=== PATIENT | male | born 1940 | race Caucasian/White ===

== ENCOUNTER 2018-10-16 10:10 | Inpatient (IN) | payer OTHER ==
--- NOTE | 2018-10-16 11:29 | RAD REPORT ---
EXAM DESCRIPTION: RAD - Chest Single View - 10/16/2018 11:24 am CLINICAL HISTORY: COUGH Chest pain. COMPARISON: Chest Pa And Lat (2 Views) dated 11/22/2017; Chest Pa And Lat (2 Views) dated 11/24/2016; CHEST PA AND LAT 2 VIEW dated 02/02/2013; CHEST PA AND LAT 2 VIEW dated 04/06/2011 FINDINGS: Portable technique limits examination quality. [place] pulmonary opacity is present in the left mid lung, probably representing a developing pneumoni a. The lungs are otherwise emphysematous. The heart is mildly enlarged in size. No displaced fracture s.
[2018-10-16] MEDS ORDERED: ALBUTEROL 2.5 MG/3 ML NEB SOL ONE (11:32)
[2018-10-16 11:40] LABS: Absolute Lymphocytes (CBC) 1.3 K/uL (0.7-4.9); Absolute Monocytes 1.4 K/uL (0.1-1.3); Absolute Neutrophil 9.1 K/uL (1.8-8.0); Basophils % 0.3 % (0-1.3); Eosinophils % 0.1 % (0-4.4); Hematocrit 43.9 % (39.6-49.0); MPV 9.4 fL (7.6-11.3); Monocytes % 11.6 % (3.3-12.3)
[2018-10-16] MEDS ORDERED: CEFTRIAXONE/SWI 1gm 1 GM/10 ML SYR ONE (12:08)
[2018-10-16 12:28] LABS: Albumin 3.2 g/dL (3.4-5.0); Bilirubin Direct 0.2 mg/dL (0-0.2); Magnesium 2.2 mg/dL (1.8-2.4); Potassium 4.4 mmol/L (3.5-5.1)
[2018-10-16 12:34] LABS: Troponin (Emerg Dept Use Only) 2.35 ng/mL (0.0-0.045)
[2018-10-16 12:44] LABS: Blood Morphology Comment NOT SEEN (NOT SEEN); Platelet Estimate ADEQ; Urine White Blood Cell Casts OK
--- NOTE | 2018-10-16 12:46 | EDPHYS ---
Physician Documentation [facility] Name: Ankit Powers Age: 77 yrs Sex: Male : 1940 Arrival Date: 10/16/2018 Time: 10:14 Bed 20 Private MD: Manuel Santiago ED Physician Gen Sanon HPI: 10/16 13:22 This 77 yrs old Male presents to ER via Ambulatory with complaints of Cough, gs Congestion. 13:22 The patient or guardian reports cough, described as moderate. Onset: The gs symptoms/episode began/occurred 2 day(s) ago, and became worse and became persistent. Severity of symptoms: At their worst the symptoms were severe, in the emergency department the symptoms have improved, mildly. Modifying factors: The symptoms are alleviated by nothing, the symptoms are aggravated by exertion. 13:35 Associated signs and symptoms: Pertinent positives: sob. The patient has experienced gs similar episodes in the past, a few times. The patient has not recently seen a physician. Historical: - Allergies: 10:29 No Known Allergies; ss - PSHx: 10:29 back Sx; hip replacement; ss - Immunization history:: Adult Immunizations up to date. - Social history:: Smoking status: Patient/guardian denies using tobacco, the patient reports quitting approximately .25 years ago. - Ebola Screening: : Patient denies exposure to infectious person Patient denies travel to an Ebola-affected area in the 21 days before illness onset. ROS: 13:35 All other systems are negative. gs Exam: 13:35 Head/Face: Normocephalic, atraumatic. Eyes: Pupils equal round and reactive to light, gs extra-ocular motions intact. Lids and lashes normal. Conjunctiva and sclera are non-icteric and not injected. Cornea within normal limits. Periorbital areas with no swelling, redness, or edema. ENT: Nares patent. No nasal discharge, no septal abnormalities noted. Tympanic membranes are normal and external auditory canals are clear. Oropharynx with no redness, swelling, or masses, exudates, or evidence of obstruction, uvula midline. Mucous membranes moist. Neck: Trachea midline, no thyromegaly or masses palpated, and no cervical lymphadenopathy. Supple, full range of motion without nuchal rigidity, or vertebral point tenderness. No Meningismus. Chest/axilla: Normal chest wall appearance and motion. Nontender with no deformity. No lesions are appreciated. 13:35 Abdomen/GI: Soft, non-tender, with normal bowel sounds. No distension or tympany. No guarding or rebound. No evidence of tenderness throughout. Back: No spinal tenderness. No costovertebral tenderness. Full range of motion. Skin: Warm, dry with normal turgor. Normal color with no rashes, no lesions, and no evidence of cellulitis. MS/ Extremity: Pulses equal, no cyanosis. Neurovascular intact. Full, normal range of motion. Neuro: Awake and alert, GCS 15, oriented to person, place, time, and situation. Cranial nerves II-XII grossly intact. Motor strength 5/5 in all extremities. Sensory grossly intact. Cerebellar exam normal. Normal gait. 13:35 Constitutional: The patient appears alert, awake, uncomfortable. 13:35 Cardiovascular: Rate: tachycardic, Rhythm: regular, Pulses: no pulse deficits are appreciated, Edema: 1+ edema to level of left foot and right foot. 13:35 ECG was reviewed by the Attending Physician. 13:35 Respiratory: Respirations: tachypnea, that is moderate, Breath sounds: rales, are located in both bases, decreased breath sounds, that are moderate, are heard in the left posterior lower lobe. Vital Signs: 10:29 BP 155 / 85; Pulse 110; Resp 23; Temp 99.5(TE); Pulse Ox 96% on R/A; Weight 97.52 kg; ss Pain 0/10; 10:54 BP 103 / 59; Pulse 111; Resp 22; Pulse Ox 100% on R/A; hj 13:26 BP 125 / 51; Pulse 118; Resp 24; Temp 98.1(TE); Pulse Ox 97% on R/A; hj 14:30 BP 124 / 58; Pulse 112; Resp 20; Pulse Ox 98% on R/A; hj 15:42 BP 103 / 59; Pulse 109; Resp 22; Pulse Ox 98% on R/A; hj MDM: 11:06 Patient medically screened. gs 13:35 Differential Diagnosis: Upper Respiratory Infection Pneumonia Other sepsis, mi. Data gs reviewed: vital signs, nurses notes, old medical records, lab test result(s), EKG, radiologic studies. Counseling: I had a detailed discussion with the patient and/or guardian regarding: the historical points, exam findings, and any diagnostic results supporting the discharge/admit diagnosis, the need for further work-up and treatment in the hospital. Physician consultation: Live Ruby MD and will see patient in inpatient room. 10/16 11:05 Order name: Basic Metabolic Panel 10/16 11:05 Order name: CBC with Diff 10/16 11:05 Order name: LFT's 10/16 11:05 Order name: Magnesium 10/16 11:05 Order name: NT PRO-BNP 10/16 11:05 Order name: PT-INR 10/16 11:05 Order name: Troponin (emerg Dept Use Only); Complete Time: 12:36 10/16 11:05 Order name: Flu; Complete Time: 11:53 10/16 11:05 Order name: Lactate; Complete Time: 12:59 10/16 11:05 Order name: Blood Culture* 10/16 11:05 Order name: Procalcitonin; Complete Time: 12:59 10/16 11:06 Order name: Basic Metabolic Panel; Complete Time: 12:36 EDMS 10/16 11:06 Order name: CBC with Automated Diff; Complete Time: 12:59 EDMS 10/16 11:06 Order name: Liver (Hepatic) Function; Complete Time: 12:36 EDMS 10/16 11:05 Order name: XRAY Chest (1 view); Complete Time: 11:42 10/16 11:06 Order name: Magnesium; Complete Time: 12:36 EDMS 10/16 11:06 Order name: NT PRO-BNP; Complete Time: 12:36 EDMS 10/16 12:29 Order name: ABG 10/16 12:44 Order name: CBC Smear Scan; Complete Time: 12:59 EDMS 10/16 13:24 Order name: Basic Metabolic Panel EDMS 10/16 13:24 Order name: Basic Metabolic Panel EDMS 10/16 13:24 Order name: CBC with Automated Diff EDMS 10/16 13:24 Order name: CBC with Automated Diff EDMS 10/16 13:24 Order name: NT PRO-BNP EDMS 10/16 13:24 Order name: NT PRO-BNP EDMS 10/16 13:24 Order name: Troponin I EDMS 10/16 13:24 Order name: Troponin I EDMS 10/16 13:24 Order name: Troponin I [facility] 10/16 15:32 Order name: Lactate Sepsis 2 HR Follow-up [facility] 10/16 11:05 Order name: EKG; Complete Time: 11:07 10/16 11:05 Order name: Cardiac monitoring; Complete Time: 11:17 10/16 11:05 Order name: EKG - Nurse/Tech; Complete Time: 11:17 10/16 11:05 Order name: IV Saline Lock; Complete Time: 11:51 10/16 11:05 Order name: Labs collected and sent; Complete Time: 11:51 10/16 11:05 Order name: O2 Per Protocol; Complete Time: 11:18 10/16 11:05 Order name: O2 Sat Monitoring; Complete Time: 11:18 10/16 11:46 Order name: Labs - recollect needed; Complete Time: 11:51 10/16 12:27 Order name: Labs - recollect needed; Complete Time: 13:02 10/16 13:24 Order name: Consistent Carb (ADA) 2000 [facility] EC:35 Rate is 108 beats/min. Rhythm is regular. VT interval is normal. QRS interval is gs prolonged. Clinical impression: NSR w/ Non-specific ST/T Changes. Interpreted by me. Administered Medications: 11:06 Drug: Albuterol 2.5 mg Route: Inhalation; hj 12:15 Follow up: Response: No adverse reaction hj 12:09 Drug: Rocephin 1 grams Route: IV; Rate: calculated rate; Site: left forearm; hj 12:15 Follow up: IV Status: Completed infusion; IV Intake: 10ml hj 12:38 Drug: Lasix 20 mg Route: IVP; Site: left forearm; hj 13:24 Follow up: Response: No adverse reaction hj 12:43 Drug: LevaQUIN 500 mg Volume: 100 ml; Route: IVPB; Infused Over: 60 mins; Site: left hj forearm; 13:23 Follow up: IV Status: Completed infusion; IV Intake: 100ml hj 13:02 Drug: NS 0.9% 1000 ml Route: IV; Rate: 1 bolus; Site: left forearm; hj 13:23 Follow up: IV Status: Infusion continued hj Disposition: 10/16/18 12:45 Hospitalization ordered by Manuel Santiago for Inpatient Admission. Preliminary diagnosis are Lobar pneumonia, unspecified organism, Severe sepsis, Heart failure, Chronic obstructive pulmonary disease with (acute) exacerbation. - Bed requested for Telemetry/MedSurg (Inpatient). - Status is Inpatient Admission. hj - Condition is Stable. - Problem is new. - Symptoms have improved. UTI on Admission? No Critical care time excluding procedures: 13:35 Critical care time: Bedside Care: 10 minutes, Consultation: 10 minutes, Family gs Intervention: 10 minutes. Total time: 30 minutes Signatures: Dispatcher [employer] EDMS Lelia Mcpherson Shelby, RN RN Darrion Chopra RN JANAK Malgorzata Miramontes RN RN df Starr, Gregory, MD MD gs Corrections: (The following items were deleted from the chart) 14:09 12:45 Hospitalization Ordered by Manuel Santiago MD for Inpatient Admission. Preliminary df diagnosis is Lobar pneumonia, unspecified organism; Severe sepsis; Heart failure; Chronic obstructive pulmonary disease with (acute) exacerbation. Bed requested for Telemetry/MedSurg (Inpatient). Status is Inpatient Admission. Condition is Stable. Problem is new. Symptoms have improved. UTI on Admission? No. gs 15:44 14:09 10/16/2018 12:45 Hospitalization Ordered by Manuel Santiago MD for Inpatient hj Admission. Preliminary diagnosis is Lobar pneumonia, unspecified organism; Severe sepsis; Heart failure; Chronic obstructive pulmonary disease with (acute) exacerbation. Bed requested for Telemetry/MedSurg (Inpatient). Status is Inpatient Admission. Condition is Stable. Problem is new. Symptoms have improved. UTI on Admission? No. df
--- NOTE | 2018-10-16 12:46 | ER ---
Nurse's Notes [facility] Name: Ankit Powers Age: 77 yrs Sex: Male : 1940 Arrival Date: 10/16/2018 Time: 10:14 Bed 20 Private MD: Manuel Santiago Diagnosis: Lobar pneumonia, unspecified organism;Severe sepsis;Heart failure;Chronic obstructive pulmonary disease with (acute) exacerbation Presentation: 10/16 10:27 Presenting complaint: Patient states: cough and chest congestion x 3 days. Denies ss fever. Transition of care: patient was not received from another setting of care. Onset of symptoms was October 14, 2018. Risk Assessment: Do you want to hurt yourself or someone else? Patient reports no desire to harm self or others. Initial Sepsis Screen: Does the patient meet any 2 criteria? RR > 20 per min. HR > 90 bpm. Does the patient have a suspected source of infection? Yes: Productive cough/pneumonia. Care prior to arrival: None. 10:27 Method Of Arrival: Ambulatory ss 10:27 Acuity: DARRIUS 2 ss Triage Assessment: 10:33 General: Appears in no apparent distress. uncomfortable, Behavior is calm, cooperative, hj appropriate for age. Pain: Denies pain. Respiratory: Historical: - Allergies: 10:29 No Known Allergies; ss - PSHx: 10:29 back Sx; hip replacement; ss - Immunization history:: Adult Immunizations up to date. - Social history:: Smoking status: Patient/guardian denies using tobacco, the patient reports quitting approximately .25 years ago. - Ebola Screening: : Patient denies exposure to infectious person Patient denies travel to an Ebola-affected area in the 21 days before illness onset. Screenin:32 Abuse screen: Denies threats or abuse. Denies injuries from another. Nutritional hj screening: No deficits noted. Tuberculosis screening: No symptoms or risk factors identified. Fall Risk None identified. Assessment: 10:33 Cardiovascular: Capillary refill < 3 seconds. hj 10:34 General: Appears in no apparent distress. uncomfortable, Behavior is calm, cooperative, hj appropriate for age. Pain: Denies pain. Neuro: Level of Consciousness is awake, alert, obeys commands, Oriented to person, place, time, situation, Appropriate for age. Respiratory: Reports cough that is Airway is patent Respiratory effort is even, unlabored, Respiratory pattern is regular, symmetrical, GI: No signs and/or symptoms were reported involving the gastrointestinal system. : No signs and/or symptoms were reported regarding the genitourinary system. EENT: No signs and/or symptoms were reported regarding the EENT system. Derm: No signs and/or symptoms reported regarding the dermatologic system. Musculoskeletal: No signs and/or symptoms reported regarding the musculoskeletal system. 11:30 Reassessment: Patient and/or family updated on plan of care and expected duration. Pain hj level reassessed. Patient is alert, oriented x 3, equal unlabored respirations, skin warm/dry/pink. awaiting results and POC; in room;. 12:22 Reassessment: Patient and/or family updated on plan of care and expected duration. Pain hj level reassessed. Patient is alert, oriented x 3, equal unlabored respirations, skin warm/dry/pink. awaiting POC; Patient states feeling better. 13:26 Reassessment: BNP elevated at 4k, MD ordered NS 1L bolus and lasix 20 mg IV;. hj 14:30 Reassessment: Patient and/or family updated on plan of care and expected duration. Pain hj level reassessed. Patient is alert, oriented x 3, equal unlabored respirations, skin warm/dry/pink. pt monitored;. 15:42 Reassessment: Patient and/or family updated on plan of care and expected duration. Pain hj level reassessed. Patient is alert, oriented x 3, equal unlabored respirations, skin warm/dry/pink. pt wheeled to room 431;. Vital Signs: 10:29 BP 155 / 85; Pulse 110; Resp 23; Temp 99.5(TE); Pulse Ox 96% on R/A; Weight 97.52 kg; ss Pain 0/10; 10:54 BP 103 / 59; Pulse 111; Resp 22; Pulse Ox 100% on R/A; hj 13:26 BP 125 / 51; Pulse 118; Resp 24; Temp 98.1(TE); Pulse Ox 97% on R/A; hj 14:30 BP 124 / 58; Pulse 112; Resp 20; Pulse Ox 98% on R/A; hj 15:42 BP 103 / 59; Pulse 109; Resp 22; Pulse Ox 98% on R/A; hj ED Course: 10:14 Patient arrived in ED. mr 10:14 Manuel Santiago MD is Private Physician. mr 10:27 Darrion Chopra RN is Primary Nurse. hj 10:28 Triage completed. ss 10:29 Arm band placed on right wrist. ss 10:31 Gen Sanon MD is Attending Physician. gs 10:34 Patient has correct armband on for positive identification. Placed in gown. Bed in low hj position. Call light in reach. Side rails up X 1. Adult w/ patient. 11:23 X-ray completed. Portable x-ray completed in exam room. Patient tolerated procedure jr1 well. 11:24 XRAY Chest (1 view) In Process Unspecified. EDMS 11:57 Inserted saline lock: 22 gauge in left forearm, using aseptic technique. Blood mb4 collected. 12:41 Manuel Santiago MD is Hospitalizing Provider. gs 15:40 No provider procedures requiring assistance completed. Patient admitted, IV remains in hj place. intact. Administered Medications: 11:06 Drug: Albuterol 2.5 mg Route: Inhalation; hj 12:15 Follow up: Response: No adverse reaction hj 12:09 Drug: Rocephin 1 grams Route: IV; Rate: calculated rate; Site: left forearm; hj 12:15 Follow up: IV Status: Completed infusion; IV Intake: 10ml hj 12:38 Drug: Lasix 20 mg Route: IVP; Site: left forearm; hj 13:24 Follow up: Response: No adverse reaction hj 12:43 Drug: LevaQUIN 500 mg Volume: 100 ml; Route: IVPB; Infused Over: 60 mins; Site: left hj forearm; 13:23 Follow up: IV Status: Completed infusion; IV Intake: 100ml hj 13:02 Drug: NS 0.9% 1000 ml Route: IV; Rate: 1 bolus; Site: left forearm; hj 13:23 Follow up: IV Status: Infusion continued hj Intake: 12:15 IV: 10ml; Total: 10ml. hj 13:23 IV: 100ml; Total: 110ml. hj Outcome: 12:45 Decision to Hospitalize by Provider. gs 15:41 Admitted to Tele accompanied by nurse, family with patient, via wheelchair, room 431, hj with chart, Report called to JANAK Duncan 15:41 Condition: stable 15:41 Instructed on the need for admit, Demonstrated understanding of instructions. 15:44 Patient left the ED. jillian Signatures: Dispatcher [employer] EDMS Dorothea Andrews, Funmilayo jr1 Lisa Johnson RN RN ss Joaquin, Henry, RN RN hj Starr, Gregory, MD MD gs Baxter, Mackenzie mb4 Corrections: (The following items were deleted from the chart) 10:55 10:54 BP 103 / 59; Pulse 111bpm; Resp 18bpm; Pulse Ox 100% RA; jillian walsh
[2018-10-16] MEDS ORDERED: FUROSEMIDE 20 MG/ 2ML VIAL ONE (13:09)
[2018-10-16] MEDS ORDERED: Levofloxacin500mg IV 500 MG/100 ML BAG IV ONE (13:09)
[2018-10-16] MEDS ORDERED: NA CHLORIDE 0.9% 1,000 ML ONE (13:16)
[2018-10-16] MEDS ORDERED: IPRATROPIUM BROM 0.5MG/2.5ML NEB PRN (13:18)
[2018-10-16] MEDS ORDERED: ALBUTEROL 2.5 MG/3 ML NEB SOL NEB PRN (13:18)
[2018-10-16] MEDS ORDERED: ACETAMINOPHEN 500 MG TAB PO PRN (13:18)
[2018-10-16 14:23] LABS: Protime INR 1.16
--- NOTE | 2018-10-16 15:19 | EKG ---
Test Date: 2018-10-16 Test Time: 11:13:53 Epic Ambulatory Analysts: SARAH MEASUREMENT RESULTS: Intervals: Rate: 108 [place]: 162 QRSD: 116 QT: 374 QTc: 501 [place]: P: 60 [place]: 162 QRS: 34 T: 85 INTERPRETIVE STATEMENTS: Sinus tachycardia Possible Left atrial enlargement Incomplete right bundle branch block Anterior infarct, age undetermined Abnormal ECG Compared to ECG 07/22/2014 15:02:54 Myocardial infarct finding now present Sinus rhythm no longer present Electronically Signed On 10-16-18 15:19:05 CDT by Live Ruby
[2018-10-16 15:50] VITALS: BMI 29.5
--- NOTE | 2018-10-16 16:31 | ECHO ---
HEIGHT: 5 ft 11 in WEIGHT: 212 lb 0 oz DATE OF STUDY: 10/16/[address]: Live Ruby MD 2-DIMENSIONAL: YES M.MODE: YES DOPPLER: YES COLOR FLOW: YES TDS: PORTABLE: DEFINITY: BUBBLE STUDY: DIAGNOSIS: CHF CARDIAC HISTORY: CATHERIZATION: NO SURGERY: NO PROSTHETIC VALVE: NO PACEMAKER: NO MEASUREMENTS (cm) DIASTOLIC (NORMALS) SYSTOLIC (NORMALS) IVSd 1.3 (0.6-1.2) LA Diam 3.8 (1.9-4.0) LVEF 41% LVIDd 4.7 (3.5-5.7) LVIDs 3.7 (2.0-3.5) %FS 20% LVPWd 1.4 (0.6-1.2) Ao Diam 3.0 (2.0-3.7) 2 DIMENSIONAL ASSESSMENT: RIGHT ATRIUM: NORMAL LEFT ATRIUM: DILATED RIGHT VENTRICLE: NORMAL LEFT VENTRICLE: NORMAL TRICUSPID VALVE: NORMAL MITRAL VALVE: NORMAL PULMONIC VALVE: NORMAL AORTIC VALVE: 3 LEAFLET, SCLEROSIS PERICARDIAL EFFUSION: NONE AORTIC ROOT: NORMAL LEFT VENTRICULAR WALL MOTION: ANTERIOR HYPOKINESIS, APEX NOT SEEN. DOPPLER/COLOR FLOW: MILD MITRAL REGURGITATION. NO AORTIC STENOSIS OR AORTIC REGURGITATION. COMMENTS: DEPRESSED LEFT VENTRICULAR EJECTION FRACTION WITH WALL MOTION ABNORMALITY. DILATED LEFT ATRIUM. AORTIC SCLEROSIS WITH NO AORTIC STENOSIS OR AORTIC REGURGITATION. MILD MITRAL REGURGITATION. TECHNOLOGIST: RICK FULTON
--- NOTE | 2018-10-16 16:46 | CON ---
History Of Present Illness: Mr. Powers is 77 years old. For a week or so, he has been coughing a lo t, developed fevers and chills. Little bit of hemoptysis. Came to the emergency room where he has e vidence of myocardial infarction, indeterminate age, old IA, abnormal troponin, abnormal white blood cell count, abnormal chest x-ray consistent with pneumonia. The patient has no history of myocardial infarction or stroke. He has had some pleuritic chest pain over the years. He was a cigarette smok er until a month ago when he quit. His outpatient medications have been not listed at this point. Katharina gunter has a history of a hip joint replacement and history of obstructive lung disease and a history of b ack surgery. He has no allergies. Physical Examination: General: He appears to be his stated age. He is alert, oriented, pleasant. Lungs: Reveal what may be a friction rub on the right. It may be just intense wheezing. Heart: Within normal limits. Abdomen: Obese. No organomegaly, mass, tenderness, or bruit. Extremities: Diminished distal pulses palpably. Palpable trace edema, more on the left than the rig ht. Imaging: His electrocardiogram shows sinus rhythm, left atrial enlargement, incomplete right bundle and anterior infarct is new compared to an EKG 2015. Plan: The patient should have an evaluation of his heart with an echo. We should probably do a hear t catheterization after the pneumonia has resolved. We will strongly recommend we get Dr. Alejo joseph be involved in his care to help treat his pneumonia and COPD. Thank you very much for your kind referral of Mr. Powers. I will follow him with you. GARY/MUSTAPHA Voice ID: [id number] Report ID: [id number]
[2018-10-16 18:10] LABS: Arterial Blood Carboxyhemoglob 1.8 % (0-1.5); Blood Gas Oxyhemoglobin 93.2 % (94-97); Blood O2 Saturation 95.4 % (92-98.5)
[2018-10-16 21:08] LABS: Urine Appearance CLEAR; Urine Bilirubin NEGATIVE (NEG); Urine Blood NEGATIVE (NEG); Urine Color DK YELLOW; Urine Glucose NEGATIVE (NEG); Urine Protein 1+ (NEG); Urine pH 5.5 (5.0-7.0)
[2018-10-16] MEDS: CEFTRIAXONE/SWI 1gm 1 GM/10 ML SYR IV SCH (21:11)
[2018-10-16 21:27] LABS: Urine Bacteria NONE SEEN /HPF (NONE SEEN); Urine RBC <5 /HPF (NONE SEEN)
[2018-10-16 21:28] LABS: Urine Culture Reflex Order NOT NEEDED
[2018-10-17 04:53] LABS: Hematocrit 39.5 % (39.6-49.0); RBC Red Blood Cell Count 4.24 M/uL (4.33-5.43)
[2018-10-17 04:54] LABS: Absolute Lymphocytes (CBC) 2.2 K/uL (0.7-4.9); Absolute Monocytes 1.4 K/uL (0.1-1.3); Absolute Neutrophil 7.1 K/uL (1.8-8.0); Basophils % 0.8 % (0-1.3); Eosinophils % 0.8 % (0-4.4); Lymphocytes % 20.2 % (15.3-44.8); MPV 9.4 fL (7.6-11.3); Monocytes % 12.9 % (3.3-12.3)
[2018-10-17 05:08] LABS: Potassium 3.8 mmol/L (3.5-5.1)
[2018-10-17] MEDS: CEFTRIAXONE/SWI 1gm 1 GM/10 ML SYR IV SCH (09:20)
--- NOTE | 2018-10-17 11:21 | P.CNS ---
Date of Consult: 10/17/18 Reason for Consult: Possible pneumonia or COPD Chief Complaint: Shortness of breath chest congestion History of Present Illness: Patient is 77 years of age who quit smoking recently developed worsening cough congestion shortness of breath for the past 3 days he has a history of intermittent congestion no prior diagnosis of COPD denies any chest pain or any cardiac history no fever or chills Allergies No Known Drug Allergies Allergy (Verified 07/22/14 14:56) Unknown Home Medications: Prednisone [Sterapred Ds] 10 mg PO BID #14 tab 10/17/18 - Past Medical/Surgical History Diabetic: No -: Back Surgery -: Right achilles Tendon surgery -: Cholecystectomy - Social History Smoking Status: Current every day smoker Alcohol use: No CD- Drugs: No Caffeine use: Yes Place of Residence: Home Review of Systems 10-point ROS is otherwise unremarkable General: Weakness Respiratory: Cough, Shortness of Breath Physical Examination Temp Pulse Resp BP Pulse Ox 97.6 F 109 H 18 142/87 H 97 10/17/18 08:00 10/17/18 08:00 10/17/18 08:00 10/17/18 08:00 10/17/18 08:00 General: Alert, In no apparent distress, Oriented x3 Neck: Supple Respiratory: Expiratory wheezes Cardiovascular: No edema, Normal pulses, Regular rate/rhythm Gastrointestinal: Normal bowel sounds, Soft and benign Laboratory Data (last 24 hrs) 10/16/18 11:52: Sodium 138, Potassium 4.4, BUN 15, Creatinine 1.17, Glucose 136 H, Magnesium 2.2, Total Bilirubin 1.0, AST 17, ALT 25, Alkaline Phosphatase 91 10/16/18 11:20: WBC 11.8 H, Hgb 15.2, Hct 43.9, Plt Count 232 - Problems (1) Shortness of breath Current Visit: Yes Status: Acute Plan: Patient is 77 years of age admitted with 3 day history of cough congestion he just quit smoking recently former 1 pack a day since smoker as strongly suspect that he has underlying COPD patient also has an infiltrate in the left mid-zone no active evidence of sepsis his white count is normal blood gases satisfactory patient's troponin elevated BNP elevated patient's left ventricular ejection fraction is diminished continue with the antibiotics patient to need a follow up with me in 2 weeks and repeat x-ray also need a cardiac workup seen by solutions consultant probably has underlying coronary artery (2) Abnormal chest x-ray Current Visit: Yes Status: Acute Plan: Patient has a left the mid-zone opacity will need a follow up chest x-ray in 2 weeks
[2018-10-17] MEDS: DULERA 200/5 (MOMETASONE/FORMOTEROL) INHALER IH SCH ×2 (12:45→20:18)
[2018-10-17] MEDS: predniSONE 20 MG TAB PO SCH ×2 (12:46→20:17)
[2018-10-17] MEDS ORDERED: Levofloxacin500mg IV 500 MG/100 ML BAG IV SCH (13:00)
[2018-10-17] MEDS: IPRATROPIUM BROM 0.5MG/2.5ML NEB SCH ×2 (14:50→20:00)
[2018-10-17] MEDS: ALBUTEROL 2.5 MG/3 ML NEB SOL NEB SCH (14:50)
[2018-10-17] MEDS ORDERED: IPRATROPIUM BROM 0.5MG/2.5ML NEB SCH (15:00)
[2018-10-17] MEDS ORDERED: ALBUTEROL 2.5 MG/3 ML NEB SOL NEB SCH (16:00)
--- NOTE | 2018-10-17 19:05 | PN ---
Date of Progress Note: 10/17/2018 Mr. Powers is 77. He is a patient of Dr. Santiago who had come in with pneumonia, sepsis and elevated troponin. Today, he is feeling much better. No shortness of breath or chest pain. Telemetry showe d normal sinus rhythm. An echocardiogram is pending. Pulmonary consultation is pending. Mr. Powers has COPD. He has a pneumonia that is still on IV antibiotics for, which he will get for t he next 24-48 hours. After which, Mr. Powers can probably go home. We will let him recover from the pneumonia for the next 2-4 weeks. We will see him in the office and we will get him set up for a he art catheterization later. JANESSA/MUSTAPHA Voice ID: [id number] Report ID: [id number]
--- NOTE | 2018-10-17 23:03 | HP ---
Date of Admission: 10/16/2018 Chief Complaint: Chills, fever, cough. History Of Present Illness: The patient presented to the emergency room with the above outlined symp toms. He stated he felt like he had a cold for a couple of days and then it progressed into a signif icant cough with significant shortness of breath. He then developed chills and fever and came to the emergency room. Past History: The patient has a long history of acute episodes of bronchitis and exacerbation of his COPD, not sure whether he has been diagnosed with pneumonia in the past. Other than this, he has be en in relatively good health. He has no cardiac problems. He had no home medications. 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 Family History: Noncontributory. Social History: The patient has long history of smoking. He states he quit recently. No alcohol in take. Physical Examination: General: The patient is a slightly uncomfortable, elderly male with stable signs, but persistent dry cough. Head and Neck: Normocephalic. Pupils equal, reactive to light and accommodation. Fundi negative. Trachea midline. Thyroid not palpable. ENT: Negative. Chest: High-pitched rhonchi bilaterally. Occasional bilateral rales. Adequate air entry and moveme nt. Cardiovascular: PMI in midclavicular line. Heart sounds normal. Peripheral pulses present and equa l bilaterally. Abdomen: No organomegaly. Bowel sounds present. Extremities: Good tone and movement bilaterally. Reflexes physiologic. Rectal: Deferred. Impression: Acute exacerbation of COPD, pneumonia. Plan: The patient will be admitted due to presence of upper lobe pneumonia on the chest x-ray. He w ill be restarted on IV antibiotics, inhalation therapy. Since he had an elevated troponin, cardiolog y will also be consulted as the EKG does report an infarction pattern. Timing of which is not certai n. However, the patient does have an elevated enzymes, which is probable combination of cardiologica l and pulmonological problems. HR/MODL Voice ID: [id number]
--- NOTE | 2018-10-17 23:05 | PN ---
Date of Progress Note: 10/17/2018 The patient states he feels somewhat better today, although he is still having a nonproductive cough. He has not had any more fever or chills. His white blood count has improved somewhat. He was seen by Pulmonology with the addition of steroids to regimen, seen by Cardiology on couple occasions and felt that probably warranted a catheterization at a later date. We will repeat chest x-ray in the mo rning to decide on progression as far as utilizing oral medications, so he could be discharged. HR/MODL Voice ID: [id number] Report ID: [id number]
[2018-10-18] MEDS: IPRATROPIUM BROM 0.5MG/2.5ML NEB SCH ×6 (03:25→20:00)
--- NOTE | 2018-10-18 07:58 | RAD REPORT ---
EXAM DESCRIPTION: Valeri Pa And Lat (2 Views)10/18/2018 6:45 am CLINICAL HISTORY: Cough COMPARISON: October 16, 2018 FINDINGS: Lingular opacity has mildly to moderately resolved. Mild right basilar lung opacity is un changed. Additional bilateral interstitial opacities appear chronic. Lungs are hyperaerated. Heart is borderline enlarged IMPRESSION: Mild to moderate improvement in the lingular pneumonia. Minimal right basilar pneumonia unchanged
[2018-10-18] MEDS: ALBUTEROL 2.5 MG/3 ML NEB SOL NEB SCH ×3 (08:20→16:35)
[2018-10-18] MEDS: predniSONE 20 MG TAB PO SCH ×2 (08:26→20:46)
[2018-10-18] MEDS: levoFLOXacin 500 MG TAB PO SCH (08:26)
[2018-10-18] MEDS: ENOXAPARIN 30 MG/0.3 ML SQ SCH (08:27)
[2018-10-18] MEDS: DULERA 200/5 (MOMETASONE/FORMOTEROL) INHALER IH SCH ×2 (08:27→20:47)
--- NOTE | 2018-10-18 12:13 | PN ---
Mr. Powers is improving a lot. We suspect he has had an anterior wall IL probably a day or 2 before he actually came into the hospital with pneumonia. At this point, I would recommend let him recover from his pneumonia for a few weeks and then do a cardiac cath. We can let him go home in a few days. He is otherwise ready to be admitted for an outpatient heart catheterization. MITA Voice ID: [id number] Report ID: [id number]
[2018-10-18] MEDS ORDERED: CEFTRIAXONE/SWI 1gm 1 GM/10 ML SYR IVP ONE (18:00)
--- NOTE | 2018-10-18 21:58 | PN ---
Date of Progress Note: 10/18/2018 The patient states he feels somewhat better. He is still slightly dyspneic with any exertion and sti ll has a nonproductive cough. Chest x-ray showed significant improvement. I feel this was probably secondary to the combination of antibiotics, which were given, Levaquin and Rocephin. In view of the underlying cardiac problem and the desire to do a catheterization, we will reinstitute Rocephin for 2 doses, 1 tonight and 1 in the morning and should be able to be discharged in the a.m. to continue o n outpatient antibiotics. Of note, the Rocephin has been significant benefit to him. He has been tr eated for bronchial infections as an outpatient. He should be continued on his prednisone at the andree e of discharge as well and to follow up with me in [address] Dhillon in 2 weeks. He was seen b y the hospitalist in my absence, has no chest pain to speak of and I think the cardiac status at this time is stable. HR/MODL Voice ID: [id number] Report ID: [id number]
[2018-10-19] MEDS: IPRATROPIUM BROM 0.5MG/2.5ML NEB SCH ×6 (04:00→19:50)
[2018-10-19] MEDS: ALBUTEROL 2.5 MG/3 ML NEB SOL NEB SCH ×4 (08:00→19:50)
[2018-10-19] MEDS: levoFLOXacin 500 MG TAB PO SCH (09:03)
[2018-10-19] MEDS: predniSONE 20 MG TAB PO SCH ×2 (09:03→20:35)
[2018-10-19] MEDS: DULERA 200/5 (MOMETASONE/FORMOTEROL) INHALER IH SCH ×2 (09:03→20:35)
[2018-10-19] MEDS: ENOXAPARIN 30 MG/0.3 ML SQ SCH (09:04)
[2018-10-19] MEDS: CEFTRIAXONE/SWI 1gm 1 GM/10 ML SYR IVP SCH (09:04)
--- NOTE | 2018-10-19 14:32 | P.PN ---
Subjective Date of Service: 10/19/18 Chief Complaint: Shortness of breath chest congestion Patient seen and examined at bedside with RN. Chart reviewed. Case discussed with pulmonology. Patient refused last couple of his nebulizing treatment. Currently has audible wheezing. Stated that the nebulizing treatment makes his mouth dry and thus why he refused both dictated extensively on the need for the treatment. States that he will go ahead and take the treatment now. Denies having any chest pain nausea vomiting fever chills or any other associated symptoms Review of Systems 10-point ROS is otherwise unremarkable Physical Examination - Vital Signs Temperature: 97.5 F Blood Pressure: 151/71 Pulse: 99 Respirations: 20 Pulse Ox (%): 96 - Physical Exam General: Alert, Mild distress HEENT: Atraumatic, PERRLA, EOMI Neck: Supple, JVD not distended Respiratory: Normal air movement, Expiratory wheezes, Inspiratory wheezes Cardiovascular: Regular rate/rhythm, Normal S1 S2 Gastrointestinal: Normal bowel sounds, No tenderness Musculoskeletal: No tenderness Integumentary: No rashes Neurological: Normal speech, Normal tone, Normal affect Lymphatics: No axilla or inguinal lymphadenopathy - Studies Medications List Reviewed: Yes Assessment And Plan - Current Problems (Diagnosis) (1) COPD exacerbation Current Visit: Yes Status: Acute Plan: COPD exacerbation most likely secondary to pneumonia -duo nebs, steroids, oxygen. Patient at this time. Will wean off of oxygen as tolerated. -duo nebs changed q.6 hr (2) Pneumonia Current Visit: Yes Status: Acute Plan: Patient with possible pneumonia on the chest x-ray. -Rocephin x2 completed today. -will monitor closely. Will need outpatient p.o. antibiotics. Will discharge on doxycycline Qualifiers: Pneumonia type: due to unspecified organism Laterality: unspecified laterality Lung location: unspecified part of lung Qualified Code(s): J18.9 - Pneumonia, unspecified organism (3) NSTEMI (non-ST elevation myocardial infarction) Current Visit: Yes Status: Acute Plan: Patient with elevated troponin. Nonspecific EKG changes -cardiology consulted. Appreciated recommendations at this time -outpatient cardiac catheterization once patient is treated for his acute illness. - Plan Pending clinical improvement today. Will monitor for next 24 hr and possible discharge home after that. Discharge Plan: Home Plan to discharge in: 48 Hours - Code Status/Comfort Care Code Status Assessed: Yes Critical Care: No
[2018-10-19 23:04] VITALS: O2SAT 94
[2018-10-20] MEDS: IPRATROPIUM BROM 0.5MG/2.5ML NEB SCH ×2 (02:00→07:51)
[2018-10-20] MEDS: ALBUTEROL 2.5 MG/3 ML NEB SOL NEB SCH (07:51)
[2018-10-20 08:11] VITALS: BP 149/64; TEMP 97.9
[2018-10-20] MEDS: ENOXAPARIN 30 MG/0.3 ML SQ SCH (08:11)
[2018-10-20] MEDS: predniSONE 20 MG TAB PO SCH (08:11)
[2018-10-20] MEDS: levoFLOXacin 500 MG TAB PO SCH (08:11)
[2018-10-20] MEDS: DULERA 200/5 (MOMETASONE/FORMOTEROL) INHALER IH SCH (08:12)
[2018-10-20] MEDS: CEFTRIAXONE/SWI 1gm 1 GM/10 ML SYR IVP SCH (08:12)
--- NOTE | 2018-10-20 12:49 | P.DS ---
Admission Date: 10/16/18 Discharge Date: 10/20/18 Disposition: ROUTINE DISCHARGE Discharge Condition: FAIR Reason for Admission: Shortness of breath chest congestion Consultations: Pulmonology - Problems (1) COPD exacerbation Status: Acute (2) Pneumonia Status: Acute Qualifiers: Pneumonia type: due to unspecified organism Laterality: unspecified laterality Lung location: unspecified part of lung Qualified Code(s): J18.9 - Pneumonia, unspecified organism (3) NSTEMI (non-ST elevation myocardial infarction) Status: Acute Brief History of Present Illness: This is a 77-year-old male with significant past medical history who was admitted to the hospital for non ST elevated NH along with pneumonia. Please refer to the HPI for further history of history of present illness Hospital Course: Overall during the hospital stay patient remained stable Patient was initially admitted to the hospital for non ST elevated NH with troponin x2 elevated. Cardiology was consulted. Cardiology recommended that patient be treated for his acute illness which is pneumonia before they could pursuing cardiac workup. Patient progressively was kept on ACLS medications here in the hospital. Tele pain did resolve while here in the hospital as well. No other acute events were noted while patient was here in the hospital. Patient was also found to have a COPD exacerbation secondary to pneumonia while here in the hospital. Patient was started on duo nebs, steroids, antibiotics here in the hospital. Pulmonology was consulted who recommended the patient has antibiotics be discontinued and switched over to oral and patient can be discharged home in 24 hr on oral antibiotics steroids and inhalers. Patient had marked improvement in her symptoms while here in the hospital. Was able to be weaned off of oxygen while here is well. At that time patient was discharged home under stable condition was asked to follow with PCP along with pulmonology in about 1-2 days post discharge. Patient was given a prescription for prednisone along with Dulera at home. Patient was also given a prescription for azithromycin for his pneumonia. Patient and at bedside both in agreement of the plan of care. Vital Signs/Physical Exam: Temp Pulse Resp BP Pulse Ox 97.9 F 76 18 149/64 H 94 10/20/18 08:00 10/20/18 08:00 10/20/18 08:00 10/20/18 08:00 10/20/18 08:00 General: Alert, In no apparent distress HEENT: Atraumatic, PERRLA, EOMI Neck: Supple, JVD not distended Respiratory: Clear to auscultation bilaterally, Normal air movement Cardiovascular: Regular rate/rhythm, Normal S1 S2 Gastrointestinal: Normal bowel sounds, No tenderness Musculoskeletal: No tenderness Integumentary: No rashes Neurological: Normal speech, Normal tone, Normal affect Lymphatics: No axilla or inguinal lymphadenopathy Laboratory Data at Discharge: WBC 10.8 K/uL (4.3-10.9) 10/17/18 04:17 Hgb 13.5 g/dL (13.6-17.9) L 10/17/18 04:17 Hct 39.5 % (39.6-49.0) L 10/17/18 04:17 Plt Count 244 K/uL (152-406) 10/17/18 04:17 PT 13.6 SECONDS (9.5-12.5) H 10/16/18 13:24 INR 1.16 10/16/18 13:24 Sodium 140 mmol/L (136-145) 10/17/18 04:17 Potassium 3.8 mmol/L (3.5-5.1) 10/17/18 04:17 BUN 16 mg/dL (7-18) 10/17/18 04:17 Creatinine 1.10 mg/dL (0.55-1.3) 10/17/18 04:17 Glucose 127 mg/dL (74-106) H 10/17/18 04:17 Magnesium 2.2 mg/dL (1.8-2.4) 10/16/18 11:52 Total Bilirubin 1.0 mg/dL (0.2-1.0) 10/16/18 11:52 AST 17 U/L (15-37) 10/16/18 11:52 ALT 25 U/L (12-78) 10/16/18 11:52 Alkaline Phosphatase 91 U/L (45-117) 10/16/18 11:52 Troponin I 2.74 ng/mL (0.0-0.045) H* 10/16/18 20:23 Home Medications: Prednisone [Sterapred Ds] 10 mg PO BID #14 tab 10/17/18 Azithromycin 500 mg PO DAILY #7 tablet 10/20/18 New Medications: Azithromycin 500 mg PO DAILY #7 tablet Prednisone [Sterapred Ds] 10 mg PO BID #14 tab Patient Discharge Instructions: Please give the patient his hospital Dulera and take 2 puffs twice a day and fax the prescription for prednisone Diet: Regular Activity: Ad aleksandra Followup: Emile Dhillon MD [ACTIVE - CAN ADMIT] - (call to schedule appointment ) Manuel Santiago MD [Primary Care Provider] - (call to schedule appointment)
== END 2018-10-20 11:38 | disposition home or self-care (01) | DRG 193 ==
LOC: ER 10:10 → ERHOLD 13:18 → 4TH 15:03
PROVIDERS: ADMIT Family Medicine; ATTEND Family Medicine
DX: J18.9 Pneumonia, unspecified organism (principal); I21.4 Non-ST elevation (NSTEMI) myocardial infarction; I50.21 Acute systolic (congestive) heart failure; J44.0 Chronic obstructive pulmonary disease with (acute) lower respiratory infection; J44.1 Chronic obstructive pulmonary disease with (acute) exacerbation; Z87.891 Personal history of nicotine dependence
CPT/HCPCS: 36415; 71045; 71046; 80048; 80076; 81001; 82805; 83605; 83735; 83880; 84145; 84484; 85025; 85610; 87040; 87070; 87205; 87804; 93005; 93306; 94640; 94760; 96365; 96375; 99285; J0696; J1650; J1940; J7030; J7512; J7606

== ENCOUNTER 2018-11-28 07:17 | Day surgery (SDC) | payer OTHER ==
[2018-11-24 11:16] LABS: Absolute Lymphocytes (CBC) 2.2 K/uL (0.7-4.9); Basophils % 0.8 % (0-1.3); Eosinophils % 2.6 % (0-4.4); Hematocrit 41.5 % (39.6-49.0); Lymphocytes % 28.4 % (15.3-44.8); MPV 8.7 fL (7.6-11.3); Monocytes % 8.3 % (3.3-12.3); RBC Red Blood Cell Count 4.47 M/uL (4.33-5.43)
[2018-11-24 11:22] LABS: Protime INR 0.99
[2018-11-24 11:39] LABS: Potassium 4.2 mmol/L (3.5-5.1)
--- NOTE | 2018-11-24 14:01 | EKG ---
Test Date: 2018-11-24 Test Time: 10:46:36 Environmental Solutions Engineer: GAMAL/ MEASUREMENT RESULTS: Intervals: Rate: 93 ME: 168 QRSD: 114 QT: 392 QTc: 487 [place]: P: 56 ME: 168 QRS: 13 T: 91 INTERPRETIVE STATEMENTS: Sinus rhythm with sinus arrhythmia with occasional premature ventricular complexes Possible Left atrial enlargement Incomplete right bundle branch block Anteroseptal infarct, age undetermined Abnormal ECG Compared to ECG 10/16/2018 11:13:53 Ventricular premature complex(es) now present Sinus tachycardia no longer present Myocardial infarct finding still present Electronically Signed On 11-24-18 14:01:12 CDT by Live Ruby
[2018-11-28] MEDS ORDERED: NA CHLORIDE 0.9% 500 ML ONE (07:59)
[2018-11-28] MEDS ORDERED: HEPA 1000U/500MLS 1,000 UNIT/500 ML BAG IV ONE (08:42)
[2018-11-28] MEDS ORDERED: MIDAZOLAM HCL 2 MG/2 ML INJ ONE ×2 (08:43→09:30)
[2018-11-28] MEDS ORDERED: NA CHLORIDE 0.9% 0 ML ONE (08:43)
[2018-11-28] MEDS ORDERED: ATROPINE SULF 1 MG/10 ML SYR IV ONE (08:43)
[2018-11-28] MEDS ORDERED: FENTANYL CITR 100 MCG/2 ML ONE ×3 (08:43→12:03)
[2018-11-28] MEDS ORDERED: METOPROLOL TARTRATE 5 MG/5 ML INJ IV ONE (09:03)
[2018-11-28] MEDS ORDERED: cloNIDine HCl 0.1 MG TAB ONE (09:59)
[2018-11-28] MEDS ORDERED: FENTANYL CITR 100 MCG/2 ML IV PRN (11:30)
[2018-11-28 11:45] VITALS: BP 160/53; TEMP 97.4; O2SAT 95
--- NOTE | 2018-11-28 15:03 | OP ---
Surgeon: Quentin Valenzuela MD Export Administrator: Rianna Sexton. Admitted as an outpatient to the seed laboratory assistant today on 11/28/2018 for left heart catheterization and isra ctive coronary arteriogram. Indication: Non-ST elevation myocardial infarction. Procedure In Detail: The patient was prepped and draped in the routine sterile fashion, was given 6 mg of Versed and 100 of fentanyl for sedation, mostly because he could not lay on his back flat becau se of back pain. A 6-Burmese sheath introduced in the right common femoral artery. Angiogram there w as normal. [employer] was used to close the case. Danyelle catheters 6-Burmese were used to do the ang iography. He was found to have 70-80% left main stenosis and 60% distal circumflex stenosis, which w as left dominant. He had an 80% ostial RCA that is small, nondominant. He had a 70-80% proximal mid LAD that is very ectatic. Six-Burmese sheath and catheters were used. Complications: No complications. Blood Loss: 5 cc. Postoperative Diagnosis: Severe coronary artery disease. Plan: For CABG. Anesthesia: Total conscious sedation was 30 minutes. NB/MODL Voice ID: [id number] Report ID: [id number]
== END 2018-11-28 13:10 | disposition short-term general hospital (02) ==
LOC: CCL 07:17
DX: I25.10 Atherosclerotic heart disease of native coronary artery without angina pectoris (principal); Z87.891 Personal history of nicotine dependence; J44.9 Chronic obstructive pulmonary disease, unspecified
CPT/HCPCS: 93005; 85025; 80048; 36415; 85610; 85730; 93454; C1893; J2250 ×2; J3010 ×3; J0583

== ENCOUNTER 2019-11-16 06:20 | Day surgery (SDC) | payer OTHER ==
[2019-11-15 11:17] LABS: Absolute Lymphocytes (CBC) 2.4 K/uL (0.7-4.9); Basophils % 0.9 % (0-1.3); Hematocrit 41.6 % (39.6-49.0); Lymphocytes % 27.9 % (15.3-44.8); MPV 8.9 fL (7.6-11.3); RBC Red Blood Cell Count 4.48 M/uL (4.33-5.43)
[2019-11-15 11:23] LABS: Protime INR 0.93
[2019-11-15 11:39] LABS: Potassium 4.3 mmol/L (3.5-5.1)
--- NOTE | 2019-11-15 12:10 | RAD REPORT ---
EXAM DESCRIPTION: Valeri Leavitt And Anton (2 Views)11/15/2019 11:04 am CLINICAL HISTORY: Preop for cardiac catheterization. Coronary arterial disease COMPARISON: 2019 FINDINGS: Small left pleural effusion or thickening. Mild left basilar opacity may represent atelec tasis, scarring or infiltrate The heart is mildly enlarged. Postsurgical changes involve the chest.
--- OUTSIDE RECORDS SUMMARY | 2019-11-16 06:24 | XMS REPORT | Clinical Summary ---
:1940 Author Organization [facility] Address [address] [place] [address] Care Team Providers Name Role Phone Pcp, No Primary Care Provider Unavailable Allergies No Known Allergies Medications Medication Sig Dispensed Refills Start Date End Date Status acetaminophen Take 2 tablets (650 0 12/05/201812/04 Active (TYLENOL) 325 MG mg total) by mouth 0 tablet every 6 (six) hours as needed for Fever (mild to moderate pain). amiodarone Take 1 tablet (200 0 12/06/2018 Active (PACERONE) 200 MG mg total) by mouth 0 tablet daily. aspirin 81 MG Take 1 tablet (81 mg 0 12/06/201811/12 Active chewable tablet total) by mouth 0 daily. atorvastatin Take 1 tablet (40 mg 0 12/05/201812/04 Active (LIPITOR) 40 MG total) by mouth 0 tablet nightly. bisacodyl (DULCOLAX) Take 2 tablets (10 0 12/05/2018 Active 5 mg EC tablet mg total) by mouth daily as needed for Constipation. bisacodyl (DULCOLAX) Place 1 suppository 0 9 Active 10 mg suppository (10 mg total) rectally daily as needed. senna (SENOKOT) 8.6 Take 2 tablets (17.2 0 9 Active mg tablet mg total) by mouth 0 nightly. ondansetron Take 1 tablet (4 mg 0 12/05/2018 Active (ZOFRAN-ODT) 4 MG total) by mouth disintegrating every 6 (six) hours tablet as needed for Nausea. nystatin Apply topically 2 0 12/05/2018 A ctive (MYCOSTATIN) 100,000 (two) times daily. 0 unit/gram powder metoprolol Take 0.5 tablets 0 12/05/2018 A ctive (LOPRESSOR) 25 MG (12.5 mg total) by 0 tablet mouth 2 (two) times daily. losartan (COZAAR) 25 Take 0.5 tablets 0 12/06/2018 0 Active MG tablet (12.5 mg total) by 0 mouth daily. ipratropium-albutero Take 3 mLs by 0 12/05/201811/11 Active l (DUO-NEB) 0.5 mg-3 nebulization every 6 0 mg(2.5 mg base)/3 mL (six) hours as nebulizer solution needed for Wheezing or Shortness of Breath for up to 360 days. furosemide (LASIX) Take 1 tablet (20 mg 0 12/06/2018 Active 20 MG tablet total) by mouth 0 daily. enoxaparin (LOVENOX) Inject 0.4 mLs (40 0 12/05/2018 Active 40 mg/0.4 mL Syrg mg total) subcutaneously daily Can dc if patient mobilizing more. acetaminophen-codein Take 1 tablet by 30 tablet 0 12/05/2018 0 e (TYLENOL #3) mouth every 4 (four) 9 300-30 mg per tablet hours as needed for Pain for up to 10 days. Max Daily Amount: 6 tablets lidocaine (LIDODERM) Place 1 patch onto 0 12/05/2018 5 % patch the skin daily for 9 30 days Remove & Discard patch within 12 hours or as directed by . Active Problems Problem Noted Date PAF (paroxysmal atrial fibrillation) 12/05/2018 Respiratory insufficiency 11/29/2018 Acute blood loss anemia 11/29/2018 Coagulopathy 11/29/2018 S/P CABG x [address] De La Rosa on 11/29/18 11/29/2018 Hyperglycemia 11/29/2018 CAD (coronary artery disease) 11/28/2018 COPD (chronic obstructive pulmonary disease) 9 Encounters Date Type Specialty Care Team Description 12/13/2018 Office Visit Cardiology Rj, Patsy s yasmin Casarez, (Primary Dx) 12/04/2018 Travel 11/29/2018 Surgery Rj, BYPASS,[place] RONARY Dain Casarez, YARI/SVG 11/29/2018 Anesthesia Event Ji Rivera, AA 11/29/2018 Orders Only General Internal Medicine 11/28/2018 - Hospital Encounter Cardiology Lopez, Reinier Coronary artery 12/05/2018 MD Jabier disease involving Hasan, Reinier Ali [place] [facility] elton Van MD artery, angina Rj, presence unspec ified, Dain Casarez, unspecified whether MD monson or Homero Spaulding MD transplanted heart 11/28/2018 Travel after 11/15/2018 Social History Tobacco Use Types Packs/Day Years Used Date Former Smoker Quit: 10/19/19 Smokeless Tobacco: Never Used Sex Assigned at Date Recorded Not on file Job Start Date Occupation Industry Not on file Not on file Not on file Travel History Travel Start Travel End No recent travel history available. Last Filed Vital Signs Vital Sign Reading Time Taken Blood Pressure 122/55 12/13/2018 9:38 AM CDT Pulse 86 12/13/2018 9:38 AM CDT Temperature 37 C (98.6 F) 12/13/2018 9:38 AM CDT Respiratory Rate 18 12/13/2018 9:38 AM CDT Oxygen Saturation 97% 12/13/2018 9:38 AM CDT Inhaled Oxygen Concentration 28% 11/30/2018 7:30 AM CDT Weight 102.1 kg (225 lb) 12/13/2018 9:38 AM CDT Height 180.3 cm (5' 11") 12/13/2018 9:38 AM CDT Body Mass Index 31.38 12/13/2018 9:38 AM CDT Plan of Treatment Health Maintenance Due Date Last Done Comments PNEUMOCOCCAL 65+ LOW/MEDIUM RISK (1 of 2 - PCV13) 11/02/2003 MEDICARE ANNUAL WELLNESS (YEAR 2 or FIRST YEAR if no 10/12/2004 IPPE) INFLUENZA VACCINE (Season Ended) 2020 Procedures Procedure Name Priority Date/Time Associated Comments Diagnosis REPORT OF PROCEDURE - 12/06/2018 11:33 ENDOSCOPY SCAN AM CDT RHYTHM STRIP - SCAN 12/06/2018 11:32 AM CDT CBC W/PLT COUNT & Routine 12/05/2018 5:30 Result s for this AUTO DIFFERENTIAL AM CDT procedure are in the results section. MAGNESIUM Routine 12/05/2018 5:30 Results for this AM CDT procedure are i n the results section. BASIC METABOLIC PANEL Routine 12/05/2018 5:30 Re sults for this (7) AM CDT procedure are i n the results section. CBC W/PLT COUNT & Routine 12/05/2018 5:30 Result s for this AUTO DIFFERENTIAL AM CDT procedure are in the results section. CBC W/PLT COUNT & Routine 12/04/2018 4:51 Result s for this AUTO DIFFERENTIAL AM CDT procedure are in the results section. CBC W/PLT COUNT & Routine 12/04/2018 4:51 Result s for this AUTO DIFFERENTIAL AM CDT procedure are in the results section. BASIC METABOLIC PANEL Routine 12/04/2018 4:51 Re sults for this (7) AM CDT procedure are i n the results section. CBC W/PLT COUNT & Routine 12/03/2018 3:30 Result s for this AUTO DIFFERENTIAL AM CDT procedure are in the results section. CBC W/PLT COUNT & Routine 12/03/2018 3:30 Result s for this AUTO DIFFERENTIAL AM CDT procedure are in the results section. BASIC METABOLIC PANEL Routine 12/03/2018 3:30 Re sults for this (7) AM CDT procedure are i n the results section. XR CHEST 1 VIEW Routine 12/02/2018 7:53 Results for this PORTABLE/BEDSIDE AM CDT procedure a re in the results section. CBC W/PLT COUNT & Routine 12/02/2018 4:25 Result s for this AUTO DIFFERENTIAL AM CDT procedure are in the results section. CBC W/PLT COUNT & Routine 12/02/2018 4:25 Result s for this AUTO DIFFERENTIAL AM CDT procedure are in the results section. BASIC METABOLIC PANEL Routine 12/02/2018 4:25 Re sults for this (7) AM CDT procedure are i n the results section. POCT-GLUCOSE METER Routine 12/01/2018 9:20 Resul ts for this PM CDT procedure are i n the results section. TRANSFUSION SERVICE 12/01/2018 5:50 REPORT - SCAN PM CDT POCT-GLUCOSE METER Routine 12/01/2018 4:55 Resul ts for this PM CDT procedure are i n the results section. POCT-GLUCOSE METER Routine 12/01/2018 1:10 Resul ts for this PM CDT procedure are i n the results section. POCT-GLUCOSE METER Routine 12/01/2018 9:04 Resul ts for this AM CDT procedure are i n the results section. ECG 12-LEAD Routine 12/01/2018 6:42 Results for this AM CDT procedure are i n the results section. CBC (HEMOGRAM ONLY) Routine 12/01/2018 5:32 Resu lts for this AM CDT procedure are i n the results section. PHOSPHORUS Routine 12/01/2018 5:32 Results for this AM CDT procedure are i n the results section. MAGNESIUM Routine 12/01/2018 5:32 Results for this AM CDT procedure are i n the results section. BASIC METABOLIC PANEL Routine 12/01/2018 5:32 Re sults for this (7) AM CDT procedure are i n the results section. PREPARE PLATELETS STAT 11/30/2018 11:54 Result s for this PM CDT procedure are i n the results section. PREPARE PLASMA STAT 11/30/2018 11:54 Results f or this PM CDT procedure are i n the results section. POCT-GLUCOSE METER Routine 11/30/2018 11:06 Resul ts for this PM CDT procedure are i n the results section. TRANSFUSION SERVICE 11/30/2018 6:03 REPORT - SCAN PM CDT POCT-GLUCOSE METER Routine 11/30/2018 5:08 Resul ts for this PM CDT procedure are i n the results section. POCT-GLUCOSE METER Routine 11/30/2018 12:34 Resul ts for this PM CDT procedure are i n the results section. POCT-GLUCOSE METER Routine 11/30/2018 8:31 Resul ts for this AM CDT procedure are i n the results section. ECG 12-LEAD Routine 11/30/2018 7:39 Results for this AM CDT procedure are i n the results section. XR CHEST 1 VIEW Routine 11/30/2018 4:10 Results for this PORTABLE/BEDSIDE AM CDT procedure a re in the results section. LACTIC ACID, ARTERIAL Routine 11/30/2018 4:00 Re sults for this AM CDT procedure are i n the results section. HGB/HCT (H&H) - STAT Routine 11/30/2018 4:00 Res ults for this LAB AM CDT procedure are i n the results section. GLUCOSE-STAT LAB Routine 11/30/2018 4:00 Results for this AM CDT procedure are i n the results section. POTASSIUM-STAT LAB Routine 11/30/2018 4:00 Resul ts for this AM CDT procedure are i n the results section. SODIUM NA-STAT LAB Routine 11/30/2018 4:00 Resul ts for this AM CDT procedure are i n the results section. BLOOD GAS, ARTERIAL Routine 11/30/2018 4:00 Resu lts for this AM CDT procedure are i n the results section. RRL CRITICAL LABS Routine 11/30/2018 4:00 Result s for this (ABG,NA,K,H&H,GLUCOSE AM CDT proced ure are in ) the results section. CBC (HEMOGRAM ONLY) Routine 11/30/2018 4:00 Resu lts for this AM CDT procedure are i n the results section. PHOSPHORUS Routine 11/30/2018 4:00 Results for this AM CDT procedure are i n the results section. MAGNESIUM Routine 11/30/2018 4:00 Results for this AM CDT procedure are i n the results section. BASIC METABOLIC PANEL Routine 11/30/2018 4:00 Re sults for this (7) AM CDT procedure are i n the results section. LACTIC ACID, ARTERIAL Routine 11/30/2018 12:19 Re sults for this AM CDT procedure are i n the results section. HGB/HCT (H&H) - STAT Routine 11/30/2018 12:19 Res ults for this LAB AM CDT procedure are i n the results section. GLUCOSE-STAT LAB Routine 11/30/2018 12:19 Results for this AM CDT procedure are i n the results section. POTASSIUM-STAT LAB Routine 11/30/2018 12:19 Resul ts for this AM CDT procedure are i n the results section. SODIUM NA-STAT LAB Routine 11/30/2018 12:19 Resul ts for this AM CDT procedure are i n the results section. BLOOD GAS, ARTERIAL Routine 11/30/2018 12:19 Resu lts for this AM CDT procedure are i n the results section. RRL CRITICAL LABS Routine 11/30/2018 12:19 Result s for this (ABG,NA,K,H&H,GLUCOSE AM CDT proced ure are in ) the results section. HGB/HCT (H&H) - STAT Routine 11/29/2018 8:12 Res ults for this LAB PM CDT procedure are i n the results section. GLUCOSE-STAT LAB Routine 11/29/2018 8:12 Results for this PM CDT procedure are i n the results section. POTASSIUM-STAT LAB Routine 11/29/2018 8:12 Resul ts for this PM CDT procedure are i n the results section. SODIUM NA-STAT LAB Routine 11/29/2018 8:12 Resul ts for this PM CDT procedure are i n the results section. BLOOD GAS, ARTERIAL Routine 11/29/2018 8:12 Resu lts for this PM CDT procedure are i n the results section. RRL CRITICAL LABS Routine 11/29/2018 8:12 Result s for this (ABG,NA,K,H&H,GLUCOSE PM CDT proced ure are in ) the results section. HGB/HCT (H&H) - STAT Routine 11/29/2018 7:06 Res ults for this LAB PM CDT procedure are i n the results section. GLUCOSE-STAT LAB Routine 11/29/2018 7:06 Results for this PM CDT procedure are i n the results section. POTASSIUM-STAT LAB Routine 11/29/2018 7:06 Resul ts for this PM CDT procedure are i n the results section. SODIUM NA-STAT LAB Routine 11/29/2018 7:06 Resul ts for this PM CDT procedure are i n the results section. BLOOD GAS, ARTERIAL Routine 11/29/2018 7:06 Resu lts for this PM CDT procedure are i n the results section. RRL CRITICAL LABS Routine 11/29/2018 7:06 Result s for this (ABG,NA,K,H&H,GLUCOSE PM CDT proced ure are in ) the results section. LACTIC ACID, ARTERIAL STAT 11/29/2018 7:06 Re sults for this PM CDT procedure are i n the results section. POCT-GLUCOSE METER Routine 11/29/2018 6:35 Resul ts for this PM CDT procedure are i n the results section. TRANSFUSION SERVICE 11/29/2018 6:02 REPORT - SCAN PM CDT POCT-GLUCOSE METER Routine 11/29/2018 5:22 Resul ts for this PM CDT procedure are i n the results section. BLOOD GAS, ARTERIAL STAT 11/29/2018 5:17 Resu lts for this PM CDT procedure are i n the results section. LACTIC ACID, ARTERIAL STAT 11/29/2018 4:17 Re sults for this PM CDT procedure are i n the results section. HGB/HCT (H&H) - STAT Routine 11/29/2018 4:03 Res ults for this LAB PM CDT procedure are i n the results section. GLUCOSE-STAT LAB Routine 11/29/2018 4:03 Results for this PM CDT procedure are i n the results section. POTASSIUM-STAT LAB Routine 11/29/2018 4:03 Resul ts for this PM CDT procedure are i n the results section. SODIUM NA-STAT LAB Routine 11/29/2018 4:03 Resul ts for this PM CDT procedure are i n the results section. BLOOD GAS, ARTERIAL Routine 11/29/2018 4:03 Resu lts for this PM CDT procedure are i n the results section. RRL CRITICAL LABS Routine 11/29/2018 4:03 Result s for this (ABG,NA,K,H&H,GLUCOSE PM CDT proced ure are in ) the results section. XR CHEST 1 VIEW Routine 11/29/2018 1:57 Results for this PORTABLE/BEDSIDE PM CDT procedure a re in the results section. ECG 12-LEAD Routine 11/29/2018 1:51 PM CDT Procedure Note - Interface, External Ris In - 11/29/2018 2:16 PM CDT Ventricular Rate 99 BPM Atrial Rate 99 BPM P-R Interval 184 ms QRS Duration 116 ms Q-T Interval 388 ms QTC Calculation(Bazett) 497 ms P [place] 64 degrees R [place] 9 degrees T [place] 82 degrees Normal sinus rhythm Incomplete right bundle bran ch block Anterior infarct , age undet ermined Abnormal ECG ECG 12-LEAD STAT 11/29/2018 1:51 PM Results for this CDT procedure are i n the results section. OXYGEN SATURATION, STAT 11/29/2018 1:31 PM Re sults for this MEASURED CDT procedure are i n the results section. FIBRINOGEN Routine 11/29/2018 1:30 PM Results for this CDT procedure are i n the results section. APTT Routine 11/29/2018 1:30 PM Results for this CDT procedure are i n the results section. PROTHROMBIN TIME/INR Routine 11/29/2018 1:30 PM Results for this CDT procedure are i n the results section. BLOOD GAS, ARTERIAL STAT 11/29/2018 1:25 PM R esults for this CDT procedure are i n the results section. CBC W/PLT COUNT & STAT 11/29/2018 1:16 PM Res ults for this AUTO DIFFERENTIAL CDT procedure are in the results section. LACTIC ACID, ARTERIAL STAT 11/29/2018 1:16 PM Results for this CDT procedure are i n the results section. CBC W/PLT COUNT & STAT 11/29/2018 1:16 PM Res ults for this AUTO DIFFERENTIAL CDT procedure are in the results section. PHOSPHORUS STAT 11/29/2018 1:16 PM Results for this CDT procedure are i n the results section. MAGNESIUM STAT 11/29/2018 1:16 PM Results for this CDT procedure are i n the results section. BASIC METABOLIC PANEL STAT 11/29/2018 1:16 PM Results for this (7) CDT procedure are i n the results section. TRANSFUSE PLASMA Routine 11/29/2018 11:25 AM CDT TRANSFUSE Routine 11/29/2018 11:23 AM LEUKO-REDUCED CDT PLATELETS TRANSFUSE PLASMA Routine 11/29/2018 11:16 AM CDT TRANSFUSE Routine 11/29/2018 11:14 AM LEUKO-REDUCED CDT PLATELETS PLATELET COUNT STAT 11/29/2018 10:41 AM Result s for this CDT procedure are i n the results section. APTT STAT 11/29/2018 10:41 AM Results for this CDT procedure are i n the results section. PROTHROMBIN TIME/INR STAT 11/29/2018 10:41 AM Results for this CDT procedure are i n the results section. FIBRINOGEN STAT 11/29/2018 10:41 AM Results for this CDT procedure are i n the results section. POCT-ACT Routine 11/29/2018 10:31 AM Results for this CDT procedure are i n the results section. HGB/HCT (H&H) - STAT STAT 11/29/2018 10:29 AM Results for this LAB CDT procedure are i n the results section. GLUCOSE-STAT LAB STAT 11/29/2018 10:29 AM Resu lts for this CDT procedure are i n the results section. POTASSIUM-STAT LAB STAT 11/29/2018 10:29 AM Re sults for this CDT procedure are i n the results section. SODIUM NA-STAT LAB STAT 11/29/2018 10:29 AM Re sults for this CDT procedure are i n the results section. BLOOD GAS, ARTERIAL STAT 11/29/2018 10:29 AM R esults for this CDT procedure are i n the results section. CALCIUM, IONIZED STAT 11/29/2018 10:29 AM Resu lts for this CDT procedure are i n the results section. RRL CRITICAL LABS STAT 11/29/2018 10:29 AM Res ults for this (ABG,NA,K,H&H,GLUCOSE CDT proced ure are in ) the results section. POCT-ACT Routine 11/29/2018 9:56 AM Results for this CDT procedure are i n the results section. HGB/HCT (H&H) - STAT STAT 11/29/2018 9:53 AM Results for this LAB CDT procedure are i n the results section. GLUCOSE-STAT LAB STAT 11/29/2018 9:53 AM Resu lts for this CDT procedure are i n the results section. POTASSIUM-STAT LAB STAT 11/29/2018 9:53 AM Re sults for this CDT procedure are i n the results section. SODIUM NA-STAT LAB STAT 11/29/2018 9:53 AM Re sults for this CDT procedure are i n the results section. BLOOD GAS, ARTERIAL STAT 11/29/2018 9:53 AM R esults for this CDT procedure are i n the results section. RRL CRITICAL LABS STAT 11/29/2018 9:53 AM Res ults for this (ABG,NA,K,H&H,GLUCOSE CDT proced ure are in ) the results section. POCT-ACT Routine 11/29/2018 9:31 AM Results for this CDT procedure are i n the results section. HGB/HCT (H&H) - STAT STAT 11/29/2018 9:29 AM Results for this LAB CDT procedure are i n the results section. GLUCOSE-STAT LAB STAT 11/29/2018 9:29 AM Resu lts for this CDT procedure are i n the results section. POTASSIUM-STAT LAB STAT 11/29/2018 9:29 AM Re sults for this CDT procedure are i n the results section. SODIUM NA-STAT LAB STAT 11/29/2018 9:29 AM Re sults for this CDT procedure are i n the results section. BLOOD GAS, ARTERIAL STAT 11/29/2018 9:29 AM R esults for this CDT procedure are i n the results section. RRL CRITICAL LABS STAT 11/29/2018 9:29 AM Res ults for this (ABG,NA,K,H&H,GLUCOSE CDT proced ure are in ) the results section. BLOOD GAS, VENOUS STAT 11/29/2018 9:29 AM Res ults for this CDT procedure are i n the results section. POCT-ACT Routine 11/29/2018 8:55 AM Results for this CDT procedure are i n the results section. HGB/HCT (H&H) - STAT Routine 11/29/2018 8:27 AM Results for this LAB CDT procedure are i n the results section. GLUCOSE-STAT LAB Routine 11/29/2018 8:27 AM Resu lts for this CDT procedure are i n the results section. POTASSIUM-STAT LAB Routine 11/29/2018 8:27 AM Re sults for this CDT procedure are i n the results section. SODIUM NA-STAT LAB Routine 11/29/2018 8:27 AM Re sults for this CDT procedure are i n the results section. BLOOD GAS, ARTERIAL Routine 11/29/2018 8:27 AM R esults for this CDT procedure are i n the results section. RRL CRITICAL LABS Routine 11/29/2018 8:27 AM Res ults for this (ABG,NA,K,H&H,GLUCOSE CDT proced ure are in ) the results section. ENDOSCOPIC 11/29/2018 7:30 AM Coronary artery HARVEST,VEIN CDT disease without angina pectoris, unspecified vessel or lesion type, unspecified whether [place] or transplanted heart Case Notes 2 HRS PER ANDREE Special Needs (ICU BED NEEDED) BYPASS,AORTO CORONARY YARI/SVG 11/29/2018 7:30 AM CDT Coronary artery disease without angina pectoris, unspecified vessel or lesion type, unspecified whether [place] or transplanted heart Case Notes 2 HRS PER ANDREE Special Needs (ICU BED NEEDED) ECG 12-LEAD Routine 11/29/2018 3:22 AM CDT Resu lts for this procedure are i n the results section . APTT Routine 11/29/2018 1:45 AM CDT Resu lts for this procedure are i n the results section . CBC (HEMOGRAM ONLY) Routine 11/29/2018 1:45 AM CDT Results for this procedure are i n the results section . BASIC METABOLIC PANEL (7) Routine 11/29/2018 1:45 AM CDT Results for this procedure are i n the results section . ABORH, MANUAL STAT 11/28/2018 7:28 PM CDT Res ults for this procedure are i n the results section . XR CHEST 1 VIEW Routine 11/28/2018 6:25 PM CDT R esults for this PORTABLE/BEDSIDE procedure a re in the results section . TYPE AND SCREEN, AUTOMATED Routine 11/28/2018 6:18 PM CDT Results for this procedure are i n the results section . PROTHROMBIN TIME/INR Routine 11/28/2018 6:18 PM CDT Results for this procedure are i n the results section . APTT Routine 11/28/2018 6:18 PM CDT Resu lts for this procedure are i n the results section . PT/APTT Routine 11/28/2018 6:18 PM CDT Resu lts for this procedure are i n the results section . LIPID PANEL Routine 11/28/2018 4:29 PM CDT Resu lts for this procedure are i n the results section . HEMOGLOBIN A1C Routine 11/28/2018 4:29 PM CDT Re sults for this procedure are i n the results section . CBC (HEMOGRAM ONLY) Routine 11/28/2018 4:29 PM CDT Results for this procedure are i n the results section . BASIC METABOLIC PANEL (7) Routine 11/28/2018 4:29 PM CDT Results for this procedure are i n the results section . after 11/15/2018 Results EKG-SCANNED (12/06/2018 11:33 AM CDT) Narrative Performed At This result has an attachment that is no t available. RHYTHM STRIP - SCAN (12/06/2018 11:32 AM CDT) Narrative Performed At This result has an attachment that is no t available. CBC with platelet count + automated diff (12/05/2018 5:30 AM CDT)Only the most recent of5 resultswithin the time period is included. WBC 7.4 3.5 - 10.5 K/L [facility] RBC 3.07 (L) 4.63 - 6.08 M/L [facility] [place] Hemoglobin 9.4 (L) 13.7 - 17.5 GM/DL [facility] [place] [place] Hematocrit 29.9 (L) 40.1 - 51.0 % [facility] MCV 97.4 (H) 79.0 - 92.[address] [facility] [address] [facility] MCH 30.6 25.7 - 32.2 [address] [facility] MCHC 31.4 (L) 32.3 - 36.5 GM/DL [facility] [place] [place] RDW 13.7 11.6 - 14.4 % [facility] Platelets 266 150 - 450 K/CU MM [facility] [place] [place] MPV 10.1 9.4 - 12.[address] [facility] nRBC 0 0 - 0 /[address] [facility] % Neutros 52 % [facility] % Lymphs 26 % [facility] % Monos 13 % [facility] % Eos 8 % [facility] % Baso 0 % [facility] # Neutros 3.87 1.78 - 5.38 K/L [facility] [place] [place] # Lymphs 1.90 1.32 - 3.57 K/L [facility] [place] [place] # Monos 0.96 (H) 0.30 - 0.82 K/L [facility] [place] [place] # Eos 0.62 (H) 0.04 - 0.54 K/L [facility] [place] [place] # Baso 0.03 0.01 - 0.08 K/L [facility] [place] [place] Immature Granulocytes-Relative 1 0 - 1 % C [facility] Specimen Blood Performing Organization Address City/State/Zipcode Phone Number [facility] [address] [place] [address] CENTER Magnesium (12/05/2018 5:30 AM CDT)Only the most recent of4 resultswithin the time period is included. Magnesium 1.9 1.6 - 2.6 mg/dL [facility] Specimen Blood Performing Organization Address City/State/Zipcode Phone Number [facility] [address] [place] [phone] [place] Basic Metabolic Panel (12/05/2018 5:30 AM CDT)Only the most recent of9 results within the time period is included. Sodium 140 136 - 145 meq/L [facility] Potassium 4.3 3.5 - 5.1 meq/L [facility] Chloride 106 98 - 107 meq/L [facility] CO2 28 22 - 29 meq/L [facility] BUN 18 7 - 21 mg/dL [facility] Creatinine 0.89 0.57 - 1.25 mg/dL [facility] [place] Glucose 105 70 - 105 mg/dL [facility] Calcium 9.0 8.4 - 10.2 mg/dL [facility] EGFR Comment: INSUFFICIENT CLINICAL mL/min/1.73 sq m [facility] DATA TO CALCULATE ESTIMATED [facility] GFR. Specimen Blood Performing Organization Address City/[facility]/Zipcode Phone Number [address] [address] [place] XR chest 1 view portable / bedside (12/02/2018 7:53 AM CDT)Only the most recent of4 resultswithin the time period is included. Specimen Narrative Performed At FINAL REPORT GE RIS Portable chest. CLINICAL HISTORY: s/p acb. COMPARISON STUDY: November 30, 2018. FINDINGS: The cardiac silhouette is enla rged. Sternotomy wires are seen. The pulmonary parenchyma demonstra omega areas of interstitial markings as well as bibasilar atelectasi s or consolidation. The support lines and tubes have been remove d. A tiny left-sided apical pneumothorax is noted. Degenerative urbina ges are noted. IMPRESSION: Removal of support lines and tubes with tiny left-sided apical pneumothorax. Signed: Tera Merrill MD Report Verified Date/Time:12/02/2018 08:22:53 Reading Location: [facility] C013X [facility] Reading Room Procedure Note Interface, External Ris In - 12/02/2018 8:25 AM CDT FINAL REPORT Portable chest. CLINICAL HISTORY: s/p acb. COMPARISON STUDY: November 30, 2018. FINDINGS: The cardiac silhouette is enla rged. Sternotomy wires are seen. The pulmonary parenchyma demonstra omega areas of interstitial markings as well as bibasilar atelectasi s or consolidation. The support lines and tubes have been remove d. A tiny left-sided apical pneumothorax is noted. Degenerative urbina ges are noted. IMPRESSION: Removal of support lines and tubes with tiny left-sided apical pneumothorax. Signed: Tera Merrill MD Report Verified Date/Time: 12/02/2018 0 8:22:53 Reading Location: [facility] [id number] [facility] Reading Room Performing Organization Address City/[facility] Phone Number [employer] RIS POC-Glucose meter (12/01/2018 9:20 PM CDT)Only the most recent of10 results within the time period is included. POC-Glucose Meter 116 (H)Comment: TESTED AT 70 - 110 mg/dL [address] [address] Specimen Blood Performing Organization Address [facility] Facility[facility] [place] [address] CENTER TRANSFUSION SERVICE REPORT - SCAN (12/01/2018 5:50 PM CDT)Only the most recent of3 resultswithin the time period is included. Narrative Performed At This result has an attachment that is no t available. EKG 12 lead (12/01/2018 6:42 AM CDT)Only the most recent of4 resultswithin the time period is included. Specimen Narrative Performed At Ventricular Rate 101 BPM GE MUSE Atrial Rate 101 BPM P-R Interval 180 ms QRS Duration 106 ms Q-T Interval 366 ms QTC Calculation(Bazett) 474 ms P [place] 59 degrees R [place] 24 degrees T [place] 61 degrees Sinus tachycardia with Premature atrial complexes RSR' or QR pattern in V1 suggests right ventricular conduction delay Anterolateral infarct (cited on or befor e 29-NOV-2018) Prolonged QT When compared with ECG of 30-NOV-2018 07 :39, Ventricular rate has increased Confirmed by Lucio GR BASANT ([id number]) on 12/13/2018 7:3 2:37 PM Procedure Note Interface, External Ris In - 12/13/2018 7:32 PM CDT Ventricular Rate 101 BPM Atrial Rate 101 BPM P-R Interval 180 ms QRS Duration 106 ms Q-T Interval 366 ms QTC Calculation(Bazett) 474 ms P [place] 59 degrees R [place] 24 degrees T [place] 61 degrees Sinus tachycardia with Premature atrial complexes RSR' or QR pattern in V1 suggests right ventricular conduction delay Anterolateral infarct (cited on or befor e 29-NOV-2018) Prolonged QT When compared with ECG of 30-NOV-2018 07 :39, Ventricular rate has increased Confirmed by Lucio GR, TAMMY ([id number]) o n 12/13/2018 7:32:37 PM Performing Organization Address City/State/Zipcode Phone Number [facility] CBC (Hemogram only) (12/01/2018 5:32 AM CDT)Only the most recent of4 results within the time period is included. WBC 9.6 3.5 - 10.5 K/L [facility] EMERGENCY DEPARTMENT RBC 2.84 (L) 4.63 - 6.08 M/L [facility] [place] Hemoglobin 8.9 (L) 13.7 - 17.5 GM/DL [facility] [place] Hematocrit 27.7 (L) 40.1 - 51.0 % [facility] MCV 97.5 (H) 79.0 - 92.2 fL [facility] MCH 31.3 25.7 - 32.2 pg [facility] EM[facility]GENCY DEPARTMENT MCHC 32.1 (L) 32.3 - 36.5 GM/DL [facility] [place] RDW 13.7 11.6 - 14.4 % [facility] Platelets 154 150 - 450 K/CU MM [facility] [place] MPV 10.7 9.4 - 12.4 fL [facility] nRBC 0 0 - 0 /100 WBC [facility] Specimen Blood Performing Organization Address [facility] Phone Number [address] [address] CENTER Phosphorus (12/01/2018 5:32 AM CDT)Only the most recent of3 resultswithin the time period is included. Phosphorus 1.9 (L) 2.3 - 4.7 mg/dL [facility] Specimen Blood Performing Organization Address [facility] Phone Number [address] [phone] CENTER Prepare PLT (11/30/2018 11:54 PM CDT) Unit ABO O Pos SAFETRACE [place] UNIT NUMBER [id number] [place] Status TX_TIMEINCHART [place] Blood Bank Product PLATELETS SAF[place] PRODUCT CODE [id number] SAFETRACE [place] Unit ABO B Pos SAFETRACE TX UNIT NUMBER [id number] SAFETRACE TX Status TX_TIMEINCHART SAFETRACE [place] Blood Bank Product PLATELETS SAFET[place] PRODUCT CODE [id number] SAF[place] Performing Organization Address [facility] Phone Number [place] Prepare plasma (11/30/2018 11:54 PM CDT) Unit ABO O Neg [place] UNIT NUMBER [id number] SAFETRACE [place] Status TX_TIMEINCHART [place] Blood Bank Product FFP S[place] PRODUCT CODE [id number] SAFETRACE TX Unit ABO O Pos SAFETRACE TX UNIT NUMBER [id number] SAFETRACE [place] Status TX_TIMEINCHART SAF[place] Blood Bank Product FFP [place] PRODUCT CODE [id number] S[place] Performing Organization Address [facility] Phone Number [place] Potassium-Stat Lab (11/30/2018 4:00 AM CDT)Only the most recent of9 results within the time period is included. Potassium 4.4 3.6 - 5.5 meq/L [facility] Specimen Blood, Arterial Performing Organization Address City/[facility] Phone Number [address] [address] CENTER Sodium Na-Stat Lab (11/30/2018 4:00 AM CDT)Only the most recent of9 results within the time period is included. Sodium 140 135 - 148 meq/L [facility] Specimen Blood, Arterial Performing Organization Address [facility] Phone Number [address] [address] [place] Glucose-Stat Lab (11/30/2018 4:00 AM CDT)Only the most recent of9 resultswithin the time period is included. Glucose 145 (H) 70 - 110 mg/dL [facility] Specimen Blood, Arterial Performing Organization Address [facility] Phone Number [address] [address] CENTER HGB/HCT (H&H)-Stat Lab (11/30/2018 4:00 AM CDT)Only the most recent of9 resultswithin the time period is included. Hemoglobin 9.4 (L) 13.0 - 16.8 g/dL [facility] Hematocrit 28.0 (L) 40.0 - 50.0 % [facility] Specimen Blood, Arterial Performing Organization Address [facility] Phone Number [address] [address] [place] Lactic Acid, Arterial (11/30/2018 4:00 AM CDT)Only the most recent of5 results within the time period is included. Lactate, Art 1.4 0.5 - 2.2 mmol/L [facility] Specimen Blood, Arterial Performing Organization Address City/[facility] Phone Number [address] [address] [place] Blood gas, arterial (11/30/2018 4:00 AM CDT)Only the most recent of11 results within the time period is included. pH, Arterial 7.40 7.35 - 7.45 [facility] pCO2, Arterial 45 35 - 45 mmHg [facility] pO2, Arterial 90 80 - 90 mmHg [facility] O2 Sat, Arterial 97.0 96.0 - 97.0 % [facility] HCO3, Arterial 27 21 - 29 mmol/L [facility] Base Excess, Arterial 1.9 -2.0 - 3.0 mmol/L [facility] Patient Temperature 36.7 C [facility] FIO2 28.0 % [facility] Specimen Blood, Arterial Performing Organization Address City/[facility] Phone Number [address] [address] [place] Oxygen saturation, measured (11/29/2018 1:31 PM CDT) O2 Saturation (Measured) 70.8 % [facility] [place] Specimen Blood Performing Organization Address City/[facility]/Zipcode Phone Number [address] [address] [place] aPTT (11/29/2018 1:30 PM CDT)Only the most recent of4 resultswithin the time period is included. PTT 32.8 22.5 - 36.0 seconds [facility] Specimen Blood Performing Organization Address [facility] Facility[facility]j Phone Number [address] [phone] [place] Prothromin time/INR (11/29/2018 1:30 PM CDT)Only the most recent of3 results within the time period is included. Protime 15.9 (H) 11.9 - 14.2 seconds [facility] INR 1.3 <=5.9 [facility] Specimen Blood Narrative Performed At Effective 11/08/2018: PT Reference Range [facility] [place] Change New: 11.9-14.2Previous: 11.7-14.7 RECOMMENDED COUMADIN/WARFARIN INR THERAPY RANGES STANDARD DOSE: 2.0-3.0Includes: PROPHYLAXIS for venous thrombosis, systemic embolization; TREATMENT for venous thrombosis and/or pulmonary embolus. HIGH RISK: Target INR is 2.5-3.5 for patients wiht mechanical heart valves. Performing Organization Address [facility] Phone Number [address] [address] [place] Fibrinogen (11/29/2018 1:30 PM CDT)Only the most recent of2 resultswithin the time period is included. Fibrinogen 277 225 - 434 mg/dl [facility] Specimen Blood Performing Organization Address [facility] Phone Number [address] [address] CENTER Transfuse plasma (11/29/2018 11:25 AM CDT)Only the most recent of2 resultswithin the time period is included.Transfuse Leuko-Red PLT (11/29/2018 11:23 AM CDT) Only the most recent of2 resultswithin the time period is included.Platelet count (11/29/2018 10:41 AM CDT) Platelets 111 (L) 150 - 450 K/CU MM [facility] [place] Specimen Blood Performing Organization Address City/[facility] Phone Number [address] [address] [place] POC ACTIVATED CLOTTING TIME (11/29/2018 10:31 AM CDT)Only the most recent of4 resultswithin the time period is included. Activated Clotting Time 109Comment: TESTED AT sec [facility] I [address] [address] Specimen Blood Performing Organization Address [facility] Phone Number [address] [address] [place] Calcium, Ionized (11/29/2018 10:29 AM CDT) Calcium, Ion 1.20 1.12 - 1.27 mmol/L [facility] [place] pH, Blood 7.37 [facility] Specimen Blood Performing Organization Address [facility] Phone Number [address] [address] [place] Blood gas, venous (11/29/2018 9:29 AM CDT) pH, Bull 7.34 7.32 - 7.42 [facility] pCO2, Bull 44 41 - 51 mmHg [facility] pO2, Bull 47 (H) 25 - 40 mmHg [facility] O2 Sat, Bull 92.4 (H) 40.0 - 70.0 % [facility] HCO3, Bull 26 21 - 29 mmol/L [facility] Base Excess, Bull -2.3 (L) -2.0 - 3.0 mmol/L [facility] [place] Patient Temperature 30.0 C [facility] FIO2 65.0 % [facility] Specimen Blood Performing Organization Address [facility]/Zipcode Phone Number [address] [address] C[place] ABORH, manual (11/28/2018 7:28 PM CDT) ABO Grouping O [facility] Rh Factor POS [facility] Specimen Blood Performing Organization Address City/[facility] Phone Number [address] [address] Type and screen, automated (11/28/2018 6:18 PM CDT) ABO/RH AUTOMATED (BEAKER) O POSITIVE [facility] Ab Scrn NEGATIVE [facility] Specimen Blood Performing Organization Address [facility] Phone Number [address] [address] PT/aPTT (11/28/2018 6:18 PM CDT) Protime 13.6 11.9 - 14.2 seconds [facility] INR 1.1 <=5.9 [facility] PTT 31.8 22.5 - 36.0 seconds [facility] Specimen Blood Narrative Performed At Effective 11/08/2018: PT Reference Range [facility] [place] Change New: 11.9-14.2Previous: 11.7-14.7 RECOMMENDED COUMADIN/WARFARIN INR THERAPY RANGES STANDARD DOSE: 2.0-3.0Includes: PROPHYLAXIS for venous thrombosis, systemic embolization; TREATMENT for venous thrombosis and/or pulmonary embolus. HIGH RISK: Target INR is 2.5-3.5 for patients wiht mechanical heart valves. Performing Organization Address City/[facility]/Zipcode Phone Number [address] [address] CENTER Hemoglobin A1c (11/28/2018 4:29 PM CDT) Hemoglobin A1C 6.2 (H) 4.3 - 6.1 % [facility] Specimen Blood Performing Organization Address [facility] Facility[facility] Phone Number [facility] [address] [place] [address] [place] Lipid panel (11/28/2018 4:29 PM CDT) Triglycerides 101Comment: Specimen slightly mg/dL [facility] Cholesterol 227Comment: Specimen slightly mg/dL [facility] HDL 49 mg/dL [facility] LDL Calculated 158 mg/dL [facility] Specimen Blood Narrative Performed At Triglyceride Reference Range: [facility] [place] Low Risk <150 [id number] High Risk 200-499 Very High Risk>=500 Cholesterol Reference Range: Low Risk <200 [id number] High Risk>240 HDL Cholesterol Reference Range: Low Risk >=60 High Risk <40 LDL Cholesterol Reference Range: Optimal<100 Near [id number] Very High >=190 Performing Organization Address [facility] Facility[facility] Phone Number [facility] [address] [place] [address] [place] after 11/15/2018 Insurance Payer Benefit Plan / Group Subscriber ID Type Phone A ddress MEDICARE MEDICARE A B xxxxxxxxxxx Medicare AETNA - MGD CARE AETNA INDEMNITY NON CONTR xxxxxxxxx Comm Advance Directives For more information, please contact:[address] [phone] Code Status Date Activated Date Inactivated Comments Full Code 11/29/2018 1:14 PM 12/05/2018 4:51 PM This code status was determined by: Patient Full Code 11/28/2018 5:20 PM 11/29/2018 1:14 PM This code status was determined by: Patient Full Code 11/28/2018 2:30 PM 11/28/2018 5:20 PM This code status was determined by: Patient
--- OUTSIDE RECORDS SUMMARY | 2019-11-16 06:30 | XMS REPORT | Continuity of Care Document ---
:1940 Author Organization [facility] t Address [facility] [place] [address] Care Team Providers Name Role Phone Pcp Primary Care Physician Unavailable Leida De La Rosa MD Attending Clinician Adrianna Piper MD Attending Clinician Nathalie Bonilla MD Attending Clinician Jasson CUMMINGS Attending Clinician Chucky Fontenot Attending Clinician Unavailable ADRIANNA PIPER Attending Clinician Unavailable ADRIANNA PIPER Admitting Clinician Unavailable Payers Payer Name Policy Policy Number Effective Expiration Source Type Date Date MEDICAREMEDICARE A xxxxxxxxxxx [facility] AETNA - MGD CAREAETNA xxxxxxxxx [facility] IN[facility]MNITY NON [facility] Problems Condition Condition Condition Status Onset Resolution Last Treating Co mments Source Name Details Category Date Date Treatment Clinician Date PAF PAF Disease Active [facility] (paroxysma (paroxysma 12-05 Kelli kes - l atrial l atrial 00:00: Medica l fibrillati fibrillati 00 Ce nter on) on) Respirator Respirator Disease Active [facility] y y 6- [facility] - insufficie insufficie 00:00: Me dical ncy ncy 00 Center Acute Acute Disease Active [facility] blood loss blood loss 6- Kelli kes - anemia anemia 00:00: Medical 00 Center Coagulopat Coagulopat Disease Active [facility] hy hy 6-19 [facility] - 00:00: Medical 00 Center 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 Social History Social Habit Start Date Stop Date Quantity Comments Source Sex Assigned At [facility] History of tobacco 2018-10-[address] [facility] - use [facility]00 [facility] Smoking Status Start Date Stop Date Source Former smoker 2018-12-13 00:00:00 2018-12-13 00:00:[address] [facility] Medications Ordered Filled Start Stop Current Ordering Indication Dosage Frequency Signature Comments Components Source Medication Medication Date Date Medication? Clinician (SIG) Name Name amiodarone 2019- No 200mg QD Take [address] [facility] [address] (PACERONE) - 06-25 tablet [facility] - 200 MG 00:00: 23:59 (200 mg Medical tablet 00 :00 total) by Center mouth daily. aspirin 81 2019- No 81mg QD Take [address] [facility] MG chewable - 06-25 tablet (81 L ukes - tablet 00:00: 23:59 mg total) Medic al 00 :00 by mouth Center daily. losartan 2019- No 12.5mg QD Take 0.[address] (COZAAR) 25 6-26 06-25 tablets Luke s - MG tablet 00:00: 23:59 (12.5 mg Med ical 00 :00 total) by Center mouth daily. furosemide 2019- No 20mg QD Take [address] [facility] [address] (LASIX) 20 6- 06-25 tablet (20 Kelli kes - MG tablet 00:00: 23:59 mg total) Me dical 00 :00 by mouth Center daily. bisacodyl Yes 10mg Take [address] [facility] [address] (DULCOLAX) 6-25 tablets [facility] - 5 mg EC 00:00: (10 mg Medical tablet 00 total) by Center mouth daily as needed for Constipati on. bisacodyl Yes 10mg Place 1 [facility] (DULCOLAX) 6-25 suppositor Jasson es - 10 mg 00:00: y (10 mg Medical suppository 00 total) Center rectally daily as needed. ondansetron Yes 4mg Take [address] [facility] (ZOFRAN-ODT 6-25 tablet (4 Jasson es - ) 4 MG 00:00: mg total) Medica l disintegrat 00 by mouth Cent er ing tablet every 6 (six) hours as needed for Nausea. enoxaparin Yes 40mg Q24H Inject 0.[address] (LOVENOX) 6-25 mLs (40 mg Luke s - 40 mg/0.4 00:00: total) Medica l mL Syrg 00 subcutaneo Center usly daily Can dc if patient mobilizing more. acetaminoph 2019- No 650mg Take [address] en 12-05-24 tablets [facility]ukes - (TYLENOL) 00:00: 23:59 (650 mg Medi donna 325 MG 00 :00 total) by Center tablet mouth every 6 (six) hours as needed for Fever (mild to moderate pain). atorvastati 2020- No 40mg QD Take [address] [facility] n (LIPITOR) 12-05-24 tablet (40 L ukes - 40 MG 00:00: 23:59 mg total) Medica l tablet 00 :00 by mouth Center nightly. senna 2020- No 17.2mg QD Take [address] (SENOKOT) -25 -24 tablets [facility] - 8.6 mg 00:00: 23:59 (17.2 mg Medica l tablet 00 :00 total) by Center mouth nightly. nystatin 2020- No Q.5D Apply [facility] (MYCOSTATIN 12-05-24 topically Kelli kes - ) 100,000 00:00: 23:59 2 (two) Medi donna unit/gram 00 :00 times Center powder daily. metoprolol 2019- No 12.5mg Q.5D Take 0.[address] (LOPRESSOR) 12-05 06-24 tablets Luke s - 25 MG 00:00: 23:59 (12.5 mg Medical tablet 00 :00 total) by [place] mouth 2 (two) times daily. ipratropium 2019- No 3mL Take [address] [address] -albuterol 12-05-19 by Olman - (DUO-NEB) 00:00: 23:59 nebulizati M edical 0.5 mg-3 00 :00 on every 6 Cente r mg(2.5 mg (six) base)/3 mL hours as nebulizer needed for solution Wheezing or Shortness of Breath for up to 360 days. lidocaine 2018- No 1{patch Q24H Place [address] (LIDODERM) 12-05 } patch onto kes - 5 % patch 00:00: 23:59 the skin Med ical 00 :00 daily for Center 30 days Remove & Discard patch within 12 hours or as directed by . acetaminoph 2019- No 1{tbl} Take [address] en-codeine 12-05-05 tablet by Jasson es - (TYLENOL 00:00: 23:59 mouth Medical #3) 300-30 00 :00 every 4 Center mg per (four) tablet hours as needed for Pain for up to 10 days. Max Daily Amount: 6 tablets Vital Signs Vital Name Observation Time Observation Value Comments Source Systolic blood 2018-12-13 09:38:00 122 mm[Hg] [facility] Diastolic blood 2018-12-13 09:38:00 55 mm[Hg] [facility] S t [facility] Heart rate 2018-12-13 09:38:00 86 /min [facility] Body temperature 2018-12-13 09:38:00 37 Adriana [facility] Respiratory rate 2018-12-13 09:38:00 18 /min [facility] Body height 2018-12-13 09:38:[address] [facility] Body weight Measured 2018-12-13 09:38:00 102.059 kg [facility] BMI 2018-12-13 09:38:00 31.38 kg/m2 [facility] Oxygen saturation in 2018-12-13 09:38:00 97 /min [facility] Arterial blood by Medical Ce nter Pulse oximetry Procedures Procedure Date / Time Performed Performing Clinician [facility] REPORT OF PROCEDURE - 2018-12-06 11:33:06 Provider, Default [facility] - ENDOSCOPY SCAN Scanning [facility] RHYTHM STRIP - SCAN 2018-12-06 11:32:55 Provider, Default [facility] BASIC METABOLIC PANEL 2018-12-05 05:30:00 Otoniel [facility] () [facility] MAGNESIUM 2018-12-05 05:30:00 [facility] CBC W/PLT COUNT & AUTO 2018-12-05 05:30:00 [facility] S [facility] DIFFERENTIAL [facility] BASIC METABOLIC PANEL 2018-12-04 04:51:00 Sherita [facility] () [facility] CBC W/PLT COUNT & AUTO 2018-12-04 04:51:00 [facility] DIFFERENTIAL [facility] BASIC METABOLIC PANEL 2018-12-03 03:30:00 Sherita [facility] () [facility] CBC W/PLT COUNT & AUTO 2018-12-03 03:30:[address] [facility] DIFFERENTIAL [facility] XR CHEST 1 VIEW 2018-12-02 07:53:[address] [facility] PORTABLE/BEDSIDE [facility] BASIC METABOLIC PANEL 2018-12-02 04:25:00 Sherita [facility] () [facility] CBC W/PLT COUNT & AUTO 2018-12-02 04:25:00 Sherita Thomas [facility] POCT-GLUCOSE METER 2018-12-01 21:20:00 Reinier Bonilla [facility] TRANSFUSION SERVICE 2018-12-01 17:50:31 Provider, Default [facility] REPORT - SCAN Scanning [facility] POCT-GLUCOSE METER 2018-12-01 16:55:00 Reinier Bonilla [facility] POCT-GLUCOSE METER 2018-12-01 13:10:00 Reinier Bonilla [facility] POCT-GLUCOSE METER 2018-12-01 09:04:00 Reinier Bonilla [facility] ECG 12-LEAD 2018-12-01 06:42:25 Krzysztof Garcia [facility] BASIC METABOLIC PANEL 2018-12-01 05:32:[address] [facility] (7) [facility] MAGNESIUM 2018-12-01 05:32:00 Krzysztof Garcia [facility] PHOSPHORUS 2018-12-01 05:32:00 Krzysztof Garcia [facility] CBC (HEMOGRAM ONLY) 2018-12-01 05:32:00 Krzysztof Garcia I [facility] PREPARE PLASMA 2018-11-30 23:54:00 Dain De La Rosa [facility] PREPARE PLATELETS 2018-11-30 23:54:00 Dain De La Rosa [facility] POCT-GLUCOSE METER 2018-11-30 23:06:00 Reinier Bonilla Rehan [facility] TRANSFUSION SERVICE 2018-11-30 18:03:[address] [facility] REPORT - SCAN Scanning [facility] POCT-GLUCOSE METER 2018-11-30 17:08:00 Reinier Bonilla Rehan [facility] POCT-GLUCOSE METER 2018-11-30 12:34:[address] [facility] POCT-GLUCOSE METER 2018-11-30 08:31:[address] [facility] ECG 12-LEAD 2018-11-30 07:39:29 Krzysztof Garcia [facility] XR CHEST 1 VIEW 2018-11-30 04:10:[address] [facility] PORTABLE/BEDSIDE Medical Center BASIC METABOLIC PANEL 2018-11-30 04:00:[address] [facility] () [facility] MAGNESIUM 2018-11-30 04:00:00 Krzysztof Garcia Miles [facility] PHOSPHORUS 2018-11-30 04:00:00 [facility] 2018-11-30 04:00:00 Jose Krzysztofmagi Aquino [facility] BLOOD GAS, ARTERIAL 2018-11-30 04:00:00 Jamse Tong Ruffin [facility] SODIUM NA-STAT LAB 2018-11-30 04:00:00 James Tong [facility] POTASSIUM-STAT LAB 2018-11-30 04:00:00 [facility] GLUCOSE-STAT LAB 2018-11-30 04:00:00 Tong [facility] - STAT LAB 2018-11-30 04:00:00 James Tong RondonGadiel Mckinney [facility] LACTIC ACID, ARTERIAL 2018-11-30 04:00:00 Jaqui Valencia [facility] BLOOD GAS, ARTERIAL 2018-11-30 00:19:00 James Tong RondonKellie [facility] SODIUM NA-STAT LAB 2018-11-30 00:19:00 James Geeeverett [facility] POTASSIUM-STAT LAB 2018-11-30 00:19:00 James Tong Ruffin [facility] GLUCOSE-STAT LAB 2018-11-30 00:19:00 James everett [facility]GB/HCT (H&H) - STAT LAB 2018-11-30 00:19:00 James Tong RondonGadiel [facility] LACTIC ACID, ARTERIAL 2018-11-30 00:19:00 Min Bailey [facility] BLOOD GAS, ARTERIAL 2018-11-29 20:12:00 Tong Ramirez RondonGadielHank [facility] SODIUM NA-STAT LAB 2018-11-29 20:12:00 RamirezTong [facility] POTASSIUM-STAT LAB 2018-11-29 20:12:00 RamirezTong [facility] GLUCOSE-STAT LAB 2018-11-29 20:12:00 Tong Ramirez [facility] HGB/HCT (H&H) - STAT LAB 2018-11-29 20:12:00 RamirezTong [facility] LACTIC ACID, ARTERIAL 2018-11-29 19:06:00 Denise Tsang [facility] BLOOD GAS, ARTERIAL 2018-11-29 19:06:00 James Tong RondonKellie [facility] SODIUM NA-STAT LAB 2018-11-29 19:06:00 JamesTong [facility] POTASSIUM-STAT LAB 2018-11-29 19:06:00 James Tong Ruffin [facility] GLUCOSE-STAT LAB 2018-11-29 19:06:00 James Tong Ruffin [facility] HGB/HCT (H&H) - STAT LAB 2018-11-29 19:06:00 James Tong RondonGadiel Mckinney [facility] POCT-GLUCOSE METER 2018-11-29 18:35:[address] [facility] TRANSFUSION SERVICE 2018-11-29 18:02:00 Ethel Gutierrez [facility] POCT-GLUCOSE METER 2018-11-29 17:22:[address] [facility] BLOOD GAS, ARTERIAL 2018-11-29 17:17:[address] [facility] LACTIC ACID, ARTERIAL 2018-11-29 16:17:00 Trinh Denise B [facility] BLOOD GAS, ARTERIAL 2018-11-29 16:03:00 Gee Ramirezeverett Augustin [facility] SODIUM NA-STAT LAB 2018-11-29 16:03:00 Gee Ramirezeverett RondonGadielHank [facility] POTASSIUM-STAT LAB 2018-11-29 16:03:00 Gee Ramirezeverett AlconGadielHank [facility] GLUCOSE-STAT LAB 2018-11-29 16:03:00 Gee Ramirezeverett RondonGadielHank [facility] HGB/HCT (H&H) - STAT LAB 2018-11-29 16:03:00 RamirezTong RondonGadiel Hank [facility] XR CHEST 1 VIEW 2018-11-29 13:57:[address] [facility] PORTABLE/BEDSIDE Medical Center ECG 12-LEAD 2018-11-29 13:51:08 Unknown, Hl7 [facility] OXYGEN SATURATION, 2018-11-29 13:31:00 Gee Ramirezeverett AlconGadielHank [facility] PROTHROMBIN TIME/INR 2018-11-29 13:30:00 Tong Ramirez [facility] APTT 2018-11-29 13:30:00 Tong Ramirez [facility] FIBRINOGEN 2018-11-29 13:30:00 Gee Ramirezeverett RondonGadielHank [facility] BLOOD GAS, ARTERIAL 2018-11-29 13:25:00 Krzysztof Garcia [facility] BASIC METABOLIC PANEL 2018-11-29 13:16:[address] [facility] (7) [facility] MAGNESIUM 2018-11-29 13:16:00 Krzysztof Garcia [facility] PHOSPHORUS 2018-11-29 13:16:00 Krzysztof Garcia [facility] LACTIC ACID, ARTERIAL 2018-11-29 13:16:00 Krzysztof Garcia [facility] CBC W/PLT COUNT & AUTO 2018-11-29 13:16:00 Krzysztof Garcia [facility] TRANSFUSE PLASMA 2018-11-29 11:25:[address] [facility] TRANSFUSE LEUKO-REDUCED 2018-11-29 11:23:58 Deven White [facility] TRANSFUSE PLASMA 2018-11-29 11:16:[address] [facility] TRANSFUSE LEUKO-REDUCED 2018-11-29 11:14:39 Deven White [facility] PLATELETS [facility] FIBRINOGEN 2018-11-29 10:41:23 Deven [facility] PROTHROMBIN TIME/INR 2018-11-29 10:41:23 Deven White [facility] APTT 2018-11-29 10:41:23 Deven [facility] PLATELET COUNT 2018-11-29 10:41:23 Deven [facility] POCT-ACT 2018-11-29 10:31:00 Reinier Bonilla [facility] CALCIUM, IONIZED 2018-11-29 10:29:[address] [facility] BLOOD GAS, ARTERIAL 2018-11-29 10:29:45 Deven White [facility] SODIUM NA-STAT LAB 2018-11-29 10:29:45 Deven White [facility] POTASSIUM-STAT LAB 2018-11-29 10:29:45 Deven White [facility] GLUCOSE-STAT LAB 2018-11-29 10:29:[address] [facility] HGB/HCT (H&H) - STAT LAB 2018-11-29 10:29:45 Deven White [facility] POCT-ACT 2018-11-29 09:56:00 Reinier Bonilla [facility] BLOOD GAS, ARTERIAL 2018-11-29 09:53:38 Dain De La Rosa [facility] SODIUM NA-STAT LAB 2018-11-29 09:53:[address] [facility] POTASSIUM-STAT LAB 2018-11-29 09:53:38 Rj [facility] GLUCOSE-STAT LAB 2018-11-29 09:53:38 Dain De La Rosa [facility] HGB/HCT (H&H) - STAT LAB 2018-11-29 09:53:38 Dain De La Rosa [facility] POCT-ACT 2018-11-29 09:31:00 Reinier Bonilla Rehan [facility] BLOOD GAS, ARTERIAL 2018-11-29 09:29:21 Dain De La Rosa [facility] SODIUM NA-STAT LAB 2018-11-29 09:29:21 Dain De La Rosa [facility] POTASSIUM-STAT LAB 2018-11-29 09:29:[address] [facility] GLUCOSE-STAT LAB 2018-11-29 09:29:21 Dain De La Rosa [facility] HGB/HCT (H&H) - STAT LAB 2018-11-29 09:29:21 Dain De La Rosa [facility] BLOOD GAS, VENOUS 2018-11-29 09:29:19 Dain De La Rosa [facility] POCT-ACT 2018-11-29 08:55:00 Reinier Bonilla [facility] BLOOD GAS, ARTERIAL 2018-11-29 08:27:10 Deven White [facility] SODIUM NA-STAT LAB 2018-11-29 08:27:10 Deven White [facility] POTASSIUM-STAT LAB 2018-11-29 08:27:10 Deven White [facility] GLUCOSE-STAT LAB 2018-11-29 08:27:[address] [facility] HGB/HCT (H&H) - STAT LAB 2018-11-29 08:27:10 Deven White [facility] BYPASS,AORTO CORONARY 2018-11-29 07:30:00 Dain De La Rosa [facility] - YARI/SVG [facility] ENDOSCOPIC HARVEST,VEIN 2018-11-29 07:30:00 Dain De La Rosa [facility] ECG 12-LEAD 2018-11-29 03:22:59 Reinier Bonilla Rehan [facility] BASIC METABOLIC PANEL 2018-11-29 01:45:00 Reinier Bonilla [facility] () [facility] CBC (HEMOGRAM ONLY) 2018-11-29 01:45:00 Reinier Bonilla [facility] APTT 2018-11-29 01:45:00 Reinier Bonilla [facility] ABORH, MANUAL 2018-11-28 19:28:00 Janene Perry [facility] XR CHEST 1 VIEW 2018-11-28 18:25:00 Balaji Ryan [facility] PORTABLE/BEDSIDE [facility] APTT 2018-11-28 18:18:00 Balaji Ryan [facility] PROTHROMBIN TIME/INR 2018-11-28 18:18:00 Balaji Ryan [facility] TYPE AND SCREEN, 2018-11-28 18:18:00 Balaji Ryan [facility] s - AUTOMATED [facility] BASIC METABOLIC PANEL 2018-11-28 16:29:00 Reinier Bonilla [facility] () [facility] CBC (HEMOGRAM ONLY) 2018-11-28 16:29:00 Reinier Bonilla [facility] HEMOGLOBIN A1C 2018-11-28 16:29:00 Irene [facility] LIPID PANEL 2018-11-28 16:29:00 Irene Reinier [facility] Plan of Care Planned Activity Planned Date Details Comments Source Future Scheduled 2020-02-[address] [facility] - Test 00:00:00 (Season Ended) [code = [facility] INFLUENZA VACCINE (Season Ended)] Future Scheduled 2004-10-[address] [facility] - Test 00:00:00 WELLNESS (YEAR 2 or Medical Center FIRST YEAR if no IPPE) [code = MEDICARE ANNUAL WELLNESS (YEAR 2 or FIRST YEAR if no IPPE)] Future Scheduled 2003-11-02 PNEUMOCOCCAL [address]+ [facility] - Test 00:00:00 LOW/MEDIUM RISK (1 of [facility] 2 - PCV13) [code = PNEUMOCOCCAL 65+ LOW/MEDIUM RISK (1 of 2 - PCV13)] Results Test Description Test Time Test Comments Results Result [facility] Comments EKG 12 lead Interface, External Ris [facility] St 3 In - 12/13/2018 7:32 Jasson es - 19:32:38 PM CDTVentricular Rate Me dical 101 BPMAtrial Rate 101 Ce nter BPMP-R Interval 180 msQRS Duration 106 msQ-T Interval 366 msQTC Calculation(Bazett) 474 msP [place] 59 degreesR [place] 24 degreesT [place] 61 degreesSinus tachycardia with Premature atrial complexesRSR' or QR pattern in V1 suggests right ventricular conduction delayAnterolateral infarct (cited on or before 29-NOV-2018)Prolonged QTWhen compared with ECG of 30-NOV-2018 07:39,Ventricular rate has increasedConfirmed by Lucio GR BASANT ([id number]) on 12/13/2018 7:32:37 PM Basic Metabolic Panel 2018-12-05 06:50:00 Test Item Value Reference Range Interpretation Comme nts Sodium (test code = 2951-2) 140 meq/L 136-145 Potassium (test code = 4.3 meq/L 3.5-5.1 2823-3) Chloride (test code = 106 meq/L 98-107 2075-0) CO2 (test code = 8-9) 28 meq/L 22-29 BUN (test code = 3094-0) 18 mg/dL 7-21 Creatinine (test code = 0.89 mg/dL 0.57-1.25 2160-0) Glucose (test code = 105 mg/dL 70-105 2345-7) Calcium (test code = 9.0 mg/dL 8.4-10.2 80420-5) EGFR (test code = 09167-5) mL/min/1.73 sq m INSUFFICIENT CLINICAL DATA TO CALCULATE ES TIMATED GFR. [facility] [id number] 06:50:00 Test Item Value Reference Range Interpretation Comments SODIUM (BEAKER) 140 meq/L 136-145 (test code = 381) POTASSIUM (BEAKER) 4.3 meq/L 3.5-5.1 (test code = 379) CHLORIDE (BEAKER) 106 meq/L 98-107 (test code = 382) CO2 (BEAKER) (test 28 meq/L 22-29 code = 355) BLOOD UREA NITROGEN 18 mg/dL 7-21 (BEAKER) (test code = 354) CREATININE (BEAKER) 0.89 mg/dL 0.57-1.25 (test code = 358) GLUCOSE RANDOM 105 mg/dL 70-105 (BEAKER) (test code = 652) CALCIUM (BEAKER) 9.0 mg/dL 8.4-10.2 (test code = 697) EGFR (BEAKER) (test mL/min/1.73 INSUFFIC IENT CLINICAL code = 1092) sq m DATA TO CALCULA TE ESTIMATED GFR. CBC with platelet count + automated [id number] 06:31:00 Test Item Value Reference Range Interpretation Comments WBC (test code = 6690-2) 7.4 3.5- 10.5 K/L RBC (test code = 789-8) 3.07 4.63- 6.08 M/L L MCHC (test code = 786-4) 31.4 32.3- 36.5 GM/DL L Hematocrit (test code = 4544-3) 29.9 % 40.1-51 L MCV (test code = 787-2) 97.4 fL 79-92.2 H MCH (test code = 785-6) 30.6 pg 25.7-32.2 RDW (test code = 788-0) 13.7 % 11.6-14.4 Platelets (test code = 777-3) 266 150- 450 K/CU MM MPV (test code = 37089-3) 10.1 fL 9.4-12.4 nRBC (test code = 413) 0 0- 0 /100 WBC % Neutros (test code = 429) 52 % % Lymphs (test code = 430) 26 % % Monos (test code = 431) 13 % % Eos (test code = 432) 8 % % Baso (test code = 437) 0 % # Neutros (test code = 670) 3.87 1.78- 5.38 K/L # Lymphs (test code = 414) 1.90 1.32- 3.57 K/L # Monos (test code = 415) 0.96 0.30- 0.82 K/L H # Eos (test code = 416) 0.62 0.04- 0.54 K/L H # Baso (test code = 417) 0.03 0.01- 0.08 K/L Immature Granulocytes-Relative 1 % 0-1 (test code = 2801) Lab Interpretation (test code = Abnormal 74590-3) [facility] W/PLT COUNT & AUTO [id number] 06:31:00 Test Item Value Reference Range Interpretation Comments WHITE BLOOD CELL COUNT (BEAKER) 7.4 K/ L 3.5-10.5 (test code = 775) RED BLOOD CELL COUNT (BEAKER) 3.07 M/ L 4.63-6.08 L (test code = 761) HEMOGLOBIN (BEAKER) (test code = 9.4 GM/DL 13.7-17.5 L 410) HEMATOCRIT (BEAKER) (test code = 29.9 % 40.1-51.0 L 411) MEAN CORPUSCULAR VOLUME (BEAKER) 97.4 fL 79.0-92.2 H (test code = 753) MEAN CORPUSCULAR HEMOGLOBIN 30.6 pg 25.7-32.2 (BEAKER) (test code = 751) MEAN CORPUSCULAR HEMOGLOBIN CONC 31.4 GM/DL 32.3-36.5 L (BEAKER) (test code = 752) RED CELL DISTRIBUTION WIDTH 13.7 % 11.6-14.4 (BEAKER) (test code = 412) PLATELET COUNT (BEAKER) (test 266 K/CU MM 150-450 code = 756) MEAN PLATELET VOLUME (BEAKER) 10.1 fL 9.4-12.4 (test code = 754) NUCLEATED RED BLOOD CELLS 0 /100 WBC 0-0 (BEAKER) (test code = 413) NEUTROPHILS RELATIVE PERCENT 52 % (BEAKER) (test code = 429) LYMPHOCYTES RELATIVE PERCENT 26 % (BEAKER) (test code = 430) MONOCYTES RELATIVE PERCENT 13 % (BEAKER) (test code = 431) EOSINOPHILS RELATIVE PERCENT 8 % (BEAKER) (test code = 432) BASOPHILS RELATIVE PERCENT 0 % (BEAKER) (test code = 437) NEUTROPHILS ABSOLUTE COUNT 3.87 K/ L 1.78-5.38 (BEAKER) (test code = 670) LYMPHOCYTES ABSOLUTE COUNT 1.90 K/ L 1.32-3.57 (BEAKER) (test code = 414) MONOCYTES ABSOLUTE COUNT (BEAKER) 0.96 K/ L 0.30-0.82 H (test code = 415) EOSINOPHILS ABSOLUTE COUNT 0.62 K/ L 0.04-0.54 H (BEAKER) (test code = 416) BASOPHILS ABSOLUTE COUNT (BEAKER) 0.03 K/ L 0.01-0.08 (test code = 417) IMMATURE GRANULOCYTES-RELATIVE 1 % 0-1 PERCENT (BEAKER) (test code = 2801) [id number] 06:21:00 Test Item Value Reference Range Interpretation Comments Magnesium (test code = 21006-4) 1.9 mg/dL 1.6-2.6 Lab Interpretation (test code = Normal 62619-5) [facility] 06:21:00 Test Item Value Reference Range Interpretation Comments MAGNESIUM (BEAKER) (test code = 1.9 mg/dL 1.6-2.6 627) BASIC METABOLIC [id number] 07:17:00 Test Item Value Reference Range Interpretation Comments SODIUM (BEAKER) 139 meq/L 136-145 (test code = 381) POTASSIUM (BEAKER) 4.2 meq/L 3.5-5.1 (test code = 379) CHLORIDE (BEAKER) 107 meq/L 98-107 (test code = 382) CO2 (BEAKER) (test 27 meq/L 22-29 code = 355) BLOOD UREA NITROGEN 18 mg/dL 7-21 (BEAKER) (test code = 354) CREATININE (BEAKER) 0.83 mg/dL 0.57-1.25 (test code = 358) GLUCOSE RANDOM 104 mg/dL 70-105 (BEAKER) (test code = 652) CALCIUM (BEAKER) 8.7 mg/dL 8.4-10.2 (test code = 697) EGFR (BEAKER) (test mL/min/1.73 INSUFFIC IENT CLINICAL code = 1092) sq m DATA TO CALCULA TE ESTIMATED GFR. CBC W/PLT COUNT & AUTO [id number] 07:10:00 Test Item Value Reference Range Interpretation Comments WHITE BLOOD CELL COUNT (BEAKER) 7.0 K/ L 3.5-10.5 (test code = 775) RED BLOOD CELL COUNT (BEAKER) 2.78 M/ L 4.63-6.08 L (test code = 761) HEMOGLOBIN (BEAKER) (test code = 8.6 GM/DL 13.7-17.5 L 410) HEMATOCRIT (BEAKER) (test code = 27.4 % 40.1-51.0 L 411) MEAN CORPUSCULAR VOLUME (BEAKER) 98.6 fL 79.0-92.2 H (test code = 753) MEAN CORPUSCULAR HEMOGLOBIN 30.9 pg 25.7-32.2 (BEAKER) (test code = 751) MEAN CORPUSCULAR HEMOGLOBIN CONC 31.4 GM/DL 32.3-36.5 L (BEAKER) (test code = 752) RED CELL DISTRIBUTION WIDTH 13.5 % 11.6-14.4 (BEAKER) (test code = 412) PLATELET COUNT (BEAKER) (test 228 K/CU MM 150-450 code = 756) MEAN PLATELET VOLUME (BEAKER) 10.8 fL 9.4-12.4 (test code = 754) NUCLEATED RED BLOOD CELLS 0 /100 WBC 0-0 (BEAKER) (test code = 413) NEUTROPHILS RELATIVE PERCENT 57 % (BEAKER) (test code = 429) LYMPHOCYTES RELATIVE PERCENT 22 % (BEAKER) (test code = 430) MONOCYTES RELATIVE PERCENT 12 % (BEAKER) (test code = 431) EOSINOPHILS RELATIVE PERCENT 7 % (BEAKER) (test code = 432) BASOPHILS RELATIVE PERCENT 1 % (BEAKER) (test code = 437) NEUTROPHILS ABSOLUTE COUNT 4.00 K/ L 1.78-5.38 (BEAKER) (test code = 670) LYMPHOCYTES ABSOLUTE COUNT 1.54 K/ L 1.32-3.57 (BEAKER) (test code = 414) MONOCYTES ABSOLUTE COUNT (BEAKER) 0.86 K/ L 0.30-0.82 H (test code = 415) EOSINOPHILS ABSOLUTE COUNT 0.52 K/ L 0.04-0.54 (BEAKER) (test code = 416) BASOPHILS ABSOLUTE COUNT (BEAKER) 0.04 K/ L 0.01-0.08 (test code = 417) IMMATURE GRANULOCYTES-RELATIVE 1 % 0-1 PERCENT (BEAKER) (test code = 2801) BASIC METABOLIC [id number] 05:28:00 Test Item Value Reference Range Interpretation Comments SODIUM (BEAKER) 136 meq/L 136-145 (test code = 381) POTASSIUM (BEAKER) 4.2 meq/L 3.5-5.1 (test code = 379) CHLORIDE (BEAKER) 104 meq/L 98-107 (test code = 382) CO2 (BEAKER) (test 29 meq/L 22-29 code = 355) BLOOD UREA NITROGEN 18 mg/dL 7-21 (BEAKER) (test code = 354) CREATININE (BEAKER) 0.78 mg/dL 0.57-1.25 (test code = 358) GLUCOSE RANDOM 107 mg/dL 70-105 H (BEAKER) (test code = 652) CALCIUM (BEAKER) 8.7 mg/dL 8.4-10.2 (test code = 697) EGFR (BEAKER) (test mL/min/1.73 INSUFFIC IENT CLINICAL code = 1092) sq m DATA TO CALCULA TE ESTIMATED GFR. CBC W/PLT COUNT & AUTO [id number] 04:45:00 Test Item Value Reference Range Interpretation Comments WHITE BLOOD CELL COUNT (BEAKER) 8.1 K/ L 3.5-10.5 (test code = 775) RED BLOOD CELL COUNT (BEAKER) 2.81 M/ L 4.63-6.08 L (test code = 761) HEMOGLOBIN (BEAKER) (test code = 8.7 GM/DL 13.7-17.5 L 410) HEMATOCRIT (BEAKER) (test code = 26.8 % 40.1-51.0 L 411) MEAN CORPUSCULAR VOLUME (BEAKER) 95.4 fL 79.0-92.2 H (test code = 753) MEAN CORPUSCULAR HEMOGLOBIN 31.0 pg 25.7-32.2 (BEAKER) (test code = 751) MEAN CORPUSCULAR HEMOGLOBIN CONC 32.5 GM/DL 32.3-36.5 (BEAKER) (test code = 752) RED CELL DISTRIBUTION WIDTH 13.5 % 11.6-14.4 (BEAKER) (test code = 412) PLATELET COUNT (BEAKER) (test 201 K/CU MM 150-450 code = 756) MEAN PLATELET VOLUME (BEAKER) 10.3 fL 9.4-12.4 (test code = 754) NUCLEATED RED BLOOD CELLS 0 /100 WBC 0-0 (BEAKER) (test code = 413) NEUTROPHILS RELATIVE PERCENT 61 % (BEAKER) (test code = 429) LYMPHOCYTES RELATIVE PERCENT 20 % (BEAKER) (test code = 430) MONOCYTES RELATIVE PERCENT 12 % (BEAKER) (test code = 431) EOSINOPHILS RELATIVE PERCENT 7 % (BEAKER) (test code = 432) BASOPHILS RELATIVE PERCENT 0 % (BEAKER) (test code = 437) NEUTROPHILS ABSOLUTE COUNT 4.91 K/ L 1.78-5.38 (BEAKER) (test code = 670) LYMPHOCYTES ABSOLUTE COUNT 1.65 K/ L 1.32-3.57 (BEAKER) (test code = 414) MONOCYTES ABSOLUTE COUNT (BEAKER) 0.93 K/ L 0.30-0.82 H (test code = 415) EOSINOPHILS ABSOLUTE COUNT 0.57 K/ L 0.04-0.54 H (BEAKER) (test code = 416) BASOPHILS ABSOLUTE COUNT (BEAKER) 0.03 K/ L 0.01-0.08 (test code = 417) IMMATURE GRANULOCYTES-RELATIVE 0 % 0-1 PERCENT (BEAKER) (test code = 2801) RAD, CHEST, 1 VIEW, NON [id number] 08:22:00Reason for exam:->s/p acbShould this be performed at the bedside?->YesFINAL REPORT Portable chest. CLINICAL HISTORY: s/p acb. COMPARISON STUDY: November 30, 2018. FINDINGS: The cardiac silhouette is enlarged. Sternotomy wires are seen. The pulmonary parenchyma demonstrates areas of interstitial markings as well as bibasilar atelectasis or consolidation. The support lines and tubes have been removed. A tiny left-sided apical pneumothorax is noted. Degenerative changes are noted. IMPRESSION: Removal of support lines and tubes with tiny left-sided apical pneumothorax. Signed: Tera [place] Verified Date/Time: 12/02/2018 08:22:53 Reading Location: [facility] C013X [facility] Consult Reading Room XR chest 1 view portable / [id number] 08:22:00Interface, External Ris In - 12/02/2018 8:25 AM CDTFINAL REPORT Portable chest. CLINICAL HISTORY: s/p acb. COMPARISON STUDY: November 30, 2018. FINDINGS: The cardiac silhouette is enlarged. Sternotomy wires are seen. The pulmonary parenchyma demonstrates areas of interstitial markings as well as bibasilar atelectasis or consolidation. The support lines and tubes have been removed.A tiny left-sided apical pneumothorax is noted. Degenerative changes are noted. IMPRESSION: Removal of support lines and tubes with tiny left-sided apical pneumothorax. Signed: Tera Merrill MDReportVerified Date/Time: 12/02/2018 08:22:53 Reading Location: [address] Ortho Consult Reading [facility] [id number] 06:20:00 Test Item Value Reference Range Interpretation Comments SODIUM (BEAKER) 137 meq/L 136-145 (test code = 381) POTASSIUM (BEAKER) 4.4 meq/L 3.5-5.1 (test code = 379) CHLORIDE (BEAKER) 104 meq/L 98-107 (test code = 382) CO2 (BEAKER) (test 29 meq/L 22-29 code = 355) BLOOD UREA NITROGEN 18 mg/dL 7-21 (BEAKER) (test code = 354) CREATININE (BEAKER) 0.78 mg/dL 0.57-1.25 (test code = 358) GLUCOSE RANDOM 115 mg/dL 70-105 H (BEAKER) (test code = 652) CALCIUM (BEAKER) 8.9 mg/dL 8.4-10.2 (test code = 697) EGFR (BEAKER) (test mL/min/1.73 INSUFFIC IENT CLINICAL code = 1092) sq m DATA TO CALCULA TE ESTIMATED GFR. CBC W/PLT COUNT & AUTO [id number] 05:56:00 Test Item Value Reference Range Interpretation Comments WHITE BLOOD CELL COUNT (BEAKER) 8.6 K/ L 3.5-10.5 (test code = 775) RED BLOOD CELL COUNT (BEAKER) 2.80 M/ L 4.63-6.08 L (test code = 761) HEMOGLOBIN (BEAKER) (test code = 8.7 GM/DL 13.7-17.5 L 410) HEMATOCRIT (BEAKER) (test code = 26.9 % 40.1-51.0 L 411) MEAN CORPUSCULAR VOLUME (BEAKER) 96.1 fL 79.0-92.2 H (test code = 753) MEAN CORPUSCULAR HEMOGLOBIN 31.1 pg 25.7-32.2 (BEAKER) (test code = 751) MEAN CORPUSCULAR HEMOGLOBIN CONC 32.3 GM/DL 32.3-36.5 (BEAKER) (test code = 752) RED CELL DISTRIBUTION WIDTH 13.5 % 11.6-14.4 (BEAKER) (test code = 412) PLATELET COUNT (BEAKER) (test 175 K/CU MM 150-450 code = 756) MEAN PLATELET VOLUME (BEAKER) 10.9 fL 9.4-12.4 (test code = 754) NUCLEATED RED BLOOD CELLS 0 /100 WBC 0-0 (BEAKER) (test code = 413) NEUTROPHILS RELATIVE PERCENT 65 % (BEAKER) (test code = 429) LYMPHOCYTES RELATIVE PERCENT 18 % (BEAKER) (test code = 430) MONOCYTES RELATIVE PERCENT 11 % (BEAKER) (test code = 431) EOSINOPHILS RELATIVE PERCENT 5 % (BEAKER) (test code = 432) BASOPHILS RELATIVE PERCENT 0 % (BEAKER) (test code = 437) NEUTROPHILS ABSOLUTE COUNT 5.62 K/ L 1.78-5.38 H (BEAKER) (test code = 670) LYMPHOCYTES ABSOLUTE COUNT 1.53 K/ L 1.32-3.57 (BEAKER) (test code = 414) MONOCYTES ABSOLUTE COUNT (BEAKER) 0.96 K/ L 0.30-0.82 H (test code = 415) EOSINOPHILS ABSOLUTE COUNT 0.47 K/ L 0.04-0.54 (BEAKER) (test code = 416) BASOPHILS ABSOLUTE COUNT (BEAKER) 0.02 K/ L 0.01-0.08 (test code = 417) IMMATURE GRANULOCYTES-RELATIVE 1 % 0-1 PERCENT (BEAKER) (test code = 2801) POC-Glucose [id number] 21:34:00 Test Item Value Reference Range Interpretation Comments POC-Glucose Meter (test 116 mg/dL 70-110 H TEST ED AT [facility] code = 1538) [address] [facility] 7703 0 Lab Interpretation (test Abnormal code = 68656-5) [facility] [id number] 21:34:00 Test Item Value Reference Range Interpretation Comments POC-GLUCOSE METER 116 mg/dL 70-110 H TESTED AT [facility] 6720 (BEAKER) (test code = KARINA Ramirez [facility] 1538) [address] POCT-GLUCOSE [id number] 17:08:00 Test Item Value Reference Range Interpretation Comments POC-GLUCOSE METER 127 mg/dL 70-110 H TESTED AT [place] [address] (BEAKER) (test code = KARINA Ramirez [facility] 1538) [address] POCT-GLUCOSE [id number] 13:27:00 Test Item Value Reference Range Interpretation Comments POC-GLUCOSE METER 136 mg/dL 70-110 H TESTED AT [facility] 67 (BEAKER) (test code = KARINA Ramirez [facility] 1538) [address] POCT-GLUCOSE [id number] 09:14:00 Test Item Value Reference Range Interpretation Comments POC-GLUCOSE METER 170 mg/dL 70-110 H TESTED AT [facility] 67 (BEAKER) (test code = KARINA Ramirez [facility] 1538) [address] BASIC METABOLIC [id number] 06:32:00 Test Item Value Reference Range Interpretation Comments SODIUM (BEAKER) 140 meq/L 136-145 (test code = 381) POTASSIUM (BEAKER) 4.4 meq/L 3.5-5.1 (test code = 379) CHLORIDE (BEAKER) 108 meq/L 98-107 H (test code = 382) CO2 (BEAKER) (test 28 meq/L 22-29 code = 355) BLOOD UREA NITROGEN 13 mg/dL 7-21 (BEAKER) (test code = 354) CREATININE (BEAKER) 0.85 mg/dL 0.57-1.25 (test code = 358) GLUCOSE RANDOM 124 mg/dL 70-105 H (BEAKER) (test code = 652) CALCIUM (BEAKER) 8.9 mg/dL 8.4-10.2 (test code = 697) EGFR (BEAKER) (test mL/min/1.73 INSUFFIC IENT CLINICAL code = 1092) sq m DATA TO CALCULA TE ESTIMATED GFR. [id number] 06:31:00 Test Item Value Reference Range Interpretation Comments Phosphorus (test code = 2777-1) 1.9 mg/dL 2.3-4.7 L Lab Interpretation (test code = Abnormal 20403-3) [id number] 06:31:00 Test Item Value Reference Range Interpretation Comments PHOSPHORUS (BEAKER) (test code = 1.9 mg/dL 2.3-4.7 L 604) [id number] 06:31:00 Test Item Value Reference Range Interpretation Comments MAGNESIUM (BEAKER) (test code = 2.1 mg/dL 1.6-2.6 627) CBC (Hemogram only)2018-12-01 05:47:00 Test Item Value Reference Range Interpretation Comments WBC (test code = 6690-2) 9.6 3.5- 10.5 K/L RBC (test code = 789-8) 2.84 4.63- 6.08 M/L L MCHC (test code = 786-4) 32.1 32.3- 36.5 GM/DL L Hematocrit (test code = 4544-3) 27.7 % 40.1-51 L MCV (test code = 787-2) 97.5 fL 79-92.2 H MCH (test code = 785-6) 31.3 pg 25.7-32.2 RDW (test code = 788-0) 13.7 % 11.6-14.4 Platelets (test code = 777-3) 154 150- 450 K/CU MM MPV (test code = 74475-5) 10.7 fL 9.4-12.4 nRBC (test code = 413) 0 0- 0 /100 WBC Lab Interpretation (test code = Abnormal 44337-8) [facility]2018-12-01 05:47:00 Test Item Value Reference Range Interpretation Comments WHITE BLOOD CELL COUNT (BEAKER) 9.6 K/ L 3.5-10.5 (test code = 775) RED BLOOD CELL COUNT (BEAKER) 2.84 M/ L 4.63-6.08 L (test code = 761) HEMOGLOBIN (BEAKER) (test code = 8.9 GM/DL 13.7-17.5 L 410) HEMATOCRIT (BEAKER) (test code = 27.7 % 40.1-51.0 L 411) MEAN CORPUSCULAR VOLUME (BEAKER) 97.5 fL 79.0-92.2 H (test code = 753) MEAN CORPUSCULAR HEMOGLOBIN 31.3 pg 25.7-32.2 (BEAKER) (test code = 751) MEAN CORPUSCULAR HEMOGLOBIN CONC 32.1 GM/DL 32.3-36.5 L (BEAKER) (test code = 752) RED CELL DISTRIBUTION WIDTH 13.7 % 11.6-14.4 (BEAKER) (test code = 412) PLATELET COUNT (AKER) (test 154 K/CU MM 150-450 code = 756) MEAN PLATELET VOLUME (BEAKER) 10.7 fL 9.4-12.4 (test code = 754) NUCLEATED RED BLOOD CELLS 0 /100 WBC 0-0 (AKER) (test code = 413) POCT-GLUCOSE [id number] 01:01:00 Test Item Value Reference Range Interpretation Comments POC-GLUCOSE METER 136 mg/dL 70-110 H TESTED AT [facility] 67 ([facility]) (test code = [place]INA [place] 1538) [address] Prepare [id number] 23:54:00 Test Item Value Reference Range Interpretation Comments Unit ABO (test code = 0087550) O Pos UNIT NUMBER (test code = [id number] 934-0) Status (test code = 7685584) [place]_TIMEINCHART Blood Bank Product (test code FFP = 2263) PRODUCT CODE (test code = Q0200B52 933-2) [facility] [id number] 23:54:00 Test Item Value Reference Range Interpretation Comments Unit ABO (test code = 8717121) B Pos UNIT NUMBER (test code = [id number] 934-0) Status (test code = 8035345) [place]_TIMEINCHART Blood Bank Product (test code PLATELETS = 2263) PRODUCT CODE (test code = C6574O46 933-2) [facility] [id number] 17:11:00 Test Item Value Reference Range Interpretation Comments POC-GLUCOSE METER 147 mg/dL 70-110 H TESTED AT [facility] 6720 (BEBANNER) (test code = KARINA Ramirez [place] 1538) [address] POCT-GLUCOSE [id number] 12:36:00 Test Item Value Reference Range Interpretation Comments POC-GLUCOSE METER 128 mg/dL 70-110 H TESTED AT [facility] 6720 (BEBANNER) (test code = KARINA Ramirez [place] 1538) [address] POCT-GLUCOSE [id number] 10:49:00 Test Item Value Reference Range Interpretation Comments POC-GLUCOSE METER 147 mg/dL 70-110 H TESTED AT [facility] 6720 (BEBANNER) (test code = KARINA Ramirez [facility] 1538) [address] POCT-GLUCOSE [id number] 08:55:00 Test Item Value Reference Range Interpretation Comments POC-GLUCOSE METER 136 mg/dL 70-110 H TESTED AT [facility] 6720 ([facility]) (test code = KARINA Ramirez [facility] 1538) [address] RAD, CHEST, 1 VIEW, NON [id number] 05:50:00while patient is intubated or has chest tubes.Reason for exam:->Status post CV SurgeryShould thisbe performed at the bedside?->YesFINAL REPORT RAD, CHEST, 1 VIEW, NON DEPT INDICATION: Status post CV Surgery COMPARISON: Prior day's exam FINDINGS: Portable frontal view of the chest. IMPRESSION: Support Lines: Interval removal of the previously seen right IJ central venous catheter. Interval extubation andremoval of the previously seen enteric tube. Otherwise unchanged support apparatus.Lungs and pleura:Unchanged airspace and pleural opacities when allowing for differences in technique. Trace left medial apical pneumothorax.Heart and mediastinum: Stable contours. Stable surgical changes.Additional findings: None. Signed: [facility] Verified Date/Time: 11/30/2018 05:50:39 BASIC METABOLIC [id number] 04:54:00 Test Item Value Reference Range Interpretation Comments SODIUM (BEAKER) 142 meq/L 136-145 (test code = 381) POTASSIUM (BEAKER) 4.6 meq/L 3.5-5.1 (test code = 379) CHLORIDE (BEAKER) 111 meq/L 98-107 H (test code = 382) CO2 (BEAKER) (test 24 meq/L 22-29 code = 355) BLOOD UREA NITROGEN 11 mg/dL 7-21 (BEAKER) (test code = 354) CREATININE (BEAKER) 0.89 mg/dL 0.57-1.25 (test code = 358) GLUCOSE RANDOM 152 mg/dL 70-105 H (BEAKER) (test code = 652) CALCIUM (BEAKER) 8.7 mg/dL 8.4-10.2 (test code = 697) EGFR (BEAKER) (test mL/min/1.73 INSUFFIC IENT CLINICAL code = 1092) sq m DATA TO CALCULA TE ESTIMATED GFR. [id number] 04:42:00 Test Item Value Reference Range Interpretation Comments PHOSPHORUS (BEAKER) (test code = 3.0 mg/dL 2.3-4.7 604) [id number] 04:42:00 Test Item Value Reference Range Interpretation Comments MAGNESIUM (BEAKER) (test code = 2.2 mg/dL 1.6-2.6 627) Lactic Acid, [id number] 04:37:00 Test Item Value Reference Range Interpretation Comments Lactate, Art (test code = 2874) 1.4 mmol/L 0.5-2.2 Lab Interpretation (test code = Normal 23053-5) [facility]CT[facility] ACID, [id number] 04:37:00 Test Item Value Reference Range Interpretation Comments LACTATE BLOOD ARTERIAL (2) 1.4 mmol/L 0.5-2.2 (BEAKER) (test code = 2874) HGB/HCT (H&H)-Stat [id number] 04:32:00 Test Item Value Reference Range Interpretation Comments Hemoglobin (test code = 786-4) 9.4 g/dL 13-16.8 L Hematocrit (test code = 4544-3) 28.0 % 40-50 L Lab Interpretation (test code = Abnormal 56403-0) [facility]Glucose-Stat [id number] 04:32:00 Test Item Value Reference Range Interpretation Comments Glucose (test code = 2345-7) 145 mg/dL 70-110 H Lab Interpretation (test code = Abnormal 02480-2) [facility] HospitalGLUCOSE-STAT [id number] 04:32:00 Test Item Value Reference Range Interpretation Comments GLUCOSE RANDOM (BEAKER) (test code 145 mg/dL 70-110 H = 652) HGB/HCT (H&H) - STAT [id number] 04:32:00 Test Item Value Reference Range Interpretation Comments HEMOGLOBIN (BEAKER) (test code = 9.4 g/dL 13.0-16.8 L 410) HEMATOCRIT (BEAKER) (test code = 28.0 % 40.0-50.0 L 411) Blood gas, [id number] 04:31:00 Test Item Value Reference Range Interpretation Comments pH, Arterial (test code = 2744-1) 7.40 7.35-7.45 pCO2, Arterial (test code = 45 35- 45 mmHg 2018-) pO2, Arterial (test code = 2703-7) 90 80- 90 mmHg O2 Sat, Arterial (test code = 97.0 % 96-97 8-6) HCO3, Arterial (test code = 27 mmol/L 21-29 1960-4) Base Excess, Arterial (test code = 1.9 mmol/L -2-3 1925-7) Patient Temperature (test code = 36.7 C 8310-5) FIO2 (test code = 1819) 28 % [facility] [id number] 04:31:00 Test Item Value Reference Range Interpretation Comments Sodium (test code = 2951-2) 140 meq/L 135-148 Lab Interpretation (test code = Normal 92690-3) [facility]Potassium-Stat [id number] 04:31:00 Test Item Value Reference Range Interpretation Comments Potassium (test code = 2823-3) 4.4 meq/L 3.6-5.5 Lab Interpretation (test code = Normal 69051-3) [facility] HospitalBLOOD GAS, [id number] 04:31:00 Test Item Value Reference Range Interpretation Comments PH ARTERIAL (BEAKER) (test code = 7.40 7.35-7.45 383) PCO2 ARTERIAL (BEAKER) (test code 45 mmHg 35-45 = 384) PO2 ARTERIAL (BEAKER) (test code = 90 mmHg 80-90 385) O2 SATURATION ARTERIAL (BEAKER) 97.0 % 96.0-97.0 (test code = 386) HCO3 ARTERIAL (BEAKER) (test code 27 mmol/L 21-29 = 388) BASE EXCESS ARTERIAL (BEAKER) 1.9 mmol/L -2.0-3.0 (test code = 387) PATIENT TEMPERATURE (BEAKER) (test 36.7 C code = 1818) FIO2 (BEAKER) (test code = 1819) 28.0 % SODIUM NA-STAT [id number] 04:31:00 Test Item Value Reference Range Interpretation Comments SODIUM (BEAKER) (test code = 381) 140 meq/L 135-148 POTASSIUM-STAT [id number] 04:31:00 Test Item Value Reference Range Interpretation Comments POTASSIUM (BEAKER) (test code = 4.4 meq/L 3.6-5.5 379) CBC (HEMOGRAM ONLY)2018-11-30 04:20:00 Test Item Value Reference Range Interpretation Comments WHITE BLOOD CELL COUNT (BEAKER) 11.5 K/ L 3.5-10.5 H (test code = 775) RED BLOOD CELL COUNT (BEAKER) 2.85 M/ L 4.63-6.08 L (test code = 761) HEMOGLOBIN (BEAKER) (test code = 8.8 GM/DL 13.7-17.5 L 410) HEMATOCRIT (BEAKER) (test code = 27.3 % 40.1-51.0 L 411) MEAN CORPUSCULAR VOLUME (BEAKER) 95.8 fL 79.0-92.2 H (test code = 753) MEAN CORPUSCULAR HEMOGLOBIN 30.9 pg 25.7-32.2 (BEAKER) (test code = 751) MEAN CORPUSCULAR HEMOGLOBIN CONC 32.2 GM/DL 32.3-36.5 L (BEAKER) (test code = 752) RED CELL DISTRIBUTION WIDTH 13.4 % 11.6-14.4 (BEAKER) (test code = 412) PLATELET COUNT (BEAKER) (test 183 K/CU MM 150-450 code = 756) MEAN PLATELET VOLUME (BEAKER) 10.6 fL 9.4-12.4 (test code = 754) NUCLEATED RED BLOOD CELLS 0 /100 WBC 0-0 (BEAKER) (test code = 413) BLOOD GAS, [id number] 00:51:00 Test Item Value Reference Range Interpretation Comments PH ARTERIAL (BEAKER) (test code = 7.33 7.35-7.45 L 383) PCO2 ARTERIAL (BEAKER) (test code 50 mmHg 35-45 H = 384) PO2 ARTERIAL (BEAKER) (test code 143 mmHg 80-90 H = 385) O2 SATURATION ARTERIAL (BEAKER) 98.7 % 96.0-97.0 H (test code = 386) HCO3 ARTERIAL (BEAKER) (test code 26 mmol/L 21-29 = 388) BASE EXCESS ARTERIAL (BEAKER) -0.1 mmol/L -2.0-3.0 (test code = 387) PATIENT TEMPERATURE (BEAKER) 36.7 C (test code = 1818) FIO2 (BEAKER) (test code = 1819) 40.0 % GLUCOSE-STAT [id number] 00:49:00 Test Item Value Reference Range Interpretation Comments GLUCOSE RANDOM (BEAKER) (test code 157 mg/dL 70-110 H = 652) HGB/HCT (H&H) - STAT [id number] 00:49:00 Test Item Value Reference Range Interpretation Comments HEMOGLOBIN (BEAKER) (test code = 9.1 g/dL 13.0-16.8 L 410) HEMATOCRIT (BEAKER) (test code = 27.0 % 40.0-50.0 L 411) SODIUM NA-STAT [id number] 00:48:00 Test Item Value Reference Range Interpretation Comments SODIUM (BEAKER) (test code = 381) 139 meq/L 135-148 POTASSIUM-STAT [id number] 00:48:00 Test Item Value Reference Range Interpretation Comments POTASSIUM (BEAKER) (test code = 4.2 meq/L 3.6-5.5 379) LACTIC ACID, [id number] 00:44:00 Test Item Value Reference Range Interpretation Comments LACTATE BLOOD ARTERIAL (2) 1.5 mmol/L 0.5-2.2 (BEAKER) (test code = 2874) SODIUM NA-STAT [id number] 20:25:00 Test Item Value Reference Range Interpretation Comments SODIUM (BEAKER) (test code = 381) 139 meq/L 135-148 POTASSIUM-STAT [id number] 20:25:00 Test Item Value Reference Range Interpretation Comments POTASSIUM (BEAKER) (test code = 4.0 meq/L 3.6-5.5 379) BLOOD GAS, [id number] 20:25:00 Test Item Value Reference Range Interpretation Comments PH ARTERIAL (BEAKER) (test code = 7.34 7.35-7.45 L 383) PCO2 ARTERIAL (BEAKER) (test code 44 mmHg 35-45 = 384) PO2 ARTERIAL (BEAKER) (test code 116 mmHg 80-90 H = 385) O2 SATURATION ARTERIAL (BEAKER) 98.0 % 96.0-97.0 H (test code = 386) HCO3 ARTERIAL (BEAKER) (test code 23 mmol/L 21-29 = 388) BASE EXCESS ARTERIAL (BEAKER) -2.6 mmol/L -2.0-3.0 L (test code = 387) PATIENT TEMPERATURE (BEAKER) 36.7 C (test code = 1818) FIO2 (BEAKER) (test code = 1819) 40.0 % GLUCOSE-STAT [id number] 20:25:00 Test Item Value Reference Range Interpretation Comments GLUCOSE RANDOM (BEAKER) (test code 141 mg/dL 70-110 H = 652) HGB/HCT (H&H) - STAT [id number] 20:25:00 Test Item Value Reference Range Interpretation Comments HEMOGLOBIN (BEAKER) (test code = 8.6 g/dL 13.0-16.8 L 410) HEMATOCRIT (BEAKER) (test code = 25.0 % 40.0-50.0 L 411) LACTIC ACID, [id number] 19:39:00 Test Item Value Reference Range Interpretation Comments LACTATE BLOOD ARTERIAL (2) 3.9 mmol/L 0.5-2.2 H (BEAKER) (test code = 2874) BLOOD GAS, [id number] 19:19:00 Test Item Value Reference Range Interpretation Comments PH ARTERIAL (BEAKER) (test code = 7.30 7.35-7.45 L 383) PCO2 ARTERIAL (BEAKER) (test code 51 mmHg 35-45 H = 384) PO2 ARTERIAL (BEAKER) (test code 103 mmHg 80-90 H = 385) O2 SATURATION ARTERIAL (BEAKER) 97.2 % 96.0-97.0 H (test code = 386) HCO3 ARTERIAL (BEAKER) (test code 25 mmol/L 21-29 = 388) BASE EXCESS ARTERIAL (BEAKER) -1.9 mmol/L -2.0-3.0 (test code = 387) PATIENT TEMPERATURE (BEAKER) 36.7 C (test code = 1818) FIO2 (BEAKER) (test code = 1819) 36.0 % GLUCOSE-STAT [id number] 19:19:00 Test Item Value Reference Range Interpretation Comments GLUCOSE RANDOM (BEAKER) (test code 138 mg/dL 70-110 H = 652) HGB/HCT (H&H) - STAT [id number] 19:19:00 Test Item Value Reference Range Interpretation Comments HEMOGLOBIN (BEAKER) (test code = 8.8 g/dL 13.0-16.8 L 410) HEMATOCRIT (BEAKER) (test code = 26.0 % 40.0-50.0 L 411) SODIUM NA-STAT [id number] 19:18:00 Test Item Value Reference Range Interpretation Comments SODIUM (BEAKER) (test code = 381) 140 meq/L 135-148 POTASSIUM-STAT [id number] 19:18:00 Test Item Value Reference Range Interpretation Comments POTASSIUM (BEAKER) (test code = 4.2 meq/L 3.6-5.5 379) BLOOD GAS, [id number] 18:18:00 Test Item Value Reference Range Interpretation Comments PH ARTERIAL (BEAKER) (test code = 7.36 7.35-7.45 383) PCO2 ARTERIAL (BEAKER) (test code 42 mmHg 35-45 = 384) PO2 ARTERIAL (BEAKER) (test code 123 mmHg 80-90 H = 385) O2 SATURATION ARTERIAL (BEAKER) 98.4 % 96.0-97.0 H (test code = 386) HCO3 ARTERIAL (BEAKER) (test code 24 mmol/L 21-29 = 388) BASE EXCESS ARTERIAL (BEAKER) -1.9 mmol/L -2.0-3.0 (test code = 387) PATIENT TEMPERATURE (BEAKER) 36.5 C (test code = 1818) FIO2 (BEAKER) (test code = 1819) 40.0 % POCT-GLUCOSE [id number] 17:52:00 Test Item Value Reference Range Interpretation Comments POC-GLUCOSE METER 173 mg/dL 70-110 H TESTED AT [facility] 6720 (BEAKER) (test code = KARINA NORIEGA 1538) [address] LACTIC ACID, [id number] 16:58:00 Test Item Value Reference Range Interpretation Comments LACTATE BLOOD ARTERIAL (2) 4.1 mmol/L 0.5-2.2 H (BEAKER) (test code = 2874) BLOOD GAS, [id number] 16:11:00 Test Item Value Reference Range Interpretation Comments PH ARTERIAL (BEAKER) (test code = 7.36 7.35-7.45 383) PCO2 ARTERIAL (BEAKER) (test code 43 mmHg 35-45 = 384) PO2 ARTERIAL (BEAKER) (test code 122 mmHg 80-90 H = 385) O2 SATURATION ARTERIAL (BEAKER) 98.3 % 96.0-97.0 H (test code = 386) HCO3 ARTERIAL (BEAKER) (test code 24 mmol/L 21-29 = 388) BASE EXCESS ARTERIAL (BEAKER) -1.8 mmol/L -2.0-3.0 (test code = 387) PATIENT TEMPERATURE (BEAKER) 36.6 C (test code = 1818) FIO2 (BEAKER) (test code = 1819) 40.0 % GLUCOSE-STAT [id number] 16:11:00 Test Item Value Reference Range Interpretation Comments GLUCOSE RANDOM (BEAKER) (test code 154 mg/dL 70-110 H = 652) HGB/HCT (H&H) - STAT [id number] 16:11:00 Test Item Value Reference Range Interpretation Comments HEMOGLOBIN (BEAKER) (test code = 9.1 g/dL 13.0-16.8 L 410) HEMATOCRIT (BEAKER) (test code = 27.0 % 40.0-50.0 L 411) SODIUM NA-STAT [id number] 16:10:00 Test Item Value Reference Range Interpretation Comments SODIUM (BEAKER) (test code = 381) 140 meq/L 135-148 POTASSIUM-STAT [id number] 16:10:00 Test Item Value Reference Range Interpretation Comments POTASSIUM (BEAKER) (test code = 4.2 meq/L 3.6-5.5 379) RAD, CHEST, 1 VIEW, NON [id number] 15:02:00Reason for exam:->Status post CV Surgery post op day 0Should this be performed at the bedside?->YesFINAL REPORT Chest dated 11/29/2018 COMPARISON: 11/28/2018 Clinical Information: Status post CV Surgery post op day 0 Comment: Since prior examination, there is interval placementof sternotomy and bypass surgery. Endotracheal tube, nasogastric tube, mediastinal tube, left chest tube, and right IJ central venous catheter are present. Heart is enlarged. Pulmonary vasculature is indistinct. Interstitial disease is seen bilaterally suggestive of vascular congestion. No pleural effusion or pneumothorax is seen. Signed: Mallika Georges MDReport Verified Date/Time: 11/29/2018 15:02:46 Reading Location: [address] Consult Reading Room Electronically signed by: MALLIKA GEORGES M.D.on 11/29/2018 03:02 PMBASIC METABOLIC [id number] 14:01:00 Test Item Value Reference Range Interpretation Comments SODIUM (BEAKER) 140 meq/L 136-145 (test code = 381) POTASSIUM (BEAKER) 4.3 meq/L 3.5-5.1 (test code = 379) CHLORIDE (BEAKER) 109 meq/L 98-107 H (test code = 382) CO2 (BEAKER) (test 23 meq/L 22-29 code = 355) BLOOD UREA NITROGEN 14 mg/dL 7-21 (BEAKER) (test code = 354) CREATININE (BEAKER) 0.94 mg/dL 0.57-1.25 (test code = 358) GLUCOSE RANDOM 170 mg/dL 70-105 H (BEAKER) (test code = 652) CALCIUM (BEAKER) 9.7 mg/dL 8.4-10.2 (test code = 697) EGFR (BEAKER) (test mL/min/1.73 INSUFFIC IENT CLINICAL code = 1092) sq m DATA TO CALCULA TE ESTIMATED GFR. [id number] 13:57:00 Test Item Value Reference Range Interpretation Comments PHOSPHORUS (BEAKER) (test code = 2.9 mg/dL 2.3-4.7 604) [id number] 13:57:00 Test Item Value Reference Range Interpretation Comments MAGNESIUM (BEAKER) (test code = 1.8 mg/dL 1.6-2.6 627) [id number] 13:56:00 Test Item Value Reference Range Interpretation Comments Fibrinogen (test code = 3255-7) 277 mg/dl 225-434 Lab Interpretation (test code = Normal 43263-3) [facility] 13:56:00 Test Item Value Reference Range Interpretation Comments PTT (test code = 10896-2) 32.8 22.5- 36.0 seconds Lab Interpretation (test code = Normal 30340-2) [facility] 13:56:00 Test Item Value Reference Range Interpretation Comments FIBRINOGEN LEVEL (BEAKER) (test 277 mg/dl 225-434 code = 658) [id number] 13:56:00 Test Item Value Reference Range Interpretation Comments PARTIAL THROMBOPLASTIN TIME 32.8 seconds 22.5-36.0 (BEAKER) (test code = 760) Prothromin time/[id number] 13:55:00 Test Item Value Reference Range Interpretation Comments Protime (test code = 15.9 11.9- 14.2 H 5902-2) seconds INR (test code = 1.3 <=5.9 6301-6) JAMAR (test code = JAMAR) Effective 11/08/2018: PT Reference Range ChangeNew: 11.9-14.2 Previous: 11.7-14.7 RECOMMENDED COUMADIN/WARFARIN INR THERAPY RANGESSTANDARD DOSE: 2.0-3.0 Includes: PROPHYLAXIS for venous thrombosis, systemic embolization; TREATMENT for venous thrombosis and/or pulmonary embolus.HIGH RISK: Target INR is 2.5-3.5 for patients wiht mechanical heart valves. Lab Interpretation Abnormal (test code = 70043-5) [facility]PROT[facility]/[id number] 13:55:00 Test Item Value Reference Range Interpretation Comments PROTIME (BEAKER) (test code = 15.9 seconds 11.9-14.2 H 759) INR (BEAKER) (test code = 370) 1.3 <=5.9 Effective 11/08/2018: PT Reference Range ChangeNew: 11.9-14.2 Previous: 11.7- 14.7RECOMMENDED COUMADIN/WARFARIN INR THERAPY RANGESSTANDARD DOSE: 2.0-3.0 Includes: PROPHYLAXIS for venous thrombosis, systemic embolization; TREATMENT for venous thrombosis and/or pulmonary embolus.HIGH RISK: Target INR is2.5-3.5 for patients wiht mechanical heart valves.LACTIC ACID, [id number] 13:53:00 Test Item Value Reference Range Interpretation Comments LACTATE BLOOD ARTERIAL (2) 3.5 mmol/L 0.5-2.2 H (BEAKER) (test code = 2874) CBC W/PLT COUNT & AUTO [id number] 13:52:00 Test Item Value Reference Range Interpretation Comments WHITE BLOOD CELL COUNT 15.1 K/ L 3.5-10.5 H (BEAKER) (test code = 775) RED BLOOD CELL COUNT 2.96 M/ L 4.63-6.08 L (BEAKER) (test code = 761) HEMOGLOBIN (BEAKER) 9.2 GM/DL 13.7-17.5 L (test code = 410) HEMATOCRIT (BEAKER) 28.6 % 40.1-51.0 L (test code = 411) MEAN CORPUSCULAR 96.6 fL 79.0-92.2 H VOLUME (BEAKER) (test code = 753) MEAN CORPUSCULAR 31.1 pg 25.7-32.2 HEMOGLOBIN (BEAKER) (test code = 751) MEAN CORPUSCULAR 32.2 GM/DL 32.3-36.5 L HEMOGLOBIN CONC (BEAKER) (test code = 752) RED CELL DISTRIBUTION 13.3 % 11.6-14.4 WIDTH (BEAKER) (test code = 412) PLATELET COUNT 224 K/CU MM 150-450 Discordant re sult (BEAKER) (test code = compar ed to previous 756) result; clinica l correlation required. MEAN PLATELET VOLUME 9.9 fL 9.4-12.4 (BEAKER) (test code = 754) NUCLEATED RED BLOOD 0 /100 WBC 0-0 CELLS (BEAKER) (test code = 413) NEUTROPHILS RELATIVE 79 % PERCENT (BEAKER) (test code = 429) LYMPHOCYTES RELATIVE 11 % PERCENT (BEAKER) (test code = 430) MONOCYTES RELATIVE 9 % PERCENT (BEAKER) (test code = 431) EOSINOPHILS RELATIVE 0 % PERCENT (BEAKER) (test code = 432) BASOPHILS RELATIVE 0 % PERCENT (BEAKER) (test code = 437) NEUTROPHILS ABSOLUTE 11.92 K/ L 1.78-5.38 H COUNT (BEAKER) (test code = 670) LYMPHOCYTES ABSOLUTE 1.73 K/ L 1.32-3.57 COUNT (BEAKER) (test code = 414) MONOCYTES ABSOLUTE 1.36 K/ L 0.30-0.82 H COUNT (BEAKER) (test code = 415) EOSINOPHILS ABSOLUTE 0.04 K/ L 0.04-0.54 COUNT (BEAKER) (test code = 416) BASOPHILS ABSOLUTE 0.01 K/ L 0.01-0.08 COUNT (BEAKER) (test code = 417) IMMATURE 1 % 0-1 GRANULOCYTES-RELATIVE PERCENT (BEAKER) (test code = 2801) BLOOD GAS, [id number] 13:44:00 Test Item Value Reference Range Interpretation Comments PH ARTERIAL (BEAKER) (test code = 7.30 7.35-7.45 L 383) PCO2 ARTERIAL (BEAKER) (test code 51 mmHg 35-45 H = 384) PO2 ARTERIAL (BEAKER) (test code 94 mmHg 80-90 H = 385) O2 SATURATION ARTERIAL (BEAKER) 96.5 % 96.0-97.0 (test code = 386) HCO3 ARTERIAL (BEAKER) (test code 25 mmol/L 21-29 = 388) BASE EXCESS ARTERIAL (BEAKER) -2.3 mmol/L -2.0-3.0 L (test code = 387) PATIENT TEMPERATURE (BEAKER) 36.6 C (test code = 1818) FIO2 (BEAKER) (test code = 1819) 40.0 % Oxygen saturation, [id number] 13:42:00 Test Item Value Reference Range Interpretation Comments O2 Saturation (Measured) (test code = 70.8 % 01398-7) [facility] SATURATION, [id number] 13:42:00 Test Item Value Reference Range Interpretation Comments O2 SATURATION (MEASURED) (BEAKER) 70.8 % (test code = 1455) POC ACTIVATED CLOTTING [id number] 11:18:00 Test Item Value Reference Range Interpretation Comments Activated Clotting Time 109 sec TEST ED AT [place] [address] (test code = 441) [place] [address] [facility]POCT-[id number] 11:18:00 Test Item Value Reference Range Interpretation Comments ACTIVATED CLOTTING TIME 109 sec TEST ED AT [place] [address] ([facility]) (test code = KARINA Ramirez [place] [address]) [address] [id number] 11:18:00 Test Item Value Reference Range Interpretation Comments ACTIVATED CLOTTING TIME 549 sec TEST ED AT [place] [address] ([facility]) (test code = KARINA Ramirez [facility] [address]) [address] [id number] 11:18:00 Test Item Value Reference Range Interpretation Comments ACTIVATED CLOTTING TIME 494 sec TEST ED AT [place] [address] ([facility]) (test code = KARINA Ramirez [place] [address]) [address] [id number] 11:18:00 Test Item Value Reference Range Interpretation Comments ACTIVATED CLOTTING TIME 428 sec TEST ED AT [place] [address] ([facility]) (test code = KARINA Ramirez [facility] [address]) [address] PROTHROMBIN TIME/[id number] 11:02:00 Test Item Value Reference Range Interpretation Comments PROTIME ([facility]) (test code = 17.6 seconds 11.9-14.2 H 759) INR ([facility]) (test code = 370) 1.5 <=5.9 Effective 11/08/2018: PT Reference Range ChangeNew: 11.9-14.2 Previous: 11.7- 14.7RECOMMENDED COUMADIN/WARFARIN INR THERAPY RANGESSTANDARD DOSE: 2.0-3.0 Includes: PROPHYLAXIS for venous thrombosis, systemic embolization; TREATMENT for venous thrombosis and/or pulmonary embolus.HIGH RISK: Target INR is2.5-3.5 for patients wiht mechanical heart valves.[id number] 11:02:00 Test Item Value Reference Range Interpretation Comments PARTIAL THROMBOPLASTIN TIME 32.7 seconds 22.5-36.0 ([facility]) (test code = 760) [id number] 11:02:00 Test Item Value Reference Range Interpretation Comments FIBRINOGEN LEVEL ([facility]) (test 229 mg/dl 225-434 code = 658) Platelet [id number] 10:48:00 Test Item Value Reference Range Interpretation Comments Platelets (test code = 777-3) 111 150- 450 K/CU MM L Lab Interpretation (test code = Abnormal 00306-9) [facility]PLATELET [id number] 10:48:00 Test Item Value Reference Range Interpretation Comments PLATELET COUNT (BEAKER) (test 111 K/CU MM 150-450 L code = 756) BLOOD GAS, [id number] 10:41:00 Test Item Value Reference Range Interpretation Comments PH ARTERIAL (BEAKER) (test code = 7.40 7.35-7.45 383) PCO2 ARTERIAL (BEAKER) (test code 37 mmHg 35-45 = 384) PO2 ARTERIAL (BEAKER) (test code 326 mmHg 80-90 H = 385) O2 SATURATION ARTERIAL (BEAKER) 99.7 % 96.0-97.0 H (test code = 386) HCO3 ARTERIAL (BEAKER) (test code 23 mmol/L 21-29 = 388) BASE EXCESS ARTERIAL (BEAKER) -2.3 mmol/L -2.0-3.0 L (test code = 387) PATIENT TEMPERATURE (BEAKER) 35.0 C (test code = 1818) FIO2 (BEAKER) (test code = 1819) 100.0 % GLUCOSE-STAT [id number] 10:41:00 Test Item Value Reference Range Interpretation Comments GLUCOSE RANDOM (BEAKER) (test code 205 mg/dL 70-110 H = 652) HGB/HCT (H&H) - STAT [id number] 10:41:00 Test Item Value Reference Range Interpretation Comments HEMOGLOBIN (BEAKER) (test code = 9.5 g/dL 13.0-16.8 L 410) HEMATOCRIT (BEAKER) (test code = 28.0 % 40.0-50.0 L 411) Calcium, [id number] 10:39:00 Test Item Value Reference Range Interpretation Comments Calcium, Ion (test code = 1994-3) 1.20 mmol/L 1.12-1.27 pH, Blood (test code = 87621-1) 7.37 [facility] [id number] 10:39:00 Test Item Value Reference Range Interpretation Comments SODIUM (BEAKER) (test code = 381) 135 meq/L 135-148 POTASSIUM-STAT [id number] 10:39:00 Test Item Value Reference Range Interpretation Comments POTASSIUM (BEAKER) (test code = 4.5 meq/L 3.6-5.5 379) CALCIUM, [id number] 10:39:00 Test Item Value Reference Range Interpretation Comments CALCIUM IONIZED (BEAKER) (test 1.20 mmol/L 1.12-1.27 code = 698) PH, BLOOD (BEAKER) (test code = 7.37 1810) HGB/HCT (H&H) - STAT [id number] 10:01:00 Test Item Value Reference Range Interpretation Comments HEMOGLOBIN (BEAKER) (test code = 9.2 g/dL 13.0-16.8 L 410) HEMATOCRIT (BEAKER) (test code = 27.0 % 40.0-50.0 L 411) POTASSIUM-STAT [id number] 10:00:00 Test Item Value Reference Range Interpretation Comments POTASSIUM (BEAKER) (test code = 5.5 meq/L 3.6-5.5 379) BLOOD GAS, [id number] 10:00:00 Test Item Value Reference Range Interpretation Comments PH ARTERIAL (BEAKER) (test code = 7.38 7.35-7.45 383) PCO2 ARTERIAL (BEAKER) (test code 43 mmHg 35-45 = 384) PO2 ARTERIAL (BEAKER) (test code 327 mmHg 80-90 H = 385) O2 SATURATION ARTERIAL (BEAKER) 99.7 % 96.0-97.0 H (test code = 386) HCO3 ARTERIAL (BEAKER) (test code 25 mmol/L 21-29 = 388) BASE EXCESS ARTERIAL (BEAKER) -0.1 mmol/L -2.0-3.0 (test code = 387) PATIENT TEMPERATURE (BEAKER) 35.8 C (test code = 1818) FIO2 (BEAKER) (test code = 1819) 70.0 % GLUCOSE-STAT [id number] 10:00:00 Test Item Value Reference Range Interpretation Comments GLUCOSE RANDOM (BEAKER) (test code 222 mg/dL 70-110 H = 652) SODIUM NA-STAT [id number] 10:00:00 Test Item Value Reference Range Interpretation Comments SODIUM (BEAKER) (test code = 381) 133 meq/L 135-148 L Blood gas, [id number] 09:37:00 Test Item Value Reference Range Interpretation Comments pH, Bull (test code = 2746-6) 7.34 7.32-7.42 pCO2, Bull (test code = 755) 44 41- 51 mmHg pO2, Bull (test code = 2705-2) 47 25- 40 mmHg H O2 Sat, Bull (test code = 2711-0) 92.4 % 40-70 H HCO3, Bull (test code = 20284-9) 26 mmol/L 21-29 Base Excess, Bull (test code = -2.3 mmol/L -2-3 L 1927-3) Patient Temperature (test code = 30.0 C 8310-5) FIO2 (test code = 1819) 65 % Lab Interpretation (test code = Abnormal 05690-7) [facility], [id number] 09:37:00 Test Item Value Reference Range Interpretation Comments PH VENOUS (BEAKER) (test code = 7.34 7.32-7.42 701) PCO2 VENOUS (BEAKER) (test code = 44 mmHg 41-51 755) PO2 VENOUS (BEAKER) (test code = 47 mmHg 25-40 H 702) O2 SATURATION VENOUS (BEAKER) 92.4 % 40.0-70.0 H (test code = 703) HCO3 VENOUS (BEAKER) (test code = 26 mmol/L 21-29 705) BASE EXCESS VENOUS (BEAKER) (test -2.3 mmol/L -2.0-3.0 L code = 704) PATIENT TEMPERATURE (BEAKER) 30.0 C (test code = 1818) FIO2 (BEAKER) (test code = 1819) 65.0 % POTASSIUM-STAT [id number] 09:36:00 Test Item Value Reference Range Interpretation Comments POTASSIUM (BEAKER) (test code = 4.5 meq/L 3.6-5.5 379) BLOOD GAS, [id number] 09:36:00 Test Item Value Reference Range Interpretation Comments PH ARTERIAL (BEAKER) (test code = 7.34 7.35-7.45 L 383) PCO2 ARTERIAL (BEAKER) (test code 43 mmHg 35-45 = 384) PO2 ARTERIAL (BEAKER) (test code 347 mmHg 80-90 H = 385) O2 SATURATION ARTERIAL (BEAKER) 99.7 % 96.0-97.0 H (test code = 386) HCO3 ARTERIAL (BEAKER) (test code 25 mmol/L 21-29 = 388) BASE EXCESS ARTERIAL (BEAKER) -2.8 mmol/L -2.0-3.0 L (test code = 387) PATIENT TEMPERATURE (BEAKER) 30.0 C (test code = 1818) FIO2 (BEAKER) (test code = 1819) 65.0 % SODIUM NA-STAT [id number] 09:36:00 Test Item Value Reference Range Interpretation Comments SODIUM (BEAKER) (test code = 381) 134 meq/L 135-148 L GLUCOSE-STAT [id number] 09:36:00 Test Item Value Reference Range Interpretation Comments GLUCOSE RANDOM (BEAKER) (test code 208 mg/dL 70-110 H = 652) HGB/HCT (H&H) - STAT [id number] 09:36:00 Test Item Value Reference Range Interpretation Comments HEMOGLOBIN (BEAKER) (test code = 10.2 g/dL 13.0-16.8 L 410) HEMATOCRIT (BEAKER) (test code = 30.0 % 40.0-50.0 L 411) BLOOD GAS, [id number] 08:44:00 Test Item Value Reference Range Interpretation Comments PH ARTERIAL (BEAKER) (test code = 7.38 7.35-7.45 383) PCO2 ARTERIAL (BEAKER) (test code 43 mmHg 35-45 = 384) PO2 ARTERIAL (BEAKER) (test code 259 mmHg 80-90 H = 385) O2 SATURATION ARTERIAL (BEAKER) 99.6 % 96.0-97.0 H (test code = 386) HCO3 ARTERIAL (BEAKER) (test code 25 mmol/L 21-29 = 388) BASE EXCESS ARTERIAL (BEAKER) -0.8 mmol/L -2.0-3.0 (test code = 387) PATIENT TEMPERATURE (BEAKER) 36.3 C (test code = 1818) FIO2 (BEAKER) (test code = 1819) 100.0 % GLUCOSE-STAT [id number] 08:44:00 Test Item Value Reference Range Interpretation Comments GLUCOSE RANDOM (BEAKER) (test code 128 mg/dL 70-110 H = 652) HGB/HCT (H&H) - STAT [id number] 08:44:00 Test Item Value Reference Range Interpretation Comments HEMOGLOBIN (BEAKER) (test code = 13.3 g/dL 13.0-16.8 410) HEMATOCRIT (BEAKER) (test code = 39.0 % 40.0-50.0 L 411) SODIUM NA-STAT [id number] 08:36:00 Test Item Value Reference Range Interpretation Comments SODIUM (BEAKER) (test code = 381) 139 meq/L 135-148 POTASSIUM-STAT [id number] 08:36:00 Test Item Value Reference Range Interpretation Comments POTASSIUM (BEAKER) (test code = 4.1 meq/L 3.6-5.5 379) BASIC METABOLIC [id number] 02:31:00 Test Item Value Reference Range Interpretation Comments SODIUM (BEAKER) 141 meq/L 136-145 (test code = 381) POTASSIUM (BEAKER) 4.4 meq/L 3.5-5.1 Specimen slightly (test code = 379) hemolyzed CHLORIDE (BEAKER) 108 meq/L 98-107 H (test code = 382) CO2 (BEAKER) (test 25 meq/L 22-29 code = 355) BLOOD UREA NITROGEN 12 mg/dL 7-21 (BEAKER) (test code = 354) CREATININE (BEAKER) 0.84 mg/dL 0.57-1.25 Specimen slightly (test code = 358) hemolyzed GLUCOSE RANDOM 107 mg/dL 70-105 H (BEAKER) (test code = 652) CALCIUM (BEAKER) 9.0 mg/dL 8.4-10.2 (test code = 697) EGFR (BEAKER) (test mL/min/1.73 INSUFFIC IENT CLINICAL code = 1092) sq m DATA TO CALCULA TE ESTIMATED GFR. [id number] 02:17:00 Test Item Value Reference Range Interpretation Comments PARTIAL THROMBOPLASTIN TIME 55.6 seconds 22.5-36.0 H (BEAKER) (test code = 760) CBC (HEMOGRAM ONLY)[id number] 02:10:00 Test Item Value Reference Range Interpretation Comments WHITE BLOOD CELL COUNT (BEAKER) 6.7 K/ L 3.5-10.5 (test code = 775) RED BLOOD CELL COUNT (BEAKER) 4.15 M/ L 4.63-6.08 L (test code = 761) HEMOGLOBIN (BEAKER) (test code = 12.8 GM/DL 13.7-17.5 L 410) HEMATOCRIT (BEAKER) (test code = 40.1 % 40.1-51.0 411) MEAN CORPUSCULAR VOLUME (BEAKER) 96.6 fL 79.0-92.2 H (test code = 753) MEAN CORPUSCULAR HEMOGLOBIN 30.8 pg 25.7-32.2 (BEAKER) (test code = 751) MEAN CORPUSCULAR HEMOGLOBIN CONC 31.9 GM/DL 32.3-36.5 L (BEAKER) (test code = 752) RED CELL DISTRIBUTION WIDTH 13.2 % 11.6-14.4 (BEAKER) (test code = 412) PLATELET COUNT (BEAKER) (test 194 K/CU MM 150-450 code = 756) MEAN PLATELET VOLUME (BEAKER) 10.3 fL 9.4-12.4 (test code = 754) NUCLEATED RED BLOOD CELLS 0 /100 WBC 0-0 (BEAKER) (test code = 413) Type and screen, [id number] 20:21:00 Test Item Value Reference Range Interpretation Comments ABO/RH AUTOMATED (BEAKER) (test O POSITIVE code = 2260) Ab Scrn (test code = 890-4) NEGATIVE [facility]ABORH, [id number] 19:52:00 Test Item Value Reference Range Interpretation Comments ABO Grouping (test code = 2588) O Rh Factor (test code = 2589) POS [facility]RAD, CHEST, 1 VIEW, NON [id number] 19:20:00 Reason for exam:->preopShould this be performed at the bedside?->YesFINAL REPORT EXAMINATION: AP PORTABLE CHEST RADIOGRAPH CLINICAL INDICATION: Shortness of breath IMPRESSION: No comparison studies are available. Exam is limited by the AP portable technique and large volume of superimposed soft tissue attenuation/adipose tissue. The cardiac silhouette is enlarged. Mediastinal contours are sharp and smooth with a mildly prominent aortic arch. Streaky and reticular opacities project over both lungs, most conspicuous in the perihilar regions along the heart heart borders, a component of which may reflect technique and the overlying adipose tissue. However, chronic lung changes/scarring as well as mild pulmonary edema should also be considered. U nderlying pneumonia or small mass lesion cannot be excluded on today's limited study. Evaluation forpleural fluid is limited by the AP portable technique and patient's body habitus. No definite evidence of an acute osseous abnormality or pneumothorax. Chest CT could be performed for further evaluation if clinically appropriate. Signed: Sue Germain MDReport Verified Date/Time: 11/28/2018 19:20:43 Reading Location: [address] Reading Room PT/aPTT 2018-11-28 18:42:00 Test Item Value Reference Range Interpretation Comments Protime (test code = 13.6 11.9- 14.2 5902-2) seconds INR (test code = 1.1 <=5.9 6301-6) PTT (test code = 31.8 22.5- 36.0 49917-5) seconds JAMAR (test code = JAMAR) Effective 11/08/2018: PT Reference Range ChangeNew: 11.9-14.2 Previous: 11.7-14.7 RECOMMENDED COUMADIN/WARFARIN INR THERAPY RANGESSTANDARD DOSE: 2.0-3.0 Includes: PROPHYLAXIS for venous thrombosis, systemic embolization; TREATMENT for venous thrombosis and/or pulmonary embolus.HIGH RISK: Target INR is 2.5-3.5 for patients wiht mechanical heart valves. Lab Interpretation Normal (test code = 77509-9) [facility] HospitalPT/[id number] 18:42:00 Test Item Value Reference Range Interpretation Comments PROTIME (BEAKER) (test code = 13.6 seconds 11.9-14.2 759) INR (BEAKER) (test code = 370) 1.1 <=5.9 PARTIAL THROMBOPLASTIN TIME 31.8 seconds 22.5-36.0 (BEAKER) (test code = 760) Effective 11/08/2018: PT Reference Range ChangeNew: 11.9-14.2 Previous: 11.7- 14.7RECOMMENDED COUMADIN/WARFARIN INR THERAPY RANGESSTANDARD DOSE: 2.0-3.0 Includes: PROPHYLAXIS for venous thrombosis, systemic embolization; TREATMENT for venous thrombosis and/or pulmonary embolus.HIGH RISK: Target INR is2.5-3.5 for patients wiht mechanical heart valves.[id number] 18:42:00 Test Item Value Reference Range Interpretation Comments PARTIAL THROMBOPLASTIN TIME 31.8 seconds 22.5-36.0 (BEAKER) (test code = 760) PROTHROMBIN TIME/[id number] 18:41:00 Test Item Value Reference Range Interpretation Comments PROTIME (BEAKER) (test code = 13.6 seconds 11.9-14.2 759) INR (BEAKER) (test code = 370) 1.1 <=5.9 Effective 11/08/2018: PT Reference Range ChangeNew: 11.9-14.2 Previous: 11.7- 14.7RECOMMENDED COUMADIN/WARFARIN INR THERAPY RANGESSTANDARD DOSE: 2.0-3.0 Includes: PROPHYLAXIS for venous thrombosis, systemic embolization; TREATMENT for venous thrombosis and/or pulmonary embolus.HIGH RISK: Target INR is2.5-3.5 for patients wiht mechanical heart valves.BASIC METABOLIC [id number] 17:25:00 Test Item Value Reference Range Interpretation Comments SODIUM (BEAKER) 141 meq/L 136-145 (test code = 381) POTASSIUM (BEAKER) 4.8 meq/L 3.5-5.1 Specimen slightly (test code = 379) hemolyzed CHLORIDE (BEAKER) 109 meq/L 98-107 H (test code = 382) CO2 (BEAKER) (test 23 meq/L 22-29 code = 355) BLOOD UREA NITROGEN 11 mg/dL 7-21 (BEAKER) (test code = 354) CREATININE (BEAKER) 0.89 mg/dL 0.57-1.25 Specimen slightly (test code = 358) hemolyzed GLUCOSE RANDOM 109 mg/dL 70-105 H (BEAKER) (test code = 652) CALCIUM (BEAKER) 9.3 mg/dL 8.4-10.2 (test code = 697) EGFR (BEAKER) (test mL/min/1.73 INSUFFIC IENT CLINICAL code = 1092) sq m DATA TO CALCULA TE ESTIMATED GFR. Hemoglobin [id number] 17:23:00 Test Item Value Reference Range Interpretation Comments Hemoglobin A1C (test code = 4548-4) 6.2 % 4.3-6.1 H Lab Interpretation (test code = Abnormal 21269-4) [id number] 17:23:00 Test Item Value Reference Range Interpretation Comments HEMOGLOBIN A1C (BEAKER) (test code = 6.2 % 4.3-6.1 H 368) Lipid [id number] 17:18:00 Test Item Value Reference Range Interpretation Comments Triglycerides (test 101 mg/dL Specimen code = 2571-8) slightly hemolyzed Cholesterol (test 227 mg/dL Specimen code = 2093-3) slightly hemolyzed HDL (test code = 49 mg/dL 2084-9) LDL Calculated (test 158 mg/dL code = 64717-5) JAMAR (test code = Triglyceride JAMAR) Reference Range: Low Risk <150 Borderline 150-199 High Risk 200-499 Very High Risk >=500 Cholesterol Reference Range: Low Risk <200 Borderline 200-239 High Risk >240 HDL Cholesterol Reference Range: Low Risk >=60 High Risk <40 LDL Cholesterol Reference Range: Optimal <100 Near Optimal 100-129 Borderline 130-159 High 160-189 Very High >=190 [id number] 17:18:00 Test Item Value Reference Range Interpretation Comments TRIGLYCERIDES (BEAKER) 101 mg/dL Speci men slightly (test code = 540) hemolyzed CHOLESTEROL (BEAKER) 227 mg/dL Specime n slightly (test code = 631) hemolyzed HDL CHOLESTEROL (BEAKER) 49 mg/dL (test code = 976) LDL CHOLESTEROL 158 mg/dL CALCULATED (BEAKER) (test code = 633) Triglyceride Reference Range: Low Risk <150 Borderline 150-199 High Risk 200-499 Very High Risk >=500Cholesterol Reference Range: Low Risk <200 Borderline 200-239 High Risk >240HDL Cholesterol Reference Range: Low Risk >=60 High Risk <40LDL Cholesterol Reference Range: Optimal <100 Near Optimal 100-129 Borderline 130-159 High 160-189 Very High >=190CBC (HEMOGRAM ONLY)2018-11-28 16:57:00 Test Item Value Reference Range Interpretation Comments WHITE BLOOD CELL COUNT (BEAKER) 9.1 K/ L 3.5-10.5 (test code = 775) RED BLOOD CELL COUNT (BEAKER) 4.75 M/ L 4.63-6.08 (test code = 761) HEMOGLOBIN (BEAKER) (test code = 14.6 GM/DL 13.7-17.5 410) HEMATOCRIT (BEAKER) (test code = 45.0 % 40.1-51.0 411) MEAN CORPUSCULAR VOLUME (BEAKER) 94.7 fL 79.0-92.2 H (test code = 753) MEAN CORPUSCULAR HEMOGLOBIN 30.7 pg 25.7-32.2 (BEAKER) (test code = 751) MEAN CORPUSCULAR HEMOGLOBIN CONC 32.4 GM/DL 32.3-36.5 (BEAKER) (test code = 752) RED CELL DISTRIBUTION WIDTH 13.2 % 11.6-14.4 (BEAKER) (test code = 412) PLATELET COUNT (BEAKER) (test 223 K/CU MM 150-450 code = 756) MEAN PLATELET VOLUME (BEAKER) 10.1 fL 9.4-12.4 (test code = 754) NUCLEATED RED BLOOD CELLS 0 /100 WBC 0-0 (BEAKER) (test code = 413)
[2019-11-16] MEDS ORDERED: HEPA 1000U/500MLS 1,000 UNIT/500 ML BAG IV ONE (06:34)
[2019-11-16] MEDS ORDERED: MIDAZOLAM HCL 2 MG/2 ML INJ ONE ×2 (06:34→07:38)
[2019-11-16] MEDS ORDERED: FENTANYL CITR 100 MCG/2 ML ONE (06:35)
[2019-11-16] MEDS ORDERED: ATROPINE SULF 1 MG/10 ML SYR IV ONE (06:35)
[2019-11-16] MEDS ORDERED: LIDOCAINE 1% MPF 30 ML VIAL ONE (06:35)
[2019-11-16] MEDS ORDERED: NA CHLORIDE 0.9% 500 ML ONE (07:02)
[2019-11-16] MEDS ORDERED: HYDRALAZINE HCL 20 MG/ML VIAL ONE (07:52)
[2019-11-16 09:40] VITALS: BP 126/36; O2SAT 98
[2019-11-16 09:45] VITALS: TEMP 97.3
--- NOTE | 2019-11-16 10:21 | OP ---
Date of Procedure: 11/16/2019 Surgeon: Quentin Valenzuela MD [employer] Specialist: Stanley Acuna. The patient will be going home today after 2 hours bedrest and follow up with Dr. De La Rosa as soon as possible. The patient admitted as an outpatient on 11/16/2019 to the [facility] for selective bilateral carotid a ngiogram. 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 History Of Present Illness: Mr. Powers is 79, was brought to the [facility] as an outpatient. He was prepped and draped in the routine sterile fashion. He was given Versed for sedation. We will have t o give him some IV hydralazine for hypertension. A 6-[place] sheath introduced in the right common fe moral artery successfully. Angio-Seal was used to close the case. Angiography there showed moderate plaquing in the SFA in the common femoral artery. A JR4 was used to select the right common carotid artery and the left common carotid artery. 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 The common carotid arteries and external carotid arteri es were normal. Complications: There were no complications. Blood Loss: 5 mL. Anesthesia: Total conscious sedation was 30 minutes. Postoperative Diagnosis: Severe bilateral cerebrovascular disease. Plan: For bilateral carotid endarterectomy in a staged way. The patient will get a copy of the CD. I will make an appointment with Dr. Dain De La Rosa for CEA. JANESSA/MUSTAPHA Voice ID: [id number] Report ID: [id number]
== END 2019-11-16 10:02 | disposition home or self-care (01) ==
LOC: CCL 06:20
DX: I65.23 Occlusion and stenosis of bilateral carotid arteries (principal); I25.10 Atherosclerotic heart disease of native coronary artery without angina pectoris; I13.0 Hypertensive heart and chronic kidney disease with heart failure and stage 1 through stage 4 chronic kidney disease, or unspecified chronic kidney disease; I50.22 Chronic systolic (congestive) heart failure; N18.3 Chronic kidney disease, stage 3 (moderate); E78.5 Hyperlipidemia, unspecified; E03.9 Hypothyroidism, unspecified; E66.9 Obesity, unspecified; Z68.34 Body mass index [BMI] 34.0-34.9, adult; Z95.1 Presence of aortocoronary bypass graft
CPT/HCPCS: 93005; 85025; 80048; 36415; 85610; 85730; 71046; 36222; C1893; C1760; J0360; J2250; J3010; J7040

== ENCOUNTER 2020-04-10 07:55 | Day surgery (SDC) | payer OTHER ==
--- OUTSIDE RECORDS SUMMARY | 2020-04-10 08:00 | XMS REPORT | Clinical Summary ---
:1940 Author Organization [facility] Address [address] [place] [address] Care Team Providers Name Role Phone Pcp Primary Care Provider Unavailable Kishor Mccann Unavailable Allergies No Known Allergies Medications Medication Sig Dispensed Refills Start End Status Date Date levothyroxine Take 25 mcg by 0 A ctive (SYNTHROID, mouth daily. 0 LEVOTHROID) 25 MCG tablet clopidogreL Take 1 tablet (75 30 tablet 1 Active (PLAVIX) 75 mg mg total) by mouth 0 021 tablet daily. aspirin 81 MG EC Take 81 mg by 0 Active tablet mouth daily. atorvastatin Take 40 mg by 0 Act cindy (LIPITOR) 40 MG mouth daily. 0 tablet metoprolol Take 25 mg by 0 Activ e succinate mouth daily. 0 (TOPROL-XL) 25 MG 24 hr tablet acetaminophen Take 2 tablets 0 D iscontinued (TYLENOL) 325 MG (650 mg total) by 9 020 (Stop Taking at tablet mouth every 6 Discha rge) (six) hours as needed for Fever (mild to moderate pain). amiodarone Take 1 tablet (200 0 Discontinued (PACERONE) 200 MG mg total) by mouth 9 020 tablet daily. aspirin 81 MG Take 1 tablet (81 0 chewable tablet mg total) by mouth 9 020 daily. atorvastatin Take 1 tablet (40 0 (LIPITOR) 40 MG mg total) by mouth 9 020 tablet nightly. bisacodyl Take 2 tablets (10 0 D iscontinued (DULCOLAX) 5 mg EC mg total) by mouth 9 02 0 tablet daily as needed for Constipation. bisacodyl Place 1 0 Discontinu ed (DULCOLAX) 10 mg suppository (10 mg 9 020 suppository total) rectally daily as needed. senna (SENOKOT) Take 2 tablets 0 Discontinued 8.6 mg tablet (17.2 mg total) by 9 020 mouth nightly. ondansetron Take 1 tablet (4 0 D iscontinued (ZOFRAN-ODT) 4 MG mg total) by mouth 9 020 disintegrating every 6 (six) tablet hours as needed for Nausea. nystatin Apply topically 2 0 Di scontinued (MYCOSTATIN) (two) times daily. 9 020 100,000 unit/gram powder metoprolol Take 0.5 tablets 0 Ex pired (LOPRESSOR) 25 MG (12.5 mg total) by 9 020 tablet mouth 2 (two) times daily. losartan (COZAAR) Take 0.5 tablets 0 11/18 Discontinued 25 MG tablet (12.5 mg total) by 9 020 mouth daily. ipratropium-albute Take 3 mLs by 0 Discontinued rol (DUO-NEB) 0.5 nebulization every 9 020 mg-3 mg(2.5 mg 6 (six) hours as base)/3 mL needed for nebulizer solution Wheezing or Shortness of Breath for up to 360 days. furosemide (LASIX) Take 1 tablet (20 0 01/12 Discontinued 20 MG tablet mg total) by mouth 9 020 daily. enoxaparin Inject 0.4 mLs (40 0 Discontinued (LOVENOX) 40 mg total) 9 020 mg/0.4 mL Syrg subcutaneously daily Can dc if patient mobilizing more. metoprolol Take 12.5 mg by 0 Dis continued tartrate mouth 2 (two) 020 (Med H istory: (LOPRESSOR) 25 MG times daily. Patient reports tablet alternativ e therapy) Active Problems Problem Noted Date Left carotid artery stenosis 01/21/2020 Carotid stenosis, right 11/22/2019 Bilateral carotid artery stenosis 11/19/2019 PAF (paroxysmal atrial fibrillation) 12/05/2018 Respiratory insufficiency 11/29/2018 Acute blood loss anemia 11/29/2018 Coagulopathy 11/29/2018 S/P CABG x [address] De La Rosa on 11/29/18 11/29/2018 Hyperglycemia 11/29/2018 CAD (coronary artery disease) 11/28/2018 COPD (chronic obstructive pulmonary disease) 9 Encounters Date Type Specialty Care Team Description 02/04/2020 Office Visit Cardiology Rj, Surgical follow -up nahum Honeycutt MD 02/04/2020 Travel 01/22/2020 Travel 01/21/2020 Surgery Rj, ENDARTERECTOMY, DEIDRE Petersen MD 01/21/2020 Anesthesia Event Nathalie Galicia MD Pirko, Christopher, MD 01/21/2020 - Hospital Encounter Cardiology [facility], 01/22/2020 Dain Casarez MD 01/17/2020 Office Visit Cardiology Rj, Pre-op testing Dain Casarez, (Primary Dx) Aranza Mulligan, RN 01/16/2020 Hospital Encounter Pre-Admission Testing 01/16/2020 Orders Only Chioma Rice Left carotid a rtery Fe, [facility] stenosis (Prima ry Dx) 01/16/2020 Travel 12/06/2019 Office Visit Cardiology Rj, Carotid stenosi s, right; Dain Casarez, Bilateral ca rotid artery stenosis 12/06/2019 Travel 11/22/2019 Surgery Rj, ENDARTERECTOMY, DEIDRE Petersen MD 11/22/2019 Anesthesia Event Grant Watson Jr., Toribio Glez 11/22/2019 - Hospital Encounter Cardiology [facility], 11/23/2019 Dain Casarez MD 11/20/2019 Hospital Encounter Pre-Admission Testing 11/20/2019 Travel 11/19/2019 Office Visit Cardiology Rj, Bilateral carot id Dain Casarez, artery steno sis (Primary Dx) 11/19/2019 Orders Only General Internal Medicine 11/19/2019 Travel after 04/10/2019 Social History Tobacco Use Types Packs/Day Years Used Date Former Smoker Quit: 10/19/19 19 Smokeless Tobacco: Never Used Alcohol Use Drinks/Week oz/Week Comments No Alcohol Habits Answer Date Recorded How often do you have a drink containing alcohol? Never 11/20/2019 How many drinks containing alcohol do you have on a typical Not asked day when you are drinking? How often do you have six or more drinks on one occasion? No t asked Sex Assigned at Date Recorded Not on file Last Filed Vital Signs Vital Sign Reading Time Taken Comments Blood Pressure 210/96 02/04/2020 1:28 PM CDT Pulse 92 02/04/2020 1:28 PM CDT Temperature 37.1 C (98.8 F) 02/04/2020 1:28 PM CDT Respiratory Rate 15 02/04/2020 1:28 PM CDT Oxygen Saturation 99% 02/04/2020 1:28 PM CDT room a ir Inhaled Oxygen Concentration - - Weight 107.5 kg (237 lb) 02/04/2020 1:28 PM CDT Height 177.8 cm (5' 10") 02/04/2020 1:28 PM CDT Body Mass Index 34.01 02/04/2020 1:28 PM CDT Plan of Treatment Health Maintenance Due Date Last Done Comments PNEUMOCOCCAL 65+ YRS (1 of 1 - [id number]) 11/02/2003 MEDICARE ANNUAL WELLNESS (YEAR 2 or FIRST YEAR if no 10/12/2004 IPPE) INFLUENZA VACCINE (#1) 2020 Implants Implanted Type Area Second Baker Device Shelf Model / Identifier Expiration Serial / Lot Date Grft Hemshld Dbl Raciel 0.3x3.0in [id number] - [id number] IMPLA NTS Right: GETINGE 06/12/2024 [id number] / Implanted: Qty: 1 on 11/22/2019 by Dain Douglas MD at [facility] Neck IND:DOMINGOT:CV [id number] / 20A22 Description:HEMASHIELD KNITTED DOUBLE VE LOUR CARDIOVASCULAR FABRIC Grft Hemshld Dbl Raciel 0.3x3.0in [id number] - [id number] IMPLA NTS Left: Neck GETINGE 06/12/2024 [id number] / Implanted: Qty: 1 on 01/21/2020 by Dain Douglas MD at [facility] IND:POOJA:CRISTINA [id number] / 20A22 Description:SITE - LEFT CAROTID Procedures Procedure Name Priority Date/Time Associated Comments Diagnosis RHYTHM STRIP - SCAN 01/24/2020 10:43 AM CDT RHYTHM STRIP - SCAN 01/24/2020 10:43 AM CDT RHYTHM STRIP - SCAN 01/23/2020 12:40 PM CDT TRANSFUSION SERVICE 01/22/2020 6:11 REPORT - SCAN PM CDT CBC W/PLT COUNT & Routine 01/22/2020 4:00 Result s for this AUTO DIFFERENTIAL AM CDT procedure are in the results section. BASIC METABOLIC PANEL Routine 01/22/2020 4:00 Re sults for this (7) AM CDT procedure are i n the results section. CBC W/PLT COUNT & Routine 01/22/2020 4:00 Result s for this AUTO DIFFERENTIAL AM CDT procedure are in the results section. CBC W/PLT COUNT & STAT 01/21/2020 10:28 Result s for this AUTO DIFFERENTIAL AM CDT procedure are in the results section. CBC W/PLT COUNT & STAT 01/21/2020 10:28 Result s for this AUTO DIFFERENTIAL AM CDT procedure are in the results section. BASIC METABOLIC PANEL STAT 01/21/2020 10:28 Re sults for this (7) AM CDT procedure are i n the results section. TISSUE EXAM AP Routine 01/21/2020 8:39 Results for this AM CDT procedure are i n the results section. ENDARTERECTOMY,CAROTI 01/21/2020 7:10 Left carotid D AM CDT stenosis Special Needs (POST OP ICU BED) TYPE AND SCREEN, STAT 01/21/2020 6:30 AM Resu lts for this AUTOMATED CDT procedure are i n the results section. POCT-GLUCOSE METER Routine 01/21/2020 5:40 AM Re sults for this CDT procedure are i n the results section. TRANSFUSION SERVICE 01/18/2020 6:04 PM REPORT - SCAN CDT CBC W/PLT COUNT & AUTO Routine 01/17/2020 11:36 AM Results for this DIFFERENTIAL CDT procedure are i n the results section. TYPE AND SCREEN, Routine 01/17/2020 11:36 AM Resu lts for this AUTOMATED CDT procedure are i n the results section. PLATELET AGGREGATION: AP Routine 01/17/2020 11:36 AM Results for this FUNCTION SCREEN CDT procedure ar e in the results section. CBC W/PLT COUNT & AUTO Routine 01/17/2020 11:36 AM Results for this DIFFERENTIAL CDT procedure are i n the results section. BASIC METABOLIC PANEL Routine 01/17/2020 11:36 AM Results for this (7) CDT procedure are i n the results section. SARS-COV2/RT-PCR (HS Routine 01/17/2020 10:48 AM Pre-op test ing Results for this & REF LABS) CDT procedure are i n the results section. ECG 12-LEAD Routine 01/17/2020 10:41 AM Results for this CDT procedure are i n the results section. ECG 12-LEAD Routine 01/17/2020 10:41 AM CDT Procedure Note - Interface, External Ris In - 01/17/2020 11:17 AM CDT Ventricular Rate 85 BPM Atrial Rate 87 BPM P-R Interval 186 ms QRS Duration 120 ms Q-T Interval 404 ms QTC Calculation(Bazett) 480 ms P [place] 69 degrees R [place] 99 degrees T [place] 47 degrees Normal sinus rhythm Possible Left atrial enlarge ment Possible Right ventricular h ypertrophy Anterolateral infarct (cited on or before 29-NOV-2018) Abnormal ECG When compared with ECG of 11:36, Questionable change in QRS a xis Nonspecific T wave abnormali ty no longer evident in Lateral leads RHYTHM STRIP - 11/26/2019 2:21 PM SCAN CDT XR CHEST 1 VIEW Routine 11/23/2019 5:00 AM Resul ts for this PORTABLE/BEDSIDE CDT procedure a re in the results section. HGB/HCT (H&H) - STAT 11/22/2019 10:26 AM Resul ts for this STAT LAB CDT procedure are i n the results section. TISSUE EXAM AP Routine 11/22/2019 8:56 AM Results for this CDT procedure are i n the results section. ENDARTERECTOMY,CA 11/22/2019 7:06 AM Carotid stenosis , ROTID CDT right Case Notes 1.5 HRS Special Needs (ICU BED) POCT-GLUCOSE METER Routine 11/22/2019 5:38 AM Re sults for this CDT procedure are i n the results section. TRANSFUSION SERVICE 11/20/2019 6:54 PM REPORT - SCAN CDT CBC W/PLT COUNT & AUTO Routine 11/19/2019 12:14 PM Bilateral c arotid Results for this DIFFERENTIAL CDT artery stenosis procedure ar e in the results section. TYPE AND SCREEN, Routine 11/19/2019 12:14 PM Bilateral carotid Results for this AUTOMATED CDT artery stenosis procedure ar e in the results section. PROTHROMBIN TIME/INR Routine 11/19/2019 12:14 PM Bilateral car otid Results for this CDT artery stenosis procedure ar e in the results section. CBC W/PLT COUNT & AUTO Routine 11/19/2019 12:14 PM Bilateral c arotid Results for this DIFFERENTIAL CDT artery stenosis procedure ar e in the results section. CREATININE Routine 11/19/2019 12:14 PM Bilateral carotid Res ults for this CDT artery stenosis procedure ar e in the results section. BUN Routine 11/19/2019 12:14 PM Bilateral carotid Res ults for this CDT artery stenosis procedure ar e in the results section. ELECTROLYTE PANEL Routine 11/19/2019 12:14 PM Bilateral caroti d Results for this CDT artery stenosis procedure ar e in the results section. SARS-COV2/RT-PCR (HS STAT 11/19/2019 11:40 AM Bilateral c arotid Results for this & REF LABS) CDT artery stenosis procedure ar e in the results section. ECG 12-LEAD Routine 11/19/2019 11:36 AM CDT Procedure Note - Interface, External Ris In - 11/19/2019 2:40 PM CDT Ventricular Rate 81 BPM Atrial Rate 81 BPM P-R Interval 182 ms QRS Duration 108 ms Q-T Interval 418 ms QTC Calculation(Bazett) 485 ms P [place] 47 degrees R [place] -9 degrees T [place] 78 degrees Normal sinus rhythm Possible Left atrial enlarge ment RSR' or QR pattern in V1 sug gests right ventricular conduction delay Inferior infarct , age undet ermined Anterolateral infarct (cited on or before 29-NOV-2018) Abnormal ECG When compared with ECG of 06:42, Premature atrial complexes a re no longer Present Inferior infarct is now Pres ent ECG 12-LEAD Routine 11/19/2019 11:36 AM CDT Bilateral carotid Results for this artery stenosis procedure ar e in the results section . after 04/10/2019 Results RHYTHM STRIP - SCAN (01/24/2020 10:43 AM CDT)Only the most recent of4 results within the time period is included. Narrative Performed At This result has an attachment that is no t available. TRANSFUSION SERVICE REPORT - SCAN (01/22/2020 6:11 PM CDT)Only the most recent of3 resultswithin the time period is included. Narrative Performed At This result has an attachment that is no t available. CBC with platelet count + automated diff (01/22/2020 4:00 AM CDT)Only the most recent of4 resultswithin the time period is included. WBC 10.3 3.5 - 10.5 [facility] K/L [facility] RBC 3.50 (L) 4.63 - 6.08 [facility] M/L [facility] Hemoglobin 11.0 (L) 13.7 - 17.5 [facility] GM/DL [facility] Hematocrit 34.9 (L) 40.1 - 51.0 % [facility] MCV 99.7 (H)Comment: 79.0 - 92.2 [facility] Discordant MCV [facility] result compared to MEDICAL CENTER previous result; clinical correlation required. MCH 31.4 25.7 - 32.2 [facility] pg [facility] MCHC 31.5 (L) 32.3 - 36.5 [facility] GM/DL [facility] RDW 13.0 11.6 - 14.4 % [facility] Platelets 217 150 - 450 [facility] K/CU MM [facility] MPV 10.7 9.4 - 12.4 fL [facility] nRBC 0 0 - 0 /100 [facility] WBC [facility] % Neutros 70 % [facility] % Lymphs 20 % [facility] % Monos 9 % [facility] % Eos 0 % [facility] % Baso 0 % [facility] # Neutros 7.24 (H) 1.78 - 5.38 [facility] # Lymphs 2.09 1.32 - 3.57 [facility] # Monos 0.87 (H) 0.30 - 0.82 [facility] # Eos 0.02 (L) 0.04 - 0.54 [facility] # Baso 0.04 0.01 - 0.08 [facility] Immature 0 0 - 1 % [facility] Granulocytes-[facility]at [facility] Specimen Blood Performing Organization Address City/[facility]/Zipcode Phone Number [place] [phone] [place] [address] CENTER Basic Metabolic Panel (01/22/2020 4:00 AM CDT)Only the most recent of3 results within the time period is included. Sodium 140 136 - 145 meq/L [facility] Potassium 4.7 3.5 - 5.1 meq/L [facility] Chloride 109 (H) 98 - 107 meq/L [facility] CO2 25 22 - 29 meq/L [facility] BUN 21 7 - 21 mg/dL [facility] Creatinine 1.38 (H) 0.57 - 1.25 [facility] mg/dL [facility] Glucose 112 (H) 70 - 105 mg/dL [facility] Calcium 8.1 (L) 8.4 - 10.2 [facility] mg/dL [facility] EGFR 49Comment: ESTIMATED mL/min/1.73 sq [facility] GFR IS NOT m [facility] CREATININE CLEARANCE IN PREDICTING GLOMERULAR FILTRATION RATE. ESTIMATED GFR IS NOT APPLICABLE FOR DIALYSIS PATIENTS. Specimen Blood Narrative Performed At Patient Partner ID - [facility] Performing Organization Address City/State/Zipcode Phone Number [facility] [address] [place], [place] [phone] CENTER Tissue Exam (01/21/2020 8:39 AM CDT)Only the most recent of2 resultswithin the time period is included. Case Report Surgical Pathology Report Case: [id number] [facility] I [facility] Authorizing Provider: Dain Zavala, Collected: 01/21/2020 08:39 AM [facility] Ordering Location: [facility] Received: 01/21/2020 10:40 AM PERIOPERATIVE SERVICES Pathologist: Troy Starr MD Specimen: Plaque, LEFT CAROTID PLAQUE DIAGNOSIS ARTERY, LEFT CAROTID, ENDARTERECTOMY: [facility] Electronically CALCIFIC ATHEROSCLEROTIC PLAQUE [facility] signed by Troy Starr Signing Pathologist Direct Phone Line: [phone] [facility] MD Ridge on 01/25/2020 at 6 :04 PM CPT Code(s) 52104; 19366 [facility] CLINICAL HISTORY Preop diagnosis: [facility] stenosis [facility] SPECIMEN SOURCE Plaque [facility] GROSS DESCRIPTION Received fresh labeled [facility] with the patient's [facility] name, accession number MEDICAL CENTER and "left carotid plaque" is a 5.0 x 1.2 x 0.7 cm aggregate of duggan-yellow tubular, focally calcified plaque. Snag Grinder sections are submitted in A1 following decalcification. PA/pl MICROSCOPIC Performed [facility] Specimen Tissue - Plaque (morphologic abnormality ) Performing Organization Address City/[facility] Hospital[facility] Phone Number [facility] [address] [place], [place] [phone] CENTER Type and screen, automated (01/21/2020 6:30 AM CDT)Only the most recent of3 resultswithin the time period is included. Pathologist Sig nature ABO/RH AUTOMATED O POSITIVE [facility] Ab Scrn NEGATIVE [facility] Specimen Blood Performing Organization Address City/State/Zipcode Phone Number [facility] [address] [place] [address] POC-Glucose meter (01/21/2020 5:40 AM CDT)Only the most recent of2 results within the time period is included. [facility] POC-Glucose Meter 140 (H)Comment: : 70 - 110 [facility] TESTED AT [facility] mg/dL [address], [id number]: Patient Partner/Technicia n ID = [id number] for ZOE ROLDAN Specimen Blood Performing Organization Address [facility]/Unm Hospitalcode Phone Number [place] [phone] [place] [address] [place] Platelet Aggregation: Function Screen (01/17/2020 11:36 AM CDT) [facility] Pathologist: Joe Avalos MD [facility] (electronic [facility]) [facility] Platelets 251 150 - 450 [facility] K/CU [facility] ADP 57 (L) 62 - 100 % [facility] Platelet Rich Plasma 318 (H) 200 - 300 [facility] k/cu [facility] Plt. Function Screen Decreased [facility] Interpretation aggregation with [facility] indicates platelet dysfunction that may be due to medication effect, uremia, or other platelet function disorders. Clinical correlation is required. Specimen Blood Narrative Performed At Platelet Function Screen results may be [facility] falsely low with platelet counts <75,000/cu mm. Patient Partner ID - [id number] Performing Organization Address [facility]/Zipcode Phone Number [address] [address] CENTER SARS-CoV2/RT-PCR (HS & Ref Labs) (01/17/2020 10:48 AM CDT)Only the most recent of2 resultswithin the time period is included. [facility] SARS-COV2/RT-PCR Negative Not Detected, [facility] Negative, See [facility] external report CENTER for linked test SARS-COV-2 [facility] KEIRY [facility] PERFORMING LAB [facility] Specimen Other - Nasopharyngeal wall structure (b zhanna structure) Narrative Performed At Negative result for this test determines that [facility] SARS-CoV-2 RNA was not present in the specimen above the Limit of Detection (LOD). However, Negative results do not preclude SARS-CoV-2 infection and should not be used as the sole basis for treatment or patient management decisions. Negative results must be combined with clinical observations, patient history, and epidemiological information. A false negative result may occur if a specimen is improperly collected, transported or handled. A false negative result should be considered if patient's recent exposures or clinical presentation indicate that COVID-19 (SARS-CoV-2) is likely and diagnostic tests for other causes of illness are negative. Re-testing should be considered in cases of suspected false negatives. The limit of detection for this assay is 800 copies/mL. This SARS CoV-2 test is a real-time RT-PCR test intended for the qualitative detection of nucleic acid from SARS-CoV-2 in a nasopharyngeal swab specimen collected from individuals suspected of COVID-19 by their healthcare provider. This test has not been Food and Drug Administration (FDA) cleared or approved. This is a modified version of an approved Emergency Use Authorization (EUA) and is in the process of review by the FDA. Once authorized by the FDA, the issued EUA will be effective until the declaration that circumstances exist justifying the authorization of the emergency use of in vitro diagnostic tests for detection and/or diagnosis of COVID-19 is terminated under Section 564(b)(2) of the Act or the EUA is revoked under Section 564(g) of the Act. Fact Sheet for Healthcare Providers: https://www.[employer]com/sites/default/files/pro duct/documents/Fact_Sheet_HC_Providers_Lyra_SA RS-CoV-2.pdf Fact Sheet for Healthcare Patients: https://www.[employer]com/sites/default/files/pro duct/documents/Fact_Sheet_Patients_Lyra_SARS-C oV-2.pdf Performing Laboratory: [facility] [address] [place] [address]. [place] [address] Performing Organization Address City/State/Zipcode Phone Number [facility] [address] [address] CENTER ECG 12 lead (01/17/2020 10:41 AM CDT)Only the most recent of2 resultswithin the time period is included. Specimen Narrative Performed At Ventricular Rate 85 BPM GE MUSE Atrial Rate 87 BPM P-R Interval 186 ms QRS Duration 120 ms Q-T Interval 404 ms QTC Calculation(Bazett) 480 ms P [place] 69 degrees R [place] 99 degrees T [place] 47 degrees Normal sinus rhythm Possible Left atrial enlargement Possible Right ventricular hypertrophy Anterolateral infarct (cited on or befor e 29-NOV-2018) Abnormal ECG When compared with ECG of 19-NOV-2019 11 :36, Questionable change in QRS axis Nonspecific T wave abnormality no longer evident in Lateral leads Confirmed by MD Schroeder Mahboob ([id number]) on 01/17/2020 11:1 7:20 PM Procedure Note Interface, External Ris In - 01/17/2020 11:17 PM CDT Ventricular Rate 85 BPM Atrial Rate 87 BPM P-R Interval 186 ms QRS Duration 120 ms Q-T Interval 404 ms QTC Calculation(Bazett) 480 ms P [place] 69 degrees R [place] 99 degrees T [place] 47 degrees Normal sinus rhythm Possible Left atrial enlargement Possible Right ventricular hypertrophy Anterolateral infarct (cited on or befor e 29-NOV-2018) Abnormal ECG When compared with ECG of 19-NOV-2019 11 :36, Questionable change in QRS axis Nonspecific T wave abnormality no longer evident in Lateral leads Confirmed by MD Schroeder Mahboob ([id number]) on 01/17/2020 11:17:20 PM Performing Organization Address City/State/Zipcode Phone Number GE bulletn. XR chest 1 view portable / bedside (11/23/2019 5:00 AM CDT) Specimen Narrative Performed At FINAL REPORT [employer] RAD, CHEST, 1 VIEW, NON DEPT INDICATION: post op screen COMPARISON: Prior day's exam FINDINGS: Portable frontal view of the c hest. IMPRESSION: Support Lines: None. Lungs and pleura: Improved aeration of t he bilateral bases. Small bilateral pleural effusions. No pneumoth orax. Heart and mediastinum: Stable contours. Stable surgical changes. Additional findings: None. Signed: Mckenna Noel MD Report Verified Date/Time: 11/23/2019 05:16:09 Procedure Note Interface, External Ris In - 11/23/2019 5:18 AM CDT FINAL REPORT RAD, CHEST, 1 VIEW, NON DEPT INDICATION: post op screen COMPARISON: Prior day's exam FINDINGS: Portable frontal view of the c hest. IMPRESSION: Support Lines: None. Lungs and pleura: Improved aeration of t he bilateral bases. Small bilateral pleural effusions. No pneumoth orax. Heart and mediastinum: Stable contours. Stable surgical changes. Additional findings: None. Signed: Mckenna Noel MD Report Verified Date/Time: 11/23/2019 0 5:16:09 Performing Organization Address City/[facility] Phone Number [facility] HGB/HCT (H&H)-Stat Lab (11/22/2019 10:26 AM CDT) Pathologist Sig nature Hemoglobin 12.1 (L) 13.0 - 16.8 g/dL [facility] Hematocrit 36.0 (L) 40.0 - 50.0 % [facility] Specimen Blood, Arterial Performing Organization Address City/[facility] Hospital[facility] Phone Number [place] [phone] [place] [address] CENTER PT/INR (11/19/2019 12:14 PM CDT) Pathologist Sig nature Protime 13.0 11.9 - 14.2 seconds [facility] INR 1.0 <=5.9 [facility] Specimen Blood Narrative Performed At Effective 11/08/2018: PT Reference Range [facility] Change New: 11.9-14.2 Previous: 11.7-14.7 RECOMMENDED COUMADIN/WARFARIN INR THERAPY RANGES STANDARD DOSE: 2.0-3.0 Includes: PROPHYLAXIS for venous thrombosis, systemic embolization; TREATMENT for venous thrombosis and/or pulmonary embolus. HIGH RISK: Target INR is 2.5-3.5 for patients wiht mechanical heart valves. Performing Organization Address City/State/Zipcode Phone Number [facility] [address] [place] [address] CENTER BUN (11/19/2019 12:14 PM CDT) Pathologist Sig nature BUN 18 7 - 21 mg/dL [facility] Specimen Blood Narrative Performed At Patient Partner ID - SANDRITA C [facility] Performing Organization Address City/State/Zipcode Phone Number [facility] [address] [place] [address] CENTER Creatinine (11/19/2019 12:14 PM CDT) Creatinine 1.21 0.57 - 1.25 [facility] mg/dL [facility] EGFR 58Comment: ESTIMATED mL/min/1.73 sq [facility] GFR IS NOT m [facility] ACCURATE [place] CREATININE CLEARANCE IN PREDICTING GLOMERULAR FILTRATION RATE. ESTIMATED GFR IS NOT APPLICABLE FOR DIALYSIS PATIENTS. Specimen Blood Narrative Performed At Patient Partner ID - SANDRITA C [facility] Performing Organization Address City/[facility]/Zipcode Phone Number [address] [address] CENTER Electrolytes (11/19/2019 12:14 PM CDT) Pathologist Sig nature Sodium 136 136 - 145 meq/L [facility] Potassium 4.6 3.5 - 5.1 meq/L [facility] Chloride 107 98 - 107 meq/L [facility] CO2 22 22 - 29 meq/L [facility] Specimen Blood Narrative Performed At Patient Partner ID - SANDRITA C [facility] Performing Organization Address City/State/Zipcode Phone Number [facility] [address] [place] [address] CENTER after 04/10/2019 Insurance Payer Benefit Plan / Subscriber ID Effective Dates Phone Addre ss Type Group MEDICARE MEDICARE A B [id number] 2003-[place] Medicare t AETNA - MGD AETNA INDEMNITY [id number] 2000-[place] Comm CARE NON CONTR t CDC REVIEW CDC REVIEW [id number] 2019-[place] [address] [place] [address] CDC REVIEW CDC REVIEW [id number] 2020-[place] [address] [place] [address] Advance Directives For more information, please contact: [phone] Code Status Date Activated Date Inactivated Comments Full Code 01/21/2020 6:07 AM 01/22/2020 1:19 PM This code status was determined by: Patient Full Code 11/22/2019 5:43 AM 11/23/2019 4:26 PM This code status was determined by: Patient Full Code 11/29/2018 1:14 PM 12/05/2018 4:51 PM This code status was determined by: Patient Full Code 11/28/2018 5:20 PM 11/29/2018 1:14 PM This code status was determined by: Patient Full Code 11/28/2018 2:30 PM 11/28/2018 5:20 PM This code status was determined by: Patient
--- OUTSIDE RECORDS SUMMARY | 2020-04-10 08:05 | XMS REPORT | Continuity of Care Document ---
:1940 Author Organization [facility] t Address [address] [place] [address] Care Team Providers Name Role Phone Pcp Primary Care Physician Unavailable Kitty De La Rosa MD Attending Clinician KITTY DE LA ROSA Attending Clinician Unavailable Kristian Galicia MD Attending Clinician Ramin CUMMINGS Attending Clinician Unavailable Raymundo BRICENO, S Attending Clinician Unavailable Dwayne JOSE, Fe Attending Clinician Jacky Watson MD Attending Clinician Erik Caruso Attending Clinician Unavailable ADRIANNA PIPER Attending Clinician Unavailable KITTY DE LA ROSA Admitting Clinician Unavailable ADRIANNA PIPER Admitting Clinician Unavailable Payers Payer Name Policy Type Policy Effective Date Expiration Date Sour ce Number MEDICAREMEDICARE A [id number] 2003 SUN Thurman [id number] 2003-P 00:00:00 - [facility] AETNA - MGD CAREAETNA [id number] SUN Brito INDEMNITY NON 00:00:00 - Medical [id number] [place] [facility] [address] REVIEWCDC [id number] 2019 SUN Castellano [id number] 00:00:00 - [place] [id number] Problems Condition Condition Condition Status Onset Resolution Last Treating Co mments Source Name Details Category Date Date Treatment Clinician Date Left Left Disease Active [facility] carotid carotid 8-10 [facility] artery artery 00:00: Medical stenosis stenosis 00 Center Carotid Carotid Disease Active [facility] stenosis, stenosis, 6-11 [facility] - right right 00:00: Medical 00 Center Bilateral Bilateral Disease Active [facility] carotid carotid 6-08 [facility] - artery artery 00:00: Medical stenosis stenosis 00 Center PAF PAF Disease Active [facility] (paroxysma (paroxysma 12-05 [facility] - l atrial l atrial 00:00: Medica l fibrillati fibrillati 00 Ce nter on) on) Respirator Respirator Disease Active [facility] y y 11-29 [facility] - insufficie insufficie 00:00: Me dical ncy ncy 00 Center Acute Acute Disease Active [facility] blood loss blood loss 11-29 [facility] - anemia anemia 00:00: Medical 00 Center Coagulopat Coagulopat Disease Active [facility] hy hy 11-29 [facility] - 00:00: Medical 00 Center 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 Social History Social Habit Start Date Stop Date Quantity Comments Source History SDOH [facility] - Alcohol Std Drinks Medica l Center History SDOH [facility] - Alcohol Binge Medical Ijeoma ter Sex Assigned At [facility] - [facility] Center Tobacco use and 2020-02-05 2020-02-05 Never used [facility] - exposure 00:00:00 00:00:00 Medical Center Alcohol intake 2020-02-05 2020-02-[address] [facility] - 00:00:00 00:00:00 non-drinker of Medical Ce nter alcohol (finding) History SDOH 2019-11-20 2019-11-[address] [facility] - Alcohol Frequency 00:00:00 00:00:00 [facility] History of tobacco 2018-10-[address] - use 00:00:00 [facility] Smoking Status Start Date Stop Date Source Former smoker 2020-02-05 00:00:2020-02-05 00:00:[address] [facility] [address] [facility] - [facility] Medications Ordered Filled Start Stop Current Ordering Indication Dosage Frequency Signature Comments Components Source Medication Medication Date Date Medication? Clinician (SIG) Name Name aspirin 81 Yes 81mg QD Take [address] MG EC 8-11 by mouth [facility] - tablet 11:19: daily. [address] metoprolol No 12.5mg Q.5D Take 12.[address] tartrate 8-10 08-06 mg by [facility] - (LOPRESSOR) 12:57: 00:00 mouth 2 Me dical 25 MG 06 :00 (two) Center tablet times daily. atorvastati Yes 40mg QD Take [address] n (LIPITOR) 6-29 by mouth Luke s - 40 MG 00:00: daily. Medical tablet 00 Center metoprolol Yes 25mg QD Take [address] succinate 6-29 by mouth [facility] - (TOPROL-XL) 00:00: daily. Medi donna 25 MG 24 hr 00 Center tablet clopidogreL No 75mg QD Take [address] [facility] (PLAVIX) 75 6-25 06-25 tablet (75 L ukes - mg tablet 00:00: 23:59 mg total) Me dical 00 :00 by mouth Center daily. levothyroxi Yes 25ug QD Take [address] ne 3-30 mcg by [facility] - (SYNTHROID, 00:00: mouth Medic al LEVOTHROID) 00 daily. Center 25 MCG tablet aspirin 81 No 81mg QD Take [address] MG chewable 6-26 06-25 tablet (81 L ukes - tablet 00:00: 23:59 mg total) Medic al 00 :00 by mouth Center daily. amiodarone 2019- No 200mg QD Take [address] (PACERONE) 12-06 06-08 tablet [facility] - 200 MG 00:00: 00:00 (200 mg Medical tablet 00 :00 total) by Center mouth daily. losartan 2019- No 12.5mg QD Take 0.[address] (COZAAR) 25 - 06-08 tablets Luke s - MG tablet 00:00: 00:00 (12.5 mg Med ical 00 :00 total) by Center mouth daily. furosemide 2019- No 20mg QD Take [address] [facility] (LASIX) 20 12-06-08 tablet (20 [facility]elli k[facility] - MG tablet 00:00: 00:00 mg total) Me dical 00 :00 by mouth Center daily. atorvastati 2019- No 40mg QD Take [address] n (LIPITOR) 12-05-24 tablet (40 L ukes - 40 MG 00:00: 23:59 mg total) Medica l tablet 00 :00 by mouth Center nightly. metoprolol 2019- No 12.5mg Q.5D Take 0.[address] (LOPRESSOR) 12-05-24 tablets Luke s - 25 MG 00:00: 23:59 (12.5 mg Medical tablet 00 :00 total) by Center mouth 2 (two) times daily. acetaminoph 2019- No 650mg Take [address] en 12-05-12 tablets [facility] - (TYLENOL) 00:00: 00:00 (650 mg Medi donna 325 MG 00 :00 total) by Center tablet mouth every 6 (six) hours as needed for Fever (mild to moderate pain). bisacodyl 2020- No 10mg Take 2 [facility] (DULCOLAX) -05 12-08 tablets [facility] - 5 mg EC 00:00: 00:00 (10 mg Medical tablet 00 :00 total) by Center mouth daily as needed for Constipati on. bisacodyl 2020- No 10mg Place [address] [facility] (DULCOLAX) 12-05-08 suppositor [facility]elli [facility] - 10 mg 00:00: 00:00 y (10 mg Medical suppository 00 :00 total) Center rectally daily as needed. senna 2019- No 17.2mg QD Take [address] (SENOKOT) 12-05- tablets [facility] - 8.6 mg 00:00: 00:00 (17.2 mg Medica l tablet 00 :00 total) by Center mouth nightly. ondansetron 2019- No 4mg Take [address] [facility] (ZOFRAN-ODT 12-05- tablet (4 [facility]elli kes - ) 4 MG 00:00: 00:00 mg total) Medic al disintegrat 00 :00 by mouth Cent er ing tablet every 6 (six) hours as needed for Nausea. nystatin 2019- No Q.5D Apply [facility] (MYCOSTATIN 12-05 topically [facility]elli kes - ) 100,000 00:00: 00:00 2 (two) Medi donna unit/gram 00 :00 times Center powder daily. ipratropium 2019- No 3mL Take [address] [address] -albuterol 12-05 by Kellikes - (DUO-NEB) 00:00: 00:00 nebulizati M edical 0.5 mg-3 00 :00 on every 6 Cente r mg(2.5 mg (six) base)/3 mL hours as nebulizer needed for solution Wheezing or Shortness of Breath for up to 360 days. enoxaparin 2019- No 40mg Q24H Inject 0.[address] (LOVENOX) 12-05- mLs (40 mg Jasson es - 40 mg/0.4 00:00: 00:00 total) Medic al mL Syrg 00 :00 subcutaneo Center usly daily Can dc if patient mobilizing more. Vital Signs Vital Name Observation Time Observation Value Comments Source Systolic blood 2020-02-04 13:28:00 210 mm[Hg] [facility] Diastolic blood 2020-02-04 13:28:00 96 mm[Hg] [facility] Heart rate 2020-02-04 13:28:00 92 /min [facility] Body temperature 2020-02-04 13:28:[address] [facility] Respiratory rate 2020-02-04 13:28:00 15 /min [facility] Body height 2020-02-04 13:28:00 177.8 cm [facility] Body weight 2020-02-04 13:28:00 107.502 kg [facility] BMI 2020-02-04 13:28:00 34.01 kg/m2 [facility] Oxygen saturation in 2020-02-04 13:28:00 99 /min room air [facility] - Arterial blood by Medical Ce nter Pulse oximetry Procedures Procedure Date / Time Performed Performing Clinician [facility] e RHYTHM STRIP - SCAN 2020-01-24 10:43:52 Provider, [facility] RHYTHM STRIP - SCAN 2020-01-24 10:43:50 Provider, [facility] RHYTHM STRIP - SCAN 2020-01-23 12:40:29 Provider, [facility] TRANSFUSION SERVICE 2020-01-22 18:11:38 Provider, [facility] REPORT [facility] BASIC METABOLIC PANEL 2020-01-22 04:00:00 Adolfo [facility] ([address] [place] [address] CBC W/PLT COUNT & AUTO 2020-01-22 04:00:00 [facility] DIFFERENTIAL [facility] BASIC METABOLIC PANEL 2020-01-21 10:28:00 Iris [facility] ([address] [place] [address] CBC W/PLT COUNT & AUTO 2020-01-21 10:28:00 AdolfoDeseankarri [facility] S t [facility] DIFFERENTIAL [facility] TISSUE EXAM 2020-01-21 08:39:00 Dain De La Rosa [facility] ENDARTERECTOMY,CAROTID 2020-01-21 07:10:[address] [facility] TYPE AND SCREEN, 2020-01-21 06:30:00 Dain De La Rosa [facility] - AUTOMATED [facility] POCT-GLUCOSE METER 2020-01-21 05:40:[address] [facility] TRANSFUSION SERVICE 2020-01-18 18:04:17 Provider, [facility] REPORT [facility] BASIC METABOLIC PANEL 2020-01-17 11:36:00 Debonte, Chioma Viridiana [facility] Keyona gonzales tyrese - (7) [facility] PLATELET AGGREGATION: 2020-01-17 11:36:00 DwayneChioma [facility] Keyona gonzales Kell[facility] - FUNCTION SCREEN Medical Center TYPE AND SCREEN, 2020-01-17 11:36:00 Dwayne Chioma Viridiana GARSIA [facility] Hospital es - AUTOMATED Medical Center CBC W/PLT COUNT & AUTO 2020-01-17 11:36:00 Dwayne Chioma Fe [facility] DIFFERENTIAL [facility] SARS-COV2/RT-PCR ([facility] & 2020-01-17 10:48:00 Dain De La Rosa [facility] - REF LABS) [facility] ECG 12-LEAD 2020-01-17 10:41:29 Unknown, Hl7 Doctor [facility] RHYTHM STRIP - SCAN 2019-11-26 14:21:00 Provider, [facility] XR CHEST 1 VIEW 2019-11-23 05:00:00 Ezra Diaz [facility] - PORTABLE/BEDSIDE Medical Center HGB/HCT (H&H) - STAT LAB 2019-11-22 10:26:00 Ezra Diaz [facility] TISSUE EXAM 2019-11-22 08:56:00 Dain De La Rosa [facility] ENDARTERECTOMY,CAROTID 2019-11-22 07:06:[address] [facility] POCT-GLUCOSE METER 2019-11-22 05:38:[address] [facility] TRANSFUSION SERVICE 2019-11-20 18:54:16 Provider, Ethel [facility] REPORT [facility] ELECTROLYTE PANEL 2019-11-19 12:14:[address] [facility] BUN 2019-11-19 12:14:00 Dain De La Rosa [facility] CREATININE 2019-11-19 12:14:00 Dain De La Rosa [facility] PROTHROMBIN TIME/INR 2019-11-19 12:14:[address] [facility] TYPE AND SCREEN, 2019-11-19 12:14:00 Dain De La Rosa [facility] - AUTOMATED [facility] CBC W/PLT COUNT & AUTO 2019-11-19 12:14:00 Dain De La Rosa [facility] - DIFFERENTIAL [facility] SARS-COV2/RT-PCR ([facility] & 2019-11-19 11:40:00 Dain De La [facility] - REF LABS) [facility] ECG 12-LEAD 2019-11-19 11:36:49 Unknown, Hl7 Doctor [facility] Plan of Care Planned Activity Planned Date Details Comments Source Future Scheduled 2020-02-12 INFLUENZA VACCINE (#1) [facility] - Test 00:00:00 [code = INFLUENZA Medical Ce nter VACCINE (#1)] Future Scheduled 2004-10-12 MEDICARE ANNUAL [facility] St L uk - Test 00:00:00 WELLNESS (YEAR 2 or Medical Center FIRST YEAR if no IPPE) [code = MEDICARE ANNUAL WELLNESS (YEAR 2 or FIRST YEAR if no IPPE)] Future Scheduled 2003-11-02 PNEUMOCOCCAL 65+ YRS [facility] - Test 00:00:00 (1 of 1 - [facility] [id number] PCV13) [code = PNEUMOCOCCAL 65+ YRS (1 of - [id number] PCV13)] Results Test Description Test Time Test Comments Results Result Comments Source Tissue Exam 2020-01-25 18:04:00 Test Item Value Reference Range Interpretation Comme nts Case Report (test code = 104) Surgical Pathology Report Case: [id number] Authorizing Provider: Dain De La Rosa, Collected: 01/21/2020 08:39 AM Ordering Location: [facility] Received: 01/21/2020 10:40 AM PERIOPERATIVE SERVICES Pathologist: Troy Starr MD Specimen: Plaque, LEFT CAROTID PLAQUE DIAGNOSIS (test code = 3220) z1ytkZQcVHGms8ebLWJjhXNqXjCsYvEtQlMwKr pc yYOdPXevmuAuOVovz0CiW3FtSoWfHYplhkIxOCUn SsqwnvugFVGnOMJ8fhZuCGXnMValMFPqWGxjFy7a yDSuoLjhWcQiVFZli3raohLSdvswgTi1x7jpUZJh LvS1kXFaUFwoY3haxwVmkERdTLOqUIt0gL86PXVq wR6pnPFrIMesmiVxZCaixgNrxaVtZlq6VMNbB9pw DXFsCMOjQ8VdDY2cGVJyCey9THA5MMD0xOoub6P1 vMHrzBLanNoyAlRsFoAjGRVOz7BlGRa5dNgzC9Jk ZQXnZfU0kHKwSVUpUHugULEoXTWadpN8jJ30MGhk vpQ8wWJkb1Jpe40hk779cB8mfVQgTIE6HYIuFXSj fDRtAAPmQAP1TPXgpIPgA8r8ZeLzfYIcP0C6OsDk qGNiD5Z2XsJlrAPxL4B2GaBlxGHlZNUeuSDvNo1b bTKvsPKpig6ycv34TIF7y7IubTudOOS1ANJ3KlOu Dm9rhCZcOZKuBS1cQwPtkUTmBZQqvo74pXdpXQxv mkAeiF2gWlEnOVBikKAnWMRpUM1voASoIGVxuC6o rbgdWPYvLiTrjnxzMDYboMolanZiLa2tpEmiTJL7 WOkoT6ggvS4wGgL3SPvtR2bpoF0uKTb7LTqfaEV3 EMXvpP7vWD6tgvknu0buYfKhUT4rvfkzx9csQeTq VG7nkvt4z4hdRoHfWQ5dbvccn4pyOfZkBMllDNRx mvatETQlr7CtexkaSFVsk9RhR0QakFxzJ54psTor R85hIVXdiOtohT9woDmvkB7uUwSfYlOuFFaocKbn bGFpblxmMFxmczIwXHBsYWluXGYxXGZzMjAgQVJU VHCEDHGUBSSRDAXRRd3MLIMhHASRBKDVCJUXKRHU R16NKmeuKSWnU1LGC4eXEMOnGGKEEMRFF3LCSNSZ PGjXMRNIKPURLNdlTFU5h7hvmQYuMRTdxROcBTAw GYkuusMaYCJaDrwguntlDCIoQEP3fqNpGDSwZUkv HHNrZIsoYb8qnCOdnGxdQpTxEZFnn3olepWRelit vGb1c7bxXOEwSiG7uCBpBPiyI2xclhIlhXQlRZUb JVg1jX44NDEroW7uxLYzMZwvrzMwJbE7KAssQSNd SzQ9OUHkaGTmDDZlP5xoBHXdIGicFELkHFoliMQy LNK8kFvli1M5aDUfqOLjxXegStDuVhTbCcXVf4Cg OOg6wZnbR7QyAJVdYyW9pPGcVGMoRCeePQVjOBKn cdQ5cU21ZPbfjeO6cVWav0Lqc96bg686aB7gqKCi DJO7RKKuTAUciTCzQUCiBDI3OWYbfLBxG5ofSRYz WM6vushkPDkiTKcgEVPqzXT1TPAvePJhH6DrLOGk RVnrFMCofjj0BcAjXm6iiTAcoAzsGSpmw4pya5oi bTTzQwa5BADzXaQlNnozWDkch5Mto3koUFGeni2u KYC5vVItdHegh8C8wPVlLTExmMJxYRJpIB9unQNe KSBmvC2kfmurLPWcCyBscuncDOUylEcsrlRkRh6v yDgmZUU6FRfcY6bwhP4mTyT8EQzyY6mkkK5aLQc6 QNwlJDThrAI4lzM9UOZnwELdT7JkbB8xVGGwII9x xzn1o1awBWV1ITdfGXIuFeJ6wyI8UQClrQGmJKFg oBnnMKeld668JBI4ApAbHXRxs9ZfW2QhoZhvA94p nPtiE93uVMOwkOqduD2lySzfhH3qGwSaWlQyCUco wSapLV0vZBFnC6ovgUGzEHRhHUObU6phXlMmjK3z fWcyOJlnobYdMUYyYkz8VMYltDAjHAYcMyc3NDZl KZEiV11kaejaNDX8hT7ee9ybd7YrGKhbOMC9QGFg m03iCVfmeaJ6ZGohNa6yMPMaFOa2XIorZPT9uO== CPT Code(s) (test code = 3357) z0eaoMKfVSZbzPKhXjFjSAGlNIDdc2bdJPQh bGFu SkWaOyFwOuEdHucotENfDKNdCtJpj3gri280gOTj e4wdELCwYiL3aUZwWYMnkOXiR956l4klf4bvfoFg wBX5KSYmMQL3HReofjPoypL0DUmfuSVjAlS8QLrc lkHqOFslokGtasPvZgo8VEPsJ666KOS6jHsbl3tb WKA6URMaXZTrRoUjHe7fqVVhM256SRFrVBPMDKZx mBs8UDNiahNgluBzjNOMw441I132g9anYZRardRm eJxPkfusp5ssR174BSVbjXFuxwAgUhTcEXErbEQl uYD1HVYeFZ4ymldrZlOmQW2vbvbaOtWxAC6fkww3 HrAiZM4admhgSgIwZXqiBAXwicfpTFMxb5Yybdso CC6rQ1Xwj3E3jW5luDDeNOEceEQeZsTpMPAjpn4u qYNjKBjko7PyGIK3tuN0rTIwdCZnCZLfUO53Kooi d6HmFbnmIKO2LBTipwQlf6Gnr7sfJfSfnmXlU4oq P3QtDWIcUAJrULTaXqKuglDoy7Kem1VieLAotFv9 y2nxXQLgYNBgsOdbp3dcJGC2YYUjV4J1yGUyx7pi BSegHEFimLX8snouSIacIXNdxmP2epcmYWfgRXBh rFR1ksdpNXhsLUNbTfR6xehaOHvgIHXtGED5ESdp y995GFU5YZjfBzspNNpbPAKjucOwapVghKquELYn CNVbSGzkVKXyUSfkQJPpFTAcJcSqyDrgmFkiuI7g TkJeOoFnIDxzNY8tUYGjO6tadWYjEIDqQWDrM3ys CyEyaS1wxGssRFmybaXpBHg0YrU4EdC4VGShRPou YXJ9 CLINICAL HISTORY (test code = 3356) r6vpcGHgCUVwkOHnRvHsBYYzHDXxj5l cZGVmbGFu ErMlWyPpCbSpBymxzTOwDPJbFpPec7rjf142gCTp z9mzJAXjAvJ4iKVaHVNbmIOjX600v8zqs6roudLj bMD8NQOsMMM7ZLfjkhPfbyM9PEhzxVMdLxV8GXwv qfToONpfuvScsvQkTnf7QWBuB472TRQ4vQcdn8lx CZL4ZDElGUTjLeReWw2leMFeJ988OXGzKXXKILPd aBo4UFJmtbYatpHisKOTq314T781m8gzANXvwwWn gLiWclwrp2kyI160IOCvxLAneqRfTxVdOORhzBPx bEG5PRHhVU9oqkaiAnMrGF1iaotgQlGgCR9brut5 NbSzFM6ukzobYuYnRKfsXCXbbfvbJDTfq6Iuebbn VE1xU5Hvk1V3cD9lgNJuGJMhrHFzHxDnLODzgx3s aOPtFGenn4UbSUU3mvL5sYAouPQgRQDmAJ51Gevq j0OeSbigMXF7HDZrdcHiv5Joc7lzYrTdnoBvE6sn A5AnDDWvYWZgWAKqMnYvuxIjj3Zca2MhvOZlcKt8 q6ojJRLpLROkgNwcf9gtSBQ9JEIvN2M2fYQrr2na BTehSTUojVU5fhzmKCbxFHTyiwR8votaZDneEMJb eYI2hshtHOjdXEJfOhW6drelTWsoHQBvTXO2THsb e015BRJ0QXojLcwzCGvaSIFdmjYnaxNsgWozXVCy JNUcKJxoZBErOCjhYLUtHOUiYwVntZdruBramA9i EwCcBdWtPXpjGL8kILHxV6hwdPQxHIBrONVkV0fc QzVvtE9yuNutPYghmzZnAXBbHD0cQRYiGYxbf6Qk dzhoIBykHlKnW4Bbk5RkMVLtaVFwm9Cjq2ieSXF9 SPECIMEN SOURCE (test code = 3377) y4hpdIKzIARhvKPoFrPkTYKqXZYfe5tr ZGVmbGFu GlJxMmKpLzYnBewryWMbOGIjKwCmq3yzo047jQGg s8fmEMDhKnO0fSJfUXKzqSJpW549u6spa7gkvpZe eTI6MDIeTER9EAdcquVajcX4EQrftGNwHvX5PXep ynHnYBegqtUsdvRlMno8DQCwH620NIP3eKjkd3vm PEB7PKNpVFExRoLuFz4uyGQgH000PNNkOEBAHJVq cXt8VXFjqqUlmsAczQPBd925D766j9mmJBKuckKz vOnXtlmlj0tuC689YTAupLLxhwXsIwWyQJTmjUDq qCP2DHXcZK5aziekHfAfEI1expwhCaAsIZ5wzfj6 QgBzVO3cgdpwNvQwGYsjDTYerwuzXHDmp9Kmxjsd UD7rM7Dri6G6dI6foVMwRYOvnBKkHgEfQXEarl5w lASuJHxwc6IwAOQ8klW0oSKctQBeJBXbDU74Cuih p7AgAwvfCGM7HFNfnwMmx7Tdb4qpBuFqqwVrD9lc Q2MzTGDuKXCvKCOmYwYtpcEko0Kff0JaqQKwlHq0 w5puOHZeLMNdtBxwt4chLYW7PTDlP8W7xPTad6gu FMuaHIMmfLR3kztiIUxjGYSbqiR5carwWDisCZNs oGC0rbooJVoqHVLxKaJ1fcgeSCejKYErROZ7MHaj p751UIO7QAjdFffoFDzcXWXygiPeevTyjLpcWIZr MABsMBdsFBQxLJhnFXDyZPLkJmYvwFykdKvarB3f YiGcDhCxHOkzGA4kWCDxW1ktpBQkOMHaLXGyX4sp RsLprB6iaUldZOpndsCiSOQyMLD2MCkzCJJ0 GROSS DESCRIPTION (test code = 3366) r6ipzIPkLJLnhQWyMoJoOFFuRILqn2 lcZGVmbGFu AlUuUvYcBgDlVkydhPQfYZMdGqVpl6xfk242qTWp b7gfZBAzJrB7jLIeCGUnmMHwA856RJXdNQzvr7og l7VzIGNqjXLnk5A8STKSnlymbZx5wAedL50co1E9 NngkX9acOJXmWRctHUPvQJywuSCtTCU8OGPsNJB0 XHberjWkkaJ1QTbqyALpLnG5PYk8f2eucQydVAWw QSA2u3rjIPqtesEnSB7kuv3ydUw1z1difbUvMARp OVBwtMSTZUGpJ7UxlUhnVh5rkRn2cCepUyraHNO9 Rnw7EM8nkp30yuv3xKveDPWbhmsuAfT6ILeaHKLz sipbNEt9URcmPIRogBeoYMrkXIIzbtjvROprSLSl gWmjNIymULMeSjllQYnzFKVnXJO9NBlgt932HUD3 LQeih1eov8cwsMNeAsd1TTIbZqKeLpvpNIbpm9Ms y8otVYHmwi0wWJU6aKPibWlvy9Y9cQVsQGGzxGIg joGzBLLrGdV7WPchCK1qpz02SJZcCEP2hx8jjECv bPvupwBbrBIlPMknK2OfFMCvz379ASQmQ9PiLCMj g4W4vzQwOtByYXAseNU2mbE3DEYcBVp6tYZcbnQ7 tlWluOKcA5pydB32CzBkiZVlT7EwlY50TdWocTJk R1EdcL22CcXmeMTiO1RhtC64UyBklBKkSIVonISu Pv6wnEMesSYyo0LfsCIzQJniZ83hw042QQYhrdQf H0ogqQDgknfctKGuzmedHFvnsaLmWIQoEYEjCZqe WOBxFRQoDuTtlRgptR3gNeKdFkXpHVHAFBCjjMGo ZCBmcmVzaCBsYWJlbGVkIHdpdGggdGhlIHBhdGll unWfnrJgXH5qJMGhV6Ixg7Xuz45bvvLkHxPwRPQx XTOmsDLgxFNoEJQzjVksCYYbBNM7HPRrcMOwJCS4 PhNarOImNoQxyYWdIkfrD89fEWubfkUwTOSyQP9k PWCsxm45HHgxk3mmuMTpeTynssefZx1jYZcvuTQq YWxjaWZpZWQgcGxhcXVlLiBSZXByZXNlbnRhdGl2 CXSrLMR9bE8pdxNugyAbv9ZrfVu1kUMrJBijDUJc IFBtoRzni2zpMqYzVIEenMBkVtrpBQXjq58zYNRG QD0shXTggVTupS== MICROSCOPIC DESCRIPTION (test code = g2xqmEWtOLYvyHJxKjRcBNMqJZVcs0 [place] [address]) ZfGzAqHvRyMwTojzeFLxEPKpMtRha2zuj067sMYh w2iqTJLxKcH4tHHmRHSgwTLmE250i3icl4qjqrEz iWO5ZMPnJVL5HQtvocQdeyI8UGqeeHOqSdK9ZRii ytSiIFvbjeYsdrLmCzu7CRNpG083QUA0zFjhk9kp EWO7EEDyLGBeXfWbZq7qlFXuX293LSUvTYXXHLGp qBc7CHXtqgEcnxZtvXPIm785R316o9gnYZWrakYz wYnMxtpnr0rfE649NTNygVKfyiNoBqSwLMBnqAAo vNJ4ESAvSP0azsggAtXfQD8cxvfoEwYsPM2obcu4 TaCvSF4hdpkzNeUoVPgpBUKajztjHPOiy2Izrdla FC2oB2Rwk0A5iN6xeHTpLOMiePGyGqGlIBBvka8m oWOqLUksu7XtRMM8ovT9wJJgzUUgMSZkSF61Wdey r8UdHjmeVVF1EOIuawBlp7Ohv8cwTmZkocSeV1be I2AgHKMoLQKjWTMwKyLvqqMlv3Abh9WefRKorUc6 o0jqGZBtZHZtpTsyn6vsGVJ5VTAdS0N7xYHur4gq CReqFXJcmNB6omnhSMdzUDCphsM8zbppIKhrOBJj fKL7nbriKElnYMYdAzT3cdidZPbjEOHuENP7FTut z556VMJ2GCwdAboqAIxcCGYhpmCjadUbdMgxYDLz COZxDDfgGKWuNHupWKScLGCySjFehAuphPzfcV9s RiJsAmTrMQcjTK6pRXExY4jnhRRbLCSwOYBcZ7gn TqBfwN1ogPuvJEkhieKtUHVcxpCsca8eGOmlPVG9 [facility] PeninsulaT[facility] [id number] 18:04:00Surgical Pathology Report Case: [id number] Authorizing Provider: Dain De La Rosa, Collected: 01/21/2020 08:39 AM OrderingLocation: [facility] Received: 01/21/2020 10:40 AM PERIOPERATIVE SERVICES Pathologist: Troy Starr MD Specimen: Plaque, LEFT CAROTID PLAQUE ARTERY, LEFT CAROTID, ENDARTERECTOMY:CALCIFIC ATHEROSCLEROTIC PLAQUE Signing Pathologist Direct Phone Line: [phone] signed by Troy Starr MD on 01/25/2020 at 6:04 [id number] diagnosis: Left carotid stenosisPlaqueReceived fresh labeled with the patient's name, accession number and "left carotid plaque" is a 5.0 x 1.2 x 0.7 cm aggregate of duggan-yellow tubular, focally calcified plaque.Personal Consultant sections are submitted in A1 following decalcification. PA/pl PerformedBasic Metabolic [id number] 06:08:00 Test Item Value Reference Range Interpretation Comments Sodium (test code = 140 meq/L 114-883 7995-2) Potassium (test code = 4.7 meq/L 3.5-5.1 2823-3) Chloride (test code = 109 meq/L 98-107 H 2074-0) CO2 (test code = 25 meq/L 22-29 2027-9) BUN (test code = 21 mg/dL 7-21 3094-0) Creatinine (test code 1.38 mg/dL 0.57-1.25 H = 2160-0) Glucose (test code = 112 mg/dL 70-105 H 2345-7) Calcium (test code = 8.1 mg/dL 8.4-10.2 L 49406-2) EGFR (test code = 49 mL/min/1.73 [place] [address]-0) NOT ACCURATE CREATININE CLEARANCE IN PREDICTING GLOMERULAR FILTRATION RATE . ESTIMATED GFR I S NOT APPLICABLE FOR DIALYSIS PATIENTS. JAMAR (test code = JAMAR) Client Resolution Specialist ID - EDASI Lab Interpretation Abnormal (test code = 96368-5) [facility] METABOLIC [id number] 06:08:00 Test Item Value Reference Range Interpretation Comments SODIUM (BEAKER) 140 meq/L 136-145 (test code = 381) POTASSIUM (BEAKER) 4.7 meq/L 3.5-5.1 (test code = 379) CHLORIDE (BEAKER) 109 meq/L 98-107 H (test code = 382) CO2 (BEAKER) (test 25 meq/L 22-29 code = 355) BLOOD UREA NITROGEN 21 mg/dL 7-21 (BEAKER) (test code = 354) CREATININE (BEAKER) 1.38 mg/dL 0.57-1.25 H (test code = 358) GLUCOSE RANDOM 112 mg/dL 70-105 H (BEAKER) (test code = 652) CALCIUM (BEAKER) 8.1 mg/dL 8.4-10.2 L (test code = 697) EGFR (BEAKER) (test 49 mL/min/1.73 ESTIMA FERNY GFR IS code = 1092) sq m NOT ACCURATE CREATININE CLEARANCE IN PREDICTING GLOMERULAR FILTRATION RATE . ESTIMATED GFR I S NOT APPLICABLE FOR DIALYSIS PATIEN TS. Client Resolution Specialist ID - EDASICBC with platelet count + automated [id number] 05:59:00 Test Item Value Reference Range Interpretation Comments WBC (test code = 6690-2) 10.3 3.5- 10.5 K/L RBC (test code = 789-8) 3.50 4.63- 6.08 M/L L MCHC (test code = 786-4) 31.5 32.3- 36.5 GM/DL L Hematocrit (test code = 34.9 % 40.1-51 L 4544-3) MCV (test code = 787-2) 99.7 fL 79-92.2 H Disc ordant MCV result compared to previous result ; clinical correl ation required. MCH (test code = 785-6) 31.4 pg 25.7-32.2 RDW (test code = 788-0) 13.0 % 11.6-14.4 Platelets (test code = 217 150- 450 K/CU MM 777-3) MPV (test code = 10.7 fL 9.4-12.4 55876-0) nRBC (test code = 413) 0 0- 0 /100 WBC % Neutros (test code = 70 % 429) % Lymphs (test code = 20 % 430) % Monos (test code = 9 % 431) % Eos (test code = 432) 0 % % Baso (test code = 437) 0 % # Neutros (test code = 7.24 1.78- 5.38 K/L H 670) # Lymphs (test code = 2.09 1.32- 3.57 K/L 414) # Monos (test code = 0.87 0.30- 0.82 K/L H 415) # Eos (test code = 416) 0.02 0.04- 0.54 K/L L # Baso (test code = 417) 0.04 0.01- 0.08 K/L Immature 0 % 0-1 Granulocytes-Relative (test code = 2801) Lab Interpretation (test Abnormal code = 01228-0) [facility] W/PLT COUNT & AUTO [id number] 05:59:00 Test Item Value Reference Range Interpretation Comments WHITE BLOOD CELL COUNT 10.3 K/ L 3.5-10.5 (BEAKER) (test code = 775) RED BLOOD CELL COUNT 3.50 M/ L 4.63-6.08 L (BEAKER) (test code = 761) HEMOGLOBIN (BEAKER) 11.0 GM/DL 13.7-17.5 L (test code = 410) HEMATOCRIT (BEAKER) 34.9 % 40.1-51.0 L (test code = 411) MEAN CORPUSCULAR 99.7 fL 79.0-92.2 H Discordant MCV VOLUME (BEAKER) (test result compared to code = 753) previous result ; clinical correl ation required. MEAN CORPUSCULAR 31.4 pg 25.7-32.2 HEMOGLOBIN (BEAKER) (test code = 751) MEAN CORPUSCULAR 31.5 GM/DL 32.3-36.5 L HEMOGLOBIN CONC (BEAKER) (test code = 752) RED CELL DISTRIBUTION 13.0 % 11.6-14.4 WIDTH (BEAKER) (test code = 412) PLATELET COUNT 217 K/CU MM 150-450 (BEAKER) (test code = 756) MEAN PLATELET VOLUME 10.7 fL 9.4-12.4 (BEAKER) (test code = 754) NUCLEATED RED BLOOD 0 /100 WBC 0-0 CELLS (BEAKER) (test code = 413) NEUTROPHILS RELATIVE 70 % PERCENT (BEAKER) (test code = 429) LYMPHOCYTES RELATIVE 20 % PERCENT (BEAKER) (test code = 430) MONOCYTES RELATIVE 9 % PERCENT (BEAKER) (test code = 431) EOSINOPHILS RELATIVE 0 % PERCENT (BEAKER) (test code = 432) BASOPHILS RELATIVE 0 % PERCENT (BEAKER) (test code = 437) NEUTROPHILS ABSOLUTE 7.24 K/ L 1.78-5.38 H COUNT (BEAKER) (test code = 670) LYMPHOCYTES ABSOLUTE 2.09 K/ L 1.32-3.57 COUNT (BEAKER) (test code = 414) MONOCYTES ABSOLUTE 0.87 K/ L 0.30-0.82 H COUNT (BEAKER) (test code = 415) EOSINOPHILS ABSOLUTE 0.02 K/ L 0.04-0.54 L COUNT (BEAKER) (test code = 416) BASOPHILS ABSOLUTE 0.04 K/ L 0.01-0.08 COUNT (BEAKER) (test code = 417) IMMATURE 0 % 0-1 GRANULOCYTES-RELATIVE PERCENT (BEAKER) (test code = 2801) BASIC METABOLIC [id number] 10:59:00 Test Item Value Reference Range Interpretation Comments SODIUM (BEAKER) 137 meq/L 136-145 (test code = 381) POTASSIUM (BEAKER) 4.5 meq/L 3.5-5.1 (test code = 379) CHLORIDE (BEAKER) 109 meq/L 98-107 H (test code = 382) CO2 (BEAKER) (test 23 meq/L 22-29 code = 355) BLOOD UREA NITROGEN 14 mg/dL 7-21 (BEAKER) (test code = 354) CREATININE (BEAKER) 1.11 mg/dL 0.57-1.25 (test code = 358) GLUCOSE RANDOM 157 mg/dL 70-105 H (BEAKER) (test code = 652) CALCIUM (BEAKER) 8.1 mg/dL 8.4-10.2 L (test code = 697) EGFR (BEAKER) (test 64 mL/min/1.73 ESTIMA FERNY GFR IS code = 1092) sq m NOT ACCURATE CREATININE CLEARANCE IN PREDICTING GLOMERULAR FILTRATION RATE . ESTIMATED GFR I S NOT APPLICABLE FOR DIALYSIS PATIEN TS. Client Resolution Specialist ID - DBCBC W/PLT COUNT & AUTO [id number] 10:53:00 Test Item Value Reference Range Interpretation Comments WHITE BLOOD CELL COUNT (BEAKER) 11.2 K/ L 3.5-10.5 H (test code = 775) RED BLOOD CELL COUNT (BEAKER) 3.81 M/ L 4.63-6.08 L (test code = 761) HEMOGLOBIN (BEAKER) (test code = 11.8 GM/DL 13.7-17.5 L 410) HEMATOCRIT (BEAKER) (test code = 36.4 % 40.1-51.0 L 411) MEAN CORPUSCULAR VOLUME (BEAKER) 95.5 fL 79.0-92.2 H (test code = 753) MEAN CORPUSCULAR HEMOGLOBIN 31.0 pg 25.7-32.2 (BEAKER) (test code = 751) MEAN CORPUSCULAR HEMOGLOBIN CONC 32.4 GM/DL 32.3-36.5 (BEAKER) (test code = 752) RED CELL DISTRIBUTION WIDTH 12.8 % 11.6-14.4 (BEAKER) (test code = 412) PLATELET COUNT (BEAKER) (test 203 K/CU MM 150-450 code = 756) MEAN PLATELET VOLUME (BEAKER) 10.2 fL 9.4-12.4 (test code = 754) NUCLEATED RED BLOOD CELLS 0 /100 WBC 0-0 (BEAKER) (test code = 413) NEUTROPHILS RELATIVE PERCENT 78 % (BEAKER) (test code = 429) LYMPHOCYTES RELATIVE PERCENT 16 % (BEAKER) (test code = 430) MONOCYTES RELATIVE PERCENT 4 % (BEAKER) (test code = 431) EOSINOPHILS RELATIVE PERCENT 1 % (BEAKER) (test code = 432) BASOPHILS RELATIVE PERCENT 0 % (BEAKER) (test code = 437) NEUTROPHILS ABSOLUTE COUNT 8.65 K/ L 1.78-5.38 H (BEAKER) (test code = 670) LYMPHOCYTES ABSOLUTE COUNT 1.79 K/ L 1.32-3.57 (BEAKER) (test code = 414) MONOCYTES ABSOLUTE COUNT (BEAKER) 0.47 K/ L 0.30-0.82 (test code = 415) EOSINOPHILS ABSOLUTE COUNT 0.15 K/ L 0.04-0.54 (BEAKER) (test code = 416) BASOPHILS ABSOLUTE COUNT (BEAKER) 0.05 K/ L 0.01-0.08 (test code = 417) IMMATURE GRANULOCYTES-RELATIVE 0 % 0-1 PERCENT (BEAKER) (test code = 2801) Type and screen, [id number] 07:12:00 Test Item Value Reference Range Interpretation Comments ABO/RH AUTOMATED (BEAKER) (test O POSITIVE code = 2260) Ab Scrn (test code = 890-4) NEGATIVE [facility]-Glucose [id number] 05:52:00 Test Item Value Reference Range Interpretation Comments POC-Glucose Meter (test 140 mg/dL 70-110 H : TE STED AT [facility] code = 1538) [address] [facility], 770 30: Client Resolution Specialist/Techni curtis ID = [id number] for JAMAR, DIAZYST [place] Lab Interpretation (test Abnormal code = 38712-3) [facility]-GLUCOSE [id number] 05:52:00 Test Item Value Reference Range Interpretation Comments POC-GLUCOSE METER 140 mg/dL 70-110 H : TESTED A T [facility] 6720 (BEAKER) (test code [facility], = 1538) 17182: Client Resolution Specialist/Techni curtis ID = [id number] for JORD AN, LACRYSTAL Platelet Aggregation: Function [id number] 09:30:00 Test Item Value Reference Range Interpretation Comments Pathologist: (test code Joe Avalos MD = 8718) (electronic signature) Platelets (test code = 251 150- 450 K/CU MM 2656) ADP (test code = 57 % 62-100 L 90855-4) Platelet Rich Plasma 318 200- 300 k/cu mm H (test code = 2134) Plt. Function Screen Decreased Interpretation (test aggregation with ADP code = 4655) which indicates platelet dysfunction that may be due to medication effect, uremia, or other platelet function disorders. Clinical correlation is required. JAMAR (test code = JAMAR) Platelet Function Screen results may be falsely low with platelet counts<75,000/cu mm.Client Resolution Specialist ID - [id number] Lab Interpretation (test Abnormal code = 88401-5) [facility] Peninsula[facility] AGGREGATION: FUNCTION [id number] 09:30:00 Test Item Value Reference Range Interpretation Comments [id number] Joe Avalos MD (BEAKER) (test code = (electronic 2622) signature) PLATELET COUNT AGG 251 K/CU MM 150-450 (BEAKER) (test code = 2656) ADP (BEAKER) (test code 57 % 62-100 L = 4654) PLATELET RICH 318 k/cu mm 200-300 H PLASMA(BEAKER) (test code = 2134) PLATELET FUNCTION SCREEN Decreased aggregation INTERPRETATION (BEAKER) with ADP which (test code = 4655) indicates platelet dysfunction that may be due to medication effect, uremia, or other platelet function disorders. Clinical correlation is required. Platelet Function Screen results may be falsely low with platelet counts<75,000/cu mm.Client Resolution Specialist ID- [id number] 23:17:23Interface, External Ris In - 01/17/2020 11:17 PM CDTVentricular Rate 85 BPMAtrial Rate 87 BPMP-R Interval 186 msQRS Duration 120 msQ-T Interval 404 msQTC Calculation(Bazett) 480 msP [place] 69 degreesR [place] 99 degreesT [place] 47 degreesNormal sinus rhythmPossible Left atrial enlargementPossible Right ventri cular hypertrophyAnterolateral infarct (cited on or before 29-NOV-2018)Abnormal ECGWhen compared with ECG of 19-NOV-2019 11:36,Questionable change in QRS axisNonspecific T wave abnormality no longer evident in Lateral leadsConfirmed by MD Alexandre, Sylvie ([id number]) on 01/17/2020 11:17:20 [facility] SARS-CoV2/RT-PCR ([facility] & Ref Labs)2020-01-17 17:29:00 Test Item Value Reference Range Interpretation Comments SARS-COV2/RT-PCR Negative Not Detected, (test code = Negative, See 74872-1) external report for linked test SARS-COV-2 [facility] PERFORMING LAB (test code = 14475-6) JAMAR (test code = Negative result for this JAMAR) test determines that SARS-CoV-2 RNA was not present in the [...] of the Act. Fact Sheet for Healthcare Providers:https://www.TV Pixie ideRapportive.Friday/sites/default/f parris/product/documents/F act_Sheet_HC_Providers_L yll_JOZD-AcC-1.pdf Fact Sheet for Healthcare Patients:https://www.BeavEx del.Friday/sites/default/fi les/product/documents/Fa ct_Sheet_Patients_Lyra_S ARS-CoV-2.pdf Performing Laboratory:[facility] [place] [address] [facility] REF LABS)2020-01-17 17:29:00 Test Item Value Reference Range Interpretation Comments SARS-COV2/RT-PCR (test Negative Not Detected, Negative, code = 5746778) See external report for linked test SARS-COV-2 PERFORMING LAB [facility] (test code = 0087741) Negative result for this test determines that SARS-CoV-2 RNA was not present in the specimen above the Limit of Detection (LOD). However, Negative results do not preclude SARS-CoV-2 infection and should not be used as the sole basis for treatment or patient management decisions. Negative results mustbe combined with clinical observations, patient history, and epidemiological information. A false negative result may occur if a specimen is improperly collected, transported or handled. A false negative result should be considered if patient's recent exposures or clinical presentation indicate that COVID-19 (SARS-CoV-2) is likely and diagnostic tests for other causes of illness are negative. Re-testing should be considered in cases of suspected false negatives.The limit of detection for this assay is 800 copies/mL.This SARS CoV-2 test is a real-time RT-PCR test intended for the qualitative detection of nucleic acid from SARS-CoV-2 in a nasopharyngeal swab specimen collected from individuals susp ected of COVID-19 by their healthcare provider.This test has not been Food and Drug [...] is revoked under Section 564(g) of the Act.Fact Sheet for Healthcare Providers:https://www.Concealium Software.Friday/sites/default/files/product/documents/Fact_Shee g_LG_Akykhpdkz_Clwc_XAXQ-DyZ-8.pdfFact Sheet for Healthcare Patients:https://www.Con[employer]al[employer] Software.Friday/sites/default/files/product/ documents/Fuaq_Racgj_Sgyspdbp_Bmnu_AZIX-NuW-1.pdfPerforming Laboratory:[facility], [place] [address]XWZOA METABOLIC PANEL 2020-01-17 12:16:00 Test Item Value Reference Range Interpretation Comments SODIUM (BEAKER) 137 meq/L 136-145 (test code = 381) POTASSIUM (BEAKER) 4.1 meq/L 3.5-5.1 (test code = 379) CHLORIDE (BEAKER) 105 meq/L 98-107 (test code = 382) CO2 (BEAKER) (test 27 meq/L 22-29 code = 355) BLOOD UREA NITROGEN 12 mg/dL 7-21 (BEAKER) (test code = 354) CREATININE (BEAKER) 1.13 mg/dL 0.57-1.25 (test code = 358) GLUCOSE RANDOM 106 mg/dL 70-105 H (BEAKER) (test code = 652) CALCIUM (BEAKER) 8.9 mg/dL 8.4-10.2 (test code = 697) EGFR (BEAKER) (test 62 mL/min/1.73 ESTIMA FERNY GFR IS code = 1092) sq m NOT ACCURATE CREATININE CLEARANCE IN PREDICTING GLOMERULAR FILTRATION RATE . ESTIMATED GFR I S NOT APPLICABLE FOR DIALYSIS PATIEN TS. Client Resolution Specialist ID - SANDRITA CCBC W/PLT COUNT & AUTO [id number] 11:45:00 Test Item Value Reference Range Interpretation Comments WHITE BLOOD CELL COUNT (BEAKER) 8.2 K/ L 3.5-10.5 (test code = 775) RED BLOOD CELL COUNT (BEAKER) 4.27 M/ L 4.63-6.08 L (test code = 761) HEMOGLOBIN (BEAKER) (test code = 13.3 GM/DL 13.7-17.5 L 410) HEMATOCRIT (BEAKER) (test code = 40.9 % 40.1-51.0 411) MEAN CORPUSCULAR VOLUME (BEAKER) 95.8 fL 79.0-92.2 H (test code = 753) MEAN CORPUSCULAR HEMOGLOBIN 31.1 pg 25.7-32.2 (BEAKER) (test code = 751) MEAN CORPUSCULAR HEMOGLOBIN CONC 32.5 GM/DL 32.3-36.5 (BEAKER) (test code = 752) RED CELL DISTRIBUTION WIDTH 12.7 % 11.6-14.4 (BEAKER) (test code = 412) PLATELET COUNT (BEAKER) (test 228 K/CU MM 150-450 code = 756) MEAN PLATELET VOLUME (BEAKER) 10.0 fL 9.4-12.4 (test code = 754) NUCLEATED RED BLOOD CELLS 0 /100 WBC 0-0 (BEAKER) (test code = 413) NEUTROPHILS RELATIVE PERCENT 64 % (BEAKER) (test code = 429) LYMPHOCYTES RELATIVE PERCENT 24 % (BEAKER) (test code = 430) MONOCYTES RELATIVE PERCENT 9 % (BEAKER) (test code = 431) EOSINOPHILS RELATIVE PERCENT 3 % (BEAKER) (test code = 432) BASOPHILS RELATIVE PERCENT 1 % (BEAKER) (test code = 437) NEUTROPHILS ABSOLUTE COUNT 5.21 K/ L 1.78-5.38 (BEAKER) (test code = 670) LYMPHOCYTES ABSOLUTE COUNT 1.93 K/ L 1.32-3.57 (BEAKER) (test code = 414) MONOCYTES ABSOLUTE COUNT (BEAKER) 0.74 K/ L 0.30-0.82 (test code = 415) EOSINOPHILS ABSOLUTE COUNT 0.24 K/ L 0.04-0.54 (BEAKER) (test code = 416) BASOPHILS ABSOLUTE COUNT (BEAKER) 0.05 K/ L 0.01-0.08 (test code = 417) IMMATURE GRANULOCYTES-RELATIVE 0 % 0-1 PERCENT (BEAKER) (test code = 2801) TISSUE [id number] 13:34:00Surgical Pathology Report Case: [id number] Authorizing Provider: Dain De La Rosa, Collected: 11/22/2019 08:56 AM Ordering Location: [facility] Received: 11/22/2019 10:25 AM PERIOPERATIVE SERVICES Pathologist: Troy Starr MD Specimen: Plaque, RIGHT CAROTID ARTERY PLAQUE ARTERY, RIGHT CAROTID, ENDARTERECTOMY:CALCIFIC ATHEROSCLEROTIC PLAQUE Signing Pathologist Direct Phone Line: [phone] signed by Troy Starr MD on 12/03/2019 at 1:34 [id number]; [id number] stenosis, rightPlaqueReceived in formalin labeled with the patient's name, accession number and "right carotid artery plaque" is a 3.5 cm in length by 0.5-0.9 cm in diameter duggan-yellow tubular, bifurcated, focally calcified piece of plaque. Personal Consultant sections are submitted in A1 following decalcification.OUMOU Polanco (ASC)cmPerformedRAD, CHEST, 1 VIEW, NON [id number] 05:16:00Reason for exam:->post op screenShould this be performed at the bedside?->YesFINAL REPORT RAD, CHEST, 1 VIEW, NON DEPT INDICATION: post op screen COMPARISON: Prior day's exam FINDINGS: Portable frontal view of the chest. IMPRESSION: Support Lines: None. Lungs and pleura: Improved aeration of the bilateral bases. Small bilateral pleural effusions. No pneumothorax.Heart and mediastinum: Stable contours. Stable surgical changes.Additional findings: None. Signed: Mckenna Noel Verified Date/Time: 11/23/2019 05:16:09 XR chest 1 view portable / [id number] 05:16:00Interface, External Ris In - 11/23/2019 5:18 AM CDTFINAL REPORT RAD, CHEST, 1 VIEW, NON DEPT INDICATION: post op screen COMPARISON: Prior day's exam FINDINGS: Portable frontal view of the chest. IMPRESSION: Support Lines: None. Lungs and pleura: Improved aeration of the bilateral bases. Small bilateral pleural effusions. No pneumothorax.Heart and mediastinum: Stable contours. Stable surgical changes.Additional findings: None. Signed: Mckenna Noel Verified Date/Time: 11/23/2019 05:16:09 [facility] [id number] 10:30:00 Test Item Value Reference Range Interpretation Comments Hemoglobin (test code = 786-4) 12.1 g/dL 13-16.8 L Hematocrit (test code = 4544-3) 36.0 % 40-50 L Lab Interpretation (test code = Abnormal 56563-4) [facility] (H&H) - STAT [id number] 10:30:00 Test Item Value Reference Range Interpretation Comments HEMOGLOBIN (BEAKER) (test code = 12.1 g/dL 13.0-16.8 L 410) HEMATOCRIT (BEAKER) (test code = 36.0 % 40.0-50.0 L 411) POCT-GLUCOSE [id number] 05:49:00 Test Item Value Reference Range Interpretation Comments POC-GLUCOSE METER 146 mg/dL 70-110 H : TESTED A T [facility] 6720 (BEAKER) (test code [facility], = 1538) [address]: Client Resolution Specialist/Techni curtis ID = [id number] for JORD AN, LACRYSTAL SARS-COV2/RT-PCR ([facility] & REF LABS)2019-11-19 12:50:00 Test Item Value Reference Range Interpretation Comments SARS-COV2/RT-PCR (test Not Detected Not Detected, Negative code = 8917925) SARS-COV-2 PERFORMING LAB [facility] (test code = 9475870) Negative results do not preclude SARS-CoV-2 infection and should not be used as the sole basis for patient management decisions. Negative results must be combined with clinical observations, patient history, and epidemiological information. A false negative result may occur if a specimen is improperly collected, transported or handled.The limit of detection for this assay is 250 copies/mL.This SARS CoV-2 test is a rapid, real-time RT-PCR test intended for the qualitative detection of nucleic acid from SARS-CoV-2 in a nasopharyngeal swab specimen collected from individuals suspected of COVID-19 by their healthcare provider.This test has not been Food and Drug Administration (FDA) cleared or approved and has been authorized by FDA under an Emergency Use Authorization (EUA). This EUA will be effective until the declaration that circumstances exist justifying the authorization of the emergency use of in vitro diagnostic tests for detection and/or diagnosis of COVID-19 is terminated under Section 564(b)(2) of the Act or the EUA is revoked under Section 564(g) of the Act.Fact Sheet for Healthcare Pro viders:https://www.ChinaNetCenter/Documents/Xpert%20Xpress%20SARS%20CoV-2/Fact%20Sh eets/302-3802%07GPDA-WKR-5%20HEALTHCARE%20PROVIDERS%20FACT%20SHEET.pdfFact Sheet for Healthcare Patients:https://www.Sferra.Friday/Documents/Xpert%20Xpress%20SARS%20CoV-2/Fact%20Sheets/302-3801%20SARS-COV -2%20PATIENT%20FACT%20SHEET.pdfPerforming Laboratory:[facility], [place] [id number] 12:43:00 Test Item Value Reference Range Interpretation Comments Sodium (test code = 136 meq/L 424-015 3561-2) Potassium (test code = 4.6 meq/L 3.5-5.1 2823-3) Chloride (test code = 107 meq/L 98-107 2075-0) CO2 (test code = 8-9) 22 meq/L 22-29 JAMAR (test code = JAMAR) Client Resolution Specialist ID - SANDRITA Santos Lab Interpretation (test Normal code = 17807-2) [facility] PeninsulaCreatinine2020-06-08 12:43:00 Test Item Value Reference Range Interpretation Comments Creatinine (test 1.21 mg/dL 0.57-1.25 code = 2160-0) EGFR (test code = 58 mL/min/1.73 [place] [address]-2) NOT ACCURATE CREATININE CLEARANCE IN PREDICTING GLOMERULAR FILTRATION RATE . ESTIMATED GFR I S NOT APPLICABLE FOR DIALYSIS PATIEN TS. JAMAR (test code = Client Resolution Specialist ID - JAMAR) SANDRITA Santos [facility] PeninsulaBUN2020-06-08 12:43:00 Test Item Value Reference Range Interpretation Comments BUN (test code = 3094-0) 18 mg/dL 7-21 JAMAR (test code = JAMAR) Client Resolution Specialist ID - SANDRITA Santos Lab Interpretation (test Normal code = 00949-8) [facility] PeninsulaBUN2020-06-08 12:43:00 Test Item Value Reference Range Interpretation Comments BLOOD UREA NITROGEN (BEAKER) (test 18 mg/dL 7-21 code = 354) Client Resolution Specialist ID - SANDRITA ZILRUNXXNPZTS4910-55-72 12:43:00 Test Item Value Reference Range Interpretation Comments SODIUM (BEAKER) (test code = 381) 136 meq/L 136-145 POTASSIUM (BEAKER) (test code = 4.6 meq/L 3.5-5.1 379) CHLORIDE (BEAKER) (test code = 382) 107 meq/L 98-107 CO2 (BEAKER) (test code = 355) 22 meq/L 22-29 Client Resolution Specialist ID - SANDRITA GOUFANFMQKB1113-06-15 12:43:00 Test Item Value Reference Range Interpretation Comments CREATININE (BEAKER) 1.21 mg/dL 0.57-1.25 (test code = 358) EGFR (BEAKER) (test 58 mL/min/1.73 ESTIMA FERNY GFR IS code = 1092) sq m NOT ACCURATE CREATININE CLEARANCE IN PREDICTING GLOMERULAR FILTRATION RATE . ESTIMATED GFR I S NOT APPLICABLE FOR DIALYSIS PATIEN TS. Client Resolution Specialist ID - SANDRITA CPT/[id number] 12:34:00 Test Item Value Reference Range Interpretation Comments Protime (test code = 13.0 11.9- 14.2 5902-2) seconds INR (test code = 1.0 <=5.9 6301-6) JAMAR (test code = JAMAR) Effective 11/08/2018: PT Reference Range ChangeNew: 11.9-14.2 Previous: 11.7-14.7 RECOMMENDED COUMADIN/WARFARIN INR THERAPY RANGESSTANDARD DOSE: 2.0-3.0 Includes: PROPHYLAXIS for venous thrombosis, systemic embolization; TREATMENT for venous thrombosis and/or pulmonary embolus.HIGH RISK: Target INR is 2.5-3.5 for patients wiht mechanical heart valves. Lab Interpretation Normal (test code = 95211-6) [facility] PeninsulaPROTHROMBIN TIME/[id number] 12:34:00 Test Item Value Reference Range Interpretation Comments PROTIME (BEAKER) (test code = 13.0 seconds 11.9-14.2 759) INR (BEAKER) (test code = 370) 1.0 <=5.9 Effective 11/08/2018: PT Reference Range ChangeNew: 11.9-14.2 Previous: 11.7- 14.7RECOMMENDED COUMADIN/WARFARIN INR THERAPY RANGESSTANDARD DOSE: 2.0-3.0 Includes: PROPHYLAXIS for venous thrombosis, systemic embolization; TREATMENT for venous thrombosis and/or pulmonary embolus.HIGH RISK: Target INR is2.5-3.5 for patients wiht mechanical heart valves.CBC W/PLT COUNT & AUTO [id number] 12:26:00 Test Item Value Reference Range Interpretation Comments WHITE BLOOD CELL COUNT (BEAKER) 9.7 K/ L 3.5-10.5 (test code = 775) RED BLOOD CELL COUNT (BEAKER) 4.59 M/ L 4.63-6.08 L (test code = 761) HEMOGLOBIN (BEAKER) (test code = 14.1 GM/DL 13.7-17.5 410) HEMATOCRIT (BEAKER) (test code = 43.7 % 40.1-51.0 411) MEAN CORPUSCULAR VOLUME (BEAKER) 95.2 fL 79.0-92.2 H (test code = 753) MEAN CORPUSCULAR HEMOGLOBIN 30.7 pg 25.7-32.2 (BEAKER) (test code = 751) MEAN CORPUSCULAR HEMOGLOBIN CONC 32.3 GM/DL 32.3-36.5 (BEAKER) (test code = 752) RED CELL DISTRIBUTION WIDTH 13.2 % 11.6-14.4 (BEAKER) (test code = 412) PLATELET COUNT (BEAKER) (test 248 K/CU MM 150-450 code = 756) MEAN PLATELET VOLUME (BEAKER) 9.7 fL 9.4-12.4 (test code = 754) NUCLEATED RED BLOOD CELLS 0 /100 WBC 0-0 (BEAKER) (test code = 413) NEUTROPHILS RELATIVE PERCENT 64 % (BEAKER) (test code = 429) LYMPHOCYTES RELATIVE PERCENT 24 % (BEAKER) (test code = 430) MONOCYTES RELATIVE PERCENT 9 % (BEAKER) (test code = 431) EOSINOPHILS RELATIVE PERCENT 3 % (BEAKER) (test code = 432) BASOPHILS RELATIVE PERCENT 1 % (BEAKER) (test code = 437) NEUTROPHILS ABSOLUTE COUNT 6.19 K/ L 1.78-5.38 H (BEAKER) (test code = 670) LYMPHOCYTES ABSOLUTE COUNT 2.29 K/ L 1.32-3.57 (BEAKER) (test code = 414) MONOCYTES ABSOLUTE COUNT (BEAKER) 0.85 K/ L 0.30-0.82 H (test code = 415) EOSINOPHILS ABSOLUTE COUNT 0.25 K/ L 0.04-0.54 (BEAKER) (test code = 416) BASOPHILS ABSOLUTE COUNT (BEAKER) 0.05 K/ L 0.01-0.08 (test code = 417) IMMATURE GRANULOCYTES-RELATIVE 0 % 0-1 PERCENT (BEAKER) (test code = 2801) BASIC METABOLIC [id number] 06:50:00 Test Item Value Reference Range Interpretation [...] ESTIMATED GFR. CBC W/PLT COUNT & AUTO [id number] 06:31:00 Test Item Value Reference Range Interpretation [...] 0-1 PERCENT (BEAKER) (test code = 2801) [id number] 06:21:00 Test Item Value Reference Range Interpretation Comments MAGNESIUM (BEAKER) (test code = 1.9 mg/dL 1.6-2.6 627) BASIC METABOLIC [id number] 07:17:00 Test Item Value Reference Range Interpretation [...] ESTIMATED GFR. CBC W/PLT COUNT & AUTO [id number] 07:10:00 Test Item Value Reference Range Interpretation [...] (BEAKER) (test code = 2801) BASIC METABOLIC [id number] 05:28:00 Test Item Value Reference Range Interpretation [...] ESTIMATED GFR. CBC W/PLT COUNT & AUTO [id number] 04:45:00 Test Item Value Reference Range Interpretation [...] = 2801) RAD, CHEST, 1 VIEW, NON [id number] 08:22:00Reason for exam:->s/p acbShould this be performed [...] tiny left-sided apical pneumothorax. Signed: Tera Merrill MDReport Verified Date/Time: 12/02/2018 08:22:53 Reading Location: [facility] B1 C013X Ortho Consult Reading Room BASIC METABOLIC [id number] 06:20:00 Test Item Value Reference Range Interpretation [...] ESTIMATED GFR. CBC W/PLT COUNT & AUTO [id number] 05:56:00 Test Item Value Reference Range Interpretation [...] 0-1 PERCENT (BEAKER) (test code = 2801) POCT-GLUCOSE [id number] 21:34:00 Test Item Value Reference Range Interpretation Comments POC-GLUCOSE METER 116 mg/dL 70-110 H TESTED AT [facility] 6720 (BEAKER) (test code = KARINA NORIEGA 1538) [id number] POCT-GLUCOSE [id number] 17:08:00 Test Item Value Reference Range Interpretation Comments POC-GLUCOSE METER 127 mg/dL 70-110 H TESTED AT [facility] 6720 (BEAKER) (test code = KARINA Ramirez [place] 1538) [id number] POCT-GLUCOSE [id number] 13:27:00 Test Item Value Reference Range Interpretation Comments POC-GLUCOSE METER 136 mg/dL 70-110 H TESTED AT [facility] 6720 (BEAKER) (test code = KARINA Ramirez [place] 1538) [id number] POCT-GLUCOSE [id number] 09:14:00 Test Item Value Reference Range Interpretation Comments POC-GLUCOSE METER 170 mg/dL 70-110 H TESTED AT [facility] 6720 (BEAKER) (test code = KARINA Ramirez [place] 1538) [id number] BASIC METABOLIC [id number] 06:32:00 Test Item Value Reference Range Interpretation [...] m DATA TO CALCULA TE ESTIMATED GFR. [id number] 06:31:00 Test Item Value Reference Range Interpretation Comments PHOSPHORUS (BEAKER) (test code = 1.9 mg/dL 2.3-4.7 L 604) [id number] 06:31:00 Test Item Value Reference Range Interpretation Comments MAGNESIUM (BEAKER) (test code = 2.1 mg/dL 1.6-2.6 627) CBC (HEMOGRAM ONLY)2018-12-01 05:47:00 Test Item Value Reference [...] code = 412) PLATELET COUNT (BEAKER) (test 154 K/CU MM 150-450 code = 756) MEAN PLATELET VOLUME (BEAKER) 10.7 fL 9.4-12.4 (test code = 754) NUCLEATED RED BLOOD CELLS 0 /100 WBC 0-0 (BEAKER) (test code = 413) POCT-GLUCOSE [id number] 01:01:00 Test Item Value Reference Range Interpretation Comments POC-GLUCOSE METER 136 mg/dL 70-110 H TESTED AT [place] [address] ([facility]) (test code = KARINA Ramirez [facility] 1538) [id number] POCT-GLUCOSE [id number] 17:11:00 Test Item Value Reference Range Interpretation Comments POC-GLUCOSE METER 147 mg/dL 70-110 H TESTED AT [place] [address] ([facility]) (test code = KARINA Ramirez [facility] 1538) [address] POCT-GLUCOSE [id number] 12:36:00 Test Item Value Reference Range Interpretation Comments POC-GLUCOSE METER 128 mg/dL 70-110 H TESTED AT [place] [address] ([facility]) (test code = KARINA Ramirez [facility] 1538) [address] POCT-GLUCOSE [id number] 10:49:00 Test Item Value Reference Range Interpretation Comments POC-GLUCOSE METER 147 mg/dL 70-110 H TESTED AT [facility] 6720 (BEAKER) (test code = KARINA Ramirez [place] 1538) [address] POCT-GLUCOSE [id number] 08:55:00 Test Item Value Reference Range Interpretation Comments POC-GLUCOSE METER 136 mg/dL 70-110 H TESTED AT [facility] 6720 (BEAKER) (test code = KARINA Ramirez [place] 1538) [address] RAD, CHEST, 1 VIEW, NON [id number] 05:50:00while patient is intubated or has chest [...] Stable surgical changes.Additional findings: None. Signed: Mckenna Noel [facility] Verified Date/Time: 11/30/2018 05:50:39 BASIC METABOLIC [id number] 04:54:00 Test Item Value Reference Range Interpretation [...] m DATA TO CALCULA TE ESTIMATED GFR. [id number] 04:42:00 Test Item Value Reference Range Interpretation Comments PHOSPHORUS (BEAKER) (test code = 3.0 mg/dL 2.3-4.7 604) [id number] 04:42:00 Test Item Value Reference Range Interpretation Comments MAGNESIUM (BEAKER) (test code = 2.2 mg/dL 1.6-2.6 627) LACTIC ACID, [id number] 04:37:00 Test Item Value Reference Range Interpretation Comments LACTATE BLOOD ARTERIAL (2) 1.4 mmol/L 0.5-2.2 (BEAKER) (test code = 2874) GLUCOSE-STAT [id number] 04:32:00 Test Item Value Reference Range Interpretation Comments GLUCOSE RANDOM (BEAKER) (test code 145 mg/dL 70-110 H = 652) HGB/HCT (H&H) - STAT [id number] 04:32:00 Test Item Value Reference Range Interpretation Comments HEMOGLOBIN (BEAKER) (test code = 9.4 g/dL 13.0-16.8 L 410) HEMATOCRIT (BEAKER) (test code = 28.0 % 40.0-50.0 L 411) BLOOD GAS, [id number] 04:31:00 Test Item Value Reference Range Interpretation [...] code = 1819) 28.0 % SODIUM NA-STAT [id number] 04:31:00 Test Item Value Reference Range Interpretation Comments SODIUM (BEAKER) (test code = 381) 140 meq/L 135-148 POTASSIUM-STAT [id number] 04:31:00 Test Item Value Reference Range Interpretation [...] (BEAKER) (test code = 413) BLOOD GAS, [id number] 00:51:00 Test Item Value Reference Range Interpretation [...] (test code = 1819) 40.0 % GLUCOSE-STAT [id number] 00:49:00 Test Item Value Reference Range Interpretation Comments GLUCOSE RANDOM (BEAKER) (test code 157 mg/dL 70-110 H = 652) HGB/HCT (H&H) - STAT [id number] 00:49:00 Test Item Value Reference Range Interpretation Comments HEMOGLOBIN (BEAKER) (test code = 9.1 g/dL 13.0-16.8 L 410) HEMATOCRIT (BEAKER) (test code = 27.0 % 40.0-50.0 L 411) SODIUM NA-STAT [id number] 00:48:00 Test Item Value Reference Range Interpretation Comments SODIUM (BEAKER) (test code = 381) 139 meq/L 135-148 POTASSIUM-STAT [id number] 00:48:00 Test Item Value Reference Range Interpretation Comments POTASSIUM (BEAKER) (test code = 4.2 meq/L 3.6-5.5 379) LACTIC ACID, [id number] 00:44:00 Test Item Value Reference Range Interpretation Comments LACTATE BLOOD ARTERIAL (2) 1.5 mmol/L 0.5-2.2 (BEAKER) (test code = 2874) SODIUM NA-STAT [id number] 20:25:00 Test Item Value Reference Range Interpretation Comments SODIUM (BEAKER) (test code = 381) 139 meq/L 135-148 POTASSIUM-STAT [id number] 20:25:00 Test Item Value Reference Range Interpretation Comments POTASSIUM (BEAKER) (test code = 4.0 meq/L 3.6-5.5 379) BLOOD GAS, [id number] 20:25:00 Test Item Value Reference Range Interpretation [...] (test code = 1819) 40.0 % GLUCOSE-STAT [id number] 20:25:00 Test Item Value Reference Range Interpretation Comments GLUCOSE RANDOM (BEAKER) (test code 141 mg/dL 70-110 H = 652) HGB/HCT (H&H) - STAT [id number] 20:25:00 Test Item Value Reference Range Interpretation Comments HEMOGLOBIN (BEAKER) (test code = 8.6 g/dL 13.0-16.8 L 410) HEMATOCRIT (BEAKER) (test code = 25.0 % 40.0-50.0 L 411) LACTIC ACID, [id number] 19:39:00 Test Item Value Reference Range Interpretation Comments LACTATE BLOOD ARTERIAL (2) 3.9 mmol/L 0.5-2.2 H (BEAKER) (test code = 2874) BLOOD GAS, [id number] 19:19:00 Test Item Value Reference Range Interpretation [...] (test code = 1819) 36.0 % GLUCOSE-STAT [id number] 19:19:00 Test Item Value Reference Range Interpretation Comments GLUCOSE RANDOM (BEAKER) (test code 138 mg/dL 70-110 H = 652) HGB/HCT (H&H) - STAT [id number] 19:19:00 Test Item Value Reference Range Interpretation Comments HEMOGLOBIN (BEAKER) (test code = 8.8 g/dL 13.0-16.8 L 410) HEMATOCRIT (BEAKER) (test code = 26.0 % 40.0-50.0 L 411) SODIUM NA-STAT [id number] 19:18:00 Test Item Value Reference Range Interpretation Comments SODIUM (BEAKER) (test code = 381) 140 meq/L 135-148 POTASSIUM-STAT [id number] 19:18:00 Test Item Value Reference Range Interpretation Comments POTASSIUM (BEAKER) (test code = 4.2 meq/L 3.6-5.5 379) BLOOD GAS, [id number] 18:18:00 Test Item Value Reference Range Interpretation [...] (test code = 1819) 40.0 % POCT-GLUCOSE [id number] 17:52:00 Test Item Value Reference Range Interpretation Comments POC-GLUCOSE METER 173 mg/dL 70-110 H TESTED AT [facility] 6720 (BEAKER) (test code = [place]ARINA [place] 1530) [address] LACTIC ACID, [id number] 16:58:00 Test Item Value Reference Range Interpretation Comments LACTATE BLOOD ARTERIAL (2) 4.1 mmol/L 0.5-2.2 H (BEAKER) (test code = 2874) BLOOD GAS, [id number] 16:11:00 Test Item Value Reference Range Interpretation [...] (test code = 1819) 40.0 % GLUCOSE-STAT [id number] 16:11:00 Test Item Value Reference Range Interpretation Comments GLUCOSE RANDOM (BEAKER) (test code 154 mg/dL 70-110 H = 652) HGB/HCT (H&H) - STAT [id number] 16:11:00 Test Item Value Reference Range Interpretation Comments HEMOGLOBIN (BEAKER) (test code = 9.1 g/dL 13.0-16.8 L 410) HEMATOCRIT (BEAKER) (test code = 27.0 % 40.0-50.0 L 411) SODIUM NA-STAT [id number] 16:10:00 Test Item Value Reference Range Interpretation Comments SODIUM (BEAKER) (test code = 381) 140 meq/L 135-148 POTASSIUM-STAT [id number] 16:10:00 Test Item Value Reference Range Interpretation Comments POTASSIUM (BEAKER) (test code = 4.2 meq/L 3.6-5.5 379) RAD, CHEST, 1 VIEW, NON [id number] 15:02:00Reason for exam:->Status post CV Surgery post [...] MDReport Verified Date/Time: 11/29/2018 15:02:46 Reading Location: [facility] [id number] Consult Reading Room Electronically signed by: MALLIKA GEORGES M.D.on 11/29/2018 03:02 PMBASIC METABOLIC [id number] 14:01:00 Test Item Value Reference Range Interpretation [...] m DATA TO CALCULA TE ESTIMATED GFR. [id number] 13:57:00 Test Item Value Reference Range Interpretation Comments PHOSPHORUS (BEAKER) (test code = 2.9 mg/dL 2.3-4.7 604) [id number] 13:57:00 Test Item Value Reference Range Interpretation Comments MAGNESIUM (BEAKER) (test code = 1.8 mg/dL 1.6-2.6 627) [id number] 13:56:00 Test Item Value Reference Range Interpretation Comments FIBRINOGEN LEVEL (BEAKER) (test 277 mg/dl 225-434 code = 658) [id number] 13:56:00 Test Item Value Reference Range Interpretation Comments PARTIAL THROMBOPLASTIN TIME 32.8 seconds 22.5-36.0 (BEAKER) (test code = 760) PROTHROMBIN [id number] 13:55:00 Test Item Value Reference Range Interpretation [...] for patients wiht mechanical heart valves.LACTIC ACID, [id number] 13:53:00 Test Item Value Reference Range Interpretation Comments LACTATE BLOOD ARTERIAL (2) 3.5 mmol/L 0.5-2.2 H (BEAKER) (test code = 2874) CBC W/PLT COUNT & AUTO [id number] 13:52:00 Test Item Value Reference Range Interpretation [...] (BEAKER) (test code = 2801) BLOOD GAS, [id number] 13:44:00 Test Item Value Reference Range Interpretation [...] (BEAKER) (test code = 1819) 40.0 % OXYGEN SATURATION, [id number] 13:42:00 Test Item Value Reference Range Interpretation Comments O2 SATURATION (MEASURED) (BEAKER) 70.8 % (test code = 1455) [id number] 11:18:00 Test Item Value Reference Range Interpretation Comments ACTIVATED CLOTTING TIME 109 sec TEST ED AT [place] [address] ([facility]) (test code = KARINA Ramirez [place] 441) [address] [id number] 11:18:00 Test Item Value Reference Range Interpretation Comments ACTIVATED CLOTTING TIME 549 sec TEST ED AT [place] [address] ([facility]) (test code = KARINA Ramirez [place] 441) [address] [id number] 11:18:00 Test Item Value Reference Range Interpretation Comments ACTIVATED CLOTTING TIME 494 sec TEST ED AT [place] [address] ([facility]) (test code = KARINA Ramirez [place] 441) [address] [id number] 11:18:00 Test Item Value Reference Range Interpretation Comments ACTIVATED CLOTTING TIME 428 sec TEST ED AT [place] [address] ([facility]) (test code = KARINA Ramirez [place] 441) [address] PROTHROMBIN [id number] 11:02:00 Test Item Value Reference Range Interpretation Comments PROTIME ([facility]) (test code = 17.6 seconds 11.9-14.2 H 759) INR ([facility]) (test code = 370) 1.5 <=5.9 Effective 11/08/2018: PT Reference Range ChangeNew: 11.9-14.2 Previous: 11.7- 14.7RECOMMENDED COUMADIN/WARFARIN INR THERAPY RANGESSTANDARD DOSE: 2.0-3.0 Includes: PROPHYLAXIS for venous thrombosis, systemic embolization; TREATMENT for venous thrombosis and/or pulmonary embolus.HIGH RISK: Target INR is2.5-3.5 for patients wiht mechanical heart valves.[id number] 11:02:00 Test Item Value Reference Range Interpretation Comments PARTIAL THROMBOPLASTIN TIME 32.7 seconds 22.5-36.0 ([facility]) (test code = 760) [id number] 11:02:00 Test Item Value Reference Range Interpretation Comments FIBRINOGEN LEVEL ([facility]) (test 229 mg/dl 225-434 code = 658) PLATELET [id number] 10:48:00 Test Item Value Reference Range Interpretation Comments PLATELET COUNT ([facility]) (test 111 K/CU MM 150-450 L code = 756) BLOOD GAS, [id number] 10:41:00 Test Item Value Reference Range Interpretation [...] (test code = 1819) 100.0 % GLUCOSE-STAT [id number] 10:41:00 Test Item Value Reference Range Interpretation Comments GLUCOSE RANDOM (BEAKER) (test code 205 mg/dL 70-110 H = 652) HGB/HCT (H&H) - STAT [id number] 10:41:00 Test Item Value Reference Range Interpretation Comments HEMOGLOBIN (BEAKER) (test code = 9.5 g/dL 13.0-16.8 L 410) HEMATOCRIT (BEAKER) (test code = 28.0 % 40.0-50.0 L 411) SODIUM NA-STAT [id number] 10:39:00 Test Item Value Reference Range Interpretation Comments SODIUM (BEAKER) (test code = 381) 135 meq/L 135-148 POTASSIUM-STAT [id number] 10:39:00 Test Item Value Reference Range Interpretation Comments POTASSIUM (BEAKER) (test code = 4.5 meq/L 3.6-5.5 379) CALCIUM, [id number] 10:39:00 Test Item Value Reference Range Interpretation Comments CALCIUM IONIZED (BEAKER) (test 1.20 mmol/L 1.12-1.27 code = 698) PH, BLOOD (BEAKER) (test code = 7.37 1810) HGB/HCT (H&H) - STAT [id number] 10:01:00 Test Item Value Reference Range Interpretation Comments HEMOGLOBIN (BEAKER) (test code = 9.2 g/dL 13.0-16.8 L 410) HEMATOCRIT (BEAKER) (test code = 27.0 % 40.0-50.0 L 411) POTASSIUM-STAT [id number] 10:00:00 Test Item Value Reference Range Interpretation Comments POTASSIUM (BEAKER) (test code = 5.5 meq/L 3.6-5.5 379) BLOOD GAS, [id number] 10:00:00 Test Item Value Reference Range Interpretation [...] (test code = 1819) 70.0 % GLUCOSE-STAT [id number] 10:00:00 Test Item Value Reference Range Interpretation Comments GLUCOSE RANDOM (BEAKER) (test code 222 mg/dL 70-110 H = 652) SODIUM NA-STAT [id number] 10:00:00 Test Item Value Reference Range Interpretation Comments SODIUM (BEAKER) (test code = 381) 133 meq/L 135-148 L BLOOD GAS, [id number] 09:37:00 Test Item Value Reference Range Interpretation [...] (test code = 1819) 65.0 % POTASSIUM-STAT [id number] 09:36:00 Test Item Value Reference Range Interpretation Comments POTASSIUM (BEAKER) (test code = 4.5 meq/L 3.6-5.5 379) BLOOD GAS, [id number] 09:36:00 Test Item Value Reference Range Interpretation [...] code = 1819) 65.0 % SODIUM NA-STAT [id number] 09:36:00 Test Item Value Reference Range Interpretation Comments SODIUM (BEAKER) (test code = 381) 134 meq/L 135-148 L GLUCOSE-STAT [id number] 09:36:00 Test Item Value Reference Range Interpretation Comments GLUCOSE RANDOM (BEAKER) (test code 208 mg/dL 70-110 H = 652) HGB/HCT (H&H) - STAT [id number] 09:36:00 Test Item Value Reference Range Interpretation Comments HEMOGLOBIN (BEAKER) (test code = 10.2 g/dL 13.0-16.8 L 410) HEMATOCRIT (BEAKER) (test code = 30.0 % 40.0-50.0 L 411) BLOOD GAS, [id number] 08:44:00 Test Item Value Reference Range Interpretation [...] (test code = 1819) 100.0 % GLUCOSE-STAT [id number] 08:44:00 Test Item Value Reference Range Interpretation Comments GLUCOSE RANDOM (BEAKER) (test code 128 mg/dL 70-110 H = 652) HGB/HCT (H&H) - STAT [id number] 08:44:00 Test Item Value Reference Range Interpretation Comments HEMOGLOBIN (BEAKER) (test code = 13.3 g/dL 13.0-16.8 410) HEMATOCRIT (BEAKER) (test code = 39.0 % 40.0-50.0 L 411) SODIUM NA-STAT [id number] 08:36:00 Test Item Value Reference Range Interpretation Comments SODIUM (BEAKER) (test code = 381) 139 meq/L 135-148 POTASSIUM-STAT [id number] 08:36:00 Test Item Value Reference Range Interpretation Comments POTASSIUM (BEAKER) (test code = 4.1 meq/L 3.6-5.5 379) BASIC METABOLIC [id number] 02:31:00 Test Item Value Reference Range Interpretation [...] m DATA TO CALCULA TE ESTIMATED GFR. [id number] 02:17:00 Test Item Value Reference Range Interpretation [...] WBC 0-0 (BEAKER) (test code = 413) RAD, CHEST, 1 VIEW, NON [id number] 19:20:00Reason for exam:->preopShould this be performed at the [...] MDReport Verified Date/Time: 11/28/2018 19:20:43 Reading Location: [address] Reading Room PT/APTT 2018-11-28 18:42:00 Test Item Value Reference Range [...] INR is2.5-3.5 for patients wiht mechanical heart valves.[id number] 18:42:00 Test Item Value Reference Range Interpretation Comments PARTIAL THROMBOPLASTIN TIME 31.8 seconds 22.5-36.0 (BEAKER) (test code = 760) PROTHROMBIN [id number] 18:41:00 Test Item Value Reference Range Interpretation [...] for patients wiht mechanical heart valves.BASIC METABOLIC [id number] 17:25:00 Test Item Value Reference Range Interpretation [...] m DATA TO CALCULA TE ESTIMATED GFR. HEMOGLOBIN [id number] 17:23:00 Test Item Value Reference Range Interpretation Comments HEMOGLOBIN A1C (BEAKER) (test code = 6.2 % 4.3-6.1 H 368) LIPID [id number] 17:18:00 Test Item Value Reference Range Interpretation [...]
[2020-04-10] MEDS ORDERED: Ringers Lactate 1,000 ML IV ONE (08:47)
[2020-04-10] MEDS ORDERED: CEFAZOLIN/SWI 1gm 1 GM/10 ML SYR ONE (08:47)
[2020-04-10 10:44] VITALS: O2SAT 97
--- NOTE | 2020-04-10 10:53 | OP ---
Date of Procedure: 04/10/2020 Surgeon: Jose De Jesus Rosenberg MD Pollution Control Technician: None. Preoperative Diagnosis: Infected cyst, right posterior shoulder. Postoperative Diagnosis: Infected cyst, right posterior shoulder. Procedure: Wide excision, right posterior shoulder infected cyst 8 x 4 cm with layered closure. Estimated Blood Loss: Minimal. Specimens: C and S of fluid inside the cyst and the sebaceous cyst. Findings: As above. Anesthesia: General. Complications: None. The patient tolerated the procedure in stable condition, taken to Recovery in good general condition. Procedure In Detail: Patient was brought to the OR and placed in supine position and general anesthe charly was begun. Patient was placed in the left lateral position. Prepped draped in the usual sterile fashion. Marcaine 0.5% infiltrated locally. 15 blade was used to make an 8 x 4 cm incision to exci se the infected cyst down to the deep subcutaneous tissue. There was fluid from the cyst that was cu ltured. Wound was irrigated. Bleeding was controlled with cautery. Flaps were created. Quarter in ch Noah drain was placed and secured with 3-0 nylon and then 0 chromic used to approximate subcu t issue and 2-0 nylon used to loosely approximate the skin. Sterile dressing was applied. Patient was awakened and taken to Recovery in good general condition. Discharge Note: The patient will go to Day Surgery and home when stable. Disposition: Home. Condition: Stable. Discharge Instructions: Resume home medications and diet. Activity as tolerated. No heavy lifting. Remove outer dressing in 2 days. Shower. Keep wound clean and dry. Follow up in my office in 10 days. Call for appointment. Tylenol No 3 one tablet p.o. q.4 p.r.n. pain and Augmentin 875 p.o. b.i .d. /MODL Voice ID: [id number] Report ID: [id number]
[2020-04-10 10:59] VITALS: BP 137/71; TEMP 97.3
== END 2020-04-10 11:40 | disposition home or self-care (01) ==
LOC: OR 07:55
PROVIDERS: ATTEND Surgery
PROC: 0JBD0ZZ Excision of Right Upper Arm Subcutaneous Tissue and Fascia, Open Approach (ICD-10-PCS; principal; 2020-04-10 09:00)
DX: L72.0 Epidermal cyst (principal); Z20.828 Contact with and (suspected) exposure to other viral communicable diseases
CPT/HCPCS: 87070; 87205; 88304; 87075; 11406; U0002; J0690; J7120; 88305

== ENCOUNTER 2020-07-21 09:10 | Day surgery (SDC) | payer OTHER ==
--- NOTE | 2020-07-16 12:15 | EKG ---
Test Date: 2020-07-16 Test Time: 12:10:59 Communications Marketing Intern: YOLANDA MEASUREMENT RESULTS: Intervals: Rate: 85 VT: 188 QRSD: 118 QT: 396 QTc: 471 [place]: P: 66 VT: 188 QRS: 16 T: 88 INTERPRETIVE STATEMENTS: Normal sinus rhythm Possible Left atrial enlargement RSR' or QR pattern in V1 suggests right ventricular conduction delay Anterior infarct, age undetermined Abnormal ECG Compared to ECG 11/15/2019 09:30:28 No significant changes Electronically Signed On 07-16-20 12:15:05 TESTING CONSULTANT by Quentin Valenzuela
--- NOTE | 2020-07-16 12:46 | RAD REPORT ---
EXAM DESCRIPTION: Valeri Leavitt And Anton (2 Views)07/16/2020 12:39 pm CLINICAL HISTORY: Preop COMPARISON: November 2019 FINDINGS: The lungs appear clear of acute infiltrate. The heart is mildly enlarged. Postsurgical changes involve the chest. Left pleural thickening is unchanged IMPRESSION: No acute abnormalities displayed
[2020-07-16 12:50] LABS: Absolute Lymphocytes (CBC) 1.7 K/uL (0.7-4.9); Basophils % 0.8 % (0-1.3); Hematocrit 43.4 % (39.6-49.0); Lymphocytes % 19.7 % (15.3-44.8); MPV 9.1 fL (7.6-11.3); RBC Red Blood Cell Count 4.66 M/uL (4.33-5.43)
[2020-07-16 12:54] LABS: Protime INR 0.93
[2020-07-16 13:08] LABS: Potassium 4.6 mmol/L (3.5-5.1)
[2020-07-21] MEDS ORDERED: HEPA 1000U/500MLS 1,000 UNIT/500 ML BAG IV ONE ×2 (09:23→10:52)
[2020-07-21] MEDS ORDERED: MIDAZOLAM HCL 2 MG/2 ML INJ ONE (09:23)
[2020-07-21] MEDS ORDERED: NA CHLORIDE 0.9% 0 ML ONE ×2 (09:24→10:34)
[2020-07-21] MEDS ORDERED: METHYLPREDNISOLONE 125 MG INJ ONE (09:24)
[2020-07-21] MEDS ORDERED: ATROPINE SULF 1 MG/10 ML SYR IV ONE ×2 (09:24→10:34)
[2020-07-21] MEDS ORDERED: DIPHENHYDRAMINE 50 MG/ML VIAL ONE (09:24)
[2020-07-21] MEDS ORDERED: FENTANYL CITR 100 MCG/2 ML ONE (09:24)
[2020-07-21] MEDS ORDERED: NA CHLORIDE 0.9% 500 ML ONE (09:30)
[2020-07-21] MEDS ORDERED: HEPARIN 5000 UNIT/ML 1 ML VIAL ONE (10:53)
[2020-07-21] MEDS ORDERED: cloNIDine HCL 0.1 MG TAB ONE (11:18)
--- NOTE | 2020-07-21 11:39 | OP ---
Surgeon: Quentin Valenzuela MD Retail Department Manager: Ana Cloud. Admitted to my service as an outpatient through the cardiac cath technologist on 07/21/2020. Reason For Admission: He was brought to the cardiac cath technologist with peripheral arterial disease. He has a his tory of CAD, CVD, PAD with claudication, abnormal arterial Doppler, has history of hypertension and d yslipidemia. Procedure In Detail: Brought to the cardiac cath technologist today as an outpatient, prepped and draped in the routi ne sterile fashion. Given Versed and fentanyl for sedation. A 6-Kenyan sheath introduced in the rig ht common femoral artery. StarClose was used to close the case. A pigtail catheter was introduced a nd placed just above the renal arteries and the mid aorta. Abdominal angiogram with runoff revealed normal aorta, normal renals. Iliacs had some mild plaquing, but they were patent. He had 100% occlu glenn of both SFA with reconstitution of both popliteal arteries with some diffuse plaquing below that . There were no complications. Blood Loss: 5 cc. Total conscious sedation was 45 minutes. Postoperative Diagnosis: Severe peripheral artery disease. Plan: For bilateral fem pop as an outpatient in [place]. I will make arrangements for that. The pa jaswinder will stay in the hospital for 2 hours of bedrest, go home. He will be given a CD of his angiog malcolm and I will make an appointment in [place] with one of the cardiac surgeon in the near future. JANESSA/MUSTAPHA Voice ID: [id number] Report ID: [id number]
[2020-07-21 13:04] VITALS: TEMP 97; O2SAT 96
[2020-07-21 13:05] VITALS: BP 174/69
--- OUTSIDE RECORDS SUMMARY | 2020-07-22 21:01 | XMS REPORT | Clinical Summary ---
:1940 Author Organization [facility] Address [address] [place] [address] Care Team Providers Name Role Phone Pcp, Primary Care Provider Unavailable Kishor Mccann Unavailable [...] (ZOFRAN-ODT) 4 MG mg total) by mouth 020 disintegrating every 6 (six) tablet hours [...] Travel 01/22/2020 Travel 01/21/2020 Surgery Rj, ENDARTERECTOMY, HERNANDEZ DEIDRE Honeycutt MD 01/21/2020 Anesthesia Event Nathalie Galicia MD Pirko, Christopher, MD 01/21/2020 - Hospital Encounter Cardiology [facility], 01/22/2020 Dain Casarez MD 01/17/2020 Office Visit Cardiology Rj, Pre-op testing Dain Casarez, (Primary Dx) Aranza Mulligan, RN 01/16/2020 Hospital Encounter Pre-Admission Testing 01/16/2020 Orders Only Chioma Rice Left carotid a rtery Fe, 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 stenosis (Prima ry Dx) 01/16/2020 Travel 12/06/2019 Office Visit Cardiology Rj, Carotid stenosi s, right; Dain Casarez, Bilateral ca rotid artery stenosis 12/06/2019 Travel 11/22/2019 Surgery Rj, ENDARTERECTOMY, HERNANDEZ DEIDRE Honeycutt MD 11/22/2019 Anesthesia Event Grant aWtson Jr., Toribio Glez 11/22/2019 - Hospital Encounter Cardiology [facility], 11/23/2019 Dain Casarez MD 11/20/2019 Hospital Encounter Pre-Admission Testing 11/20/2019 Travel 11/19/2019 Office Visit Cardiology Rj, Bilateral carot id Dain ally Casarez MD (Primary Dx) 11/19/2019 Orders Only General Internal Medicine 11/19/2019 Travel after 07/22/2019 Social History Tobacco Use Types Packs/Day Years [...] PNEUMOCOCCAL 65+ YRS (1 of 1 - [id number]) 11/02/2003 MEDICARE ANNUAL WELLNESS (YEAR 2 or FIRST YEAR if no 10/12/2004 IPPE) INFLUENZA VACCINE (#1) 2020 Implants Implanted Type Area Manager Commodities Device Shelf Model / Identifier Expiration Serial / Lot Date Grft Hemshld Dbl Raciel 0.3x3.0in [id number] - [id number] IMPLA NTS Right: GETINGE 06/12/2024 [id number] / Implanted: Qty: 1 on 11/22/2019 by Dain Douglas MD at [facility] Neck IND:MAMYRONT:CV [id number] / 20A22 Description:HEMASHIELD KNITTED DOUBLE VE LOUR CARDIOVASCULAR FABRIC Grft Hemshld Dbl Raciel 0.3x3.0in [id number] - [id number] IMPLA NTS Left: Neck GETINGE 06/12/2024 [id number] / Implanted: Qty: 1 on 01/21/2020 by Dain Douglas MD at [facility] IND:POOJA:CRISTINA [id number] / 20A22 Description:SITE - LEFT CAROTID Procedures [...] are i n the results section. SARS-COV2/RT-PCR ([facility] Routine 01/17/2020 10:48 AM Pre-op test ing [...] 404 ms QTC Calculation(Bazett) 480 ms P Willard 69 degrees R Willard 99 degrees T Willard 47 degrees Normal sinus rhythm Possible Left [...] ar e in the results section. SARS-COV2/RT-PCR ([facility] STAT 11/19/2019 11:40 AM Bilateral c arotid [...] 418 ms QTC Calculation(Bazett) 485 ms P Willard 47 degrees R Willard -9 degrees T Willard 78 degrees Normal sinus rhythm Possible Left [...] e in the results section . after 07/22/2019 Results RHYTHM STRIP - SCAN (01/24/2020 10:43 [...] is included. WBC 10.3 3.5 - 10.5 [facility] K/L [facility] RBC 3.50 (L) 4.63 - 6.08 [facility] M/L [facility] Hemoglobin 11.0 (L) 13.7 - 17.5 [facility] GM/DL [facility] Hematocrit 34.9 (L) 40.1 - 51.0 % [facility] MCV 99.7 (H)Comment: 79.0 - 92.2 [facility] Discordant MCV [facility] result compared to [facility]ENTER previous result; clinical correlation required. MCH 31.4 25.7 - 32.2 [facility] pg [facility] MCHC 31.5 (L) 32.3 - 36.5 [facility] GM/DL [facility] RDW 13.0 11.6 - 14.4 % [facility] Platelets 217 150 - 450 [facility] K/CU MM [facility] MPV 10.7 9.4 - 12.4 fL [facility] nRBC 0 0 - 0 /100 [facility] WBC [facility] % Neutros 70 % [facility] % Lymphs 20 % [facility] % Monos 9 % [facility] % Eos 0 % [facility] % Baso 0 % [facility] # Neutros 7.24 (H) 1.78 - 5.38 [facility] # Lymphs 2.09 1.32 - 3.57 [facility] # Monos 0.87 (H) 0.30 - 0.82 [facility] # Eos 0.02 (L) 0.04 - 0.54 [facility] # Baso 0.04 0.01 - 0.08 [facility] Immature 0 0 - 1 % [facility] Granulocytes-Relat [facility] Specimen Blood Performing Organization Address City/[facility]/Zipcode Phone Number [facility] [address] [place] [address] CENTER Basic Metabolic Panel (01/22/2020 4:00 AM CDT)Only the most recent of3 results within the time period is included. Sodium 140 136 - 145 meq/L [facility] Potassium 4.7 3.5 - 5.1 meq/L [facility] Chloride 109 (H) 98 - 107 meq/L [facility] CO2 25 22 - 29 meq/L [facility] BUN 21 7 - 21 mg/dL [facility] Creatinine 1.38 (H) 0.57 - 1.25 [facility] mg/dL [facility] Glucose 112 (H) 70 - 105 mg/dL [facility] Calcium 8.1 (L) 8.4 - 10.2 [facility] mg/dL [facility] EGFR 49Comment: ESTIMATED mL/min/1.73 sq [facility] GFR IS NOT m [facility] CREATININE CLEARANCE IN PREDICTING GLOMERULAR FILTRATION RATE. ESTIMATED GFR IS NOT APPLICABLE FOR DIALYSIS PATIENTS. Specimen Blood Narrative Performed At [employer] [facility] Performing Organization Address City/State/Zipcode Phone Number [facility] [address] [place], [place] [id number] CENTER Tissue Exam (01/21/2020 8:39 AM CDT)Only the most recent of2 resultswithin the time period is included. Case Report Surgical Pathology Report Case: [id number] [facility] Authorizing Provider: Dain Zavala, Collected: 01/21/2020 08:39 AM [facility] Ordering Location: [facility] Received: 01/21/2020 10:40 AM PERIOPERATIVE SERVICES Pathologist: Troy Starr MD Specimen: Plaque, LEFT CAROTID PLAQUE DIAGNOSIS ARTERY, LEFT CAROTID, ENDARTERECTOMY: [facility] Electronically CALCIFIC ATHEROSCLEROTIC PLAQUE [facility] signed by Troy Starr Signing Pathologist Direct Phone Line: [facility] MD Ridge on 01/25/2020 at 6 :04 PM CPT Code(s) 20769; 74861 [facility] CLINICAL HISTORY Preop diagnosis: Left [facility] carotid stenosis [facility] SPECIMEN SOURCE Plaque [facility] GROSS DESCRIPTION Received fresh labeled [facility] with the patient's [facility] name, accession number MEDICAL CENTER and "left carotid plaque" is a 5.0 x 1.2 x 0.7 cm aggregate of duggan-yellow tubular, focally calcified plaque. Aging Room Operator sections are submitted in A1 following decalcification. PA/pl MICROSCOPIC Performed [facility] Specimen Tissue - Plaque (morphologic abnormality ) Performing Organization Address City/[facility] Cent[facility]ode Phone Number [facility] [address] [place] [address] CENTER Type and screen, automated (01/21/2020 6:30 AM CDT)Only the most recent of3 resultswithin the time period is included. Pathologist Sig nature ABO/RH AUTOMATED O [facility]ER) [facility] Ab Scrn NEGATIVE [facility] Specimen Blood Performing Organization Address City/[facility]/Zipcode Phone Number [facility] [address] [place] [address] POC-Glucose meter (01/21/2020 5:40 AM CDT)Only the most recent of2 results within the time period is included. [facility] POC-Glucose Meter 140 (H)Comment: : 70 - 110 [facility] TESTED AT [facility] mg/dL [address], [address]: [employer]/Technicia n ID = [id number] for ZOE ROLDAN Specimen Blood Performing Organization Address [facility] Centercode Phone Number [address] [address] [place] Platelet Aggregation: Function Screen (01/17/2020 11:36 AM CDT) [facility] Pathologist: Joe Avalos MD [facility] (electronic [facility]) [facility] Platelets 251 150 - 450 [facility] K/CU [facility] ADP 57 (L) 62 - 100 % [facility] Platelet Rich Plasma 318 (H) 200 - 300 [facility] k/cu [facility] Plt. Function Screen Decreased [facility] Interpretation aggregation with [facility] ADP [facility]ICAL [place] indicates platelet dysfunction that may be due to medication effect, uremia, or other platelet function disorders. Clinical correlation is required. Specimen Blood Narrative Performed At Platelet Function Screen results may be [facility] falsely low with platelet counts <75,000/cu mm. [employer] ID - [id number] Performing Organization Address [facility]/Zipcode Phone Number [address] [address] CENTER SARS-CoV2/RT-PCR ([facility] & Ref Labs) (01/17/2020 10:48 AM CDT)Only the most recent of2 resultswithin the time period is included. [facility] SARS-COV2/RT-PCR Negative Not Detected, [facility] Negative, See [facility] external report CENTER for linked test SARS-COV-2 [facility] KEIRY [facility] PERFORMING LAB [facility] Specimen Other - Nasopharyngeal wall structure (b zhanna structure) Narrative Performed At Negative result for this test determines that [facility] SARS-CoV-2 RNA was not present in the [...] the Act. Fact Sheet for Healthcare Providers: https://www.[employer].com/sites/default/files/pro duct/documents/Fact_Sheet_HC_Providers_Lyra_SA RS-CoV-2.pdf Fact Sheet for Healthcare Patients: https://www.[employer].com/sites/default/files/pro duct/documents/Fact_Sheet_Patients_Lyra_SARS-C oV-2.pdf Performing Laboratory: [facility] [address] [place] [address] Performing Organization Address City/State/Zipcode Phone Number [facility] [address] [place] [address] CENTER ECG 12 lead (01/17/2020 10:41 AM CDT)Only the most recent of2 resultswithin the time period is included. Specimen Narrative Performed At Ventricular Rate 85 BPM GE MUSE Atrial Rate 87 BPM P-R Interval 186 ms QRS Duration 120 ms Q-T Interval 404 ms QTC Calculation(Bazett) 480 ms P Willard 69 degrees R Willard 99 degrees T Willard 47 degrees Normal sinus rhythm Possible Left [...] 404 ms QTC Calculation(Bazett) 480 ms P Willard 69 degrees R Willard 99 degrees T Willard 47 degrees Normal sinus rhythm Possible Left atrial enlargement Possible Right ventricular hypertrophy Anterolateral infarct (cited on or befor e 29-NOV-2018) Abnormal ECG When compared with ECG of 19-NOV-2019 11 :36, Questionable change in QRS axis Nonspecific T wave abnormality no longer evident in Lateral leads Confirmed by MD Schroeder Mahboob ([id number]) on 01/17/2020 11:17:20 PM Performing Organization Address City/State/Zipcode Phone Number [facility] XR chest 1 view portable / bedside (11/23/2019 5:00 AM CDT) Specimen Narrative Performed At FINAL REPORT Conjure RAD, CHEST, 1 VIEW, NON DEPT INDICATION: [...] Date/Time: 11/23/2019 0 5:16:09 Performing Organization Address City/[facility] Centercode Phone Number [facility]IS HGB/HCT (H&H)-Stat Lab (11/22/2019 10:26 AM CDT) Pathologist Sig nature Hemoglobin 12.1 (L) 13.0 - 16.8 g/dL [facility] Hematocrit 36.0 (L) 40.0 - 50.0 % [facility] Specimen Blood, Arterial Performing Organization Address City/[facility] Centercode Phone Number [facility] [address] [place] [address] CENTER PT/INR (11/19/2019 12:14 PM CDT) Pathologist Sig nature Protime 13.0 11.9 - 14.2 seconds [facility] INR 1.0 <=5.9 [facility] Specimen Blood Narrative Performed At Effective 11/08/2018: PT Reference Range [facility] Change New: 11.9-14.2 Previous: 11.7-14.7 RECOMMENDED COUMADIN/WARFARIN INR THERAPY RANGES STANDARD DOSE: 2.0-3.0 Includes: PROPHYLAXIS for venous thrombosis, systemic embolization; TREATMENT for venous thrombosis and/or pulmonary embolus. HIGH RISK: Target INR is 2.5-3.5 for patients wiht mechanical heart valves. Performing Organization Address City/State/Zipcode Phone Number [facility] [address] [place] [address] CENTER BUN (11/19/2019 12:14 PM CDT) Pathologist Sig nature BUN 18 7 - 21 mg/dL [facility] Specimen Blood Narrative Performed At [employer] ID - SANDRITA C [facility] Performing Organization Address City/State/Zipcode Phone Number [facility] [address] [place] [address] CENTER Creatinine (11/19/2019 12:14 PM CDT) Creatinine 1.21 0.57 - 1.25 [facility] mg/dL [facility] EGFR 58Comment: ESTIMATED mL/min/1.73 sq [facility] GFR IS NOT m [facility] [place] CREATININE CLEARANCE IN PREDICTING GLOMERULAR FILTRATION RATE. ESTIMATED GFR IS NOT APPLICABLE FOR DIALYSIS PATIENTS. Specimen Blood Narrative Performed At [employer] ID - SANDRITA Santos [facility] Performing Organization Address City/[facility]/Zipcode Phone Number [place] [phone] [place] [address] CENTER Electrolytes (11/19/2019 12:14 PM CDT) Pathologist Sig nature Sodium 136 136 - 145 meq/L [facility] Potassium 4.6 3.5 - 5.1 meq/L [facility] Chloride 107 98 - 107 meq/L [facility] CO2 22 22 - 29 meq/L [facility] Specimen Blood Narrative Performed At [employer] ID - SANDRITA C [facility] Performing Organization Address City/State/Zipcode Phone Number [facility] [address] [place] [address] CENTER after 07/22/2019 Insurance Payer Benefit Plan / Subscriber ID Effective Dates Phone Addre ss Type Group MEDICARE MEDICARE A B [id number] 2003-Present Medicare AETNA - MGD CARE AETNA INDEMNITY [id number] 2000-Present Comm NON CONTR Advance Directives For more information, please contact: [phone] Code Status Date Activated Date Inactivated Comments [...]
--- OUTSIDE RECORDS SUMMARY | 2020-07-22 21:04 | XMS REPORT | Continuity of Care Document ---
:1940 Author Organization [facility] t Address [address] [place] [address] Care Team Providers Name Role Phone Pcp [...] Expiration Date Sour ce Number MEDICAREMEDICARE A [id number] 2003 SUN Thurman [id number] 2003-P 00:00:00 - Medical resentMedicare Center AETNA - MGD CAREAETNA [id number] 2000 SUN Brito INDEMNITY NON 00:00:00 - Medical [id number] 2000 Ce nter -PresentComm Problems Condition Condition Condition Status Onset Resolution Last Treating Co mments Source Name Details Category Date Date Treatment Clinician Date Left Left Disease Active [facility] Landry carotid carotid 8-10 [facility] - artery artery 00:00: Medical stenosis stenosis 00 Center Carotid Carotid Disease Active [facility] stenosis, stenosis, 6 [facility] - right right 00:00: Medical 00 Center Bilateral Bilateral Disease Active [facility] carotid carotid 11-18 [facility] - artery artery 00:00: Medical stenosis [...] St 2 by 2 by 11-29 Olman Ramesh [facility] on 00:00: Me dical 11/29/18 11/29/18 00 [...] Date Stop Date Quantity Comments Source History [facility] - Alcohol Std Drinks Medica l Center History [facility] - Alcohol Binge Medical Ijeoma ter Sex Assigned At [facility] Tobacco use and 2020-02-05 2020-02-05 Never used [facility] Kelli kes - exposure 00:00:00 00:00:00 Medical Center Alcohol intake 2020-02-05 2020-02-05 [facility] non-drinker of Medical Ce nter alcohol (finding) History [facility] 2019-11-20 2019-11-[address] [facility] - Alcohol Frequency 00:00:00 00:00:00 Medical Center History of tobacco 2018-10-[address] [facility] use [facility] Center Smoking Status Start Date Stop Date Source Former smoker 2020-02-05 00:00:00 2020-02-05 00:00:[address] [facility] Medications Ordered Filled Start Stop Current Ordering Indication Dosage Frequency Signature Comments Components Source Medication Medication Date Date Medication? Clinician (SIG) Name Name aspirin 81 Yes 81mg QD Take [address] MG EC 8-11 by mouth [facility] - tablet 11:19: daily. Medical 13 Center metoprolol No 12.5mg Q.5D Take 12.[address] tartrate 8-10 08-06 mg by [facility] - (LOPRESSOR) 12:57: 00:00 mouth 2 Me dical 25 MG 06 :00 (two) Center tablet times daily. atorvastati Yes 40mg QD Take [address] n (LIPITOR) 6- by mouth Luke s - 40 MG 00:00: daily. Medical tablet 00 Center metoprolol Yes 25mg QD Take [address] succinate 6-29 by mouth [facility] - (TOPROL-XL) 00:00: daily. Medi donna 25 MG 24 hr 00 Center tablet clopidogreL 75mg QD Take [address] (PLAVIX) 75 6- 06-25 tablet (75 L ukes - mg tablet 00:00: 23:59 mg total) Me dical 00 :00 by mouth Center daily. levothyroxi Yes 25ug QD Take [address] ne 3-30 mcg by [facility] - (SYNTHROID, 00:00: mouth Medic al LEVOTHROID) 00 daily. Center 25 MCG tablet aspirin 81 No 81mg QD Take [address] MG chewable 6- 06-25 tablet (81 L ukes - tablet 00:00: 23:59 mg total) Medic al 00 :00 by mouth Center daily. amiodarone No 200mg QD Take [address] (PACERONE) 6- 06-08 tablet [facility]ukes - 200 MG 00:00: 00:00 (200 mg Medical tablet 00 :00 total) by Center mouth daily. losartan 2019- No 12.5mg QD Take 0.[address] (COZAAR) 25 12-06-08 tablets Luke s - MG tablet 00:00: 00:00 (12.5 mg Med ical 00 :00 total) by Center mouth daily. furosemide 2019- No 20mg QD Take [address] (LASIX) 20 12-06- tablet (20 Kelli kes - MG tablet 00:00: 00:00 mg total) Me dical 00 :00 by mouth Center daily. atorvastati 2019- No 40mg QD Take [address] n (LIPITOR) 12-05- tablet (40 L ukes - 40 MG 00:00: 23:59 mg total) Medica l tablet 00 :00 by mouth Center nightly. metoprolol 2019- No 12.5mg Q.5D Take 0.[address] (LOPRESSOR) 12-05- tablets Luke s - 25 MG 00:00: [...] 10mg Take 2 [facility] (DULCOLAX) 12-05- tablets [facility] - 5 mg EC 00:00: 00:00 (10 mg Medical tablet 00 :00 total) by Center mouth daily as needed for Constipati on. bisacodyl 2020- No 10mg Place [address] [facility] (DULCOLAX) 12-05- suppositor Kelli kes - 10 mg 00:00: 00:00 y (10 mg Medical suppository 00 :00 total) Center rectally daily as needed. senna 2019- No 17.2mg QD Take [address] (SENOKOT) 12-05- tablets [facility] - 8.6 mg 00:00: 00:00 (17.2 mg Medica l tablet 00 :00 total) by Center mouth nightly. ondansetron 2019- No 4mg Take [address] [facility] (ZOFRAN-ODT 12-05 tablet (4 Kelli kes - ) 4 [...] [address] -albuterol 12-05 by Olman - (DUO-NEB) 00:00: 00:00 nebulizati M edical 0.5 mg-3 00 :00 on every 6 Cente r mg(2.5 mg (six) base)/3 mL hours as nebulizer needed for solution Wheezing or Shortness of Breath for up to 360 days. enoxaparin 2019- No 40mg Q24H Inject 0.[address] (LOVENOX) 12-05 mLs (40 mg Jasson es - 40 mg/0.4 00:00: 00:00 total) Medic al mL Syrg 00 :00 subcutaneo Center usly daily Can dc if patient mobilizing more. Vital Signs Vital Name Observation Time Observation Value Comments Source Systolic blood 2020-02-04 13:28:00 210 mm[Hg] [facility] Diastolic blood 2020-02-04 13:28:00 96 mm[Hg] [facility] S [facility] Heart rate 2020-02-04 13:28:00 92 /min [facility] Body temperature 2020-02-04 13:28:00 37.11 Adriana [facility] Respiratory rate 2020-02-04 13:28:00 15 /min [facility] Body height 2020-02-04 13:28:00 177.8 cm [facility] Body weight 2020-02-04 13:28:00 107.502 kg [facility] BMI 2020-02-04 13:28:00 34.01 kg/m2 [facility] Oxygen saturation in 2020-02-04 13:28:00 99 /min room air [facility] - Arterial blood by Medical Ce ntmarva Pulse oximetry Procedures Procedure Date / Time Performed Performing Clinician Trace gunter RHYTHM STRIP - SCAN 2020-01-24 10:43:52 Provider, [facility] RHYTHM STRIP - SCAN 2020-01-24 10:43:50 Provider, [facility] RHYTHM STRIP - SCAN 2020-01-23 12:40:29 Provider, [facility] TRANSFUSION SERVICE 2020-01-22 18:11:38 Provider, [facility] REPORT [facility] CBC W/PLT COUNT & AUTO 2020-01-22 04:00:00 Adolfo [facility] S t [facility] BASIC METABOLIC PANEL 2020-01-22 04:00:00 Adolfo [facility] ([address] [place] [address] BASIC METABOLIC PANEL 2020-01-21 10:28:00 Adolfo [facility] ([address] [place] [address] CBC W/PLT COUNT & AUTO 2020-01-21 10:28:00 [facility] TISSUE EXAM 2020-01-21 08:39:00 Dain De La Rosa [facility] ENDARTERECTOMY,CAROTID 2020-01-21 07:10:[address] [facility] TYPE AND SCREEN, 2020-01-21 06:30:00 Dain De La Rosa [facility] - AUTOMATED [facility] POCT-GLUCOSE METER 2020-01-21 05:40:00 Dain De La Rosa [facility] TRANSFUSION SERVICE 2020-01-18 18:04:17 Provider [facility] REPORT [facility] BASIC METABOLIC PANEL 2020-01-17 11:36:00 Chioma Rice [facility] S [facility] () [facility] CBC W/PLT COUNT & AUTO 2020-01-17 11:36:00 Chioma Rice [facility] PLATELET AGGREGATION: 2020-01-17 11:36:00 Chioma Rice [facility] - FUNCTION SCREEN Medical [place] TYPE AND SCREEN, 2020-01-17 11:36:00 Chioma Rice [facility] AUTOMATED [facility] SARS-COV2/RT-PCR ([facility] & 2020-01-17 10:48:00 Dain De La Rosa Z[facility] - REF LABS) [facility] ECG 12-LEAD 2020-01-17 10:41:29 Unknown, Hl7 Doctor [facility] RHYTHM STRIP - SCAN 2019-11-26 14:21:00 Provider, [facility] XR CHEST 1 VIEW 2019-11-23 05:00:00 Ezra Diaz [facility] - PORTABLE/BEDSIDE [facility] HGB/HCT (H&H) - STAT LAB 2019-11-22 10:26:00 Ezra Diaz [facility] TISSUE EXAM 2019-11-22 08:56:00 Dain De La Rosa [facility] ENDARTERECTOMY,CAROTID 2019-11-22 07:06:[address] [facility] POCT-GLUCOSE METER 2019-11-22 05:38:00 Dain De La Rosa [facility] TRANSFUSION SERVICE 2019-11-20 18:54:16 Provider, Ethel [facility] REPORT SCAN [facility] ELECTROLYTE PANEL 2019-11-19 12:14:00 Dain De La Rosa [facility] BUN 2019-11-19 12:14:00 Dain De La Rosa [facility] CREATININE 2019-11-19 12:14:00 Dain De La Rosa [facility] CBC W/PLT COUNT & AUTO 2019-11-19 12:14:00 Rj [facility] DIFFERENTIAL [facility] PROTHROMBIN TIME/INR 2019-11-19 12:14:[address] [facility] TYPE AND SCREEN, 2019-11-19 12:14:00 Dain De La Rosa [facility] AUTOMATED [facility] SARS-COV2/RT-PCR ([facility] & 2019-11-19 11:40:00 Dain De La Rosa [facility] - REF LABS) [facility] ECG 12-LEAD 2019-11-19 11:36:49 Dain De La Rosa [facility] - [facility] Plan of Care Planned Activity Planned Date Details Comments Source Future Scheduled 2020-02-12 INFLUENZA VACCINE (#1) [facility] Test 00:00:00 [code = INFLUENZA Medical Ce nter VACCINE (#1)] Future Scheduled 2004-10-[address] [facility] [facility] - Test 00:00:00 WELLNESS (YEAR 2 or Medical Center FIRST YEAR if no IPPE) [code = MEDICARE ANNUAL WELLNESS (YEAR 2 or FIRST YEAR if no IPPE)] Future Scheduled 2003-11-02 PNEUMOCOCCAL 65+ YRS [facility] - Test 00:00:00 (1 of 1 - [facility] [id number] PCV13) [code = PNEUMOCOCCAL 65+ YRS (1 of 1 - [id number] PCV13)] Results Test Description Test Time Test Comments Results Result Comments Source Tissue Exam 2020-01-25 18:04:00 Test Item Value Reference Range Interpretation Comme nts Case Report (test code = 104) Surgical Pathology Report Case: [id number] Authorizing Provider: Dain De La Rosa, Collected: 01/21/2020 08:39 AM Ordering Location: [facility] Received: 01/21/2020 10:40 AM PERIOPERATIVE SERVICES Pathologist: Troy Starr MD Specimen: Plaque, LEFT CAROTID PLAQUE DIAGNOSIS (test code = 3220) [id number] pc rHJcGFwwjqKqDQdaq1NfN7NdKjVkPMzyasHwAMUs HrpjsrolERAvCBI9xkCkGHWhJTmdTCLsDBrlEk9g kKPazKfkPmZwNMFkf6toawWVaexdgVo1v2rxPVSr PgL1lZMsIFvzO2qicqHprBMtQNHiAXm3pF90QJMv fQ8inQMyHEsqnzDjDZcsegZvqyXiQpx8FKXjZ6xw OQHbPHAqX5IcDJ5dVXTrVsa6SAF6IUQ1cGvze3Z5 gYIvrZKtmQheHnSaAqCoCXCBx9XsRRg8eOnkE8Dz HZJeJfU3kCRyXUPuRNetUWNuXNShziO9fJ44FPsu mqV6gWGmb3Nww01js981pC5ikDPaARH0CDZqFVUd vFJbYUPyHIS9KMVznSNeC2y0CzSsvLLcV6S7EcVo wFHiU6F0JaQfrFHtQ9B6HiPctVMyLUSbqYOmOa7h aCYxzATggq2qur05CWG6f9EnkIclPOW6CXX6XxOn Ke6lrHOqOJLqXC6gCmEluXHkEIRovj73fRldCVxf wgLpbX3sViCnSGKrwEOvVYTsMO6dpBBvEDVqfL8y mctcOLUaPdMobbhjBBOswCidfjVwZr6xhNphIJH3 FSdjR9rfiU7oMbV1WOueL2hfxX1hXNk7DDchmQO0 NOMwwA8cKI7bzcbrs5fgRlHgZP9ktpukf5pvJrUy JD9sxau4a7zkKxIiSK2bieasc3xlOrWtFBwfYHVg sscoJLIph1ZqondeXIErs0HvT0DwpSavM55tkWdv I85rWGDqjJquaL8rbEiilK2pOrGhPpMoZHxztGsw bGFpblxmMFxmczIwXHBsYWluXGYxXGZzMjAgQVJU BLHVDEDMAYLANGYFWb1ASRUpUWJFONTOSQPIULCL C70UKuilYRJqR5OFE7uHNJYjXJFQBHELW4SARVFU LVrUGOZJTGIYWKkeWOZ3c4urwDMbAECvkPOuATBk JQrajnFsTACiPskqljkiDEBoDZA5xgQzRDUlOEhf SHGzQLimCs1slYRxcKkaUlNrITInh3neuqOQdoln vOx2k7yhLUExLfG2gSNzQQxjH8owacPbpSVyEUWt MZu2pF96ELWjuG2yfFFnHDhpywVvYuB7YLaiBJBs IxP8BLWugKUtQCRrB2psKSRbCDqfZCQwWUiudRDz YBW7eEqwo2F1yUGkwLHzfArsXaGpQsZwKnNNu1Qg ADb8dWuoF3XbVGVeCeI0qTPcNLPyUBktQEGwHFEx vlP1pM00TOkafcJ2gRUvm1Uhm15er047tD0xmVRv QYF9ETHhCCQnuWDnWERjSNS4LYAesQJpH5moXKVn XK3ppoccAEubSPorMRPbgTH3UJTtrPOvN3SjVOKs QPisWPTflpm3XoLxGh0soSRywNrhSSecp1crk0ze hXLuNyi9OSWuTvCrGflbCSwhe8Iho7jdJBGbma3r CTQ9dITpiXsne0D8yZLtSLYfcGFdJJStHS0rzQOj ZPNimZ0mwspbXENnOuMdblfmVIZpvSixfrHtAj6w oIzsKYB6DRmxN0vezU4wKhG5ZQgzM2dxnY6gERe2 TLkrGIDprKY5ylO3BYLwaCUaS4LwyR9gMVDyXH4s wkp4h1emTJV6WXpmHXMtBuC8jzN8WXYaeMOlOJNq bJioXKtjm169GQC7CrJaHLToc4CzP2NeyZvmR69w gJquA16kKCAjtKbawV2shVdhgE0kCaZnUbMzTSgx eNyaDG9xFAGwA0ylyLZeSUInOQLsO7gaWiOlvB6m fAetPKramvSrRFMsPbf5SCJdbMFjRWMqLeg9NKWv SBFjX90jiabqJSM1zO1hx4ytg0JjUZfcGXV4RBSn m20oRDkozwP1UXzaTw7tXHZwWPb5NAmmLUO7yO== CPT Code(s) (test code = 3357) f4luySHtOVEqfWOgIoBoTGFcDWHrz3ruBNKb bGFu SjBjJbDsBiItUceozVYeXTKvLwYba5qlf531pVFv o0bySRKqBxO4qIBaNFCkvPAoJ627v3yvl7ylwaRv vFC9JJLmUQE6XRrolcRepmN8KOgicUYiFwX0ZGmu cqOqIKapqbYvqeYkDmz4XTGdM604TVK4aMsaj5yr SSX6WOVeIYZjKhCxBd0ktCZrP353XGGoQFCYAYOu sOr5ODFehhZxivKyiMRZw230B663x5ofLKYkmfZn mPcDqrknv9ntU322GEHziCUsopOkLjBxWXSjzNJp zAU2JJClEB8fuxrrJuQqAB6ldmlzKmJfBL6ihgs2 JaFyNM8bgtvpTmJdWOzaJMAtjjccFAMay6Iulrxy PK3dG4Khn1Z7pP6isXHxBKBgnJCzXiYvXFFfrw5g ePAbEWxyr4RlIVV6vlH8aCPdqSUlCQReNN87Qcxe z8LoBrgdKWD2GIWwrdXwh2Hqg7voRaAnlmNmD1ea U4BaDWWbFOQqYOLmLpSoslItz2Hid1ZrnXJqpBd4 e4ylJNCqFBWfbRuwu7qzUFI6TUNjF2N7dEGeb6iw CJltLZCngSS1dojkBGvgQVKbuoC1ugkvJKahQJVt vCI0typuILxuYRQvAfX7cuxcOWwiVVHmDQU1JUua l610LPD7TLbbXpnkJOseVMFzcxMlkqJhaRttGFCw RVJzYJizINKxRIcxEBPnTKQyQtQkxQkraGttaY8k VvXoDfErNSkiOE0lFZFhM6wezJScKGIzSCFrW2ho VcIddH9hjCltJWytmmSmXQr8KyA7SmH3RKOdRUoz YXJ9 CLINICAL HISTORY (test code = 3356) g0hvyBHvIRLchYUhIdLpDPXzTUCau2j cZGVmbGFu FqKaApHwJcUmSoqfuTOaQIUvDiRwo1wyq307bRZa q1zfNWJtOwG5tFNsNTGxcPNcS137o9sbv0gzqiSn rAA6DMKbSCL8WZmqkeZuiiK8KQjwgLZoIqN5CEex ryWaVWhnrxZkjkWpFoc4KJGhM545MTH3dOicy6vg IUZ2AFCaHSAlZhXfKk1hkXCbG358WSFmJSXYJVEh jQe8KKKwciKyvsYsmQOIl741J717c6ztZRHilcJt iWyFbjyxg7hpT259SHHzmULrugZeShDeGOBwaSAd uVQ8CCPzEZ8wtdyzLcTmEZ4wirjoVbDzOS8njvi8 KrAuXL5jkefsAiXaHSocPNLfahjmJPTep7Kdorov PQ4kR7Tvv5I8uH0moAFaCAKjhYZrJjIuNIHgwo0u zFLtRIbru1SsALI6ujA6sEXwcPSvXCDiTY70Kuvo n6VcCjaaNOX2WXLbxwByt1Rqz2pwWyXdouMyB4wg Z3RgBINaBVKhJOFdPaBdhxYws2Ypl3YfnHSnpKe1 d8ydOMZyTJTnsYujl0kpZYJ4VIMfO8I3xIHbj1mg SJuuVNFkjQF9parnNHhaGAQrqrH5doixJTzuDZMm oHE2lxprPOvaFBCfVkQ2kuxuUSfdLXRkCVE9GDhs d974XPH4WWgvCdmbINjuIUHyeyGpnwUpiKgiTHNy ZDZxRTjjEXTlYCnkVEUoVVWdElBldRlrnGkxvE8d ZbIdBhUhQGbsNX3gXBRvK3pqyTAdMYLfCYWyJ1el VpVyyM9biBnjSYksjgPkUKUhWO7sRGReOSpnh5Se xnniBAcfZiGiA5Uxk5UxJKQcxGXtm7Ohw6gbBJH1 SPECIMEN SOURCE (test code = 3377) y6pvuJQzVFTomWCzQhBtIEQyRWKla1al ZGVmbGFu IbAkMiZvDhNyLuaiwTHsLICoHtUzz0whm589gGEt s0ypOIYdSoB5kAWcDNTbtLZsN908s3dmb7uazlPx cSA2YEHeNTN0YBbvctKzwaW3BWywnZItTgO5FLdh xgNwAPswdeNszbNmNxk0OIFyW812IHI7hSgyg3ov YGM9CCNmEFFxYgSnKv5ngPHzI286XCTsWMUEHNBp uJq5CUGoxlKurfMngMNVq575B800a4vcHXAmfqXb zCgSbvgav2vcG001VOExiRRudhHnZrNyUXWwzZHb eHK6PFGlGP0xinatWrGnKY3hmpwwXeAbFX3mpkr3 LyWtSG6cobuzXkJyILdbTMHttkvpFNDyo7Ufplwl HM6uG1Xtv8F3uT7iiOUrWVQwpYBvCiBmBZTroc4r gEJaKEnau9UmUOW4faX7uGByhHZyUFAtFS56Indu n6GoQjffROK7XQLlqdGtv7Bzf2asPuDiggNdZ1jb R6MpQJNpYHTgFRQhEySgidNvr7Jjz8ZvgQGgoVv7 b7vxFUVeUDYveFgaf1qiLJS6ZAThU0G4qOTkh3sz IVdeLCMfvON1swwbMWwfVOUhfpB5rvgdLKdsUPMa fJV5sztbBRteIRMbLnN1hnoiMVgzLWGrNAX4MWww f724MYM9CFikWdzyBTuoFXEdplBghzOvgNjjVCQq JBZvIIkhAZVsBZqyJBRhYHIqZzMmdMdyxFokcV1o GjSwRsUgJAnlVP8fZZBsO4yowWCxSBGsSHNbE8ng AnUinY4bxHasFDvfdfJbWTDtYTU1MVmmTZY1 GROSS DESCRIPTION (test code = 3366) k5tjnPUsVZGfaCWfZzTpDVCmTATkh8 lcZGVmbGFu JyGtAzJzRwIlHmquhLJiZKJsKmKqd8hii893oVAo a6asVRVjMbO3vLUtFRDmsLPfZ208UENnJDfek5bs b0OwIHOscOYex6I0GZEQhzzeyYa5qZubT70ro1W7 TvepT1imVFPxJYzlKLCvAOwlrTKaVCN5NFQePAR7 KTatzwWgeaD3LRsyhMBvBsC2EUj9b0spxAxzBEFu WWT0i1ggIGjruhKeAV1zyv7esAl5w6ffpzZmFNIt GFVoxZUIQMFfW1KnrThwXp7jvHz2zGxqWjtkWPX4 Osv4PE8qxd08lzp4dGmqZZRhtihzCjZ0GTslBRVb siaeKNk5MCtxNFArfTrkILooRFWhurecNBynOEPo bIzhBRghNDWuTwolHQjqZDEyJXU8LWqmg739VWH1 TIqmw6rzs7dmrUGlZlh1UJRuGfMaNfieMIwvb9Ek e2zrFVFcvv1vMXF8dWFxeOgvt7K9lIPvXYRmcTOj kdLmPBNyNfU0EJlbVZ4tmy16QKOtERD4fb1ckBWb uTqnpkUfiOIwYPibZ9HiYDHas557HOSsH5WaEXTk o2O7clLbYmNeKIJhpCW1ayR4AIEqCJf7nOPgboX9 isTcwIPlN8grbJ37YoXjvEFnM0SrhF51UbXlzQHq M9WdsS59ZlGthECzR5NipP56WiOmqPNiOAHxrHMq Yc5hdPLwdFSvj2AvbKYfCKdbV16mg781HLMluuJk D2hgxYZydwxxeXZdenifIUfdhtYtPFCoSZIpWIaq NTXmUGXbIjNiqKgsnV7fLtMvCuZiQPLAWDLkcUAw ZCBmcmVzaCBsYWJlbGVkIHdpdGggdGhlIHBhdGll vkCrhvAiJF2hFRHzD3Emr2Zpy83uxxKfTjGpDZQd VTGriTLddURsWWSgqPnbKTAkFTO1ZVIhgCHyVWO9 DrCeeAPhMlJohMKlVsphL83fGQymkzCqRLAgNQ0l VINpry81GGukx3aybNSikVscviivTn4aOKpniMMz YWxjaWZpZWQgcGxhcXVlLiBSZXByZXNlbnRhdGl2 CQGuOMX0bT3iihJxszTtq9AboEo3ySUiRDkpWAPi OMObtTulc0rrIoDxPLRsqHApVobyMGBui16cLSEA GO3saKAmcMLbeM== MICROSCOPIC DESCRIPTION (test code = y7zulWImRIYssSPyJvKaOKRtGFOad3 [place] [address] FlYqGnTnRbMgOssdoALzCHOaUxPac3rfu364qFNr w9dwRDPkQpA0aKMdHHBkiMVqA357o9fiz3lznvBz wSO3QQTaVIX2GAxbgrTsjaZ9HFujwSBvRsO1VMzl nhYdPXlepoVwwkKhYpd6AGWsV281RON0dSqdn8qs KQE0ZRQiDLTwVdLaJb3kwMUqH197OGVjPTNAPESs jAi0LJDuihJwijLajRHBu209B930p1qpUTSgfzBx hGaBaedtn5kwP583HHElmMRziwIbHyEgPZXqwGXb zFM6WJUuWM6xiwmkTwDqIH3vcxwrMmLiYW9augb5 XfFbGM9ypszpSjQhYYtsRMGlkgoxNVIwa4Floltp MH2tV5Rig2H2wS0bnCFsIGZpqSAaUwBfJUMhjs1g nUTkDEggr6EtAFG2gkN5bTYjpSDzEBCaTP53Fijn a2ZhNietIJW1CRVpamQal1Beb2vbJcOlxiGeT8cx E4JkZXIoTMAwXABmYlOqxeGmq2Gkl2YioZJeyKa1 x3llLXThHUYqpBhax0hsQLF2USAoY0H4aUDxq0oc NNluTZWodUA6xljgFRhoLKXsngP9qtxmXClgODUb cQZ5jankBLfuIVZqEiL5izfySPjtVACqUYW4EDyv d149XPM6PTpkJnhhNFzwXMWylzMstmEyqCiuEQKb VUKlFRxtISZbWPihQFMdIHEdJbJrdIdiuLxgbG7x DfSaCdLcTClgUV5eAFWfS0xsyEDsAENrTAOlI3hg DaFwlK8lcCejEAofmxKgOGBnbvGkrp7sSKsxAOG5 [id number] 18:04:00Surgical Pathology Report Case: [id number] Authorizing Provider: Dain De La Rosa, Collected: 01/21/2020 08:39 AM OrderingLocation: [facility] Received: 01/21/2020 10:40 AM PERIOPERATIVE SERVICES Pathologist: Troy Starr MD Specimen: Plaque, LEFT CAROTID PLAQUE ARTERY, LEFT CAROTID, ENDARTERECTOMY:CALCIFIC ATHEROSCLEROTIC PLAQUE Signing Pathologist Direct Phone Line: [phone] signed by Troy Starr MD on 01/25/2020 at 6:04 [id number]; [id number] diagnosis: Left carotid stenosisPlaqueReceived fresh labeled with the patient's name, accession number and "left carotid plaque" is a 5.0 x 1.2 x 0.7 cm aggregate of duggan-yellow tubular, focally calcified plaque.Account Maintenance Representative sections are submitted in A1 following decalcification. PA/pl PerformedBasic Metabolic [id number] 06:08:00 Test Item Value Reference Range Interpretation Comments Sodium (test code = 140 meq/L 278-196 4548-2) Potassium (test code = 4.7 meq/L 3.5-5.1 2823-3) Chloride (test code = 109 meq/L 98-107 H 5-0) CO2 (test code = 25 meq/L -29 2027-9) BUN (test code = 21 mg/dL 7- 3094-0) Creatinine (test code 1.38 mg/dL 0.57-1.25 H = 2160-0) Glucose (test code = 112 mg/dL 70-105 H 2345-7) Calcium (test code = 8.1 mg/dL 8.4-10.2 L 41613-3) EGFR (test code = 49 mL/min/1.73 [place] [address]-8) NOT ACCURATE CREATININE CLEARANCE IN PREDICTING GLOMERULAR FILTRATION RATE . ESTIMATED GFR I S NOT APPLICABLE FOR DIALYSIS PATIENTS. JAMAR (test code = JAMAR) [employer] Supervisor ID - EDASI Lab Interpretation Abnormal (test code = 57896-1) [facility] METABOLIC [id number] 06:08:00 Test Item Value Reference Range Interpretation [...] S NOT APPLICABLE FOR DIALYSIS PATIEN TS. [employer] Supervisor ID - [id number] with platelet count + automated [id number] 05:59:00 Test Item Value Reference Range Interpretation Comments WBC (test code = 6690-2) 10.3 See_Comment [A utomated message] The system [employer] generated this result transmitted ref erence range: 3.5 - 10 .5 K/L. The refe rence range was not u sed to interpret this result as normal/abnor mal. RBC (test code = 789-8) 3.50 See_Comment L [Au tomated message] The system [employer] generated this result transmitted ref erence range: 4.63 - 6 .08 M/L. The refe rence range was not u sed to interpret this result as normal/abnor mal. MCHC (test code = 786-4) 31.5 See_Comment L [A utomated message] The system [employer] generated this result transmitted ref erence range: 32.3 - 3 6.5 GM/DL. The refe rence range was not u sed to interpret this result as normal/abnor mal. Hematocrit (test code = 34.9 % 40.1-51 L 4544-3) MCV (test code = 787-2) 99.7 fL 79-92.2 H Disc ordant MCV result compared to pre vious result; clinica l correlation req uired. MCH (test code = 785-6) 31.4 pg 25.7-32.2 RDW (test code = 788-0) 13.0 % 11.6-14.4 Platelets (test code = 217 See_Comment [Aut omated message] 777-3) The system [employer] generated this result transmitted ref erence range: 150 - 45 0 K/CU MM. The referen ce range was not u sed to interpret this result as normal/abnor mal. MPV (test code = 10.7 fL 9.4-12.4 06969-3) nRBC (test code = 413) 0 See_Comment [Aut omated message] The system [employer] generated this result transmitted ref erence range: 0 - 0 /1 00 WBC. The refere nce range was not u sed to interpret this result as normal/abnor mal. % Neutros (test code = 70 % 429) % Lymphs (test code = 20 % 430) % Monos (test code = 9 % 431) % Eos (test code = 432) 0 % % Baso (test code = 437) 0 % # Neutros (test code = 7.24 See_Comment H [Aut omated message] 670) The system [employer] generated this result transmitted ref erence range: 1.78 - 5 .38 K/L. The refe rence range was not u sed to interpret this result as normal/abnor mal. # Lymphs (test code = 2.09 See_Comment [Auto mated message] 414) The system [employer] generated this result transmitted ref erence range: 1.32 - 3 .57 K/L. The refe rence range was not u sed to interpret this result as normal/abnor mal. # Monos (test code = 0.87 See_Comment H [Autom ated message] 415) The system [employer] generated this result transmitted ref erence range: 0.30 - 0 .82 K/L. The refe rence range was not u sed to interpret this result as normal/abnor mal. # Eos (test code = 416) 0.02 See_Comment L [Au tomated message] The system [employer] generated this result transmitted ref erence range: 0.04 - 0 .54 K/L. The refe rence range was not u sed to interpret this result as normal/abnor mal. # Baso (test code = 417) 0.04 See_Comment [A utomated message] The system [employer] generated this result transmitted ref erence range: 0.01 - 0 .08 K/L. The refe rence range was not u sed to interpret this result as normal/abnor mal. Immature 0 % 0-1 Granulocytes-Relative (test code = 2801) Lab Interpretation (test Abnormal code = 96578-1) [facility] W/PLT COUNT & AUTO [id number] 05:59:00 Test Item Value Reference Range Interpretation [...] (BEAKER) (test code = 2801) BASIC METABOLIC [id number] 10:59:00 Test Item Value Reference Range Interpretation [...] S NOT APPLICABLE FOR DIALYSIS PATIEN TS. [employer] Supervisor ID - [id number] W/PLT COUNT & AUTO [id number] 10:53:00 Test Item Value Reference Range Interpretation [...] (test code = 2801) Type and screen, [id number] 07:12:00 Test Item Value Reference Range Interpretation Comments ABO/RH AUTOMATED (BEAKER) (test O POSITIVE code = 2260) Ab Scrn (test code = 890-4) NEGATIVE [facility]-Glucose [id number] 05:52:00 Test Item Value Reference Range Interpretation Comments POC-Glucose Meter (test 140 mg/dL 70-110 H : TE STED AT [facility] code = 1538) [address] [facility], [address]: [employer] Supervisor/Techni curtis ID = [id number] for JAMAR, LACRYST AL Lab Interpretation (test Abnormal code = 71290-4) [facility]-GLUCOSE [id number] 05:52:00 Test Item Value Reference Range Interpretation Comments POC-GLUCOSE METER 140 mg/dL 70-110 H : TESTED A T [facility] 6720 (BEAKER) (test code [facility], = 1538) [address]: [employer] Supervisor/Techni curtis ID = [id number] for JORD AN, LACRYSTAL Platelet Aggregation: Function [id number] 09:30:00 Test Item Value Reference Range Interpretation Comments Pathologist: (test Joe Avalos MD code = 2622) (electronic signature) Platelets (test code 251 See_Comment [Autom ated = 3117) message] The system which generated this result transmitted reference range : 150 - 450 K/CU MM. The referen ce range was not used to interpr et this result as normal/abnormal . ADP (test code = 57 % 62-100 L 10051-1) Platelet Rich Plasma 318 See_Comment H [Autom ated (test code = 2134) message] The system which generated this result transmitted reference range : 200 - 300 k/cu mm. The referen ce range was not used to interpr et this result as normal/abnormal . Plt. Function Screen Decreased Interpretation (test aggregation with code = 4655) ADP which indicates platelet dysfunction that may be due to medication effect, uremia, or other platelet function disorders. Clinical correlation is required. JAMAR (test code = JAMAR) Platelet Function Screen results may be falsely low with platelet counts<75,000/cu mm.[employer] Supervisor ID - [id number] Lab Interpretation Abnormal (test code = 55525-0) [facility] Center[facility]GGREGATION: FUNCTION [id number] 09:30:00 Test Item Value Reference Range Interpretation Comments [id number] Joe Avalos MD (BEAKER) (test code = [...] may be falsely low with platelet counts<75,000/cu mm.[employer] Supervisor ID- [id number] 23:17:23Interface, External Ris In - 01/17/2020 11:17 PM CDTVentricular Rate 85 BPMAtrial Rate 87 BPMP-R Interval 186 msQRS Duration 120 msQ-T Interval 404 msQTC Calculation(Bazett) 480 msP [place] 69 degreesR [place] 99 degreesT [place] 47 degreesNormal sinus rhythmPossible Left atrial enlargementPossible Right ventri cular hypertrophyAnterolateral infarct (cited on or before 29-NOV-2018)Abnormal ECGWhen compared with ECG of 19-NOV-2019 11:36,Questionable change in QRS axisNonspecific T wave abnormality no longer evident in Lateral leadsConfirmed by MD Alexandre, Sylvie ([id number]) on 01/17/2020 11:17:20 [facility] SARS-CoV2/RT-PCR ([facility])2020-01-17 17:29:00 Test Item Value Reference Range Interpretation Comments SARS-COV2/RT-PCR Negative Not Detected, (test code = Negative, See 52202-2) external report for linked test SARS-COV-2 [facility] PERFORMING LAB (test code = 85174-0) JAMAR (test code = Negative result for [...] of the Act. Fact Sheet for Healthcare Providers:https://www.Grokker [employer]/sites/default/f parris/product/documents/F act_Sheet_HC_Providers_L yac_VYQQ-SuP-6.pdf Fact Sheet for Healthcare Patients:https://www.[place].[employer]/sites/default/fi les/product/documents/Fa ct_Sheet_Patients_Lyra_S ARS-CoV-2.pdf Performing Laboratory:[facility] [place] [address] [facility]2020-01-17 17:29:00 Test Item Value Reference Range Interpretation Comments SARS-COV2/RT-PCR (test Negative Not Detected, Negative, code = 1785547) See external report for linked test SARS-COV-[address] [facility] (test code = 8802190) Negative result for this test determines that [...] 564(g) of the Act.Fact Sheet for Healthcare Providers:https://www.[employer]/sites/default/files/product/documents/Fact_Shee b_VH_Ueotwgwms_Egaw_ERUS-OkC-5.pdfFact Sheet for Healthcare Patients:https://www.[employer]/sites/default/files/product/ documents/Bgup_Qirns_Renhnljo_Krdu_OCMO-AvW-2.pdfPerforming Laboratory:[facility], [place] [address]YPRFB METABOLIC PANEL 2020-01-17 12:16:00 Test Item Value [...] S NOT APPLICABLE FOR DIALYSIS PATIEN TS. [employer] Supervisor ID - SANDRITA CCBC W/PLT COUNT & AUTO [id number] 11:45:00 Test Item Value Reference Range Interpretation [...] PERCENT (BEAKER) (test code = 2801) TISSUE [id number] 13:34:00Surgical Pathology Report Case: [id number] Authorizing Provider: Dain De La Rosa, Collected: 11/22/2019 08:56 AM Ordering Location: [facility] Received: 11/22/2019 10:25 AM PERIOPERATIVE SERVICES Pathologist: Troy Starr MD Specimen: Plaque, RIGHT CAROTID ARTERY PLAQUE ARTERY, RIGHT CAROTID, ENDARTERECTOMY:CALCIFIC ATHEROSCLEROTIC PLAQUE Signing Pathologist Direct Phone Line: [phone] signed by Troy Starr MD on 12/03/2019 at 1:34 [id number]; [id number] stenosis, rightPlaqueReceived in formalin labeled with the patient's name, accession number and "right carotid artery plaque" is a 3.5 cm in length by 0.5-0.9 cm in diameter duggan-yellow tubular, bifurcated, focally calcified piece of plaque. Account Maintenance Representative sections are submitted in A1 following decalcification.OUMOU Polanco (ASC)cmPerformedRAD, CHEST, 1 VIEW, NON [id number] 05:16:00Reason for exam:->post op screenShould this be [...] 05:16:09 XR chest 1 view portable / [id number] 05:16:00Interface, External Ris In - 11/23/2019 5:18 [...] Signed: Mckenna Noel Verified Date/Time: 11/23/2019 05:16:09 [facility] [id number] 10:30:00 Test Item Value Reference Range Interpretation Comments Hemoglobin (test code = 786-4) 12.1 g/dL 13-16.8 L Hematocrit (test code = 4544-3) 36.0 % 40-50 L Lab Interpretation (test code = Abnormal 70475-8) [facility] Center[facility] (H&H) - STAT [id number] 10:30:00 Test Item Value Reference Range Interpretation Comments HEMOGLOBIN (BEAKER) (test code = 12.1 g/dL 13.0-16.8 L 410) HEMATOCRIT (BEAKER) (test code = 36.0 % 40.0-50.0 L 411) POCT-GLUCOSE [id number] 05:49:00 Test Item Value Reference Range Interpretation Comments POC-GLUCOSE METER 146 mg/dL 70-110 H : TESTED A T [facility] 6720 (BEAKER) (test code [facility], = 1538) [address]: [employer] Supervisor/Techni curtis ID = [id number] for JORD AN, LACRYSTAL SARS-COV2/RT-PCR ([facility])2019-11-19 12:50:00 Test Item Value Reference Range Interpretation Comments SARS-COV2/RT-PCR (test Not Detected Not Detected, Negative code = 1872352) SARS-COV-[address] [facility] (test code = 8788783) Negative results do not preclude SARS-CoV-2 infection [...] of the Act.Fact Sheet for Healthcare Pro viders:https://www.Ember/Documents/Xpert%20Xpress%20SARS%20CoV-2/Fact%20Sh eets/302-3802%14XLWM-FND-1%20HEALTHCARE%20PROVIDERS%20FACT%20SHEET.pdfFact Sheet for Healthcare Patients:https://www.Fastly.[employer]/Documents/Xpert%20Xpress%20SARS%20CoV-2/Fact%20Sheets/302-3801%20SARS-COV -2%20PATIENT%20FACT%20SHEET.pdfPerforming Laboratory:[facility], [place] [address]Kzxdkzcuuslq9133-31-35 12:43:00 Test Item Value Reference Range Interpretation Comments Sodium (test code = 136 meq/L 159-804 1954-2) Potassium (test code = 4.6 meq/L 3.5-5.1 2823-3) Chloride (test code = 107 meq/L 98-107 2075-0) CO2 (test code = 8-9) 22 meq/L 22-29 JAMAR (test code = JAMAR) [employer] Supervisor ID - SANDRITA Santos Lab Interpretation (test Normal code = 11150-8) [facility] CenterCreatinine2020-06-08 12:43:00 Test Item Value Reference Range Interpretation Comments Creatinine (test 1.21 mg/dL 0.57-1.25 code = 2160-0) EGFR (test code = 58 mL/min/1.73 [place] [address]-4) NOT ACCURATE CREATININE CLEARANCE IN PREDICTING GLOMERULAR FILTRATION RATE . ESTIMATED GFR I S NOT APPLICABLE FOR DIALYSIS PATIEN TS. JAMAR (test code = Ac[employer] Supervisor ID - JAMAR) SANDRITA Santos [facility] CenterBUN2020-06-08 12:43:00 Test Item Value Reference Range Interpretation Comments BUN (test code = 3094-0) 18 mg/dL 7-21 JAMAR (test code = JAMAR) [employer] Supervisor ID - SANDRITA Santos Lab Interpretation (test Normal code = 15194-1) [facility] CenterBUN2020-06-08 12:43:00 Test Item Value Reference Range Interpretation Comments BLOOD UREA NITROGEN (BEAKER) (test 18 mg/dL 7-21 code = 354) [employer] Supervisor ID - SANDRITA KAFOKPDWUKGOM3964-43-21 12:43:00 Test Item Value Reference Range Interpretation Comments SODIUM (BEAKER) (test code = 381) 136 meq/L 136-145 POTASSIUM (BEAKER) (test code = 4.6 meq/L 3.5-5.1 379) CHLORIDE (BEAKER) (test code = 382) 107 meq/L 98-107 CO2 (BEAKER) (test code = 355) 22 meq/L 22-29 [employer] Supervisor ID - SANDRITA LLYIXWFFVXS0854-13-39 12:43:00 Test Item Value Reference Range Interpretation Comments CREATININE (BEAKER) 1.21 mg/dL 0.57-1.25 (test code = 358) EGFR (BEAKER) (test 58 mL/min/1.73 ESTIMA FERNY GFR IS code = 1092) sq m NOT ACCURATE CREATININE CLEARANCE IN PREDICTING GLOMERULAR FILTRATION RATE . ESTIMATED GFR I S NOT APPLICABLE FOR DIALYSIS PATIEN TS. [employer] Supervisor ID - SANDRITA CPT/NLQ6212-04-92 12:34:00 Test Item Value Reference Interpretation Comments Range Protime (test code = 13.0 See_Comment [Autom ated 4222-2) message] The system which generated this result transmitted reference range : 11.9 - 14.2 seconds. The reference range was not used to interpret this result as normal/abnormal . INR (test code = 1.0 See_Comment [Automated 2931-6) message] The system which generated this result transmitted reference range : <=5.9. The reference range was not used to interpret this result as normal/abnormal . JAMAR (test code = Effective 11/08/2018: JAMAR) PT Reference Range ChangeNew: 11.9-14.2 Previous: 11.7-14.7 RECOMMENDED COUMADIN/WARFARIN INR THERAPY RANGESSTANDARD DOSE: 2.0-3.0 Includes: PROPHYLAXIS for venous thrombosis, systemic embolization; TREATMENT for venous thrombosis and/or pulmonary embolus.HIGH RISK: Target INR is 2.5-3.5 for patients wiht mechanical heart valves. Lab Interpretation Normal (test code = 75868-8) [facility] CenterPROTHROMBIN TIME/[id number] 12:34:00 Test Item Value Reference Range Interpretation [...] mechanical heart valves.CBC W/PLT COUNT & AUTO [id number] 12:26:00 Test Item Value Reference Range Interpretation [...] (BEAKER) (test code = 2801) BASIC METABOLIC [id number] 06:50:00 Test Item Value Reference Range Interpretation [...] ESTIMATED GFR. CBC W/PLT COUNT & AUTO [id number] 06:31:00 Test Item Value Reference Range Interpretation [...] 0-1 PERCENT (BEAKER) (test code = 2801) [id number] 06:21:00 Test Item Value Reference Range Interpretation Comments MAGNESIUM (BEAKER) (test code = 1.9 mg/dL 1.6-2.6 627) BASIC METABOLIC [id number] 07:17:00 Test Item Value Reference Range Interpretation [...] ESTIMATED GFR. CBC W/PLT COUNT & AUTO [id number] 07:10:00 Test Item Value Reference Range Interpretation [...] (BEAKER) (test code = 2801) BASIC METABOLIC [id number] 05:28:00 Test Item Value Reference Range Interpretation [...] ESTIMATED GFR. CBC W/PLT COUNT & AUTO [id number] 04:45:00 Test Item Value Reference Range Interpretation [...] = 2801) RAD, CHEST, 1 VIEW, NON [id number] 08:22:00Reason for exam:->s/p acbShould this be performed [...] MDReport Verified Date/Time: 12/02/2018 08:22:53 Reading Location: [address] Ortho Consult Reading Room BASIC METABOLIC [id number] 06:20:00 Test Item Value Reference Range Interpretation [...] ESTIMATED GFR. CBC W/PLT COUNT & AUTO [id number] 05:56:00 Test Item Value Reference Range Interpretation [...] PERCENT (BEAKER) (test code = 2801) POCT-GLUCOSE [id number] 21:34:00 Test Item Value Reference Range Interpretation Comments POC-GLUCOSE METER 116 mg/dL 70-[address] [facility] 6720 [facility] ([facility] 1538) [address] POCT-GLUCOSE [id number] 17:08:00 Test Item Value Reference Range Interpretation Comments POC-GLUCOSE METER 127 mg/dL 70-110 H TESTED AT [place] [address] [facility] (test code = [facility] 1538) [address] POCT-GLUCOSE [id number] 13:27:00 Test Item Value Reference Range Interpretation Comments POC-GLUCOSE METER 136 mg/dL 70-110 H TESTED AT [place] [address] ([facility]) (test code = [facility] 1538) [address] POCT-GLUCOSE [id number] 09:14:00 Test Item Value Reference Range Interpretation Comments POC-GLUCOSE METER 170 mg/dL 70-110 H TESTED AT [place] [address] ([facility]) (test code = [facility] 1538) [address] BASIC METABOLIC [id number] 06:32:00 Test Item Value Reference Range Interpretation [...] m DATA TO CALCULA TE ESTIMATED GFR. [id number] 06:31:00 Test Item Value Reference Range Interpretation Comments PHOSPHORUS (BEAKER) (test code = 1.9 mg/dL 2.3-4.7 L 604) [id number] 06:31:00 Test Item Value Reference Range Interpretation [...] 0-0 (BEAKER) (test code = 413) POCT-GLUCOSE [id number] 01:01:00 Test Item Value Reference Range Interpretation Comments POC-GLUCOSE METER 136 mg/dL 70-110 H TESTED AT [place] [address] ([facility]) (test code = [place] 1538) [address] POCT-GLUCOSE [id number] 17:11:00 Test Item Value Reference Range Interpretation Comments POC-GLUCOSE METER 147 mg/dL 70-[address] [facility] 6720 (BEAKER) (test code = [place] 1538) [address] POCT-GLUCOSE [id number] 12:36:00 Test Item Value Reference Range Interpretation Comments POC-GLUCOSE METER 128 mg/dL 70-[address] [facility] 6720 (BEAKER) (test code = KARINA Ramirez [facility] 1538) [address] POCT-GLUCOSE [id number] 10:49:00 Test Item Value Reference Range Interpretation Comments POC-GLUCOSE METER 147 mg/dL 70-[address] [facility] 6720 (BEAKER) (test code = KARINA Ramirez [facility] 1538) [address] POCT-GLUCOSE [id number] 08:55:00 Test Item Value Reference Range Interpretation Comments POC-GLUCOSE METER 136 mg/dL 70-[address] [facility] 6720 (BEAKER) (test code = KAR[address] Ramirez [facility] 1538) [address] RAD, CHEST, 1 VIEW, NON [id number] 05:50:00while patient is intubated or has chest [...] surgical changes.Additional findings: None. Signed: Mckenna Noel [facility] Verified Date/Time: 11/30/2018 05:50:39 BASIC METABOLIC [id number] 04:54:00 Test Item Value Reference Range Interpretation [...] m DATA TO CALCULA TE ESTIMATED GFR. [id number] 04:42:00 Test Item Value Reference Range Interpretation Comments PHOSPHORUS (BEAKER) (test code = 3.0 mg/dL 2.3-4.7 604) [id number] 04:42:00 Test Item Value Reference Range Interpretation Comments MAGNESIUM (BEAKER) (test code = 2.2 mg/dL 1.6-2.6 627) LACTIC ACID, [id number] 04:37:00 Test Item Value Reference Range Interpretation Comments LACTATE BLOOD ARTERIAL (2) 1.4 mmol/L 0.5-2.2 (BEAKER) (test code = 2874) GLUCOSE-STAT [id number] 04:32:00 Test Item Value Reference Range Interpretation Comments GLUCOSE RANDOM (BEAKER) (test code 145 mg/dL 70-110 H = 652) HGB/HCT (H&H) - STAT [id number] 04:32:00 Test Item Value Reference Range Interpretation Comments HEMOGLOBIN (BEAKER) (test code = 9.4 g/dL 13.0-16.8 L 410) HEMATOCRIT (BEAKER) (test code = 28.0 % 40.0-50.0 L 411) BLOOD GAS, [id number] 04:31:00 Test Item Value Reference Range Interpretation [...] code = 1819) 28.0 % SODIUM NA-STAT [id number] 04:31:00 Test Item Value Reference Range Interpretation Comments SODIUM (BEAKER) (test code = 381) 140 meq/L 135-148 POTASSIUM-STAT [id number] 04:31:00 Test Item Value Reference Range Interpretation [...] (BEAKER) (test code = 413) BLOOD GAS, [id number] 00:51:00 Test Item Value Reference Range Interpretation [...] (test code = 1819) 40.0 % GLUCOSE-STAT [id number] 00:49:00 Test Item Value Reference Range Interpretation Comments GLUCOSE RANDOM (BEAKER) (test code 157 mg/dL 70-110 H = 652) HGB/HCT (H&H) - STAT [id number] 00:49:00 Test Item Value Reference Range Interpretation Comments HEMOGLOBIN (BEAKER) (test code = 9.1 g/dL 13.0-16.8 L 410) HEMATOCRIT (BEAKER) (test code = 27.0 % 40.0-50.0 L 411) SODIUM NA-STAT [id number] 00:48:00 Test Item Value Reference Range Interpretation Comments SODIUM (BEAKER) (test code = 381) 139 meq/L 135-148 POTASSIUM-STAT [id number] 00:48:00 Test Item Value Reference Range Interpretation Comments POTASSIUM (BEAKER) (test code = 4.2 meq/L 3.6-5.5 379) LACTIC ACID, [id number] 00:44:00 Test Item Value Reference Range Interpretation Comments LACTATE BLOOD ARTERIAL (2) 1.5 mmol/L 0.5-2.2 (BEAKER) (test code = 2874) SODIUM NA-STAT [id number] 20:25:00 Test Item Value Reference Range Interpretation Comments SODIUM (BEAKER) (test code = 381) 139 meq/L 135-148 POTASSIUM-STAT [id number] 20:25:00 Test Item Value Reference Range Interpretation Comments POTASSIUM (BEAKER) (test code = 4.0 meq/L 3.6-5.5 379) BLOOD GAS, [id number] 20:25:00 Test Item Value Reference Range Interpretation [...] (test code = 1819) 40.0 % GLUCOSE-STAT [id number] 20:25:00 Test Item Value Reference Range Interpretation Comments GLUCOSE RANDOM (BEAKER) (test code 141 mg/dL 70-110 H = 652) HGB/HCT (H&H) - STAT [id number] 20:25:00 Test Item Value Reference Range Interpretation Comments HEMOGLOBIN (BEAKER) (test code = 8.6 g/dL 13.0-16.8 L 410) HEMATOCRIT (BEAKER) (test code = 25.0 % 40.0-50.0 L 411) LACTIC ACID, [id number] 19:39:00 Test Item Value Reference Range Interpretation Comments LACTATE BLOOD ARTERIAL (2) 3.9 mmol/L 0.5-2.2 H (BEAKER) (test code = 2874) BLOOD GAS, [id number] 19:19:00 Test Item Value Reference Range Interpretation [...] (test code = 1819) 36.0 % GLUCOSE-STAT [id number] 19:19:00 Test Item Value Reference Range Interpretation Comments GLUCOSE RANDOM (BEAKER) (test code 138 mg/dL 70-110 H = 652) HGB/HCT (H&H) - STAT [id number] 19:19:00 Test Item Value Reference Range Interpretation Comments HEMOGLOBIN (BEAKER) (test code = 8.8 g/dL 13.0-16.8 L 410) HEMATOCRIT (BEAKER) (test code = 26.0 % 40.0-50.0 L 411) SODIUM NA-STAT [id number] 19:18:00 Test Item Value Reference Range Interpretation Comments SODIUM (BEAKER) (test code = 381) 140 meq/L 135-148 POTASSIUM-STAT [id number] 19:18:00 Test Item Value Reference Range Interpretation Comments POTASSIUM (BEAKER) (test code = 4.2 meq/L 3.6-5.5 379) BLOOD GAS, [id number] 18:18:00 Test Item Value Reference Range Interpretation [...] (test code = 1819) 40.0 % POCT-GLUCOSE [id number] 17:52:00 Test Item Value Reference Range Interpretation Comments POC-GLUCOSE METER 173 mg/dL 70-[address] [facility] 6720 (BEAKER) (test code = [place] 1538) [address] LACTIC ACID, [id number] 16:58:00 Test Item Value Reference Range Interpretation Comments LACTATE BLOOD ARTERIAL (2) 4.1 mmol/L 0.5-2.2 H (BEAKER) (test code = 2874) BLOOD GAS, [id number] 16:11:00 Test Item Value Reference Range Interpretation [...] (test code = 1819) 40.0 % GLUCOSE-STAT [id number] 16:11:00 Test Item Value Reference Range Interpretation Comments GLUCOSE RANDOM (BEAKER) (test code 154 mg/dL 70-110 H = 652) HGB/HCT (H&H) - STAT [id number] 16:11:00 Test Item Value Reference Range Interpretation Comments HEMOGLOBIN (BEAKER) (test code = 9.1 g/dL 13.0-16.8 L 410) HEMATOCRIT (BEAKER) (test code = 27.0 % 40.0-50.0 L 411) SODIUM NA-STAT [id number] 16:10:00 Test Item Value Reference Range Interpretation Comments SODIUM (BEAKER) (test code = 381) 140 meq/L 135-148 POTASSIUM-STAT [id number] 16:10:00 Test Item Value Reference Range Interpretation Comments POTASSIUM (BEAKER) (test code = 4.2 meq/L 3.6-5.5 379) RAD, CHEST, 1 VIEW, NON [id number] 15:02:00Reason for exam:->Status post CV Surgery post [...] MDReport Verified Date/Time: 11/29/2018 15:02:46 Reading Location: [facility] B1 C013W Consult Reading Room Electronically signed by: MALLIKA GEORGES M.D.on 11/29/2018 03:02 PMBASIC METABOLIC [id number] 14:01:00 Test Item Value Reference Range Interpretation [...] m DATA TO CALCULA TE ESTIMATED GFR. [id number] 13:57:00 Test Item Value Reference Range Interpretation Comments PHOSPHORUS (BEAKER) (test code = 2.9 mg/dL 2.3-4.7 604) [id number] 13:57:00 Test Item Value Reference Range Interpretation Comments MAGNESIUM (BEAKER) (test code = 1.8 mg/dL 1.6-2.6 627) [id number] 13:56:00 Test Item Value Reference Range Interpretation Comments FIBRINOGEN LEVEL (BEAKER) (test 277 mg/dl 225-434 code = 658) [id number] 13:56:00 Test Item Value Reference Range Interpretation Comments PARTIAL THROMBOPLASTIN TIME 32.8 seconds 22.5-36.0 (BEAKER) (test code = 760) PROTHROMBIN TIME/[id number] 13:55:00 Test Item Value Reference Range Interpretation [...] for patients wiht mechanical heart valves.LACTIC ACID, [id number] 13:53:00 Test Item Value Reference Range Interpretation Comments LACTATE BLOOD ARTERIAL (2) 3.5 mmol/L 0.5-2.2 H (BEAKER) (test code = 2874) CBC W/PLT COUNT & AUTO [id number] 13:52:00 Test Item Value Reference Range Interpretation [...] (BEAKER) (test code = 2801) BLOOD GAS, [id number] 13:44:00 Test Item Value Reference Range Interpretation [...] code = 1819) 40.0 % OXYGEN SATURATION, [id number] 13:42:00 Test Item Value Reference Range Interpretation Comments O2 SATURATION (MEASURED) ([facility]) 70.8 % (test code = 1455) [id number] 11:18:00 Test Item Value Reference Range Interpretation Comments ACTIVATED CLOTTING TIME 109 sec TEST ED AT [place] [address] ([facility]) (test code = KARINA Ramirez [place] [address]) [address] [id number] 11:18:00 Test Item Value Reference Range Interpretation Comments ACTIVATED CLOTTING TIME 549 sec TEST ED AT [place] [address] ([facility]) (test code = KARINA Ramirez [place] 441) [address] [id number] 11:18:00 Test Item Value Reference Range Interpretation Comments ACTIVATED CLOTTING TIME 494 sec TEST ED AT [place] [address] ([facility]) (test code = KARINA Ramirez [place] [address]) [address] [id number] 11:18:00 Test Item Value Reference Range Interpretation Comments ACTIVATED CLOTTING TIME 428 sec TEST ED AT [place] [address] ([facility]) (test code = KARINA Ramirez [place] [address]) [address] PROTHROMBIN [id number] 11:02:00 Test Item Value Reference Range Interpretation Comments PROTIME ([facility]) (test code = 17.6 seconds 11.9-14.2 H 759) INR ([facility]) (test code = 370) 1.5 <=5.9 Effective 11/08/2018: PT Reference Range ChangeNew: 11.9-14.2 Previous: 11.7- 14.7RECOMMENDED COUMADIN/WARFARIN INR THERAPY RANGESSTANDARD DOSE: 2.0-3.0 Includes: PROPHYLAXIS for venous thrombosis, systemic embolization; TREATMENT for venous thrombosis and/or pulmonary embolus.HIGH RISK: Target INR is2.5-3.5 for patients wiht mechanical heart valves.[id number] 11:02:00 Test Item Value Reference Range Interpretation Comments PARTIAL THROMBOPLASTIN TIME 32.7 seconds 22.5-36.0 ([facility]) (test code = 760) [id number] 11:02:00 Test Item Value Reference Range Interpretation Comments FIBRINOGEN LEVEL ([facility]) (test 229 mg/dl 225-434 code = 658) PLATELET [id number] 10:48:00 Test Item Value Reference Range Interpretation Comments PLATELET COUNT (BEAKER) (test 111 K/CU MM 150-450 L code = 756) BLOOD GAS, [id number] 10:41:00 Test Item Value Reference Range Interpretation [...] (test code = 1819) 100.0 % GLUCOSE-STAT [id number] 10:41:00 Test Item Value Reference Range Interpretation Comments GLUCOSE RANDOM (BEAKER) (test code 205 mg/dL 70-110 H = 652) HGB/HCT (H&H) - STAT [id number] 10:41:00 Test Item Value Reference Range Interpretation Comments HEMOGLOBIN (BEAKER) (test code = 9.5 g/dL 13.0-16.8 L 410) HEMATOCRIT (BEAKER) (test code = 28.0 % 40.0-50.0 L 411) SODIUM NA-STAT [id number] 10:39:00 Test Item Value Reference Range Interpretation Comments SODIUM (BEAKER) (test code = 381) 135 meq/L 135-148 POTASSIUM-STAT [id number] 10:39:00 Test Item Value Reference Range Interpretation Comments POTASSIUM (BEAKER) (test code = 4.5 meq/L 3.6-5.5 379) CALCIUM, [id number] 10:39:00 Test Item Value Reference Range Interpretation Comments CALCIUM IONIZED (BEAKER) (test 1.20 mmol/L 1.12-1.27 code = 698) PH, BLOOD (BEAKER) (test code = 7.37 1810) HGB/HCT (H&H) - STAT [id number] 10:01:00 Test Item Value Reference Range Interpretation Comments HEMOGLOBIN (BEAKER) (test code = 9.2 g/dL 13.0-16.8 L 410) HEMATOCRIT (BEAKER) (test code = 27.0 % 40.0-50.0 L 411) POTASSIUM-STAT [id number] 10:00:00 Test Item Value Reference Range Interpretation Comments POTASSIUM (BEAKER) (test code = 5.5 meq/L 3.6-5.5 379) BLOOD GAS, [id number] 10:00:00 Test Item Value Reference Range Interpretation [...] (test code = 1819) 70.0 % GLUCOSE-STAT [id number] 10:00:00 Test Item Value Reference Range Interpretation Comments GLUCOSE RANDOM (BEAKER) (test code 222 mg/dL 70-110 H = 652) SODIUM NA-STAT [id number] 10:00:00 Test Item Value Reference Range Interpretation Comments SODIUM (BEAKER) (test code = 381) 133 meq/L 135-148 L BLOOD GAS, [id number] 09:37:00 Test Item Value Reference Range Interpretation [...] (test code = 1819) 65.0 % POTASSIUM-STAT [id number] 09:36:00 Test Item Value Reference Range Interpretation Comments POTASSIUM (BEAKER) (test code = 4.5 meq/L 3.6-5.5 379) BLOOD GAS, [id number] 09:36:00 Test Item Value Reference Range Interpretation [...] code = 1819) 65.0 % SODIUM NA-STAT [id number] 09:36:00 Test Item Value Reference Range Interpretation Comments SODIUM (BEAKER) (test code = 381) 134 meq/L 135-148 L GLUCOSE-STAT [id number] 09:36:00 Test Item Value Reference Range Interpretation Comments GLUCOSE RANDOM (BEAKER) (test code 208 mg/dL 70-110 H = 652) HGB/HCT (H&H) - STAT [id number] 09:36:00 Test Item Value Reference Range Interpretation Comments HEMOGLOBIN (BEAKER) (test code = 10.2 g/dL 13.0-16.8 L 410) HEMATOCRIT (BEAKER) (test code = 30.0 % 40.0-50.0 L 411) BLOOD GAS, [id number] 08:44:00 Test Item Value Reference Range Interpretation [...] (test code = 1819) 100.0 % GLUCOSE-STAT [id number] 08:44:00 Test Item Value Reference Range Interpretation Comments GLUCOSE RANDOM (BEAKER) (test code 128 mg/dL 70-110 H = 652) HGB/HCT (H&H) - STAT [id number] 08:44:00 Test Item Value Reference Range Interpretation Comments HEMOGLOBIN (BEAKER) (test code = 13.3 g/dL 13.0-16.8 410) HEMATOCRIT (BEAKER) (test code = 39.0 % 40.0-50.0 L 411) SODIUM NA-STAT [id number] 08:36:00 Test Item Value Reference Range Interpretation Comments SODIUM (BEAKER) (test code = 381) 139 meq/L 135-148 POTASSIUM-STAT [id number] 08:36:00 Test Item Value Reference Range Interpretation Comments POTASSIUM (BEAKER) (test code = 4.1 meq/L 3.6-5.5 379) BASIC METABOLIC [id number] 02:31:00 Test Item Value Reference Range Interpretation [...] m DATA TO CALCULA TE ESTIMATED GFR. [id number] 02:17:00 Test Item Value Reference Range Interpretation [...] = 413) RAD, CHEST, 1 VIEW, NON [id number] 19:20:00Reason for exam:->preopShould this be performed at [...] evaluation if clinically appropriate. Signed: Sue Germain [facility] Verified Date/Time: 11/28/2018 19:20:43 Reading Location: [address] Reading Room PT/APTT 2018-11-28 18:42:00 Test [...] INR is2.5-3.5 for patients wiht mechanical heart valves.[id number] 18:42:00 Test Item Value Reference Range Interpretation Comments PARTIAL THROMBOPLASTIN TIME 31.8 seconds 22.5-36.0 (BEAKER) (test code = 760) PROTHROMBIN TIME/[id number] 18:41:00 Test Item Value Reference Range Interpretation [...] for patients wiht mechanical heart valves.BASIC METABOLIC [id number] 17:25:00 Test Item Value Reference Range Interpretation [...] DATA TO CALCULA TE ESTIMATED GFR. HEMOGLOBIN [id number] 17:23:00 Test Item Value Reference Range Interpretation Comments HEMOGLOBIN A1C (BEAKER) (test code = 6.2 % 4.3-6.1 H 368) LIPID [id number] 17:18:00 Test Item Value Reference Range Interpretation [...]
== END 2020-07-21 13:30 | disposition home or self-care (01) ==
LOC: CCL 09:10
DX: I70.213 Atherosclerosis of native arteries of extremities with intermittent claudication, bilateral legs (principal); I25.10 Atherosclerotic heart disease of native coronary artery without angina pectoris; I10 Essential (primary) hypertension; E78.5 Hyperlipidemia, unspecified; Z20.822 Contact with and (suspected) exposure to COVID-19
CPT/HCPCS: 93005; 85025; 80048; 36415; 85610; 82947 ×2; 85730; 71046; 36200; 75630; U0002; C1893; J2250; J3010; J7040; J1644 ×2; J0583; J1200; J2930

== ENCOUNTER 2022-05-13 13:24 | Inpatient (IN) | payer OTHER ==
--- OUTSIDE RECORDS SUMMARY | 2022-05-13 13:30 | XMS REPORT | Continuity of Care Document ---
:1940 Author Organization [facility] t Address [address] [place] [address] Care Team Providers Name Role Phone DAIN DE LA ROSA Attending Clinician Unavailable LEONOR RODRIGUEZ Attending Clinician Unavailable LEONOR RODRIGUEZ Attending Clinician Unavailable DASH PIPER Attending Clinician Unavailable DAIN DE LA ROSA Admitting Clinician Unavailable LEONOR RODRIGUEZ Admitting Clinician Unavailable DASH PIPER Admitting Clinician Unavailable Payers Payer Name Policy Type Policy Number Effective Date Expiration Date S nadir MEDICARE A B [id number] 2003 00:00:00 AETNA INDEMNITY [id number] 2000 NON CONTR 00:00:00 CDCREVIEW [id number] 2019 00:00:00 MEDICARE PART A [id number] \\T\\ B - MEDICARE INDEMNITY/TRADITIO [id number] 2000 NAL CHOICE - AETNA 00:00:00 [id number] HRSA [id number] CDC REVIEW [id number] 2019 00:00:00 Problems Condition Condition Condition Status Onset Resolution Last Treating Co mments Source Name Details Category Date Date Treatment Clinician Date PAD PAD Disease Active [facility] (periphera (periphera 3-31 Co llege l artery l artery 00:00: of disease) disease) 00 Medici n (HCCode) (HCCode) e Allergies, Adverse Reactions, Alerts Allergy Allergy Status Severity Reaction(s) Onset Inactive Treating Comm ents Source Name Type Date Date Clinician NO KNOWN Allergy Active [facility] Social History Social Habit Start Date Stop Date Quantity Comments Source Alcohol intake 2021-10-01 2021-10-01 Ex-drinker [facility] Col lege 00:00:00 00:00:00 (finding) of Medicine Tobacco use and 2021-09-09 2021-09-09 Smokeless tobacco [employer] exposure 00:00:00 00:00:00 non-user of Medicine Sex Ass[birth year] At [birth year] [facility] [employer] 00:00:00 00:00:00 of Medicine Smoking Status Start Date Stop Date Source Never smoked tobacco [facility] Gianni ege of Medicine Medications Ordered Filled Start Stop Current Ordering Indication Dosage Frequency Signature Comments Components Source Medication Medication Date Date Medication? Clinician (SIG) Name Name aspirin 325 Yes 325mg Take 325 [facility] TBEC 4-20 mg by College 13:48: mouth. of 13 Medicin e levothyroxi Yes 75ug Take 75 [facility] camilo ne 4-20 mcg by [place] (SYNTHROID) 13:47: mouth of 75 MCG 16 daily. Medicin tablet e metformin Yes 500mg Take 500 [facility] (GLUCOPHAGE 4-20 mg by [place] ) 500 MG 13:47: mouth 2 of tablet 16 times Medicin daily e (with meals). metoprolol Yes 25mg Take 25 mg [facility] (TOPROL-XL) 4-20 by mouth Gianin ege 25 MG XL 13:47: daily. of tablet 16 Medicin e atorvastati Yes 40mg Take 40 mg Floyd n (LIPITOR) 4-20 by mouth Gianni ege 40 MG 13:47: daily. of tablet 16 Medicin e Multiple Yes Take by [facility] Vitamins-Mi 4-20 mouth. Colleg e nerals 13:47: of (CENTRUM 16 Medicin ADULTS OR) e Vital Signs Vital Name Observation Time Observation Value Comments Source HEIGHT 2019-12-06 00:00:00 177.8 cm WEIGHT 2019-12-06 00:00:00 107.502 kg WEIGHT 2019-11-19 00:00:00 109.952 kg HEIGHT 2019-11-19 00:00:00 177.8 cm Systolic blood 2021-09-30 18:40:00 157 mm[Hg] [facility] pressure Medicine Diastolic blood 2021-09-30 18:40:00 71 mm[Hg] [facility] pressure Medicine Heart rate 2021-09-30 18:40:00 94 /min [facility] Respiratory rate 2021-09-30 18:40:00 16 /min [facility] Body height 2021-09-30 18:40:00 177.8 cm [facility] Body weight 2021-09-30 18:40:00 87.544 kg [facility] BMI 2021-09-30 18:40:00 27.69 kg/m2 [facility] HEIGHT 2021-09-18 07:25:00 177.8 cm WEIGHT 2021-09-18 07:25:00 83.008 kg HEIGHT 2021-09-18 07:25:00 177.8 cm WEIGHT 2021-09-18 07:25:00 83.008 kg HEIGHT 2021-09-16 11:55:00 177.8 cm WEIGHT 2021-09-16 11:55:00 107.502 kg HEIGHT 2021-09-16 11:55:00 177.8 cm WEIGHT 2021-09-16 11:55:00 107.502 kg HEIGHT 2020-02-04 00:00:00 177.8 cm WEIGHT 2020-02-04 00:00:00 107.502 kg HEIGHT 2019-12-06 00:00:00 177.8 cm WEIGHT 2019-12-06 00:00:00 107.502 kg HEIGHT 2020-01-17 00:00:00 177.8 cm WEIGHT 2020-01-17 00:00:00 108.41 kg HEIGHT 2020-01-17 00:00:00 177.8 cm WEIGHT 2020-01-17 00:00:00 108.41 kg HEIGHT 2019-12-06 00:00:00 177.8 cm WEIGHT 2019-12-06 00:00:00 109.77 kg WEIGHT 2019-11-19 00:00:00 109.952 kg HEIGHT 2019-11-19 00:00:00 177.8 cm HEIGHT 2019-11-19 00:00:00 180.3 cm WEIGHT 2019-11-19 00:00:00 110.36 kg HEIGHT 2019-11-19 00:00:00 180.3 cm WEIGHT 2019-11-19 00:00:00 110.36 kg Procedures This patient has no known procedures. Plan of Care Planned Activity Planned Date Details Comments Source Future Scheduled 2021-10-01 COVID-19 Vaccine (1) [employer] Test 11:37:02 [code = COVID-19 of Medicine Vaccine (1)] Future Scheduled 2021-10-01 TETANUS SHOT (ADULT) [employer] Test 11:37:02 [code = TETANUS SHOT of Medi cine (ADULT)] Future Scheduled 2021-10-01 BMI FOLLOW UP PLAN [facility] r [facility] Test 11:37:02 [code = BMI FOLLOW of Medici ne UP PLAN] Future Scheduled 2021-10-01 ZOSTER VACCINE (1 of [employer] Test 11:37:02 2) [code = ZOSTER of Medicin e VACCINE (1 of 2)] Future Scheduled 2021-10-01 Pneumococcal 65+ (1 [employer] Test 11:37:02 of 1 - PPSV23) [code of Medi cine = Pneumococcal 65+ (1 of 1 - PPSV23)] Future Scheduled 2021-10-01 MEDICARE AWV [facility] Gianni ege Test 11:37:02 (Initial) [code = of Medicin e MEDICARE AWV (Initial)] Future Scheduled 2021-10-01 FLU VACCINE > 6 [facility] C [employer]lege Test 11:37:02 MONTHS [code = FLU of Medici ne VACCINE > 6 MONTHS] Future Scheduled 2021-10-01 FALL SCREEN [code = [employer] Test 11:37:02 FALL SCREEN] of Medicine Future Scheduled 2021-09-30 US ARTERIAL LEG 1 Occurrences [facility] College Test 14:32:13 RIGHT [code = 02546] starting of Medi cine 09/30/2021 until 09/30/2022 Encounters Start End Encounter Admission Attending Care Care Encounter Source Date/Time Date/Time Type Type Clinicians Facility Department ID 2021-03-17 Inpatient [facility] Surgery [id number] [facility] 21:45:48 DAIN 2021-03-17 Inpatient [facility] Surgery [id number] [facility] 19:48:35 DAIN 2021-09-30 2021-09-30 Office LATANYA RODRIGUEZ [id number] [facility] 11:12:06 16:44:27 Visit LEONOR AMBULATOR [id number] College Y [id number] Medi luciana 825 e 2021-09-30 2021-09-30 Outpatient [facility] [id number] [facility] 11:10:54 11:10:54 Eva e of Medicin e 2021-09-18 2021-09-18 Outpatient [facility] [id number] [facility] 07:14:00 16:50:00 LEONOR 2021-09-16 2021-09-16 Outpatient BETHEL [facility] [id number] [facility] 11:43:35 11:43:35 2021-09-09 2021-09-09 Outpatient RODRIGUEZ CHAPARROIlene [facility] [id number] [facility] 12:47:33 15:52:44 LEONOR Velasquez e of Medicin e 2020-02-04 2020-02-04 Outpatient BETHEL DE LA ROSA [facility] [id number] SLE 00:00:00 00:00:00 DAIN 2020-01-17 2020-01-17 Outpatient BETHEL [facility] [id number] [facility] 00:00:00 00:00:00 2020-01-16 2020-01-16 Outpatient BETHEL [facility] [id number] SLE 00:00:00 00:00:00 2019-12-06 2019-12-06 Outpatient HILARY [facility] [id number] SLE 00:00:00 00:00:00 DAIN 2019-11-20 2019-11-20 Outpatient BETHEL [facility] [id number] SLE 00:00:00 00:00:00 2019-11-19 2019-11-19 Outpatient BETHEL DE LA ROSA [facility] [id number] SLE 00:00:00 00:00:00 DAIN Results Test Description Test Time Test Comments Results Result Comments Source POCT-GLUCOSE METER 2021-09-18 13:06:06 Test Item Value Reference Range Interpretation Comme nts POC-GLUCOSE METER (BEAKER) 92 mg/dL 70-110 : TESTED AT [address] (test code = 1538) [place] [id number]: Patient Centered Care Specialist/Techni curtis ID = [id number] for Jessi Major BASIC METABOLIC [id number] 08:31:03 Test Item Value Reference Range Interpretation Comments SODIUM (BEAKER) 140 meq/L 136-145 (test code = 381) POTASSIUM (BEAKER) 4.5 meq/L 3.5-5.1 Specimen slightly (test code = 379) hemolyzed CHLORIDE (BEAKER) 102 meq/L 98-107 (test code = 382) CO2 (BEAKER) (test 30 meq/L 22-29 H code = 355) BLOOD UREA NITROGEN 26 mg/dL 7-21 H (BEAKER) (test code = 354) CREATININE (BEAKER) 1.37 mg/dL 0.57-1.25 H Specimen slightly (test code = 358) hemolyzed GLUCOSE RANDOM 112 mg/dL 70-105 H (BEAKER) (test code = 652) CALCIUM (BEAKER) 9.0 mg/dL 8.4-10.2 (test code = 697) EGFR (BEAKER) (test 50 mL/min/1.73 ESTIMA FERNY GFR IS code = 1092) sq m NOT ACCURATE CREATININE CLEARANCE IN PREDICTING GLOMERULAR FILTRATION RATE . ESTIMATED GFR I S NOT APPLICABLE FOR DIALYSIS PATIEN TS. Patient Centered Care Specialist ID - [id number] 08:22:27 Test Item Value Reference Range Interpretation Comments PROTIME (BEAKER) (test 13.1 seconds 11.9-14.2 code = 759) INR (BEAKER) (test 1.01 See_Comment [Automat ed code = 370) message] The sy stem which generated this result transmitted reference range : <=5.90. The reference range was not used to interpret this result as normal/abnormal . PARTIAL THROMBOPLASTIN 30.8 seconds 22.5-36.0 TIME (BEAKER) (test code = 760) RECOMMENDED COUMADIN/WARFARIN INR THERAPY RANGESSTANDARD DOSE: 2.0 - 3.0 Includes: PROPHYLAXIS for venous thrombosis, systemic embolization; TREATMENT for venous thrombosis and/or pulmonary embolus.HIGH RISK: Target INR is 2.5-3.5 for patients with mechanical heart valves.PROTHROMBIN [id number] 08:19:45 Test Item Value Reference Range Interpretation Comments PROTIME (BEAKER) 13.1 seconds 11.9-14.2 (test code = 759) INR (BEAKER) (test 1.01 See_Comment [Automat ed message] code = 370) The system [employer]bra[employer] generated this result transmitted ref erence range: <=5.90. The reference range was not used to int erpret this result as normal/abnormal . RECOMMENDED COUMADIN/WARFARIN INR THERAPY RANGESSTANDARD DOSE: 2.0 - 3.0 Includes: PROPHYLAXIS for venous thrombosis, systemic embolization; TREATMENT for venous thrombosis and/or pulmonary embolus.HIGH RISK: Target INR is 2.5-3.5 for patients with mechanical heart valves.SARS-COV2/RT-PCR ([facility]) 2021-09-16 20:40:47 Test Item Value Reference Range Interpretation Comments SARS-COV2/RT-PCR (test code = Negative Negative 1588322) Negative result for this test determines that [...] occur if a specimen is improperly collected, transported, or handled. A false negative result should be considered if patient's recent exposures or clinical presentation indicate that COVID-19 (SARS-CoV-2) is likely and diagnostic tests for other causes of illness are negative. Re-testing should be considered in cases of suspected false negatives.The limit of detection for this assay is 100 copies/mL.This SARS-CoV-2 test is a real-time RT_PCR test intended for the qualitative detection of [...] is revoked under Section 564(g) of the Act.Testing was performed using [employer] SARS-CoV-2 assay.Fact Sheet for Healthcare Providers:https://www.VSS Monitoring.iniguez/leo/RT SARS-CoV-2 HCP Fact Sheet 51- 048560.pdfFact Sheet for Healthcare Patients:https://www.VSS Monitoring.iniguez/leo/RT SARS-CoV-2 Patient Fact Sheet EN 51-878904L3.pdfBASIC METABOLIC [id number] 12:54:41 Test Item Value Reference Range Interpretation Comments SODIUM (BEAKER) 141 meq/L 136-145 (test code = 381) POTASSIUM (BEAKER) 5.2 meq/L 3.5-5.1 H (test code = 379) CHLORIDE (BEAKER) 104 meq/L 98-107 (test code = 382) CO2 (BEAKER) (test 32 meq/L 22-29 H code = 355) BLOOD UREA NITROGEN 23 mg/dL 7-21 H (BEAKER) (test code = 354) CREATININE (BEAKER) 1.37 mg/dL 0.57-1.25 H (test code = 358) GLUCOSE RANDOM 86 mg/dL 70-105 (BEAKER) (test code = 652) CALCIUM (BEAKER) 9.1 mg/dL 8.4-10.2 (test code = 697) EGFR (BEAKER) (test 50 mL/min/1.73 ESTIMA FERNY GFR IS code = 1092) sq m NOT ACCURATE CREATININE CLEARANCE IN PREDICTING GLOMERULAR FILTRATION RATE . ESTIMATED GFR I S NOT APPLICABLE FOR DIALYSIS PATIEN TS. Patient Centered Care Specialist ID - BSCBC W/PLT COUNT & AUTO [id number] 12:27:55 Test Item Value Reference Range Interpretation Comments WHITE BLOOD CELL COUNT (BEAKER) 8.2 K/ L 3.5-10.5 (test code = 775) RED BLOOD CELL COUNT (BEAKER) 4.19 M/ L 4.63-6.08 L (test code = 761) HEMOGLOBIN (BEAKER) (test code = 12.8 GM/DL 13.7-17.5 L 410) HEMATOCRIT (BEAKER) (test code = 41.5 % 40.1-51.0 411) MEAN CORPUSCULAR VOLUME (BEAKER) 99.0 fL 79.0-92.2 H (test code = 753) MEAN CORPUSCULAR HEMOGLOBIN 30.5 pg 25.7-32.2 (BEAKER) (test code = 751) MEAN CORPUSCULAR HEMOGLOBIN CONC 30.8 GM/DL 32.3-36.5 L (BEAKER) (test code = 752) RED CELL DISTRIBUTION WIDTH 13.4 % 11.6-14.4 (BEAKER) (test code = 412) PLATELET COUNT (BEAKER) (test 280 K/CU MM 150-450 code = 756) MEAN PLATELET VOLUME (BEAKER) 9.5 fL 9.4-12.4 (test code = 754) NUCLEATED RED BLOOD CELLS 0 /100 WBC 0-0 (BEAKER) (test code = 413) NEUTROPHILS RELATIVE PERCENT 67 % (BEAKER) (test code = 429) LYMPHOCYTES RELATIVE PERCENT 22 % (BEAKER) (test code = 430) MONOCYTES RELATIVE PERCENT 9 % (BEAKER) (test code = 431) EOSINOPHILS RELATIVE PERCENT 1 % (BEAKER) (test code = 432) BASOPHILS RELATIVE PERCENT 1 % (BEAKER) (test code = 437) NEUTROPHILS ABSOLUTE COUNT 5.54 K/ L 1.78-5.38 H (BEAKER) (test code = 670) LYMPHOCYTES ABSOLUTE COUNT 1.77 K/ L 1.32-3.57 (BEAKER) (test code = 414) MONOCYTES ABSOLUTE COUNT (BEAKER) 0.75 K/ L 0.30-0.82 (test code = 415) EOSINOPHILS ABSOLUTE COUNT 0.11 K/ L 0.04-0.54 (BEAKER) (test code = 416) BASOPHILS ABSOLUTE COUNT (BEAKER) 0.05 K/ L 0.01-0.08 (test code = 417) IMMATURE GRANULOCYTES-RELATIVE 0 % 0-1 PERCENT (BEAKER) (test code = 2801) TISSUE [id number] 18:04:00Surgical Pathology Report Case: [id number] Authorizing Provider: Dain De La Rosa, Collected: 01/21/2020 08:39 AM Ordering [facility] Received: 01/21/2020 10:40 AM PERIOPERATIVE SERVICES Pathologist: Troy Starr MD Specimen: Plaque, LEFT CAROTID PLAQUE ARTERY, LEFT CAROTID, ENDARTERECTOMY:CALCIFIC ATHEROSCLEROTIC PLAQUE Signing Pathologist Direct Phone Line: [phone] signed by Troy Starr MD on 01/25/2020 at 6:04 [id number]; [id number] diagnosis: Left carotid stenosisPlaqueReceived fresh labeled with the patient's name, accession number and "left carotid plaque" is a 5.0 x 1.2 x 0.7 cm aggregate of duggan-yellow tubular, focally calcified plaque. Buffing Machine Operator Semiautomatic sections are submitted in A1 following decalcification. PA/pl PerformedBASIC METABOLIC [id number] 06:08:00 Test Item Value Reference Range Interpretation [...] S NOT APPLICABLE FOR DIALYSIS PATIEN TS. Patient Centered Care Specialist ID - EDASICBC W/PLT COUNT & AUTO [id number] 05:59:00 Test Item Value Reference Range Interpretation [...] (BEAKER) (test code = 2801) BASIC METABOLIC [id number] 10:59:00 Test Item Value Reference Range Interpretation [...] S NOT APPLICABLE FOR DIALYSIS PATIEN TS. Patient Centered Care Specialist ID - DBCBC W/PLT COUNT & AUTO [id number] 10:53:00 Test Item Value Reference Range Interpretation [...] PERCENT (BEAKER) (test code = 2801) POCT-GLUCOSE [id number] 05:52:00 Test Item Value Reference Range Interpretation Comments POC-GLUCOSE METER 140 mg/dL 70-110 H : TESTED A T [facility] 6720 (BEAKER) (test code [facility], = 1538) [id number]: Patient Centered Care Specialist/Techni curtis ID = [id number] for JORD AN, LACRYSTAL PLATELET AGGREGATION: FUNCTION [id number] 09:30:00 Test Item Value Reference Range Interpretation Comments [id number] Joe Avalos MD (BEAKER) (test code = (electronic 2622) signature) PLATELET COUNT AGG 251 K/CU MM 150-450 (BEAKER) (test code = 2656) ADP (BEAKER) (test code 57 % 62-100 L = 4654) PLATELET RICH 318 k/cu mm 200-300 H PLASMA(BEAKER) (test code = 2134) PLATELET FUNCTION SCREEN Decreased aggregation INTERPRETATION (BEAKER) with ADP which (test code = 2734) indicates platelet dysfunction that may be due to medication effect, uremia, or other platelet function disorders. Clinical correlation is required. Platelet Function Screen results may be falsely low with platelet counts<75,000/cu mm.Patient Centered Care Specialist ID- [id number]-COV2/RT-PCR ([facility]) 2020-01-17 17:29:00 Test Item Value Reference Range Interpretation Comments SARS-COV2/RT-PCR (test Negative Not Detected, Negative, code = 8539040) See external report for linked test SARS-COV-2 PERFORMING LAB [facility] KEIRY (test code = 1418723) Negative result for this test determines that [...] justifying the authorization of the emergency use ofin vitro diagnostic tests for detection and/or diagnosis of COVID-19 is terminated under Section 564(b)(2) of the Act or the EUA is revoked under Section 564(g) of the Act.Fact Sheet for Healthcare Prov iders:https://www.LeisureLink.orderbolt/sites/default/files/product/documents/Fact_Sheet_HC _Vudagsshd_Hoku_DXGR-SgN-8.pdfFact Sheet for Healthcare Patients:https://www.[employer].orderbolt/sites/default/files/product/docume nts/Lqkk_Udpyn_Viiuiyud_Jvvh_ESKR-JxQ-7.pdfPerforming Laboratory:[facility] [facility], [place] [address]DRBQW METABOLIC PANEL 2020-01-17 12:16:00 Test Item Value [...] S NOT APPLICABLE FOR DIALYSIS PATIEN TS. Patient Centered Care Specialist ID - JUN CCBC W/PLT COUNT & AUTO [id number] 11:45:00 Test Item Value Reference Range Interpretation [...] PERCENT (BEAKER) (test code = 2801) TISSUE [id number] 13:34:00Surgical Pathology Report Case: [id number] Authorizing Provider: Dain De La Rosa, Collected: 11/22/2019 08:56 AM Ordering Location: [facility] Received: 11/22/2019 10:25 AM PERIOPERATIVE SERVICES Pathologist: Troy Starr MD Specimen: Plaque, RIGHT CAROTID ARTERY PLAQUE ARTERY, RIGHT CAROTID, ENDARTERECTOMY:CALCIFIC ATHEROSCLEROTIC PLAQUE Signing Pathologist Direct Phone Line: [phone] signed by Troy Starr MD on 12/03/2019 at 1:34 [id number]; [id number] stenosis, rightPlaqueReceived in formalin labeled with the patient's name, accession number and "right carotid artery plaque" is a 3.5 cm in length by 0.5-0.9 cm in diameter duggan-yellow tubular, bifurcated, focally calcified piece of plaque. Buffing Machine Operator Semiautomatic sections are submitted in A1 following decalcification.OUMOU Polanco (ASCP)cmPerformedRAD, CHEST, 1 VIEW, NON [id number] 05:16:00 Reason for exam:->post op screenShould this be performed [...] Signed: Mckenna Noel Verified Date/Time: 11/23/2019 05:16:09 HGB/HCT (H&H) - STAT [id number] 10:30:00 Test Item Value Reference Range Interpretation Comments HEMOGLOBIN (BEAKER) (test code = 12.1 g/dL 13.0-16.8 L 410) HEMATOCRIT (BEAKER) (test code = 36.0 % 40.0-50.0 L 411) POCT-GLUCOSE [id number] 05:49:00 Test Item Value Reference Range Interpretation Comments POC-GLUCOSE METER 146 mg/dL 70-110 H : TESTED A T [facility] 6720 (BEAKER) (test code [facility], = 1538) [id number]: Patient Centered Care Specialist/Techni curtis ID = [id number] for JORD AN, LACRYSTAL SARS-COV2/RT-PCR ([facility])2019-11-19 12:50:00 Test Item Value Reference Range Interpretation Comments SARS-COV2/RT-PCR (test Not Detected Not Detected, Negative code = 2658491) SARS-COV-2 PERFORMING LAB [facility] (test code = 4680008) Negative results do not preclude SARS-CoV-2 infection [...] of the Act.Fact Sheet for Healthcare Pro viders:https://www.[employer]/Documents/Xpert%20Xpress%20SARS%20CoV-2/Fact%20Sh eets/3023802%66SWEU-JMV-8%20HEALTHCARE%20PROVIDERS%20FACT%20SHEET.pdfFact Sheet for Healthcare Patients:https://www.[employer]/Documents/Xpert%20Xpress%20SARS%20CoV-2/Fact%20Sheets/3023801%20SARS-COV -2%20PATIENT%20FACT%20SHEET.pdfPerforming Laboratory:[place] [address], [place] [id number] 12:43:00 Test Item Value Reference Range Interpretation Comments BLOOD UREA NITROGEN (BEAKER) (test 18 mg/dL 7-21 code = 354) Patient Centered Care Specialist ID - SANDRITA [id number] 12:43:00 Test Item Value Reference Range Interpretation Comments SODIUM (BEAKER) (test code = 381) 136 meq/L 136-145 POTASSIUM (BEAKER) (test code = 4.6 meq/L 3.5-5.1 379) CHLORIDE (BEAKER) (test code = 382) 107 meq/L 98-107 CO2 (BEAKER) (test code = 355) 22 meq/L 22-29 Patient Centered Care Specialist ID - SANDRITA [id number] 12:43:00 Test Item Value Reference Range Interpretation Comments CREATININE (BEAKER) 1.21 mg/dL 0.57-1.25 (test code = 358) EGFR (BEAKER) (test 58 mL/min/1.73 ESTIMA FERNY GFR IS code = 1092) sq m NOT ACCURATE CREATININE CLEARANCE IN PREDICTING GLOMERULAR FILTRATION RATE . ESTIMATED GFR I S NOT APPLICABLE FOR DIALYSIS PATIEN WILTON. Patient Centered Care Specialist ID - SANDRITA CPROTHROMBIN [id number] 12:34:00 Test Item Value Reference Range Interpretation [...] is 2.5-3.5 for patients wiht mechanical heart valves.CBC W/PLT COUNT & AUTO [id number] 12:26:00 Test Item Value Reference Range Interpretation [...] (BEAKER) (test code = 2801) BASIC METABOLIC [id number] 06:50:00 Test Item Value Reference Range Interpretation [...] ESTIMATED GFR. CBC W/PLT COUNT & AUTO [id number] 06:31:00 Test Item Value Reference Range Interpretation [...] 0-1 PERCENT (BEAKER) (test code = 2801) [id number] 06:21:00 Test Item Value Reference Range Interpretation Comments MAGNESIUM (BEAKER) (test code = 1.9 mg/dL 1.6-2.6 627) BASIC METABOLIC [id number] 07:17:00 Test Item Value Reference Range Interpretation [...] ESTIMATED GFR. CBC W/PLT COUNT & AUTO [id number] 07:10:00 Test Item Value Reference Range Interpretation [...] (BEAKER) (test code = 2801) BASIC METABOLIC [id number] 05:28:00 Test Item Value Reference Range Interpretation [...] ESTIMATED GFR. CBC W/PLT COUNT & AUTO [id number] 04:45:00 Test Item Value Reference Range Interpretation [...] = 2801) RAD, CHEST, 1 VIEW, NON [id number] 08:22:00Reason for exam:->s/p acbShould this be performed at the bedside?->YesFINAL REPORT Portable chest. CLINICAL HISTORY: s/p acb. COMPARISON STUDY: November 30, 2018. FINDINGS: The cardiac silhouette is enlarged. Sternotomy wires are seen. The pulmonary parenchyma demonstrates areas of interstitial markings as well as bibasilar atelectasis or consolidation.The support lines and tubes have been removed. A tiny left-sided apical pneumothorax is noted. Degenerative changes are noted. IMPRESSION: Removal of support lines and tubes with tiny left-sided apicalpneumothorax. Signed: Tera Merrill MDReport Verified Date/Time: 12/02/2018 08:22:53 Reading Location: [address] Ortho Consult Reading Room BASIC METABOLIC [id number] 06:20:00 Test Item Value Reference Range Interpretation [...] ESTIMATED GFR. CBC W/PLT COUNT & AUTO [id number] 05:56:00 Test Item Value Reference Range Interpretation [...] PERCENT (BEAKER) (test code = 2801) POCT-GLUCOSE [id number] 21:34:00 Test Item Value Reference Range Interpretation Comments POC-GLUCOSE METER 116 mg/dL 70-110 H TEST[facility] [place] [address] [facility] (test code = [facility] 1538) [address] POCT-GLUCOSE [id number] 17:08:00 Test Item Value Reference Range Interpretation Comments POC-GLUCOSE METER 127 mg/dL 70-110 H TESTED AT [place] [address] ([facility] (test code = [facility] 1538) [address] POCT-GLUCOSE [id number] 13:27:00 Test Item Value Reference Range Interpretation Comments POC-GLUCOSE METER 136 mg/dL 70-110 H TESTED AT [place] [address] ([facility] (test code = [facility] 1538) [address] POCT-GLUCOSE [id number] 09:14:00 Test Item Value Reference Range Interpretation Comments POC-GLUCOSE METER 170 mg/dL 70-110 H TESTED AT [place] [address] ([facility] (test code = [facility] 1538) [address] BASIC METABOLIC [id number] 06:32:00 Test Item Value Reference Range Interpretation [...] m DATA TO CALCULA TE ESTIMATED GFR. [id number] 06:31:00 Test Item Value Reference Range Interpretation Comments PHOSPHORUS (BEAKER) (test code = 1.9 mg/dL 2.3-4.7 L 604) [id number] 06:31:00 Test Item Value Reference Range Interpretation [...] 0-0 (BEAKER) (test code = 413) POCT-GLUCOSE [id number] 01:01:00 Test Item Value Reference Range Interpretation Comments POC-GLUCOSE METER 136 mg/dL 70-110 H TESTED AT [facility] 6720 ([facility] (test code = KARINA NORIEGA 1538) [address] POCT-GLUCOSE [id number] 17:11:00 Test Item Value Reference Range Interpretation Comments POC-GLUCOSE METER 147 mg/dL 70-110 H TESTED AT [place] [address] ([facility] (test code = [place] 1538) [address] POCT-GLUCOSE [id number] 12:36:00 Test Item Value Reference Range Interpretation Comments POC-GLUCOSE METER 128 mg/dL 70-110 H TESTED AT [place] [address] ([facility] (test code = KARINA Ramirez [facility] 1538) [address] POCT-GLUCOSE [id number] 10:49:00 Test Item Value Reference Range Interpretation Comments POC-GLUCOSE METER 147 mg/dL 70-110 H TESTED AT [place] [address] ([facility] (test code = KARINA Ramirez [facility] 1538) [address] POCT-GLUCOSE [id number] 08:55:00 Test Item Value Reference Range Interpretation Comments POC-GLUCOSE METER 136 mg/dL 70-110 H TESTED AT [place] [address] ([facility] (test code = KARINA Ramirez [facility] 1538) [address] RAD, CHEST, 1 VIEW, NON [id number] 05:50:00while patient is intubated or has chest tubes.Reason for exam:->Status post CV SurgeryShould thisbe performed at the bedside?->YesFINAL REPORT RAD, CHEST, 1 VIEW, NON DEPT INDICATION: Status post CV Surgery COMPARISON: Prior day's exam FINDINGS: Portable frontal view of the chest. IMPRESSION: Support Lines: Interval removal of the previously seen right IJ central venous catheter. Interval extubation and removal of the previously seen enteric tube. Otherwise unchanged support apparatus.Lungs and pleura: Unchanged airspace and pleural opacities when allowing for differences in technique. Trace left medial apical pneumothorax.Heart and mediastinum: Stable contours. Stable surgical changes.Additional findings: None. Signed: Mckenna Noel Verified Date/Time: 11/30/2018 05:50:39 BASIC METABOLIC [id number] 04:54:00 Test Item Value Reference Range Interpretation Comments SODIUM ([facility] 142 meq/L 136-145 (test code = 381) [...] m DATA TO CALCULA TE ESTIMATED GFR. [id number] 04:42:00 Test Item Value Reference Range Interpretation Comments PHOSPHORUS (BEAKER) (test code = 3.0 mg/dL 2.3-4.7 604) [id number] 04:42:00 Test Item Value Reference Range Interpretation Comments MAGNESIUM (BEAKER) (test code = 2.2 mg/dL 1.6-2.6 627) LACTIC ACID, [id number] 04:37:00 Test Item Value Reference Range Interpretation Comments LACTATE BLOOD ARTERIAL (2) 1.4 mmol/L 0.5-2.2 (BEAKER) (test code = 2874) GLUCOSE-STAT [id number] 04:32:00 Test Item Value Reference Range Interpretation Comments GLUCOSE RANDOM (BEAKER) (test code 145 mg/dL 70-110 H = 652) HGB/HCT (H&H) - STAT [id number] 04:32:00 Test Item Value Reference Range Interpretation Comments HEMOGLOBIN (BEAKER) (test code = 9.4 g/dL 13.0-16.8 L 410) HEMATOCRIT (BEAKER) (test code = 28.0 % 40.0-50.0 L 411) BLOOD GAS, [id number] 04:31:00 Test Item Value Reference Range Interpretation [...] code = 1819) 28.0 % SODIUM NA-STAT [id number] 04:31:00 Test Item Value Reference Range Interpretation Comments SODIUM (BEAKER) (test code = 381) 140 meq/L 135-148 POTASSIUM-STAT [id number] 04:31:00 Test Item Value Reference Range Interpretation [...] (BEAKER) (test code = 413) BLOOD GAS, [id number] 00:51:00 Test Item Value Reference Range Interpretation [...] (test code = 1819) 40.0 % GLUCOSE-STAT 00:49:00 Test Item Value Reference Range Interpretation Comments GLUCOSE RANDOM (BEAKER) (test code 157 mg/dL 70-110 H = 652) HGB/HCT (H&H) - STAT [id number] 00:49:00 Test Item Value Reference Range Interpretation Comments HEMOGLOBIN (BEAKER) (test code = 9.1 g/dL 13.0-16.8 L 410) HEMATOCRIT (BEAKER) (test code = 27.0 % 40.0-50.0 L 411) SODIUM NA-STAT [id number] 00:48:00 Test Item Value Reference Range Interpretation Comments SODIUM (BEAKER) (test code = 381) 139 meq/L 135-148 POTASSIUM-STAT [id number] 00:48:00 Test Item Value Reference Range Interpretation Comments POTASSIUM (BEAKER) (test code = 4.2 meq/L 3.6-5.5 379) LACTIC ACID, [id number] 00:44:00 Test Item Value Reference Range Interpretation Comments LACTATE BLOOD ARTERIAL (2) 1.5 mmol/L 0.5-2.2 (BEAKER) (test code = 2874) SODIUM NA-STAT [id number] 20:25:00 Test Item Value Reference Range Interpretation Comments SODIUM (BEAKER) (test code = 381) 139 meq/L 135-148 POTASSIUM-STAT [id number] 20:25:00 Test Item Value Reference Range Interpretation Comments POTASSIUM (BEAKER) (test code = 4.0 meq/L 3.6-5.5 379) BLOOD GAS, [id number] 20:25:00 Test Item Value Reference Range Interpretation [...] (test code = 1819) 40.0 % GLUCOSE-STAT [id number] 20:25:00 Test Item Value Reference Range Interpretation Comments GLUCOSE RANDOM (BEAKER) (test code 141 mg/dL 70-110 H = 652) HGB/HCT (H&H) - STAT [id number] 20:25:00 Test Item Value Reference Range Interpretation Comments HEMOGLOBIN (BEAKER) (test code = 8.6 g/dL 13.0-16.8 L 410) HEMATOCRIT (BEAKER) (test code = 25.0 % 40.0-50.0 L 411) LACTIC ACID, [id number] 19:39:00 Test Item Value Reference Range Interpretation Comments LACTATE BLOOD ARTERIAL (2) 3.9 mmol/L 0.5-2.2 H (BEAKER) (test code = 2874) BLOOD GAS, [id number] 19:19:00 Test Item Value Reference Range Interpretation [...] (test code = 1819) 36.0 % GLUCOSE-STAT [id number] 19:19:00 Test Item Value Reference Range Interpretation Comments GLUCOSE RANDOM (BEAKER) (test code 138 mg/dL 70-110 H = 652) HGB/HCT (H&H) - STAT [id number] 19:19:00 Test Item Value Reference Range Interpretation Comments HEMOGLOBIN (BEAKER) (test code = 8.8 g/dL 13.0-16.8 L 410) HEMATOCRIT (BEAKER) (test code = 26.0 % 40.0-50.0 L 411) SODIUM NA-STAT [id number] 19:18:00 Test Item Value Reference Range Interpretation Comments SODIUM (BEAKER) (test code = 381) 140 meq/L 135-148 POTASSIUM-STAT [id number] 19:18:00 Test Item Value Reference Range Interpretation Comments POTASSIUM (BEAKER) (test code = 4.2 meq/L 3.6-5.5 379) BLOOD GAS, [id number] 18:18:00 Test Item Value Reference Range Interpretation [...] (test code = 1819) 40.0 % POCT-GLUCOSE [id number] 17:52:00 Test Item Value Reference Range Interpretation Comments POC-GLUCOSE METER 173 mg/dL 70-110 H TESTED AT [facility] 6720 (BEAKER) (test code = KARINA [place] 1538) [address] LACTIC ACID, [id number] 16:58:00 Test Item Value Reference Range Interpretation Comments LACTATE BLOOD ARTERIAL (2) 4.1 mmol/L 0.5-2.2 H (BEAKER) (test code = 2874) BLOOD GAS, [id number] 16:11:00 Test Item Value Reference Range Interpretation [...] (test code = 1819) 40.0 % GLUCOSE-STAT [id number] 16:11:00 Test Item Value Reference Range Interpretation Comments GLUCOSE RANDOM (BEAKER) (test code 154 mg/dL 70-110 H = 652) HGB/HCT (H&H) - STAT [id number] 16:11:00 Test Item Value Reference Range Interpretation Comments HEMOGLOBIN (BEAKER) (test code = 9.1 g/dL 13.0-16.8 L 410) HEMATOCRIT (BEAKER) (test code = 27.0 % 40.0-50.0 L 411) SODIUM NA-STAT [id number] 16:10:00 Test Item Value Reference Range Interpretation Comments SODIUM (BEAKER) (test code = 381) 140 meq/L 135-148 POTASSIUM-STAT [id number] 16:10:00 Test Item Value Reference Range Interpretation Comments POTASSIUM (BEAKER) (test code = 4.2 meq/L 3.6-5.5 379) RAD, CHEST, 1 VIEW, NON [id number] 15:02:00Reason for exam:->Status post CV Surgery post op day 0Should this be performed at the bedside?->YesFINAL REPORT Chest dated 11/29/2018 COMPARISON: 11/28/2018 Clinical Information: Status post CV Surgery post op day 0 Comment: Since prior examination, there is interval placement ofsternotomy and bypass surgery. Endotracheal tube, nasogastric tube, mediastinal tube, left chest tube, and right IJ central venous catheter are present. Heart is enlarged. Pulmonary vasculature is indistinct. Interstitial disease is seen bilaterally suggestive of vascular congestion. No pleural effusion or pneumothorax is seen. Signed: Mallika Georges MDReport Verified Date/Time: 11/29/2018 15:02:46 Reading Location: [address] Consult Reading Room BASIC METABOLIC [id number] 14:01:00 Test Item Value Reference Range Interpretation [...] m DATA TO CALCULA TE ESTIMATED GFR. [id number] 13:57:00 Test Item Value Reference Range Interpretation Comments PHOSPHORUS (BEAKER) (test code = 2.9 mg/dL 2.3-4.7 604) [id number] 13:57:00 Test Item Value Reference Range Interpretation Comments MAGNESIUM (BEAKER) (test code = 1.8 mg/dL 1.6-2.6 627) [id number] 13:56:00 Test Item Value Reference Range Interpretation Comments FIBRINOGEN LEVEL (BEAKER) (test 277 mg/dl 225-434 code = 658) [id number] 13:56:00 Test Item Value Reference Range Interpretation Comments PARTIAL THROMBOPLASTIN TIME 32.8 seconds 22.5-36.0 (BEAKER) (test code = 760) PROTHROMBIN [id number] 13:55:00 Test Item Value Reference Range Interpretation [...] is 2.5-3.5 for patients wiht mechanical heart valves.LACTIC ACID, [id number] 13:53:00 Test Item Value Reference Range Interpretation Comments LACTATE BLOOD ARTERIAL (2) 3.5 mmol/L 0.5-2.2 H (BEAKER) (test code = 2874) CBC W/PLT COUNT & AUTO [id number] 13:52:00 Test Item Value Reference Range Interpretation [...] (BEAKER) (test code = 2801) BLOOD GAS, [id number] 13:44:00 Test Item Value Reference Range Interpretation Comments PH ARTERIAL (BEAKER) (test code = 7.30 7.35-7.45 L 383) PCO2 ARTERIAL (BEAKER) (test code 51 mmHg 35-45 H = 384) PO2 ARTERIAL (BEAKER) (test code 94 mmHg 80-90 H = 385) O2 SATURATION ARTERIAL (BEAKER) 96.5 % 96.0-97.0 (test code = 386) HCO3 ARTERIAL ([facility] (test code 25 mmol/L 21-29 = 388) BASE EXCESS ARTERIAL ([facility] -2.3 mmol/L -2.0-3.0 L (test code = 387) PATIENT TEMPERATURE ([facility] 36.6 C (test code = 1818) FIO2 ([facility] (test code = 1819) 40.0 % OXYGEN SATURATION, [id number] 13:42:00 Test Item Value Reference Range Interpretation Comments O2 SATURATION (MEASURED) ([facility] 70.8 % (test code = 1455) [id number] 11:18:00 Test Item Value Reference Range Interpretation Comments ACTIVATED CLOTTING TIME 109 sec TEST ED AT [place] [address] ([facility] (test code = K[facility]INA [place]) [address] [id number] 11:18:00 Test Item Value Reference Range Interpretation Comments ACTIVATED CLOTTING TIME 549 sec TEST ED AT [place] [address] ([facility] (test code = KARINA CERVANTES [facility]) [address] [id number] 11:18:00 Test Item Value Reference Range Interpretation Comments ACTIVATED CLOTTING TIME 494 sec TEST ED AT [place] [address] ([facility] (test code = KARINA Ramirez [place] [address]) [address] [id number] 11:18:00 Test Item Value Reference Range Interpretation Comments ACTIVATED CLOTTING TIME 428 sec TEST ED AT [place] [address] ([facility] (test code = KARINA Ramirez [place] [address]) [address] PROTHROMBIN [id number] 11:02:00 Test Item Value Reference Range Interpretation Comments PROTIME ([facility] (test code = 17.6 seconds 11.9-14.2 H 759) INR ([facility] (test code = 370) 1.5 <=5.9 Effective 11/08/2018: PT Reference Range ChangeNew: 11.9-14.2 Previous: 11.7- 14.7RECOMMENDED COUMADIN/WARFARIN INR THERAPY RANGESSTANDARD DOSE: 2.0-3.0 Includes: PROPHYLAXIS for venous thrombosis, systemic embolization; TREATMENT for venous thrombosis and/or pulmonary embolus.HIGH RISK: Target INR is 2.5-3.5 for patients wiht mechanical heart valves.[id number] 11:02:00 Test Item Value Reference Range Interpretation Comments PARTIAL THROMBOPLASTIN TIME 32.7 seconds 22.5-36.0 (BEAKER) (test code = 760) [id number] 11:02:00 Test Item Value Reference Range Interpretation Comments FIBRINOGEN LEVEL (BEAKER) (test 229 mg/dl 225-434 code = 658) PLATELET [id number] 10:48:00 Test Item Value Reference Range Interpretation Comments PLATELET COUNT (BEAKER) (test 111 K/CU MM 150-450 L code = 756) BLOOD GAS, [id number] 10:41:00 Test Item Value Reference Range Interpretation [...] (test code = 1819) 100.0 % GLUCOSE-STAT [id number] 10:41:00 Test Item Value Reference Range Interpretation Comments GLUCOSE RANDOM (BEAKER) (test code 205 mg/dL 70-110 H = 652) HGB/HCT (H&H) - STAT [id number] 10:41:00 Test Item Value Reference Range Interpretation Comments HEMOGLOBIN (BEAKER) (test code = 9.5 g/dL 13.0-16.8 L 410) HEMATOCRIT (BEAKER) (test code = 28.0 % 40.0-50.0 L 411) SODIUM NA-STAT [id number] 10:39:00 Test Item Value Reference Range Interpretation Comments SODIUM (BEAKER) (test code = 381) 135 meq/L 135-148 POTASSIUM-STAT [id number] 10:39:00 Test Item Value Reference Range Interpretation Comments POTASSIUM (BEAKER) (test code = 4.5 meq/L 3.6-5.5 379) CALCIUM, [id number] 10:39:00 Test Item Value Reference Range Interpretation Comments CALCIUM IONIZED (BEAKER) (test 1.20 mmol/L 1.12-1.27 code = 698) PH, BLOOD (BEAKER) (test code = 7.37 1810) HGB/HCT (H&H) - STAT [id number] 10:01:00 Test Item Value Reference Range Interpretation Comments HEMOGLOBIN (BEAKER) (test code = 9.2 g/dL 13.0-16.8 L 410) HEMATOCRIT (BEAKER) (test code = 27.0 % 40.0-50.0 L 411) SODIUM NA-STAT [id number] 10:00:00 Test Item Value Reference Range Interpretation Comments SODIUM (BEAKER) (test code = 381) 133 meq/L 135-148 L POTASSIUM-STAT [id number] 10:00:00 Test Item Value Reference Range Interpretation Comments POTASSIUM (BEAKER) (test code = 5.5 meq/L 3.6-5.5 379) BLOOD GAS, [id number] 10:00:00 Test Item Value Reference Range Interpretation [...] (test code = 1819) 70.0 % GLUCOSE-STAT [id number] 10:00:00 Test Item Value Reference Range Interpretation Comments GLUCOSE RANDOM (BEAKER) (test code 222 mg/dL 70-110 H = 652) BLOOD GAS, [id number] 09:37:00 Test Item Value Reference Range Interpretation [...] (test code = 1819) 65.0 % POTASSIUM-STAT [id number] 09:36:00 Test Item Value Reference Range Interpretation Comments POTASSIUM (BEAKER) (test code = 4.5 meq/L 3.6-5.5 379) BLOOD GAS, [id number] 09:36:00 Test Item Value Reference Range Interpretation [...] code = 1819) 65.0 % SODIUM NA-STAT [id number] 09:36:00 Test Item Value Reference Range Interpretation Comments SODIUM (BEAKER) (test code = 381) 134 meq/L 135-148 L GLUCOSE-STAT [id number] 09:36:00 Test Item Value Reference Range Interpretation Comments GLUCOSE RANDOM (BEAKER) (test code 208 mg/dL 70-110 H = 652) HGB/HCT (H&H) - STAT [id number] 09:36:00 Test Item Value Reference Range Interpretation Comments HEMOGLOBIN (BEAKER) (test code = 10.2 g/dL 13.0-16.8 L 410) HEMATOCRIT (BEAKER) (test code = 30.0 % 40.0-50.0 L 411) BLOOD GAS, [id number] 08:44:00 Test Item Value Reference Range Interpretation [...] (test code = 1819) 100.0 % GLUCOSE-STAT [id number] 08:44:00 Test Item Value Reference Range Interpretation Comments GLUCOSE RANDOM (BEAKER) (test code 128 mg/dL 70-110 H = 652) HGB/HCT (H&H) - STAT [id number] 08:44:00 Test Item Value Reference Range Interpretation Comments HEMOGLOBIN (BEAKER) (test code = 13.3 g/dL 13.0-16.8 410) HEMATOCRIT (BEAKER) (test code = 39.0 % 40.0-50.0 L 411) SODIUM NA-STAT [id number] 08:36:00 Test Item Value Reference Range Interpretation Comments SODIUM (BEAKER) (test code = 381) 139 meq/L 135-148 POTASSIUM-STAT [id number] 08:36:00 Test Item Value Reference Range Interpretation Comments POTASSIUM (BEAKER) (test code = 4.1 meq/L 3.6-5.5 379) BASIC METABOLIC [id number] 02:31:00 Test Item Value Reference Range Interpretation [...] m DATA TO CALCULA TE ESTIMATED GFR. [id number] 02:17:00 Test Item Value Reference Range Interpretation [...] = 413) RAD, CHEST, 1 VIEW, NON [id number] 19:20:00Reason for exam:->preopShould this be performed at [...] may reflect technique and the overlying adipose tissue.However, chronic lung changes/scarring as well as mild pulmonary edema should also be considered. Und erlying pneumonia or small mass lesion cannot be excluded on today's limited study. Evaluation for pleural fluid is limited by the AP portable technique and patient's body habitus. No definite evidenceof an acute osseous abnormality or pneumothorax. Chest CT could be performed for further evaluation if clinically appropriate. Signed: Sue Germaineport Verified Date/Time: 11/28/2018 19:20:43 Reading Location: [address] Reading Room [id number] 18:42:00 Test Item Value Reference Range Interpretation [...] is 2.5-3.5 for patients wiht mechanical heart valves.[id number] 18:42:00 Test Item Value Reference Range Interpretation Comments PARTIAL THROMBOPLASTIN TIME 31.8 seconds 22.5-36.0 (BEAKER) (test code = 760) PROTHROMBIN [id number] 18:41:00 Test Item Value Reference Range Interpretation [...] is 2.5-3.5 for patients wiht mechanical heart valves.BASIC METABOLIC [id number] 17:25:00 Test Item Value Reference Range Interpretation [...] DATA TO CALCULA TE ESTIMATED GFR. HEMOGLOBIN [id number] 17:23:00 Test Item Value Reference Range Interpretation Comments HEMOGLOBIN A1C (BEAKER) (test code = 6.2 % 4.3-6.1 H 368) LIPID [id number] 17:18:00 Test Item Value Reference Range Interpretation Comments TRIGLYCERIDES (BEAKER) 101 mg/dL Speci men slightly (test code = 540) hemolyzed CHOLESTEROL (BEAKER) 227 mg/dL Specime n slightly (test code = 631) hemolyzed HDL CHOLESTEROL (BEAKER) 49 mg/dL (test code = 976) LDL CHOLESTEROL 158 mg/dL CALCULATED (BEAKER) (test code = 633) Triglyceride Reference Range: Low Risk <150 Borderline 150-199 High Risk 200- 499 Very High Risk >=500Cholesterol Reference Range: Low [...]
[2022-05-13 14:52] LABS: SARS-CoV-2 Antigen Rapid Res Negative (Negative)
--- NOTE | 2022-05-13 15:57 | RAD REPORT ---
EXAM DESCRIPTION: RAD - Chest Single View - 05/13/2022 2:48 pm CLINICAL HISTORY: SOB Chest pain. COMPARISON: Chest Pa And Lat (2 Views) dated 04/13/2022; Chest Pa And Lat (2 Views) dated 07/16/2020; C hest Pa And Lat (2 Views) dated 11/15/2019; Chest Pa And Lat (2 Views) dated 11/13/2018 FINDINGS: Portable technique limits examination quality. Moderate pulmonary edema is seen with moderate bilateral pleural effusions. The heart is moderately e nlarged. Sternotomy wires are present.Aortic atherosclerosis. IMPRESSION: Moderate CHF versus volume overload pattern.
[2022-05-13 16:21] LABS: Absolute Lymphocytes (CBC) 1.5 K/uL (0.7-4.9); Hematocrit 32.3 % (39.6-49.0); Lymphocytes % 18.4 % (15.3-44.8); MCV 95.6 fL (80-100); Protime INR 1.07; RBC Red Blood Cell Count 3.37 M/uL (4.33-5.43)
[2022-05-13 16:36] LABS: Albumin 2.1 g/dL (3.4-5.0); Bilirubin Direct 0.2 mg/dL (0-0.2); Bilirubin Total 0.4 mg/dL (0.2-1.0); Magnesium 2.2 mg/dL (1.8-2.4); Potassium 4.4 mmol/L (3.5-5.1); Protein, Total 6.1 g/dL (6.4-8.2)
[2022-05-13 16:39] LABS: Troponin High Sensitivity 222.3 pg/mL (<58.9)
[2022-05-13 16:40] LABS: Uric Acid 5.8 mg/dL (3.5-7.2)
[2022-05-13 16:41] LABS: Thyroid Stimulating Hormone 6.7 uIU/mL (0.360-3.740)
--- NOTE | 2022-05-13 16:48 | RAD REPORT ---
EXAM DESCRIPTION: US - Renal Ultrasound-Complete - 05/13/2022 4:40 pm CLINICAL HISTORY: ISELA Flank pain COMPARISON: Renal Ultrasound-Complete dated 01/31/2019 FINDINGS: Both kidneys are significantly echogenic. The right kidney measures 10.1 x 4.0 x 3.9 cm. No hydronephrosis, focal mass or perinephric fluid. The left kidney measures 9.5 x 5.3 x 3.8 cm. No hydronephrosis, focal mass or perinephric fluid. The urinary bladder is incompletely distended without gross abnormality seen. Mild free fluid in the abdomen. IMPRESSION: Significant echogenic kidneys compatible with underlying medical renal disease.
--- NOTE | 2022-05-13 16:59 | CON ---
Date of Consultation: 05/13/2022 Reason For Consultation: Anasarca, electrolyte imbalance. History Of Present Illness: This is a pleasant 81-year-old gentleman with significant past medical history of CAD, status post CABG, complicated with congestive heart failure, diabetes, on metformin, hyperlipidemia, hypertension, the patient had recurrent leg wound and chronic leg edema. The patient follows up with Wound Care, lately his edema getting worse. For that reason in the last few weeks, switched from furosemide to Bumex as the patient had been having hypoalbuminemia. The patient in the beginning responded very well, creatinine has improved. Then apparently after a week, the patient started retaining fluid again and started having shortness of breath with worsening in the leg swelling. For that reason, the patient got admitted. The patient denied taking nonsteroidal, other than changing from Lasix to Bumex. There is no other change in his medication. The patient has history of COPD. Past Medical History: Includes; 1. CAD, status post CABG, complicated with congestive heart failure, ejection fraction of 35%. 2. Diabetes complicated with neuropathy. 3. Chronic leg edema. 4. Hyperlipidemia. 5. Hypertension. Allergies: NO KNOWN DRUG ALLERGIES. Past Surgical History: Includes; 1. Cholecystectomy. 2. CABG. Family History: Positive for diabetes and hypertension. Social History: Active smoker, occasional alcohol. Denied drugs abuse. Review of Systems: Head and Neck: No red eye. No ear pain. GI: Increased abdominal girth, decreased intake. : No polyuria. No dysuria. No hematuria. Forensics Team Director: No vaginal discharge. Respiratory: Has shortness of breath. Cardiovascular: Has orthopnea. Has leg swelling. Endocrine: No polydipsia. Skin: No rash. Neuro: Has neuropathy. Has leg swelling and pain. Musculoskeletal: Has low back pain, difficulty ambulating. Skin: Has erythema in both lower extremities. Physical Examination: Vital Signs: When I saw the patient; blood pressure of 174/74, pulse of 82, afebrile. Chest: Crackles bilateral. Decreased entry both bases. Heart: S1, S2. Systolic murmur. Abdomen: Soft, nontender. Extremities: +3 edema. Compression dressing in both lower extremities. Neurologic: Alert. No focality. Laboratory Data: Chest x-ray; cardiomegaly, bilateral pleural effusions and congestion compared to chest x-ray back in April looked worse and worsening on right-sided pleural effusion. Today, lab not out. Yesterday; WBC 7, H and H 10.8/32.7. Sodium 141, potassium 4.9, bicarb 33, BUN 41, creatinine 1.8, GFR of 36, calcium 8.9. Reviewing the record, the patient's baseline creatinine around 1.4 to 1.6 with GFR around 40. Assessment And Plan: 1. Acute kidney injury secondary to cardiorenal, over volume. To rule out compartment syndrome/obstructive uropathy given the history of the ascites, the patient currently over volume, I am going to go ahead and start the patient on Lasix drip. I am going to send for full workup for the patient with the presence of the anemia to rule out any light chain disease. 2. Hypertension, not controlled. We will try to utilize blood pressure for more diuresis. 3. Anasarca secondary to cardiorenal syndrome. We will try to diurese the patient. We will send for TSH and PC ratio. We will place the patient on fluid restriction. 4. Coronary artery disease, status post coronary artery bypass graft with congestive heart failure with exacerbation. We will send for serial cardiac enzyme and troponin. 5. Wound infection in lower extremity. We will follow up with primary. Thank you, Dr. Santiago for allowing us to participate in the care of your patient. Time spent examining the patient [id number], reviewing data, lab and radiology, discussing the case with the patient, discussing the case with sample steamer including nursing and hospitalist more than 65 minutes BHAVANI Voice ID: [id number] Report ID: [id number]
--- NOTE | 2022-05-13 18:17 | EDPHYS ---
Physician Documentation [facility] Name: Ankit Powers Age: 81 yrs Sex: Male : 1940 Arrival Date: 05/13/2022 Time: 13:26 Bed 17 Private MD: Manuel Santiago ED Physician Inderjit Fontana HPI: 05/13 14:00 This 81 yrs old Male presents to ER via Wheelchair with complaints of Edema. cp 14:00 The patient has shortness of breath at rest. Onset: The symptoms/episode began/occurred cp gradually, 2 month(s) ago. 14:00 Duration: The symptoms are continuous, and are steadily getting worse. Associated signs cp and symptoms: Pertinent positives: swelling of arms ang legs, Pertinent negatives: chest pain, productive cough, fever, hemoptysis, vomiting. Severity of symptoms: in the emergency department the symptoms are unchanged. Patient reports he was referred to ED by DR Santiago to be admitted for symptoms. Historical: - Allergies: 13:35 No Known Allergies; ld1 - Home Meds: 13:36 clopidogrel 75 mg oral tab 1 tab once daily [Active]; gabapentin 100 mg oral cap 1 cap ld1 3 times per day [Active]; atorvastatin 20 mg oral tab 1 tab once daily [Active]; levothyroxine 25 mcg cap 1 cap once daily [Active]; furosemide 20 mg Oral tab 1 tab 3 times per day [Active]; metoprolol tartrate 37.5 mg Oral tab 1 tab once daily [Active]; metformin 500 mg Oral Tb24 1 tab once daily [Active]; - PMHx: 13:35 Diabetes mellitus; Hypercholesterolemia; ld1 - PSHx: 13:35 Double bypass; Cholecystectomy; ld1 - Immunization history:: Adult Immunizations up to date, Client reports receiving the 2nd dose of the Covid vaccine. - Social history:: Smoking status: Patient reports the use of cigarette tobacco products, smokes one-half pack cigarettes per day, Patient/guardian denies using alcohol. ROS: 14:05 Constitutional: Negative for body aches, chills, fever, poor PO intake. cp 14:05 Eyes: Negative for injury, pain, redness, and discharge. cp 14:05 Cardiovascular: Positive for edema, Negative for chest pain, palpitations. 14:05 Respiratory: Positive for cough, with no reported sputum, shortness of breath, at rest. 14:05 Abdomen/GI: Negative for abdominal pain, nausea, vomiting, and diarrhea. 14:05 Back: Negative for pain at rest, pain with movement. cp 14:05 Skin: Negative for cellulitis, rash. cp 14:05 Neuro: Negative for altered mental status, dizziness, headache, syncope, weakness. 14:05 All other systems are negative. Exam: 14:10 Constitutional: The patient appears in no acute distress, alert, awake, cp non-diaphoretic, non-toxic, well developed, well nourished. 14:10 Head/Face: Normocephalic, atraumatic. cp 14:10 Eyes: Periorbital structures: appear normal, Conjunctiva: normal, no exudate, no injection, Sclera: no appreciated abnormality, Lids and lashes: appear normal, bilaterally. 14:10 ENT: External ear(s): are unremarkable, Nose: is normal, Mouth: Lips: moist, Oral mucosa: pink and intact, moist, Posterior pharynx: Airway: no evidence of obstruction, patent, swelling, is not appreciated, erythema, is not appreciated, exudate, is not appreciated. 14:10 Neck: ROM/movement: is normal, is supple, without pain, no range of motions limitations. 14:10 Chest/axilla: Inspection: normal, Palpation: is normal, no crepitus, no tenderness. 14:10 Cardiovascular: Rate: normal, Rhythm: regular, Edema: ankle edema, that is moderate, JVD: is not appreciated, bilateral upper extremity edema. 14:10 Respiratory: the patient does not display signs of respiratory distress, Respirations: labored breathing, that is mild, Breath sounds: decreased breath sounds, that are moderate, throughout, stridor, is not appreciated, wheezing: is not appreciated. 14:10 Abdomen/GI: Inspection: abdomen appears normal, Palpation: abdomen is soft and non-tender, in all quadrants. 14:10 Back: CVA tenderness, is absent. 14:10 Skin: chronic wounds noted to lower legs. 14:10 Neuro: Orientation: to person, place \T\ time. Mentation: is normal, Motor: moves all fours, strength is normal, Sensation: is normal. 17:10 ECG was reviewed by the Attending Physician. cp Vital Signs: 13:36 BP 162 / 82; Pulse 93; Resp 18; Temp 98.0(O); Pulse Ox 96% on R/A; Weight 88.45 kg; ld1 Height 5 ft. 10 in. (177.80 cm); Pain 0/10; 14:50 BP 154 / 75; Pulse 96; Pulse Ox 97% on R/A; ap3 17:27 BP 168 / 84; Pulse 96; ap3 13:36 Body Mass Index 27.98 (88.45 kg, 177.80 cm) ld1 MDM: 13:49 Patient medically screened. [facility] 18:20 Data reviewed: vital signs, nurses notes, lab test result(s), EKG, radiologic studies, cp plain films. 18:20 Test interpretation: by ED physician or midlevel provider: ECG, plain radiologic cp studies. Physician consultation: Kristi Olsen MD was contacted at 18:15, regarding consult, patient's condition, would like admission per Dr. Manuel Santiago MD. 05/13 13:49 Order name: SARS-COV-2 Antigen Rapid; Complete Time: 15:39 em1 05/13 14:06 Order name: Basic Metabolic Panel; Complete Time: 18:14 cp 05/13 18:14 Interpretation: Normal except: CL 109; BUN 41; CRE 1.64; GFR 41. cp 05/13 14:06 Order name: CBC with Diff; Complete Time: 18:14 cp 05/13 18:14 Interpretation: Normal except: RBC 3.37; HGB 10.6; HCT 32.3; RDW 15.3. 05/13 14:06 Order name: LFT's; Complete Time: 18:14 cp 05/13 14:06 Order name: Magnesium; Complete Time: 18:14 cp 05/13 14:06 Order name: NT PRO-BNP; Complete Time: 18:14 cp 05/13 18:15 Interpretation: Abnormal: NT PRO-BNP 12659. cp 05/13 14:06 Order name: PT-INR; Complete Time: 18:14 cp 05/13 14:06 Order name: Troponin HS; Complete Time: 18:14 cp 05/13 14:42 Order name: TSH ap3 05/13 14:42 Order name: Uric Acid ap3 05/13 14:42 Order name: CK ap3 05/13 16:41 Order name: Uric Acid; Complete Time: 18:14 EDMS 05/13 16:41 Order name: Creatine Phosphokinase; Complete Time: 18:14 EDMS 05/13 16:41 Order name: Thyroid Stimulating Hormone; Complete Time: 18:14 EDMS 05/13 14:06 Order name: XRAY Chest (1 view) 05/13 14:06 Order name: EKG; Complete Time: 14:07 05/13 14:06 Order name: Cardiac monitoring; Complete Time: 14:40 05/13 14:06 Order name: EKG - Nurse/Tech; Complete Time: 17:11 05/13 14:06 Order name: IV Saline Lock; Complete Time: 16:11 05/13 14:06 Order name: Labs collected and sent; Complete Time: 14:32 05/13 14:06 Order name: O2 Per Protocol; Complete Time: 14:40 05/13 14:06 Order name: O2 Sat Monitoring; Complete Time: 14:40 05/13 14:46 Order name: Labs - recollect needed: all labs need recollect please; Complete Time: em1 15:15 05/13 15:57 Order name: RAD; Complete Time: 16:11 EDMS 05/13 16:11 Interpretation: Report reviewed. 05/13 16:48 Order name: US; Complete Time: 18:14 EDMS 05/13 16:54 Order name: T4 Free; Complete Time: 18:14 EDMS EC:10 Rate is 92 beats/min. Rhythm is regular. MT interval is normal. QRS interval is cp prolonged at 122 msec. QT interval is normal. T waves are Inverted in lead aVR. Interpreted by me. Reviewed by me. Administered Medications: 18:22 Not Given (Physician Discretion): Lasix (furosemide) 20 mg IVP once; give over 2 minutescp 18:59 Not Given (ordered in [facility]): Lasix (furosemide) 10 mg/hr IVP once ap3 Disposition Summary: 05/13/22 18:17 Hospitalization Ordered Hospitalization Status: Inpatient Admission cp Provider: Manuel Santiago cp Location: Telemetry/MedSurg (Inpatient) cp Condition: Stable cp Problem: new cp Symptoms: have improved cp Bed/Room Type: Standard Room Assignment: 208(05/13/22 19:50) dw Diagnosis - Unspecified combined systolic (congestive) and diastolic (congestive) heart failure cp Forms: - Medication Reconciliation Form cp - SBAR form cp Addendum: 05/16/2022 08:02 Co-signature as Attending Physician, Inderjit Fontana MD I agree with the assessment and c johns plan of care. Signatures: Dispatcher [employer] Brandy Kat RN RN dw Anderson, Corey, MD MD cha Martinez, Eric em1 Inderjit Oliva PA PA cp Dibbern, Lauren, RN RN ld1 Maria Antonia Villarreal RN ap3 Corrections: (The following items were deleted from the chart) 05/13 19:50 18:17 cp dw
--- NOTE | 2022-05-13 18:17 | ER ---
Nurse's Notes [facility] Name: Ankit Powers Age: 81 yrs Sex: Male : 1940 Arrival Date: 05/13/2022 Time: 13:26 Bed 17 Private MD: Manuel Santiago Diagnosis: Unspecified combined systolic (congestive) and diastolic (congestive) heart failure Presentation: 05/13 13:39 Chief complaint: Patient states: Swelling in arms, legs - notified swelling for the ld1 past two months. Dr. Santiago has been trying to treat symptoms but swelling is increasing. Coronavirus screen: At this time, the client does not indicate any symptoms associated with coronavirus-19. Ebola Screen: No symptoms or risks identified at this time. Initial Sepsis Screen: Does the patient meet any 2 criteria? No. Patient's initial sepsis screen is negative. Does the patient have a suspected source of infection? No. Patient's initial sepsis screen is negative. Risk Assessment: Do you want to hurt yourself or someone else? Patient reports no desire to harm self or others. Onset of symptoms was May 13, 2022 at 13:40. 13:39 Method Of Arrival: Wheelchair ld1 13:39 Acuity: DARRIUS 3 ld1 Triage Assessment: 13:36 General: Appears in no apparent distress. comfortable, Behavior is calm, cooperative, ld1 appropriate for age. Pain: Denies pain. EENT: No signs and/or symptoms were reported regarding the EENT system. Neuro: Level of Consciousness is awake, alert, obeys commands, Oriented to person, place, time, situation. Cardiovascular: Capillary refill < 3 seconds Patient's skin is warm and dry. Cardiovascular:. Respiratory: Airway is patent Respiratory effort is even, unlabored. GI: Abdomen is flat, non-distended. : No signs and/or symptoms were reported regarding the genitourinary system. Derm:. Musculoskeletal: No signs and/or symptoms reported regarding the musculoskeletal system. Historical: - Allergies: 13:35 No Known Allergies; ld1 - Home Meds: 13:36 clopidogrel 75 mg oral tab 1 tab once daily [Active]; gabapentin 100 mg oral cap 1 cap ld1 3 times per day [Active]; atorvastatin 20 mg oral tab 1 tab once daily [Active]; levothyroxine 25 mcg cap 1 cap once daily [Active]; furosemide 20 mg Oral tab 1 tab 3 times per day [Active]; metoprolol tartrate 37.5 mg Oral tab 1 tab once daily [Active]; metformin 500 mg Oral Tb24 1 tab once daily [Active]; - PMHx: 13:35 Diabetes mellitus; Hypercholesterolemia; ld1 - PSHx: 13:35 Double bypass; Cholecystectomy; ld1 - Immunization history:: Adult Immunizations up to date, Client reports receiving the 2nd dose of the Covid vaccine. - Social history:: Smoking status: Patient reports the use of cigarette tobacco products, smokes one-half pack cigarettes per day, Patient/guardian denies using alcohol. Screenin:12 Abuse screen: Denies threats or abuse. Nutritional screening: No deficits noted. ap3 Tuberculosis screening: No symptoms or risk factors identified. 18:59 Fall Risk Fall in past 12 months (25 points). Secondary diagnosis (15 points) IV access ap3 (20 points). Ambulatory Aid- None/Bed Rest/Nurse Assist (0 pts). Gait- Weak (10 pts.). Mental Status- Oriented to own ability (0 pts). Total Ponce Fall Scale indicates High Risk Score (45 or more points). Fall prevention measures have been instituted. Side Rails Up X 2 Placed Close to Nursing Station Frequent Obs/Assessments Occuring Family Present and informed to notify staff if the need to leave the bedside As available patient and family educated on Fall Prevention Program and Strategies. Assessment: 16:23 Reassessment: ultrasound at bedside. ap3 17:30 Reassessment: Patient and/or family updated on plan of care and expected duration. Pain ap3 level reassessed. Patient is alert, oriented x 3, equal unlabored respirations, skin warm/dry/pink. 17:59 Reassessment: Patient and/or family updated on plan of care and expected duration. Pain ap3 level reassessed. Patient is alert, oriented x 3, equal unlabored respirations, skin warm/dry/pink. Vital Signs: 13:36 BP 162 / 82; Pulse 93; Resp 18; Temp 98.0(O); Pulse Ox 96% on R/A; Weight 88.45 kg; ld1 Height 5 ft. 10 in. (177.80 cm); Pain 0/10; 14:50 BP 154 / 75; Pulse 96; Pulse Ox 97% on R/A; ap3 17:27 BP 168 / 84; Pulse 96; ap3 13:36 Body Mass Index 27.98 (88.45 kg, 177.80 cm) ld1 ED Course: 13:26 Patient arrived in ED. as 13:26 Manuel Santiago MD is Private Physician. as 13:36 Arm band placed on right wrist. ld1 13:40 Triage completed. ld1 13:42 Inderjit Oliva PA is PHCP. cp 13:42 Inderjit Fontana MD is Attending Physician. cp 14:09 Maria Antonia Villarreal, JANAK is Primary Nurse. ap3 14:32 SARS-COV-2 Antigen Rapid Sent. ap3 16:11 Inserted saline lock: 18 gauge in right EJ, using aseptic technique. Blood collected. ap3 by inderjit oliva. 16:12 Patient has correct armband on for positive identification. Bed in low position. Call ap3 light in reach. Side rails up X2. Adult w/ patient. heat pump installer on. Pulse ox on. NIBP on. Door closed. Noise minimized. 16:40 Notified Nurse Practitioner and/or Physician Spline Rolling Machine Job Setter of a critical lab result(s), ll1 Troponin 222.3. 18:16 Manuel Santiago MD is Hospitalizing Provider. cp 18:59 No provider procedures requiring assistance completed. Patient admitted, IV remains in ap3 place. Administered Medications: 18:22 Not Given (Physician Discretion): Lasix (furosemide) 20 mg IVP once; give over 2 minutescp 18:59 Not Given (ordered in [facility]): Lasix (furosemide) 10 mg/hr IVP once ap3 Medication: 16:12 VIS not applicable for this client. ap3 Outcome: 18:17 Decision to Hospitalize by Provider. cp 18:59 Condition: good ap3 18:59 Instructed on the need for admit. 20:18 Admitted to Med/surg accompanied by tech, via wheelchair, room 208, with chart, Report ld1 called to JANAK Mackey 20:51 Patient left the ED. ld1 Signatures: Linda Odell Corey, PA PA cp Maria Antonia Villarreal, JANAK RN ap3 Sai Leong RN RN ll1 Masha Rodriguez RN RN ld1
[2022-05-13] MEDS: ALBUMIN HUMAN 25% 12.5 GM, FUROSEMIDE 100 MG in NA CHLORIDE 0.9% 40 ML IV SCH (18:26)
[2022-05-13] MEDS ORDERED: ONDANSETRON 4 MG/2 ML VIAL IV PRN (18:38)
[2022-05-14] MEDS: ALBUMIN HUMAN 25% 12.5 GM, FUROSEMIDE 100 MG in NA CHLORIDE 0.9% 40 ML IV SCH ×3 (02:46→21:39)
[2022-05-14 03:55] LABS: Absolute Lymphocytes (CBC) 1.1 K/uL (0.7-4.9); Hematocrit 32.3 % (39.6-49.0); Lymphocytes % 16.1 % (15.3-44.8); MCV 95.9 fL (80-100); MPV 7.9 fL (7.6-11.3); RBC Red Blood Cell Count 3.37 M/uL (4.33-5.43)
[2022-05-14 04:53] LABS: Albumin 2.2 g/dL (3.4-5.0); Ferritin 54.6 ng/mL (26-388); Folic Acid, (Folate) 8.9 ng/mL (3.1-17.5); Magnesium 2.1 mg/dL (1.8-2.4); Phosphorus 3.5 mg/dL (2.5-4.9); Potassium 4.1 mmol/L (3.5-5.1)
--- NOTE | 2022-05-14 07:50 | EKG ---
Test Date: 2022-05-13 Test Time: 17:03:24 [employer] Employee: ALP MEASUREMENT RESULTS: Intervals: Rate: 92 OH: 178 QRSD: 122 QT: 400 QTc: 494 [place]: P: 81 OH: 178 QRS: 142 T: 5 INTERPRETIVE STATEMENTS: Sinus rhythm with premature supraventricular complexes Right bundle branch block Left posterior fascicular block Bifascicular block Possible Inferior infarct, age undetermined Anterior infarct, age undetermined Abnormal ECG Compared to ECG 05/13/2022 17:02:19 Atrial premature complex(es) now present Bifascicular block still present Myocardial infarct finding still present Electronically Signed On 05-14-22 07:48:52 FINE ARTS PACKER by Quentin Valenzuela
--- NOTE | 2022-05-14 07:50 | EKG ---
Test Date: 2022-05-13 Test Time: 17:02:19 Art Department Head: ALP MEASUREMENT RESULTS: Intervals: Rate: 95 WI: 180 QRSD: 120 QT: 396 QTc: 497 [place]: P: 94 WI: 180 QRS: 138 T: 3 INTERPRETIVE STATEMENTS: Suspect arm lead reversal, interpretation assumes no reversal Normal sinus rhythm Possible Left atrial enlargement Right bundle branch block Left posterior fascicular block Bifascicular block Cannot rule out Inferior infarct, age undetermined Anterior infarct, age undetermined Abnormal ECG Compared to ECG 07/16/2020 12:10:59 Right bundle-branch block now present Left posterior fascicular block now present Bifascicular block now present Myocardial infarct finding still present Electronically Signed On 05-14-22 07:48:53 REPRODUCTION TECHNICIAN by Quentin Valenzuela
[2022-05-14] MEDS ORDERED: PNEUMOCOCCAL VACCINE 0.5 ML IMVAC ONE (08:00)
[2022-05-14] MEDS ORDERED: INFLUENZA VACCINE (for 6+ mo) 0.5 ML DOSE IMVAC ONE (08:00)
--- NOTE | 2022-05-14 14:00 | P.PN ---
Subjective Date of Service: 05/14/22 Subjective: No new changes, Other (Reports no worsening of his peripheral edema to arms & legs.) Physical Examination - Vital Signs Temperature: 97.3 F Blood Pressure: 171/77 Pulse: 86 Respirations: 18 Pulse Ox (%): 97 - Physical Exam General: Other (Appears as his stated age) HEENT: Atraumatic, Normocephalic Neck: Supple Respiratory: Other (Symmetric chest expansion) Cardiovascular: No rubs, No murmurs Gastrointestinal: Soft and benign, No guarding Musculoskeletal: No clubbing, Swelling Integumentary: No warmth Neurological: Normal speech, Normal tone Urinary: Other (No bladder distention) External genitalia: Deferred Rectal: Deferred - Studies Laboratory Data (last 24 hrs) 05/14/22 03:36: Sodium 142, Potassium 4.1, BUN 41 H, Creatinine 1.62 H, Glucose 108 H, Phosphorus 3.5, Magnesium 2.1 05/14/22 03:36: WBC 6.90, Hgb 10.7 L, Hct 32.3 L, Plt Count 215 05/13/22 16:06: Uric Acid 5.8 05/13/22 16:06: PT 11.8, INR 1.07 05/13/22 16:06: WBC 7.90, Hgb 10.6 L, Hct 32.3 L, Plt Count 209 05/13/22 16:06: Sodium 142, Potassium 4.4, BUN 41 H, Creatinine 1.64 H, Glucose 103, Magnesium 2.2, Total Bilirubin 0.4, AST 14 L, ALT 28, Alkaline Phosphatase 90 Assessment And Plan - Plan 1. Acute kidney injury 2/2 CRS1. Renal US unremarkable. F/u urine studies. On lasix gtt. [place] po fluid intake. Monitor renal panel. 2. Hypertension. BP above goal. Start Coreg 6.25 mg po bid + Amlodipine 5 mg po bid. 3. Anasarca, acute on chronic systolic HF. Cont lasix gtt. Do not restrict po fluid intake unless he develops hypoNa < 130 meq/L. 4. Coronary artery disease, status post coronary artery bypass graft, chronic systolic HF. Cont cardioprudent meds. 5. Wound infection in lower extremity. Per primary team.
[2022-05-14] MEDS: carvediloL 6.25 MG TAB PO SCH ×2 (15:05→20:45)
--- NOTE | 2022-05-14 18:09 | PN ---
Date of Progress Note: 05/14/2022 The patient states he feels better today. He has not had as near as much swelling. His abdomen is d own, his legs have improved. He has dropped 7 pounds on the Lasix, albumin drip, and Lopressor back to his regimen. Consult Cardiology and continue his dressing changes with Bactroban and clindamycin to the IV for the cellulitis. HR/MODL Voice ID: [id number] Report ID: [id number]
[2022-05-14] MEDS: MUPIROCIN 2% OINT 22GM TUBE TOP SCH (20:44)
[2022-05-14] MEDS: CLINDAMYCIN 900MG/D5W 900 MG/50 ML IVPB IV SCH (20:45)
[2022-05-15 04:30] LABS: Albumin 2.4 g/dL (3.4-5.0); Magnesium 2.3 mg/dL (1.8-2.4); Phosphorus 3.8 mg/dL (2.5-4.9); Potassium 4.2 mmol/L (3.5-5.1)
[2022-05-15] MEDS: CLINDAMYCIN 900MG/D5W 900 MG/50 ML IVPB IV SCH ×2 (08:39→22:01)
[2022-05-15] MEDS: carvediloL 6.25 MG TAB PO SCH ×2 (09:08→22:01)
[2022-05-15] MEDS: ALBUMIN HUMAN 25% 12.5 GM, FUROSEMIDE 100 MG in NA CHLORIDE 0.9% 40 ML IV SCH ×2 (09:10→18:43)
[2022-05-15] MEDS: MUPIROCIN 2% OINT 22GM TUBE TOP SCH ×2 (10:09→22:01)
[2022-05-15 10:56] LABS: Urine Protein/Creatinine Ratio 6.6 ratio (<0.15)
--- NOTE | 2022-05-15 12:41 | P.PN ---
Subjective Date of Service: 05/15/22 Subjective feels better GooD UO daily Wt cont lasix drip Physical exam General: AAOx3, NAD, HEENT PERRLA, moist mucose membrane neck: supple, no elevated JVD CHEST; rales HEART : RRR. Normal S1,2 no murmur or rub Abd: distended Nt Ext: wrapped, +1 edema Skin : No rash A/P #Acute kidney injury 2/2 CRS1. Renal US unremarkable. Nephrotic protein uria F/u urine studies. On lasix gtt. [place] po fluid intake. Monitor renal panel. # Hypertension. Cont Coreg 6.25 mg po bid + Amlodipine 5 mg po bid. low salt diet #Nephrotic syndrome F/U serology W/U # Anasarca, acute on chronic systolic HF. Cont lasix gtt. #Coronary artery disease, status post coronary artery bypass graft, chronic systolic HF. Cont cardioprudent meds. #Wound infection in lower extremity. Per primary team. Total time spent 45 minutes including documentation, reviewing labs , placing orders and discussing with medical team Physical Examination - Vital Signs Temperature: 97.8 F Blood Pressure: 148/64 Pulse: 67 Respirations: 16 Pulse Ox (%): 91
[2022-05-15 13:15] LABS: Specific Gravity 1.009 (1.005-1.030); Urine Bilirubin NEGATIVE (Negative); Urine Blood Trace (Negative); Urine Clarity Clear (Clear); Urine Color Light-Yellow (Yellow); Urine Crystals Unidentified Few /HPF (None Seen); Urine Glucose NEGATIVE (Negative); Urine Mucus Slight /HPF (None Seen); Urine Protein 2+ (Negative); Urine RBC <5 /HPF (None Seen); Urine Urobilinogen Normal (Normal); Urine WBC Clump Rare /HPF (None Seen); Urine pH 5.5 (5.0-7.0)
[2022-05-15] MEDS: AMLODIPINE 5 MG TAB PO SCH (13:55)
--- NOTE | 2022-05-15 17:48 | PN ---
Date of Progress Note: 05/15/2022 The patient seems to show some improvement both clinically and symptomatically today. He can bend hi s legs, especially at the knee joint, much better due to decreased edema. The wound shows some heali ng, awaiting the culture report. The patient has lost another 4 pounds with a total of 11; however, he still has some fluid leakage from various places and also has some slight ascites as well and he h as not noticed any change in his breathing. I feel this is probably secondary to COPD. We will also consult the Cardiology. We will continue with the above-outlined regimen for another day or 2 and t hen make a determination for disposition. HR/MODL Voice ID: [id number] Report ID: [id number]
[2022-05-15 21:16] LABS: Rheumatoid Factor NEG (NEG)
[2022-05-16] MEDS: ALBUMIN HUMAN 25% 12.5 GM, FUROSEMIDE 100 MG in NA CHLORIDE 0.9% 40 ML IV SCH (04:13)
[2022-05-16 06:16] LABS: Albumin 2.7 g/dL (3.4-5.0); Magnesium 2.2 mg/dL (1.8-2.4); Phosphorus 4.7 mg/dL (2.5-4.9); Potassium 4.2 mmol/L (3.5-5.1)
[2022-05-16] MEDS: carvediloL 6.25 MG TAB PO SCH ×2 (08:11→22:17)
[2022-05-16] MEDS: AMLODIPINE 5 MG TAB PO SCH (08:11)
[2022-05-16] MEDS: MUPIROCIN 2% OINT 22GM TUBE TOP SCH ×2 (09:32→22:16)
[2022-05-16] MEDS: CLINDAMYCIN 900MG/D5W 900 MG/50 ML IVPB IV SCH ×2 (09:32→22:17)
--- NOTE | 2022-05-16 11:45 | P.PN ---
Subjective Date of Service: 05/16/22 Subjective feels better Cr up to 2.0 will switch lasix drip to IVP Physical exam General: AAOx3, NAD, HEENT PERRLA, moist mucose membrane neck: supple, no elevated JVD CHEST; rales HEART : RRR. Normal S1,2 no murmur or rub Abd: soft Nt Ext: wrapped, +1 edema Skin : No rash A/P #Acute kidney injury 2/2 CRS1. Renal US unremarkable. Nephrotic protein uria F/u urine studies. Monitor renal panel. # Hypertension. Cont Coreg 6.25 mg po bid + Amlodipine 5 mg po bid. low salt diet #Nephrotic syndrome F/U serology W/U # Anasarca, acute on chronic systolic HF. will switch lasix drip to IVP #Coronary artery disease, status post coronary artery bypass graft, chronic systolic HF. s #Wound infection in lower extremity. Wopund care Per primary team. Total time spent 45 minutes including documentation, reviewing labs , placing orders and discussing with medical team Physical Examination - Vital Signs Temperature: 97.4 F Blood Pressure: 161/75 Pulse: 69 Respirations: 18 Pulse Ox (%): 97
[2022-05-16 15:09] VITALS: BMI 27.1
[2022-05-16] MEDS: FUROSEMIDE 40 MG/4 ML VIAL IV SCH (22:17)
[2022-05-17 06:07] LABS: Albumin 2.4 g/dL (3.4-5.0); Magnesium 2.2 mg/dL (1.8-2.4); Phosphorus 4.6 mg/dL (2.5-4.9); Potassium 4.2 mmol/L (3.5-5.1)
[2022-05-17] MEDS: NA CHLORIDE 0.9% IV SCH ×2 (09:09→21:10)
[2022-05-17] MEDS: MUPIROCIN 2% OINT 22GM TUBE TOP SCH ×2 (09:09→21:00)
[2022-05-17] MEDS: CLINDAMYCIN IV SCH ×2 (09:09→21:10)
[2022-05-17] MEDS: carvediloL 6.25 MG TAB PO SCH ×2 (09:09→21:11)
[2022-05-17] MEDS: AMLODIPINE 5 MG TAB PO SCH (09:10)
[2022-05-17] MEDS: FUROSEMIDE 40 MG/4 ML VIAL IV SCH ×2 (09:10→21:11)
[2022-05-17 13:27] LABS: Hepatitis C Virus RNA (PCR)log <1.18 log IU/mL
--- NOTE | 2022-05-17 16:36 | CON ---
Date of Consultation: 05/16/2022 Reason For Consultation: Elevated troponin, congestive heart failure, and anasarca. History Of Present Illness: Mr. Powers is 81, known to have systolic congestive heart failure with m oderate aortic stenosis, ejection fraction 25% as of April 2022. Came in with congestive heart fa ilure, PND, orthopnea, pedal edema, and anasarca. Denied any palpitation or syncope. Denied fever o r chills. Past Medical History: Includes diabetes, dyslipidemia, CHF, neuropathy, coronary artery disease, aor tic stenosis and dyslipidemia. Allergies: NONE. Review of Systems: Negative. Social History: Negative. Family History: Negative. Physical Examination: General: He appeared to be in mild respiratory distress. Vital Signs: He was in sinus rhythm. HEENT: Negative. Neck: Supple with no bruit, lymphadenopathy, JVD, or thyromegaly. Chest: Reveals rales both bases. Cardiac: Revealed an aortic stenosis murmur, otherwise was regular rhythm and rate. No gallops or r ubs. Abdomen: Benign. Extremities: Revealed 2+ edema. Diagnostic Data: EKG which showed LVH. Creatinine is 2.8. Troponin is elevated. The ejection frac tion 25%, moderate aortic stenosis. Impression And Plan: 1.Acute on chronic systolic congestive heart failure. 2.Renal insufficiency. 3.Elevated troponin secondary to demand ischemia. 4.Moderate aortic stenosis. 5.Diabetes. 6.Dyslipidemia. 7.Neuropathy. 8.Coronary artery disease. Mr. Powers is presently is on Norvasc, Coreg. He is receiving albumin a nd Lasix drip. He is receiving antibiotics. He is not a candidate for GUSTAVO inhibitor or Entresto. I agree with his present regimen. No need for any cardiac intervention at this point. If he eventual ly stabilizes and his creatinine improves, we will consider a catheterization. We will continue to f ollow his aortic stenosis. He may be a candidate for TAVR down the road. Another discussion with sunil pozo should be about a defibrillator, pacemaker and biventricular pacemaker. We will discuss that with him as an outpatient. JANESSA/MUSTAPHA Voice ID: [id number] Report ID: [id number]
--- NOTE | 2022-05-17 16:36 | PN ---
Date of Progress Note: 05/17/2022 Mr. Powers is 81, came in with anasarca, known ejection fraction of 25%, moderate aortic stenosis, ch ronic renal disease stage IV, diabetes, dyslipidemia, neuropathy. He is on Norvasc, Coreg, albumin, Lasix drip, antibiotics. He has improved dramatically. His breathing is improved. He has no rales on his chest examination. Continues to have aortic stenosis by physical examination. Moderate pedal edema. I would continue diuresis and then continue Norvasc, Coreg, antibiotics, Lasix. He is not a candidate for Entresto and maybe a candidate down the road for a biventricular pacemaker defibrillat or, but we will have to do a catheterization later. We will discuss that with him as an outpatient. We will continue to follow otherwise, meanwhile. JANESSA/MUSTAPHA Voice ID: [id number] Report ID: [id number]
[2022-05-17 17:58] LABS: Albumin, (SPE) 2.5 g/dL (3.8-4.8); Alpha-1-Globulins 0.4 g/dL (0.2-0.3); Alpha-2-Globulins 0.8 g/dL (0.5-0.9); Gamma Globulins 1.2 g/dL (0.8-1.7); INTERPRETATION REPORT
--- NOTE | 2022-05-17 22:21 | PN ---
Date of Progress Note: 05/17/2022 Chief Complaint: Cnwiy-[id number] kidney injury, respiratory failure, and hypoxemic with congestive heart failure exacerbation. Subjective: Patient has nonoliguric urine output. Patient has cardiorenal syndrome. Renal ultrasou nd was unremarkable. There is no obstructive uropathy, although creatinine has improved and the mckenna l function has worsened over the last several days. The patient has nonoliguric urine output and he denies lower urinary tract symptoms. Review of Systems: Denies fever or chills. Denies PND or orthopnea. Physical Examination: Lungs: Clear to auscultation bilaterally. Heart: S1, S2. Abdomen: Soft. Extremities: 1+ edema. Impression And Plan: 1.Bajyj-dv-xitkiwc kidney injury secondary to cardiorenal syndrome. Patient does not have obstructi ve uropathy. Continue to monitor fluid balance. Adjust treatment with diuretics. 2.Anasarca secondary to chronic systolic congestive heart failure with exacerbation. Patient will c ontinue Lasix drip and Lasix drip was changed to IVP. 3.Coronary artery disease status post bypass and chronic systolic congestive heart failure with flui d overload. Continue diuretics. Monitor magnesium and potassium level. 4.Hypertension. Continue Coreg and amlodipine. Patient may be a candidate for angiotensin receptor arturo when potassium level is stable. GLENDA/MUSTAPHA Voice ID: [id number] Report ID: [id number]
--- NOTE | 2022-05-18 00:12 | PN ---
Date of Progress Note: 05/17/2022 The patient states he feels somewhat better today. He is continuing to lose weight although at lesse r rate. Decreased amount of fluid retention that is obvious in his extremities and abdomen, although there is some leakage from time to time. Mobilization has improved somewhat. He is still quite wea k and his creatinine has gone up from the IV Lasix doses. Seen by Cardiology and Nephrolo gy. Possible discharge in the a.m. depending on his blood work and his mobility. The wounds also johns ve improved somewhat. We will continue with the above-outlined regimen for that and as is mentioned evaluate in the morning. HR/MODL Voice ID: [id number] Report ID: [id number]
[2022-05-18 04:50] LABS: Absolute Lymphocytes (CBC) 1.1 K/uL (0.7-4.9); Hematocrit 30.5 % (39.6-49.0); Lymphocytes % 22.3 % (15.3-44.8); MCV 95.3 fL (80-100); MPV 8.3 fL (7.6-11.3)
[2022-05-18 05:12] LABS: Albumin 2.4 g/dL (3.4-5.0); Magnesium 2.3 mg/dL (1.8-2.4); Phosphorus 4.7 mg/dL (2.5-4.9); Potassium 4.1 mmol/L (3.5-5.1)
[2022-05-18] MEDS: FUROSEMIDE 40 MG/4 ML VIAL IV SCH (09:38)
[2022-05-18] MEDS: CLINDAMYCIN IV SCH (09:38)
[2022-05-18] MEDS: NA CHLORIDE 0.9% IV SCH (09:38)
[2022-05-18] MEDS: carvediloL 6.25 MG TAB PO SCH (09:39)
[2022-05-18] MEDS: AMLODIPINE 5 MG TAB PO SCH (09:39)
[2022-05-18] MEDS: MUPIROCIN 2% OINT 22GM TUBE TOP SCH (09:41)
[2022-05-18] MEDS ORDERED: SOD FERRIC GLUC COMPLX/SUCROSE 250 MG in NA CHLORIDE 0.9% 250 ML IV SCH (12:00)
[2022-05-18 12:19] VITALS: BP 120/57; TEMP 97.5
[2022-05-18 13:30] VITALS: O2SAT 96
--- NOTE | 2022-05-18 15:28 | PN ---
Date of Progress Note: 05/18/2022 The patient continues to show slow but steady improvement. He has lost over 12 pounds, mobilized, fe els considerably better. The wounds are healing slowly. He is to continue on the antibiotic cream w hich is administered at home and by home health and will be seen in the [facility] tomorrow. Medic ation has been changed somewhat with the metformin being discontinued; as his Lasix has increased his creatinine, the Lasix was changed, he was taking 60 mg at home, 80 mg twice a day here, his creatini ne now hovers around 2, we will cut back to 80 mg once a day till he is evaluated tomorrow; Norvasc 5 mg was added and Coreg was used in place of metoprolol 6.25 mg twice a day. He is to follow up with Renal and Cardiology next week and me in the [facility] tomorrow. HR/MODL Voice ID: [id number] Report ID: [id number]
--- NOTE | 2022-05-18 16:19 | PN ---
Date of Progress Note: 05/18/2022 Subjective: Patient was admitted with over volume, anasarca secondary to cardiorenal syndrome. Kalee ent was started on IV Lasix drip. Patient responded very well. Workup showed nephrotic range of pro teinuria with normal size kidney, obstructive uropathy has been ruled out. Patient is switched to La six bolus, has been responding very well. Unfortunately, weight did not change significantly, but oracio san is feeling much better and swelling has been subsided significantly. Physical Examination: Vital Signs: Blood pressure 157/95, pulse of 64, afebrile. Chest: Decreased entry bilateral base with crackles at both bases, more prominent on the left side. Heart: S1, S2. Systolic murmur. Abdomen: Soft, nontender. Extremities: +1 edema. Neurological: Alert and oriented x3. No focal. Laboratory Data: Hemoglobin 10. Sodium 139, potassium 4.1 bicarb 35, BUN 60, creatinine 1.9, calciu m 8.2. Phosphorus 4.7, magnesium 2.3. Albumin 2.4. Serum protein electrophoresis with no M spike. PTH 180. TSH 6.7. PC ratio 6.6. Serology was negative. Still pending only the hepatitis B. Current Medications: Include amlodipine 5 mg daily, carvedilol 6.25 b.i.d., clindamycin, Lasix 80 mg b.i.d. IV Zofran, mupirocin. 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 Autoimmune disease has been ruled out. Admitted with over volume. 1.I am going to go ahead and switch given the hypoalbuminemia and the nephrotic range of proteinuria . I will switch the patient back to his Bumex as 2 mg b.i.d. and I will add ARB given the congestive heart failure and given the nephrotic range proteinuria. We will continue to monitor the patient. 2.Hypertension, not controlled with the presence of anasarca, congestive heart failure ejection frac tion 25 to 30. 3.Discontinue calcium channel arturo and start the patient on Entresto for GUSTAVO inhibitor, ARB, and for cardiac remodeling and for the nephrotic range of proteinuria, we will follow up the patient. 4.Anasarca secondary to cardiorenal superimposed with calcium channel arturo as above. Discontinue amlodipine. Start Entresto. Switch to Bumex and advice the patient for fluid restriction and low-s alt diet. 5.With the presence of marginal elevation in TSH, I am going to start the patient on low dose of lev othyroxine. 6.Congestive heart failure with exacerbation as above. Patient is cleared from the renal standpoint for discharge. To follow up in the office in 2-3 weeks, and we will follow up. We will communicate to Dr. Santiago with this plan. 7.Iron deficiency anemia. We will start the Patient on IV iron. The patient is going to need setup as outpatient. BHAVANI Voice ID: [id number] Report ID: [id number]
[2022-05-18] MEDS ORDERED: BUMETANIDE 1 MG TABLET PO SCH (21:00)
[2022-05-18] MEDS ORDERED: SACUBITRIL/VALSARTAN 24/26 MG TAB PO SCH (21:00)
[2022-05-19] MEDS ORDERED: LEVOTHYROXINE SOD 0.025 MG TAB PO SCH (06:30)
[2022-05-20 04:07] LABS: HBsAG Nonreactive (Nonreactive)
--- NOTE | 2022-05-25 14:28 | PN ---
Date of Progress Note: 05/18/2022 Mr. Powers was admitted with anasarca, has been followed by Dr. Santiago as well as Nephrology. He johns s a known ejection fraction of 25% with moderate aortic stenosis. He has acute on chronic systolic c ongestive heart failure, renal insufficiency, elevated troponin secondary to demand ischemia, moderat e aortic stenosis, diabetes, dyslipidemia, neuropathy, and coronary artery disease. He was receiving albumin and Lasix drip, and he is diuresing well. He was receiving antibiotics. He is not a candid ate for GUSTAVO inhibitors or Entresto. If his creatinine does improve down the road, we should really c onsider heart catheterization and a possibility of the TAVR. We should also consider a biventricular pacemaker and defibrillator with him, but I can do that as an outpatient. JANESSA/MUSTAPHA Voice ID: [id number] Report ID: [id number]
== END 2022-05-18 15:16 | disposition home health service (06) | DRG 291 ==
LOC: ER 13:24 → ERHOLD 14:37 → 2ND 20:22 → OBSVTOIN 05-14 10:37
PROVIDERS: ADMIT Family Medicine; ATTEND Family Medicine
DX: I13.0 Hypertensive heart and chronic kidney disease with heart failure and stage 1 through stage 4 chronic kidney disease, or unspecified chronic kidney disease (principal); I50.23 Acute on chronic systolic (congestive) heart failure; N17.9 Acute kidney failure, unspecified; R18.8 Other ascites; I24.8 Other forms of acute ischemic heart disease; N18.32 Chronic kidney disease, stage 3b; E11.22 Type 2 diabetes mellitus with diabetic chronic kidney disease; E11.21 Type 2 diabetes mellitus with diabetic nephropathy; E11.40 Type 2 diabetes mellitus with diabetic neuropathy, unspecified; D50.9 Iron deficiency anemia, unspecified; E78.5 Hyperlipidemia, unspecified; I35.0 Nonrheumatic aortic (valve) stenosis; N28.9 Disorder of kidney and ureter, unspecified; I25.10 Atherosclerotic heart disease of native coronary artery without angina pectoris; E88.09 Other disorders of plasma-protein metabolism, not elsewhere classified; F17.210 Nicotine dependence, cigarettes, uncomplicated; Z95.1 Presence of aortocoronary bypass graft; Z79.84 Long term (current) use of oral hypoglycemic drugs; Z90.49 Acquired absence of other specified parts of digestive tract; Z79.02 Long term (current) use of antithrombotics/antiplatelets; Z79.890 Hormone replacement therapy; Z79.899 Other long term (current) drug therapy; Z20.822 Contact with and (suspected) exposure to COVID-19
CPT/HCPCS: 11042; 36415; 71045; 76770; 80048; 80069; 80076; 81001; 82550; 82570; 82607; 82728; 82746; 82947; 83520; 83540; 83735; 83880; 83935; 83970; 84132; 84156; 84165; 84300; 84439; 84443; 84466; 84484; 84550; 85025; 85044; 85610; 86021; 86038; 86160; 86317; 86430; 86706; 87070; 87075; 87205; 87340; 87522; 87811; 93005; 97116; 97161; 97530; 99285; G0378; J1940; J2916; J7050; P9047